=== PATIENT | male | born 1975 | race Caucasian/White ===

== ENCOUNTER 2020-02-07 13:25 | Outpatient (REF) | payer MEDICARE, MEDICAID, SELFPAY ==
--- NOTE | 2020-02-07 | XR_ITS ---
EXAMINATION: XR HAND, LEFT CLINICAL INFORMATION: Left hand pain, tenderness inner thumb area. COMPARISON: Radiographs left wrist 11/06/2009. TECHNIQUE: PA, lateral, and oblique views of the left hand. FINDINGS: There is no acute or healing fracture, dislocation, destructive process. Bony mineralization is normal. The carpus and MCP joints show no narrowing or erosive changes. There is some borderline narrowing fifth finger DIP joint. No visible soft tissue abnormality on plain film. IMPRESSION: Unremarkable left hand.
== END 2020-02-07 13:26 | disposition home or self-care (01) ==
LOC: HO.HMGCX 13:25
PROVIDERS: PCP Internal Medicine; Visit Provider Internal Medicine
DX: M67.442 Ganglion, left hand (principal)
CPT/HCPCS: 73130

== ENCOUNTER → 2020-02-28 10:16 | Outpatient (BNVA) | payer MEDICARE, MEDICAID, SELFPAY | PROVIDERS: PCP Internal Medicine; Visit Provider Physician Assistant | DX: M65.312 Trigger thumb, left thumb (principal); E11.9 Type 2 diabetes mellitus without complications; Z79.4 Long term (current) use of insulin | CPT/HCPCS: 20550; 20600; 99212; J1020 ==

== ENCOUNTER → 2020-04-02 07:45 | Outpatient (BNVA) | payer MEDICARE, MEDICAID, SELFPAY | PROVIDERS: PCP Internal Medicine; Visit Provider Surgery | DX: E66.01 Morbid (severe) obesity due to excess calories (principal) | CPT/HCPCS: Q3014 ==

== ENCOUNTER → 2020-04-08 14:08 | Outpatient (BNVA) | payer MEDICARE, MEDICAID, SELFPAY | PROVIDERS: PCP Internal Medicine; Visit Provider Physician Assistant | DX: Z76.89 Persons encountering health services in other specified circumstances (principal) ==

== ENCOUNTER → 2020-04-30 08:20 | Outpatient (BNVA) | payer MEDICARE, MEDICAID, SELFPAY | PROVIDERS: PCP Internal Medicine; Visit Provider Surgery | DX: E66.01 Morbid (severe) obesity due to excess calories (principal) | CPT/HCPCS: Q3014 ==

== ENCOUNTER → 2020-05-28 08:15 | Outpatient (BNVA) | payer MEDICARE, MEDICAID, SELFPAY | PROVIDERS: PCP Internal Medicine; Visit Provider Surgery ==

== ENCOUNTER → 2020-10-06 09:28 | Outpatient (BNVA) | payer MEDICARE, MEDICAID, SELFPAY | PROVIDERS: PCP Internal Medicine; Referring Provider Internal Medicine; Visit Provider Physician Assistant ==

== ENCOUNTER → 2020-10-13 11:07 | Outpatient (BNVA) | payer MEDICARE, MEDICAID, SELFPAY | PROVIDERS: PCP Internal Medicine; Referring Provider Internal Medicine; Visit Provider Physician Assistant ==

== ENCOUNTER → 2020-10-20 09:24 | Outpatient (BNVA) | payer MEDICARE, MEDICAID, SELFPAY | PROVIDERS: PCP Internal Medicine; Visit Provider Physician Assistant ==

== ENCOUNTER → 2020-10-31 09:00 | Outpatient (BNVA) | payer MEDICARE, MEDICAID, SELFPAY | PROVIDERS: PCP Internal Medicine; Visit Provider Physician Assistant ==

== ENCOUNTER 2021-01-25 01:01 | Emergency (ER) | payer MEDICARE, MEDICAID, SELFPAY ==
--- NOTE | ~2021-01-25 | XR_ITS ---
EXAMINATION: XR HAND, LEFT CLINICAL INFORMATION: Pain. COMPARISON: 02/07/2020 TECHNIQUE: 3 views of the left hand FINDINGS: No fracture or dislocation. Alignment is anatomic. Carpal rows are well aligned. Joint spaces are maintained. Soft tissues are unremarkable. XR/XR hand wrist LT IMPRESSION: Unremarkable appearance of the left hand.
[2021-01-25 01:15] VITALS: BP 130/60; BP 140/90; PULSE 110; PULSE 84; RESP 18; TEMP 37.1; O2SAT 95; O2SAT 96; BMI 71.1
--- NOTE | 2021-01-25 01:24 | ECG_ITS ---
Test Reason : SYNCOPE Blood Pressure : / mmHG Vent. Rate : 089 BPM Atrial Rate : 058 BPM P-R Int : 000 ms QRS Dur : 084 ms QT Int : 380 ms P-R-T Axes : 000 013 041 degrees QTc Int : 462 ms Atrial fibrillation Low voltage QRS Cannot rule out Inferior infarct (cited on or before 18-JUN-2019) Cannot rule out Anterior infarct (cited on or before 18-JUN-2019) Abnormal ECG When compared with ECG of 22-SEP-2019 18:42, Vent. rate has decreased Referred By: Mavis Merrill Electronically Signed By:ANIVAL PEPPER
--- NOTE | 2021-01-25 01:48 | ED_ITS ---
HPI - Syncope General Chief Complaint: Syncope Stated Complaint: syncopal episode Time Seen by Provider: 01/25/21 01:24 Source: patient Mode of arrival: EMS History of Present Illness HPI narrative: 45-year-old male who presents with history of diabetes/morbid obesity/atrial fibrillation who presents via EMS after he states that for the pa st couple of days he has had multiple episodes of diarrhea as well as nausea and some vomiting. He states his last vomiting episode was approximately 11 30 this morning and he was able to tolerate some soup at approximately 4:00 p.m.. He says that he was watching football game with his father and then ?the next thing he knew he was in the kitchen on the floor . He states he had a fever that was measured 102 yesterday but denies any fevers today and denies any sore throat, cough, increase shortness of breath, chest pain/palpitations, urinary pain/burning/frequency. Patient states that he has lost weight and it has decreased from 625 to 550 which has negated typical diabetic medications. Patient is not on anticoagulation secondary to his epilepsy. Patient has received both COVID-19 vaccines. Related Data Home Medications Medication Instructions Recorded Confirmed aspirin 81 mg tablet,delayed 81 mg PO DAILY 02/28/20 release (Adult Low Dose Aspirin) insulin aspart U-100 100 unit/mL 5 unit SUBCUT TID 02/28/20 (3 mL) subcutaneous pen (Novolog Flexpen U-100 Insulin aspart) insulin glargine 100 unit/mL 10 unit SUBCUT QPM 02/28/20 subcutaneous solution (Lantus U-100 Insulin) phenytoin sodium extended 100 mg 100 mg PO BID 02/28/20 capsule Previous Rx's Medication Instructions Recorded arm brace (Wrist Brace) #1 ea 02/28/20 Allergies Allergy/AdvReac Type Severity Reaction Status Date / Time codeine [Codeine] Allergy Unknown RASH, hives Unverified 01/25/21 02:46 ibuprofen [From Motrin] Allergy Unknown HIVES Unverified 04/02/20 08:55 Motrin Allergy Unknown hives Uncoded 01/25/21 02:46 Review of Systems Review of Systems: Pertinent positives and negatives as stated in HPI 10 point review of systems is otherwise negative. [facility] Past Medical History Source: nursing notes reviewed Medical History A-fib Aftercare following bilateral ankle joint replacement surgery Diabetes NORIS (obstructive sleep apnea) Right hand dominant Seizure disorder Family History Family History Paternal Grandmother Myocardial infarction Maternal Grandfather Myocardial infarction Brother No problems noted. Sister No problems noted. Sister No problems noted. Social History Social History Alcohol intake: never Patient Tobacco Use Status: Never used Tobacco Use of substances other than those prescribed or required for medical reasons: No Advance Directives: No Current occupational status: employed and disabled Physical Exam Vital Signs: Vital Signs: Last Vital Signs Temp 98.7 F 01/25/21 01:15 Pulse 84 01/25/21 01:15 Resp 18 01/25/21 01:15 BP 140/90 H 01/25/21 01:15 Pulse Ox 95 01/25/21 01:15 Body Mass Index 71.1 VITAL SIGNS: Reviewed. GENERAL: Well developed, well nourished, in no acute distress. HEAD: Normocephalic/atraumatic EYES: PERRLA, EOMI OROPHARYNX: no oral lesions noted, posterior pharynx clear NECK: Supple, no adenopathy LUNGS: Normal breath sounds. No adventitious sounds or accessory muscle use, no tachypnea SpO2<95> CARDIOVASCULAR: Regular rate and rhythm without noted murmurs, no JVD or lower extremity edema. ABDOMEN: Obese, exam limited by body habitus, Soft, non-tender, non-distended with bowel sounds. MUSCULOSKELETAL: No tenderness, deformities, or effusions noted on gross inspection. EXTREMITIES: No cyanosis, clubbing or edema. SKIN: Inspection of the skin reveals no rashes, ulcerations, jaundice, pallor, or petechiae. NEUROLOGIC: Alert and oriented x 4. Strength and sensation to light touch were grossly intact x 4. Course Course Course Narrative: 45-year-old male with history and clinical presentation most consistent with syncopal episode secondary to dehydration given 2 days of fever, nausea, vomiting, diarrhea. However, will evaluate for anemia, arrhythmia and competing etiologies of infection. Review of all investigations otherwise negative for evidence of infection, anemia, arrhythmia. And on re-evaluation patient reports feeling a lot better after receiving IV fluid resuscitation. At this time it is felt that the syncopal episode was secondary to volume depletion due to suspected viral infection. MDM - Syncope Lab Data Result diagrams: 01/25/21 01:58 01/25/21 01:58 Labs: Lab Results 01/25/21 01/25/21 01/25/21 Range/Units 01:58 01:58 01:58 WBC 8.3 (4.8-10.8) X10*3/uL RBC 5.04 (4.60-5.80) X10*6/uL Hgb 14.6 (14.0-18.0) g/dl Hct 45.4 (42-52) % MCV 90.1 (80-98) fL MCH 29.0 (27.0-33.0) pg MCHC 32.2 (31.0-36.0) g/dl RDW 14.3 (11.0-16.0) % Plt Count 135 L (160-400) X10*3/uL MPV 11.5 (9.4-12.4) fL Immature Gran % (Auto) 1.7 H (0.0-0.4) % Neut % (Auto) 60.0 (45-73) % Lymph % (Auto) 24.7 (20-40) % [place] % (Auto) 10.2 (2-11) % Eos % (Auto) 2.9 (0-4) % Baso % (Auto) 0.5 (0-2) % Lymph # (Auto) 2.0 (1.2-4.9) X10*3/uL [place] # (Auto) 0.8 (0.1-1.2) X10*3/uL Eos # (Auto) 0.2 (0.0-0.4) X10*3/uL Baso # (Auto) 0.0 (0.0-0.2) X10*3/uL Abs Immat Gran (auto) 0.14 H (0.00-0.03) X10*3/uL Absolute Neuts (auto) 5.0 (2.0-8.3) X10*3/uL Absolute Nucleated RBC 0.000 (0.0-0.012) X10*3/uL Nucleated RBC % (auto) 0.0 (0.0-0.2) /100WBC PT 11.1 (9.9-13.0) SEC INR 1.0 (0.9-1.1) Sodium 141 (135-145) mmol/L Potassium 4.6 (3.3-5.1) mmol/L Chloride 102 (96-108) mmol/L Carbon Dioxide 33 H (22-29) mmol/L Anion Gap 11 L (12-20) BUN 17 H (9-16) mg/dL Creatinine 0.89 (0.5-1.4) mg/dL Estim Creat Clear Calc 210.2 Estimated GFR > 60 Random Glucose 197 H (60-115) mg/dL Calcium 9.1 (8.4-10.2) mg/dL Total Bilirubin < 0.2 (0.0-1.0) mg/dL AST 35 (5-37) U/L ALT 33 (0-40) U/L Alkaline Phosphatase 188 H (39-117) U/L Total Protein 7.0 (6.5-8.0) g/dL Albumin 3.9 (3.5-5.0) g/dL ECG Data Attestation: I personally reviewed and interpreted this ECG as follows: Prior ECG tracings: available for review (09/22/2019 no acute changes on co mparison) Interpretation: Atrial fibrillation, HR-89, no STEMI, QRS/QTC are within normal limits. Discharge Plan Discharge Clinical Impression: Syncope, Dehydration, Viral illness Patient Disposition: Home, Self-Care Instructions: Syncope (ED), Dehydration (ED), Viral Syndrome (ED) Additional Instructions: 1. Resume all home medications as prescribed. 2. Continue to increase fluid hydration especially with water. 3. Please follow up with the primary care provider on Tuesday morning for re- evaluation further outpatient management. Return to the ER for acute worsening of symptoms. Prescriptions: No Action aspirin [Adult Low Dose Aspirin] 81 mg tablet,delayed release (DR/EC) 81 mg PO DAILY RF: 0 Lantus U-100 Insulin 100 unit/mL solution 10 unit subcut QPM RF: 0 insulin aspart U-100 [Novolog Flexpen U-100 Insulin] 100 unit/mL (3 mL) insulin pen 5 unit subcut TID RF: 0 phenytoin sodium extended 100 mg capsule 100 mg PO BID RF: 0 (DME) Wrist Brace Misc See Rx Instructions .MEDSUPPLY Qty: 1 RF: 0 Referrals: Gt Menendez MD [Primary Care Provider] - 2 days
[2021-01-25 02:04] LABS: Eosinophils Absolute Auto 0.2 X10*3/uL (0.0-0.4); Imm Gran Abs Auto 0.14 X10*3/uL (0.00-0.03); Imm Gran Pct Auto 1.7 % (0.0-0.4); PLT CLUMP 1; SCAN SMEAR FLAG 1
[2021-01-25 02:06] LABS: Basophils Percent Auto 0.5 % (0-2); Eosinophils Percent Auto 2.9 % (0-4); Hematocrit 45.4 % (42-52); Hemoglobin 14.6 g/dl (14.0-18.0); Lymphocytes Percent Auto 24.7 % (20-40); Mean Corpuscular HGB Conc 32.2 g/dl (31.0-36.0); Mean Corpuscular Volume 90.1 fL (80-98); Mean Platelet Volume 11.5 fL (9.4-12.4); Monocytes Absolute Auto 0.8 X10*3/uL (0.1-1.2); Monocytes Percent Auto 10.2 % (2-11); Platelet Count 135 X10*3/uL (160-400); Red Blood Count 5.04 X10*6/uL (4.60-5.80); Red Cell Distribution Width 14.3 % (11.0-16.0); White Blood Count 8.3 X10*3/uL (4.8-10.8)
[2021-01-25 02:09] LABS: MANUAL DIFF FLAG NO
[2021-01-25 02:12] LABS: Prothrombin Time 11.1 SEC (9.9-13.0)
[2021-01-25 02:26] LABS: Alanine Aminotransferase 33 U/L (0-40); Albumin Level 3.9 g/dL (3.5-5.0); Alkaline Phosphatase 188 U/L (39-117); Anion Gap 11 (12-20); Aspartate Amino Transferase 35 U/L (5-37); Bilirubin Total < 0.2 mg/dL (0.0-1.0); Blood Urea Nitrogen 17 mg/dL (9-16); Calcium 9.1 mg/dL (8.4-10.2); Carbon Dioxide 33 mmol/L (22-29); Chloride 102 mmol/L (96-108); Creatinine Clr Calc Pharmacy 210.2; Estimated Glomerular Filt Rate > 60; Glucose Random 197 mg/dL (60-115); Potassium 4.6 mmol/L (3.3-5.1); Sodium 141 mmol/L (135-145)
[2021-01-25] MEDS: 0.9 % Sodium Chloride 2,000 ML 999 ML IV (02:49)
[2021-01-25 04:27] LABS: Appearance Urine CLEAR; Color Urine YELLOW; Glucose Urine UA NEG (NEG); Leukocyte Esterase Urine NEG (NEG); Nitrite Urine NEG (NEG); Specific Gravity - Urine 1.025 (1.005-1.025); Urine Blood NEG (NEG); Urine Ketones NEG (NEG); Urine Protein NEG (NEG-TRACE)
== END 2021-01-25 05:52 | disposition home or self-care (01) ==
PROVIDERS: Emergency Provider Student in an Organized Health Care Education/Training Program; PCP Internal Medicine
DX: B34.9 Viral infection, unspecified (principal); R55 Syncope and collapse; M25.532 Pain in left wrist; E86.0 Dehydration; Z20.822 Contact with and (suspected) exposure to COVID-19; Z79.899 Other long term (current) drug therapy
CPT/HCPCS: 36415; 73110; 73130; 80053; 81003; 85025; 85610; 93005; 96360; 96361; 99284

== ENCOUNTER → 2021-02-23 11:05 | Outpatient (BNVA) | payer MEDICARE, MEDICAID, SELFPAY | PROVIDERS: PCP Internal Medicine; Referring Provider Internal Medicine; Visit Provider Internal Medicine | DX: I48.19 Other persistent atrial fibrillation (principal); E66.01 Morbid (severe) obesity due to excess calories | CPT/HCPCS: 99202 ==

== ENCOUNTER → 2021-03-05 12:54 | Outpatient (BNVA) | payer MEDICARE, MEDICAID, SELFPAY | PROVIDERS: PCP Internal Medicine; Visit Provider Physician Assistant Surgical | DX: E66.01 Morbid (severe) obesity due to excess calories (principal); Z68.45 Body mass index [BMI] 70 or greater, adult | CPT/HCPCS: 99212 ==

== ENCOUNTER → 2021-03-13 10:46 | Outpatient (BNVA) | payer MEDICARE, MEDICAID, SELFPAY | PROVIDERS: PCP Internal Medicine; Referring Provider Internal Medicine; Visit Provider Physician Assistant Surgical ==

== ENCOUNTER 2021-03-22 16:03 | Inpatient (IN) | payer MEDICARE, MEDICAID, SELFPAY ==
[2021-03-22] VITALS (7 sets, daily range): BP systolic 120–137; BP diastolic 76–97; PULSE 75–110; RESP 16–20; TEMP 36.9–37.1; O2SAT 85–93; BMI 74.3; BMI 78.4
--- NOTE | 2021-03-22 | ECG_ITS ---
Test Reason : CHEST PAIN Blood Pressure : / mmHG Vent. Rate : 102 BPM Atrial Rate : 000 BPM P-R Int : 000 ms QRS Dur : 078 ms QT Int : 354 ms P-R-T Axes : 000 007 035 degrees QTc Int : 461 ms Atrial fibrillation with rapid ventricular response Low voltage QRS Cannot rule out Inferior infarct (cited on or before 18-JUN-2019) Cannot rule out Anterior infarct (cited on or before 18-JUN-2019) Abnormal ECG When compared with ECG of 25-JAN-2021 01:54, T wave inversion now evident in Anterior leads Referred By: Generic ED Physician Electronically Signed By:WILLIAM TAYLOR MD
--- NOTE | ~2021-03-22 | NM_ITS ---
EXAMINATION: NM LUNG IMAGE PERFUSION CLINICAL INFORMATION: Shortness of breath. COMPARISON: XR chest 03/22/2021 TECHNIQUE: Following intravenous administration of 6 mCi of 99m technetium MAA, imaging of both lungs were obtained in multiple projections. Ventilation study was not performed. FINDINGS: There is a small subsegmental focal defect seen in left upper lobe apical posterior segment. There are nonsegmental defects seen at bilateral moody. Otherwise, there is normal perfusion seen to all segments of both lungs. Chest x-ray obtained 03/22/2021 reveals patchy opacity in the left upper lobe suspicious of an infiltrate. There are increased vascular markings throughout both lungs likely mild vascular congestion. No gross bony abnormality is seen. NM/NM pul perfusion IMPRESSION: Single small matched focal subsegmental defect left upper lobe on perfusion and chest x-ray. In addition there are nonsegmental defects in bilateral hilar regions. On chest x-ray, the findings are suggestive of likely patchy infiltrate in the left upper lobe with increased vascular markings. Overall the findings are suggestive of low probability for PE.
--- NOTE | ~2021-03-22 | XR_ITS ---
EXAMINATION: XR CHEST CLINICAL INFORMATION: Shortness of breath. COMPARISON: Chest x-ray 09/22/2019 TECHNIQUE: Frontal portable view of the chest was obtained. 5:10 PM FINDINGS: Lung volume low accentuating bronchovascular markings. No significant pulmonary vascular congestion. No focal consolidation or pleural effusion. No pneumothorax. Cardiac silhouette remains prominent. XR/XR chest 1V IMPRESSION: No acute abnormality of chest.
--- NOTE | ~2021-03-22 | US_ITS ---
EXAMINATION: US VENOUS ULTRASOUND WITH DOPPLER LOWER EXTREMITY, BILATERAL CLINICAL INFORMATION: Concern for pulmonary embolism. COMPARISON: None TECHNIQUE: Ultrasound of the deep veins is performed from the hip to the calf with compression sonography and color and pulse Doppler assessment. Spectral analysis with color-flow imaging is performed. FINDINGS: Exam dated to be technically difficult due to body habitus. Calf veins were not seen in either lower extremity. RIGHT: There is normal venous compression and respiratory variation and augmented flow. The visualized common femoral vein, superficial femoral vein, profunda femoral vein, popliteal vein, and the trifurcation region shows no evidence of deep venous thrombosis. There is no significant popliteal fossa cyst. LEFT: There is normal venous compression and respiratory variation and augmented flow. The visualized common femoral vein, superficial femoral vein, profunda femoral vein, popliteal vein, and the trifurcation region shows no evidence of deep venous thrombosis. There is no significant popliteal fossa cyst. If the patient's symptoms persist, followup ultrasound in 5 days 7 days might be of value to exclude proximal propagation from a non-visualized calf vein. US/US venous duplex LE BI IMPRESSION: No DVT demonstrated in the bilateral lower extremity.
--- NOTE | ~2021-03-22 | XR_ITS ---
EXAMINATION: XR CHEST CLINICAL INFORMATION: Shortness of breath. COMPARISON: Chest 03/22/2021 TECHNIQUE: 2 views of the chest were obtained. FINDINGS: The lungs are well-expanded with patchy opacity seen in left upper lobe suspicious for an infiltrate. Rest of the lungs are clear. Mild increased pulmonary vascularity seen. The heart size is normal. No pleural effusion seen. No gross bony abnormality. XR/XR chest 2V IMPRESSION: Findings strongly suspicious for left upper lobe infiltrate.
[2021-03-22 16:43] LABS: Glucose, Whole Blood 240 mg/dL (60-115)
--- NOTE | 2021-03-22 16:44 | ED_ITS ---
HPI - SOB/Dyspnea General Chief Complaint: Dyspnea Stated Complaint: shortness of breath/chest pain Time Seen by Provider: 03/22/21 16:44 Source: patient Mode of arrival: EMS Limitations: physical limitation (morbid obesity; ) History of Present Illness HPI Narrative: 45-year-old male who is morbidly obese weighing 550 lb, presents for 2 days of constant chest pain, 2 days of shortness of breath, and 3 days of a dry cough. Patient describes his chest pain as pleuritic in nature and radiating across his chest. Patient endorses feeling body aches and chills. Patient states chest pain is like a sharp pain today a 10/02. Past medical history of atrial fibrillation, seizure disorder, insulin-dependent diabetes, brain tumor. Patient states he was never smoker, no history of COPD, no diagnosis of heart failure. Patient recently saw cardiology as part of starting a weight loss management program. Patient is not anticoagulated for his atrial fibrillation due to his epilepsy. Related Data Home Medications Medication Instructions Recorded Confirmed insulin aspart U-100 100 unit/mL 5 unit SUBCUT TID 02/28/20 03/05/21 (3 mL) subcutaneous pen (Novolog Flexpen U-100 Insulin aspart) phenytoin sodium extended 100 mg 700 mg PO BID cap 02/23/21 03/05/21 capsule (Dilantin Extended) aspirin 325 mg tablet 325 mg PO DAILY 03/05/21 03/05/21 atorvastatin 20 mg tablet mg PO 03/05/21 03/05/21 Allergies Allergy/AdvReac Type Severity Reaction Status Date / Time codeine [Codeine] Allergy Unknown RASH, hives Verified 03/05/21 13:05 ibuprofen [From Motrin] Allergy Unknown HIVES Verified 03/05/21 13:05 Motrin Allergy Unknown hives Uncoded 03/05/21 13:05 Review of Systems Constitutional: Constitutional: Reports body ache(s), Reports chills, Reports fatigue, Denies fever(s), Denies headache(s), Reports malaise and Denies weakness Eyes: Eyes: Denies diplopia ENT: Denies vertigo, Denies dizziness, Denies otalgia, Denies headache(s), Denies mouth pain, Denies post nasal drip, Denies sinus pain, Denies sinus pressure, Denies sore throat and Denies throat swelling Cardiovascular: Cardiovascular: Reports chest pain, Denies syncope, Denies leg edema, Denies lightheadedness, Denies Loss of Consciousness, Denies palpitations and Reports dyspnea Respiratory: Respiratory: Reports chest congestion, Reports cough, Reports pain with cough, Reports dyspnea and Reports wheezing Gastrointestinal: Gastrointestinal: Denies abdominal pain, Denies hemato chezia, Denies constipation, Reports diarrhea, Denies nausea and Denies vomiting Musculoskeletal: Musculoskeletal: Reports no additional musculoskeletal complaints Neurologic: Denies confusion, Denies vertigo, Denies dizziness, Denies syncope, Denies headache(s) and Denies weakness Psychiatric: Psychiatric: Denies anxiety, Denies confusion and Denies depression Endocrine: Endocrine: Reports fatigue and Denies palpitations Allergic/Immunologic: Allergic/Immunologic: Denies throat swelling and Reports wheezing PMFSH Past Medical History Medical History A-fib Aftercare following bilateral ankle joint replacement surgery Brain tumor Diabetes NORIS (obstructive sleep apnea) Persistent atrial fibrillation Right hand dominant Seizure disorder Surgical History History of ankle surgery Family History Family History Paternal Grandmother Myocardial infarction Maternal Grandfather Myocardial infarction Brother No problems noted. Sister No problems noted. Sister No problems noted. Social History Social History Alcohol intake: never Patient Tobacco Use Status: Never used Tobacco Use of substances other than those prescribed or required for medical reasons: No Advance Directives: No Advance Directives Information Provided: No Current occupational status: employed and disabled Physical Exam Vital Signs: Vital Signs: Last Vital Signs Temp 98.8 F 03/22/21 16:35 Pulse 110 H 03/22/21 18:23 Resp 20 03/22/21 18:23 BP 135/88 03/22/21 16:34 Pulse Ox 85 L 03/22/21 18:23 Oxygen Flow Rate 2 03/22/21 16:30 Body Mass Index 74.3 Const: General: in distress mild and respiratory; No confusion Nutritional Appearance: obese (550 lb) morbidly obese Orientation/consciousness: patient oriented x3 and No confusion Limitations: physical limitations (d/t obesity) HENMT: Head: Yes normal to inspection, Yes normocephalic and Yes atraumatic Ears: hearing grossly normal bilaterally, external ears normal, TM's normal bilaterally and EAC's normal General nose exam: Normal external nose present Face and sinus: Yes normal facial exam and Yes sinuses nontender Mouth: Normal oral and palatal mucosa present Throat: Yes posterior oropharynx normal Eyes: Conjunctivae: conjunctivae normal Pupils: Equal, round and reactive pupils present EOM: EOMs intact bilaterally Neck: Neck: Yes full ROM, Yes no lymphadenopathy and Yes supple Resp: Effort & Inspection: normal respiratory effort and able to speak in complete sentences Auscultation: no crackles, no rales, no rhonchi and wheezes scattered wheezes and throughout Cardio: Rate: regular rate Rhythm: regular rhythm Heart sounds: S1 normal heart sound present and S2 normal heart sound present GI: Inspection: Yes Abdominal panniculus present, Yes obesity and Yes striae Palpation (GI): Soft to palpation, nontender, no guarding and not rigid Percussion: Yes normal to percussion Auscultation: normal bowel sounds Skin: General skin exam: no rashes or lesions noted Neuro: General: patient oriented x3 and No confusion Cranial nerves: Yes Equal, round and reactive pupils present Extrem: General: Yes normal to inspection and Yes full ROM Psych: Appearance: grossly normal Affect: normal affect Attitude: cooperative Thought process: Normal thought process present Course Course Course Narrative: 45-year-old morbidly obese male who weighs 550 lb presents for 3 days of dry cough, and 2 days of constant chest pressure and shortness of breath. On exam, patient is hypoxic, satting 89% on 2 L of oxygen. Heart rate 103. Normotensive. Patient's lungs are wheezy diffusely. Ordered Solu-Medrol, and nebulizer, chest x-ray, labs, troponin, BNP, D-dimer. Reevaluation(s) Reevaluation #1: Patient feeling better after breathing treatment. However his oxygen requirement is increasing to keep his saturation above 92%. Labs are remarkable for D-dimer of 1929. Chest x-ray shows no pleural effusion or consolidation but does show cardiomegaly. BNP 314. Chemistry is unremarkable except for blood glucose at 240., CBC unremarkable except for platelets at 126. Troponin 10.3. Most likely diagnosis pulmonary emboli. Chest x-ray shows no pneumonia, BNP is not significantly elevated to corroborate a diagnosis of heart failure. Discussed with , the patient is too obese to fit into our scanner. He is 545 lb, our CT scanner will only accommodate for 40 lb. Discussed plan to Lovenox patient, get him admitted, and do V/Q scan tomorrow. Discussed with pharmacist amount of Lovenox to use. She looked it up and got back to me, and says up-to-date has evidence that 0.7 mg per kg is appropriate for morbidly obese patients. This is what she would recommend for this patient. If we used the normal 1 milligram/kilogram, patient would get 248 mg of Lovenox, which is too much. We will use this dosing, the 0.7mg/kg.. Reevaluation #2: Discussed with hospitalist, Dr Santo, who would prefer I transfer pt to a [facility]. Pt signed out to Dr Gutierrez, pending transfer or admission. MDM - SOB/Dyspnea Lab Data Result diagrams: 03/22/21 19:45 03/22/21 17:40 Labs: Lab Results 03/22/21 03/22/21 03/22/21 Range/Units 16:37 17:40 17:40 WBC 8.3 (4.8-10.8) X10*3/uL RBC 5.31 (4.60-5.80) X10*6/uL Hgb 15.5 (14.0-18.0) g/dl Hct 47.4 (42.0-52.0) % MCV 89.3 (80.0-98.0) fL MCH 29.2 (27.0-33.0) pg MCHC 32.7 (31.0-36.0) g/dl RDW 13.6 (11.0-16.0) % Plt Count 126 L (160-400) X10*3/uL MPV 12.3 (9.4-12.4) fL Immature Gran % (Auto) 0.7 H (0.0-0.4) % Neut % (Auto) 66.3 (45-73) % Lymph % (Auto) 21.8 (20-40) % [place] % (Auto) 8.5 (2-11) % Eos % (Auto) 2.3 (0-4) % Baso % (Auto) 0.4 (0-2) % Lymph # (Auto) 1.8 (1.2-4.9) X10*3/uL [place] # (Auto) 0.7 (0.1-1.2) X10*3/uL Eos # (Auto) 0.2 (0.0-0.4) X10*3/uL Baso # (Auto) 0.0 (0.0-0.2) X10*3/uL Abs Immat Gran (auto) 0.06 H (0.00-0.03) X10*3/uL Absolute Neuts (auto) 5.5 (2.0-8.3) x10*3/uL Absolute Nucleated RBC 0.000 (0.0-0.012) X10*3/uL Nucleated RBC % (auto) 0.0 (0.0-0.2) /100WBC PT (9.9-13.0) SEC INR (0.9-1.1) APTT (24.1-38.0) SEC D-Dimer High Sensitivty NG/ML Sodium 140 (135-145) mmol/L Potassium 4.4 (3.3-5.1) mmol/L Chloride 106 (96-108) mmol/L Carbon Dioxide 25 (22-29) mmol/L Anion Gap 13 (12-20) BUN 16 (9-16) mg/dL Creatinine 1.01 (0.5-1.4) mg/dL Estim Creat Clear Calc 190.7 Estimated GFR > 60 POC Glucose 240 H (60-115) mg/dL Random Glucose 231 H (60-115) mg/dL Calcium 9.4 (8.4-10.2) mg/dL Troponin I High Sens (<3.5-35.0) ng/L B-Natriuretic Peptide (<100) pg/mL Urine Color Urine Appearance Urine pH (5.0-8.0) Ur Specific [place] (1.005-1.025) Urine Protein (NEG-TRACE) MG/DL Urine Glucose (UA) (NEG) MG/DL Urine Ketones (NEG) MG/DL Urine Blood (NEG) Urine Nitrite (NEG) Ur Leukocyte Esterase (NEG) Urine RBC (0) /HPF Urine WBC (0-4) /HPF Ur Squamous Epith Cells /LPF Uric Acid Crystals /LPF Urine Bacteria /LPF Hyaline Casts /LPF Urine Mucus /LPF COVID-19 ([facility]) (Negative) COVID-19 Clin Com 03/22/21 03/22/21 03/22/21 Range/Units 17:40 17:40 17:40 WBC (4.8-10.8) X10*3/uL RBC (4.60-5.80) X10*6/uL Hgb (14.0-18.0) g/dl Hct (42.0-52.0) % MCV (80.0-98.0) fL MCH (27.0-33.0) pg MCHC (31.0-36.0) g/dl RDW (11.0-16.0) % Plt Count (160-400) X10*3/uL MPV (9.4-12.4) fL Immature Gran % (Auto) (0.0-0.4) % Neut % (Auto) (45-73) % Lymph % (Auto) (20-40) % [place] % (Auto) (2-11) % Eos % (Auto) (0-4) % Baso % (Auto) (0-2) % Lymph # (Auto) (1.2-4.9) X10*3/uL [place] # (Auto) (0.1-1.2) X10*3/uL Eos # (Auto) (0.0-0.4) X10*3/uL Baso # (Auto) (0.0-0.2) X10*3/uL Abs Immat Gran (auto) (0.00-0.03) X10*3/uL Absolute Neuts (auto) (2.0-8.3) x10*3/uL Absolute Nucleated RBC (0.0-0.012) X10*3/uL Nucleated RBC % (auto) (0.0-0.2) /100WBC PT (9.9-13.0) SEC INR (0.9-1.1) APTT (24.1-38.0) SEC D-Dimer High Sensitivty 1929 NG/ML Sodium (135-145) mmol/L Potassium (3.3-5.1) mmol/L Chloride (96-108) mmol/L Carbon Dioxide (22-29) mmol/L Anion Gap (12-20) BUN (9-16) mg/dL Creatinine (0.5-1.4) mg/dL Estim Creat Clear Calc Estimated GFR POC Glucose (60-115) mg/dL Random Glucose (60-115) mg/dL Calcium (8.4-10.2) mg/dL Troponin I High Sens 10.3 (<3.5-35.0) ng/L B-Natriuretic Peptide 314 H (<100) pg/mL Urine Color Urine Appearance Urine pH (5.0-8.0) Ur Specific [place] (1.005-1.025) Urine Protein (NEG-TRACE) MG/DL Urine Glucose (UA) (NEG) MG/DL Urine Ketones (NEG) MG/DL Urine Blood (NEG) Urine Nitrite (NEG) Ur Leukocyte Esterase (NEG) Urine RBC (0) /HPF Urine WBC (0-4) /HPF Ur Squamous Epith Cells /LPF Uric Acid Crystals /LPF Urine Bacteria /LPF Hyaline Casts /LPF Urine Mucus /LPF COVID-19 (KIKA) Negative (Negative) COVID-19 Clin Com See Note 03/22/21 03/22/21 03/22/21 Range/Units 18:26 19:45 19:45 WBC 7.1 (4.8-10.8) X10*3/uL RBC 5.37 (4.60-5.80) X10*6/uL Hgb 15.7 (14.0-18.0) g/dl Hct 48.6 (42.0-52.0) % MCV 90.5 (80.0-98.0) fL MCH 29.2 (27.0-33.0) pg MCHC 32.3 (31.0-36.0) g/dl RDW 13.5 (11.0-16.0) % Plt Count 115 L (160-400) X10*3/uL MPV 12.5 H (9.4-12.4) fL Immature Gran % (Auto) (0.0-0.4) % Neut % (Auto) (45-73) % Lymph % (Auto) (20-40) % [place] % (Auto) (2-11) % Eos % (Auto) (0-4) % Baso % (Auto) (0-2) % Lymph # (Auto) (1.2-4.9) X10*3/uL [place] # (Auto) (0.1-1.2) X10*3/uL Eos # (Auto) (0.0-0.4) X10*3/uL Baso # (Auto) (0.0-0.2) X10*3/uL Abs Immat Gran (auto) (0.00-0.03) X10*3/uL Absolute Neuts (auto) (2.0-8.3) x10*3/uL Absolute Nucleated RBC 0.000 (0.0-0.012) X10*3/uL Nucleated RBC % (auto) 0.0 (0.0-0.2) /100WBC PT 13.1 H (9.9-13.0) SEC INR 1.2 H (0.9-1.1) APTT 31.3 (24.1-38.0) SEC D-Dimer High Sensitivty NG/ML Sodium (135-145) mmol/L Potassium (3.3-5.1) mmol/L Chloride (96-108) mmol/L Carbon Dioxide (22-29) mmol/L Anion Gap (12-20) BUN (9-16) mg/dL Creatinine (0.5-1.4) mg/dL Estim Creat Clear Calc Estimated GFR POC Glucose (60-115) mg/dL Random Glucose (60-115) mg/dL Calcium (8.4-10.2) mg/dL Troponin I High Sens (<3.5-35.0) ng/L B-Natriuretic Peptide (<100) pg/mL Urine Color YELLOW Urine Appearance CLEAR Urine pH 5.5 (5.0-8.0) Ur Specific [place] >= 1.030 H (1.005-1.025) Urine Protein 2+ H (NEG-TRACE) MG/DL Urine Glucose (UA) NEG (NEG) MG/DL Urine Ketones NEG (NEG) MG/DL Urine Blood NEG (NEG) Urine Nitrite NEG (NEG) Ur Leukocyte Esterase NEG (NEG) Urine RBC 0 (0) /HPF Urine WBC 1-4 (0-4) /HPF Ur Squamous Epith Cells TRACE /LPF Uric Acid Crystals TRACE /LPF Urine Bacteria TRACE /LPF Hyaline Casts 0-2 /LPF Urine Mucus 1+ /LPF COVID-19 ([facility]IKA) (Negative) COVID-19 Clin Com ECG Data Interpretation: Atrial fibrillation with a rate of 102, QRS 78, QTC 461, normal axis. No ST elevations or depressions, Discharge Plan Discharge Clinical Impression: Shortness of breath, Morbid obesity with body mass index (BMI) greater than or equal to 70 in adult Patient Disposition: Admitted As Inpatient
[2021-03-22 17:47] LABS: MANUAL DIFF FLAG NO
[2021-03-22 17:48] LABS: Basophils Percent Auto 0.4 % (0-2); Eosinophils Absolute Auto 0.2 X10*3/uL (0.0-0.4); Eosinophils Percent Auto 2.3 % (0-4); Hematocrit 47.4 % (42.0-52.0); Hemoglobin 15.5 g/dl (14.0-18.0); Imm Gran Abs Auto 0.06 X10*3/uL (0.00-0.03); Imm Gran Pct Auto 0.7 % (0.0-0.4); Lymphocytes Absolute Auto 1.8 X10*3/uL (1.2-4.9); Lymphocytes Percent Auto 21.8 % (20-40); Mean Corpuscular HGB Conc 32.7 g/dl (31.0-36.0); Mean Corpuscular Hemoglobin 29.2 pg (27.0-33.0); Mean Corpuscular Volume 89.3 fL (80.0-98.0); Mean Platelet Volume 12.3 fL (9.4-12.4); Monocytes Absolute Auto 0.7 X10*3/uL (0.1-1.2); Monocytes Percent Auto 8.5 % (2-11); Neutrophils Absolute Auto 5.5 x10*3/uL (2.0-8.3); Neutrophils Percent Auto 66.3 % (45-73); Platelet Count 126 X10*3/uL (160-400); Red Blood Count 5.31 X10*6/uL (4.60-5.80); Red Cell Distribution Width 13.6 % (11.0-16.0); White Blood Count 8.3 X10*3/uL (4.8-10.8)
[2021-03-22] MEDS: methylPREDNISolone Sod Succ 125 MG/2 ML VIAL IVPUSH (17:48)
[2021-03-22] MEDS: ondansetron HCL 4 MG/2 ML VIAL IVPUSH (17:48)
[2021-03-22] MEDS: Aspirin 81 MG TAB.CHEW 162 MG PO (17:48)
[2021-03-22] MEDS: Morphine Sulfate 4 MG/ML CARTRIDGE IVPUSH ×2 (17:48→21:33)
[2021-03-22 17:56] LABS: D Dimer High Sensitivity 1929 NG/ML
[2021-03-22 18:04] LABS: Anion Gap 13 (12-20); Blood Urea Nitrogen 16 mg/dL (9-16); Calcium 9.4 mg/dL (8.4-10.2); Carbon Dioxide 25 mmol/L (22-29); Chloride 106 mmol/L (96-108); Creatinine Clr Calc Pharmacy 190.7; Estimated Glomerular Filt Rate > 60; Glucose Random 231 mg/dL (60-115); Potassium 4.4 mmol/L (3.3-5.1); Sodium 140 mmol/L (135-145)
[2021-03-22 18:07] LABS: B Type Natriuretic Peptide 314 pg/mL (<100); Troponin-I High Sensitivity 10.3 ng/L (<3.5-35.0)
[2021-03-22 18:13] LABS: COVID-19 Test Negative (Negative); IDNOW Serial# 9DD0AD1C
[2021-03-22 18:34] LABS: Appearance Urine CLEAR; Color Urine YELLOW; Glucose Urine UA NEG (NEG); Leukocyte Esterase Urine NEG (NEG); Nitrite Urine NEG (NEG); PH 5.5 (5.0-8.0); Specific Gravity - Urine >= 1.030 (1.005-1.025); UACC Culture Trigger NO; Urine Blood NEG (NEG); Urine Ketones NEG (NEG); Urine Protein 2+ MG/DL (NEG-TRACE)
[2021-03-22] MEDS: Phenytoin Sodium Extended 100 MG CAPSULE 700 MG PO (18:34)
[2021-03-22] MEDS: Albuterol/Iprat 2.5/0.5MG 3 ML AMPUL.NEB INHALE (18:37)
[2021-03-22 19:16] LABS: Bacteria Urine TRACE /LPF; Hyaline Casts Urine 0-2 /LPF; Mucus Urine 1+ /LPF; RBC Urine 0 /HPF (0); Squamous Epithelial Cell Urine TRACE /LPF
[2021-03-22 19:17] LABS: Uric Acid Crystals Urine TRACE /LPF
[2021-03-22 20:04] LABS: INTERNATIONAL NORM RATIO 1.2 (0.9-1.1); Prothrombin Time 13.1 SEC (9.9-13.0)
[2021-03-22 20:06] LABS: Hematocrit 48.6 % (42.0-52.0); Hemoglobin 15.7 g/dl (14.0-18.0); Mean Corpuscular HGB Conc 32.3 g/dl (31.0-36.0); Mean Corpuscular Hemoglobin 29.2 pg (27.0-33.0); Mean Corpuscular Volume 90.5 fL (80.0-98.0); Mean Platelet Volume 12.5 fL (9.4-12.4); Partial Thromboplastin Time 31.3 SEC (24.1-38.0); Platelet Count 115 X10*3/uL (160-400); Red Blood Count 5.37 X10*6/uL (4.60-5.80); Red Cell Distribution Width 13.5 % (11.0-16.0); White Blood Count 7.1 X10*3/uL (4.8-10.8)
[2021-03-22 20:46] LABS: ABG Base Excess -0.8 mmol/L; ABG HCO3 25 mmol/L (22-26); ABG pCO2 45 mmHg (32-45); ABG pCO2 TC 45 mmHg (32-45); ABG pH 7.34 (7.35-7.45); ABG pH TC 7.34 (7.35-7.45); ABG pO2 64 mmHg (83-108); ABG pO2 TC 65 (83-108)
--- NOTE | 2021-03-22 21:15 | PC.NURSE ---
pt reporting lung/chest pain and SOB - SaO2 85% on 6L-35% Venti mask, respiratory called for eval
[2021-03-22 21:24] LABS: ABG Refer to POC result
[2021-03-22] MEDS: Heparin Sodium,Porcine 5,000 UNIT/ML VIAL 10000 UNIT IVPUSH (21:34)
[2021-03-22] MEDS: Heparin Sodium,Porcine/1/2NS 25,000 UNIT/250 ML IV.SOLN 25 UNIT IVCONT (21:36)
--- NOTE | 2021-03-22 21:41 | PC.NURSE ---
Heparin drip started per JUN at 2140. 6 hour PTT HD due at 0340AM on TuesdayMarch 23
--- NOTE | 2021-03-22 21:55 | PC.NURSE ---
plan for pt to be admit to the hospital - he is aware of the plan
--- NOTE | 2021-03-22 22:02 | PC.NURSE ---
med rec complete
--- NOTE | 2021-03-22 22:49 | PC.NURSE ---
[facility] declined, [facility] declined, [facility] declined
[2021-03-23] VITALS (8 sets, daily range): BP systolic 116–128; BP diastolic 63–99; PULSE 85–115; RESP 14–20; TEMP 36.1–36.8; O2SAT 89–95; BMI 78.4
[2021-03-23] MEDS: ondansetron HCL 4 MG/2 ML VIAL IVPUSH (03:11)
[2021-03-23] MEDS: Morphine Sulfate 4 MG/ML CARTRIDGE IVPUSH (03:11)
--- NOTE | 2021-03-23 03:18 | PM.IMHP ---
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 Patient reported that over the past 2 -3days he has been having shortness of breath which has been gradually worsening. mentioned that he also had chest pain which worsens or deep inspiration; denies any recent travel or sick contacts. Denies any recent surgery. Denies any code trauma to the legs or calf pain. Denies any fever chills cough Denies any GI or symptoms. denies any signs of bleeding Patient reported that he was diagnosed with AFib about 5 years ago; not taking anticoagulation -mentions secondary to seizure disorder. Review of all other systems is negative except mentioned above ER course: Per ER team patient's D-dimer was elevated; concern for PE; unable to get CT scan because patient Weight above the limit for the CT scan. ER team mentioned that they tried to transfer the patient to outside hospital but was unable to transfer given busy at the other place patient was started on heparin drip in the ER and admitted to the hospital for further management. off note: I explained the patient about the admission process and concerns for CT scan. I spoke to the radiology team who mentioned that V/Q scan cannot be obtained [facility] as the patient's weight is beyond the capacity from the table. About possible delay in obtaining a CT scan from inpatient to inpatient tranfser as well as inpatient to CT scan transfer; patient mentioned that he understands the possible delay and is agreeable to be admitted. [facility] Medical History A-fib Aftercare following bilateral ankle joint replacement surgery Brain tumor Diabetes NORIS (obstructive sleep apnea) Persistent atrial fibrillation Right hand dominant Seizure disorder Family History Paternal Grandmother Myocardial infarction Maternal Grandfather Myocardial infarction Brother No problems noted. Sister No problems noted. Sister No problems noted. Pertinent family history: as above Surgical History History of ankle surgery Social History Alcohol intake: never Patient Tobacco Use Status: Never used Tobacco Use of substances other than those prescribed or required for medical reasons: No Advance Directives: No Advance Directives Information Provided: No Current occupational status: employed and disabled Meds Allergies Allergy/AdvReac Type Severity Reaction Status Date / Time codeine [Codeine] Allergy Unknown RASH, hives Verified 03/05/21 13:05 ibuprofen [From Motrin] Allergy Unknown HIVES Verified 03/05/21 13:05 Motrin Allergy Unknown hives Uncoded 03/05/21 13:05 Active Medications: Current Medications Aspirin (Aspirin 325 Mg Tablet) 325 mg PO DAILY [facility] Atorvastatin Calcium (Atorvastatin Calcium 20 Mg Tablet) 20 mg PO DAILY [facility] Heparin Sodium/Sodium Chloride () 25,000 unit in 250 mls @ 0 mls/hr IVCONT .Q0M [facility]; Protocol Last Admin: 03/22/21 21:36 Dose: 9.53 units/kg/hr, 25 mls/hr Documented by: Insulin Human Lispro (Insulin Lispro 100 Unit/Ml 3 Ml Vial) 0 unit SUBCUT QIDACHS [facility]; Protocol Stop: 03/23/21 23:22 Pharmacy Consult (Consult Rx Perform Med Rec) 1 each MISCELLANE ONCE PRN PRN Reason: Consult order Pharmacy Consult (Consult Rx Perform Med Rec) 1 each MISCELLANE ONCE PRN PRN Reason: Consult order Phenytoin Sodium (Phenytoin Sodium Extended 100 Mg Capsule) 700 mg PO BID [facility] Home Medications Medication Instructions Recorded Confirmed Last Taken Type insulin aspart U-100 100 unit/mL 5 unit SUBCUT TID 02/28/20 03/22/21 03/22/21 History (3 mL) subcutaneous pen (Novolog Flexpen U-100 Insulin aspart) phenytoin sodium extended 100 mg 700 mg PO BID cap 02/23/21 03/22/21 03/22/21 History capsule (Dilantin Extended) aspirin 325 mg tablet 325 mg PO DAILY 03/05/21 03/22/21 03/22/21 History atorvastatin 20 mg tablet 20 mg PO DAILY 03/05/21 03/22/21 03/22/21 History Physical Exam Vital Signs and Narrative: Vital Signs: Last Vital Signs Temp 98.3 F 03/23/21 00:06 Pulse 115 H 03/23/21 03:14 Resp 18 03/23/21 03:14 BP 125/99 H 03/23/21 03:14 Pulse Ox 92 03/23/21 03:14 Oxygen Flow Rate 2 03/22/21 16:30 Body Mass Index 78.4 Gen: Appears be in no acute distress. Obese. on supplemental oxygen . Speaks in full sentences. Noted to be tachycardic between 100-130 on telemetry HEENT: NCAT, Moist mucosa. Pulmonary: slightly diminished breath sounds secondary to body habitus CVS: Normal S1-S2 Abdomen: BS+, Soft, Nontender Extremities: Warm well perfused; no cough tenderness noted Neuro: Alert and awake. Results Labs CBC and Chem 7: 03/22/21 19:45 03/22/21 17:40 Labs: Laboratory Results - last 24 hr 03/22/21 03/22/21 03/22/21 16:37 17:40 17:40 MCV 89.3 MCH 29.2 MCHC 32.7 RDW 13.6 Plt Count 126 L MPV 12.3 Immature Gran % (Auto) 0.7 H Neut % (Auto) 66.3 Lymph % (Auto) 21.8 Ocean % (Auto) 8.5 Eos % (Auto) 2.3 Baso % (Auto) 0.4 Lymph # (Auto) 1.8 Ocean # (Auto) 0.7 Eos # (Auto) 0.2 Baso # (Auto) 0.0 Abs Immat Gran (auto) 0.06 H Absolute Neuts (auto) 5.5 Absolute Nucleated RBC 0.000 Nucleated RBC % (auto) 0.0 PT INR APTT D-Dimer High Sensitivty O2 Saturation ABG pH at Pt Temp ABG pH (Temp Correct) ABG pCO2 at Pt Temp ABG pCO2 (Temp Corrct ABG pO2 at Pt Temp ABG pO2 (Temp Correct ABG HCO3 ABG Base Excess (Actual) Anion Gap 13 Estim Creat Clear Calc 190.7 Estimated GFR > 60 POC Glucose 240 H Random Glucose 231 H Calcium 9.4 Troponin I High Sens B-Natriuretic Peptide Urine Color Urine Appearance Urine pH Ur Specific [place] Urine Protein Urine Glucose (UA) Urine Ketones Urine Blood Urine Nitrite Ur Leukocyte Esterase Urine RBC Urine WBC Ur Squamous Epith Cells Uric Acid Crystals Urine Bacteria Hyaline Casts Urine Mucus COVID-19 (KIKA) COVID-19 Clin Com 03/22/21 03/22/21 03/22/21 17:40 17:40 17:40 MCV MCH MCHC RDW Plt Count MPV Immature Gran % (Auto) Neut % (Auto) Lymph % (Auto) Ocean % (Auto) Eos % (Auto) Baso % (Auto) Lymph # (Auto) Ocean # (Auto) Eos # (Auto) Baso # (Auto) Abs Immat Gran (auto) Absolute Neuts (auto) Absolute Nucleated RBC Nucleated RBC % (auto) PT INR APTT D-Dimer High Sensitivty 1929 O2 Saturation ABG pH at Pt Temp ABG pH (Temp Correct) ABG pCO2 at Pt Temp ABG pCO2 (Temp Corrct ABG pO2 at Pt Temp ABG pO2 (Temp Correct ABG HCO3 ABG Base Excess (Actual) Anion Gap Estim Creat Clear Calc Estimated GFR POC Glucose Random Glucose Calcium Troponin I High Sens 10.3 B-Natriuretic Peptide 314 H Urine Color Urine Appearance Urine pH Ur Specific [place] Urine Protein Urine Glucose (UA) Urine Ketones Urine Blood Urine Nitrite Ur Leukocyte Esterase Urine RBC Urine WBC Ur Squamous Epith Cells Uric Acid Crystals Urine Bacteria Hyaline Casts Urine Mucus COVID-19 (KIKA) Negative COVID-19 Clin Com See Note 03/22/21 03/22/21 03/22/21 18:26 19:45 19:45 MCV 90.5 MCH 29.2 MCHC 32.3 RDW 13.5 Plt Count 115 L MPV 12.5 H Immature Gran % (Auto) Neut % (Auto) Lymph % (Auto) Ocean % (Auto) Eos % (Auto) Baso % (Auto) Lymph # (Auto) Ocean # (Auto) Eos # (Auto) Baso # (Auto) Abs Immat Gran (auto) Absolute Neuts (auto) Absolute Nucleated RBC 0.000 Nucleated RBC % (auto) 0.0 PT 13.1 H INR 1.2 H APTT 31.3 D-Dimer High Sensitivty O2 Saturation ABG pH at Pt Temp ABG pH (Temp Correct) ABG pCO2 at Pt Temp ABG pCO2 (Temp Corrct ABG pO2 at Pt Temp ABG pO2 (Temp Correct ABG HCO3 ABG Base Excess (Actual) Anion Gap Estim Creat Clear Calc Estimated GFR POC Glucose Random Glucose Calcium Troponin I High Sens B-Natriuretic Peptide Urine Color YELLOW Urine Appearance CLEAR Urine pH 5.5 Ur Specific [place] >= 1.030 H Urine Protein 2+ H Urine Glucose (UA) NEG Urine Ketones NEG Urine Blood NEG Urine Nitrite NEG Ur Leukocyte Esterase NEG Urine RBC 0 Urine WBC 1-4 Ur Squamous Epith Cells TRACE Uric Acid Crystals TRACE Urine Bacteria TRACE Hyaline Casts 0-2 Urine Mucus 1+ COVID-19 (KIKA) COVID-19 Clin Com 03/22/21 20:39 MCV MCH MCHC RDW Plt Count MPV Immature Gran % (Auto) Neut % (Auto) Lymph % (Auto) Ocean % (Auto) Eos % (Auto) Baso % (Auto) Lymph # (Auto) Ocean # (Auto) Eos # (Auto) Baso # (Auto) Abs Immat Gran (auto) Absolute Neuts (auto) Absolute Nucleated RBC Nucleated RBC % (auto) PT INR APTT D-Dimer High Sensitivty O2 Saturation 88.0 ABG pH at Pt Temp 7.34 L ABG pH (Temp Correct) 7.34 L ABG pCO2 at Pt Temp 45 ABG pCO2 (Temp Corrct 45 ABG pO2 at Pt Temp 64 L ABG pO2 (Temp Correct 65 L ABG HCO3 25 ABG Base Excess (Actual) -0.8 Anion Gap Estim Creat Clear Calc Estimated GFR POC Glucose Random Glucose Calcium Troponin I High Sens B-Natriuretic Peptide Urine Color Urine Appearance Urine pH Ur Specific [place] Urine Protein Urine Glucose (UA) Urine Ketones Urine Blood Urine Nitrite Ur Leukocyte Esterase Urine RBC Urine WBC Ur Squamous Epith Cells Uric Acid Crystals Urine Bacteria Hyaline Casts Urine Mucus COVID-19 (KIKA) COVID-19 Clin Com Imaging Radiologist's Impressions: Impressions Chest X-Ray 03/22/21 16:57 IMPRESSION: No acute abnormality of chest. 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 Acute hypoxic respiratory failure: Patient denies having any respiratory symptoms or shortness of breath or hypoxia before 3 days. Mentions that everything started 3 days ago associated with chest pain which worsens with deep inspiration. No evidence of pneumonia. Lung sounds are diminished given to secondary to body habitus. Patient not in respiratory distress / speaks in full sentences. D-dimer elevated -unable to obtain CT are weak in at [facility] given weight limit on the table. Empirically started on heparin drip. Day hospitalist to try to send the patient for CT scan at [facility] to rule out PE. pulmonary consult. Chest pain: Improved back in nature. Telemetry. Echocardiogram. Cycle cardiac enzymes. AFib with RVR: Patient heart rate intermittently drains to 140s. But mostly lies in low 100s. Will continue to monitor. cardiology consult. Diabetes: Insulin sliding scale. Will also add Lantus 10 units. Hyperlipidemia: Continue home statin History of seizures: seizure precautions. Continue Phenytoin DVT prophylaxis: Patient on heparin drip Code status: Full code Offnote: things to follow up by the day hospitalist once care resumed at 7:00 a.m. on : 1. Echocardiogram 2. possible transfer to outside facility for CT scan 3. pulmonary and cardiology inputs Quality Stroke Does the patient have a stroke diagnosis?: No VTE Prior VTE?: No VTE Risk Level:: Medical - moderate - high VTE Device Contraindication: N/A - Device Ordered VTE Drug Contraindication: Treatment Not Indicated
[2021-03-23 03:53] LABS: Basophils Percent Auto 0.1 % (0-2); Eosinophils Percent Auto 0.1 % (0-4); Hematocrit 48.7 % (42.0-52.0); Hemoglobin 15.6 g/dl (14.0-18.0); Imm Gran Abs Auto 0.05 X10*3/uL (0.00-0.03); Imm Gran Pct Auto 0.6 % (0.0-0.4); Lymphocytes Absolute Auto 0.8 X10*3/uL (1.2-4.9); Lymphocytes Percent Auto 9.3 % (20-40); Mean Corpuscular Hemoglobin 29.1 pg (27.0-33.0); Mean Corpuscular Volume 90.9 fL (80.0-98.0); Mean Platelet Volume 12.2 fL (9.4-12.4); Monocytes Absolute Auto 0.3 X10*3/uL (0.1-1.2); Monocytes Percent Auto 3.1 % (2-11); Neutrophils Absolute Auto 7.5 x10*3/uL (2.0-8.3); Neutrophils Percent Auto 86.8 % (45-73); Platelet Count 125 X10*3/uL (160-400); Red Blood Count 5.36 X10*6/uL (4.60-5.80); Red Cell Distribution Width 13.5 % (11.0-16.0); White Blood Count 8.6 X10*3/uL (4.8-10.8)
[2021-03-23 03:55] LABS: MANUAL DIFF FLAG NO
[2021-03-23 04:01] LABS: INTERNATIONAL NORM RATIO 1.2 (0.9-1.1); Prothrombin Time 13.2 SEC (9.9-13.0)
[2021-03-23 04:33] LABS: Anion Gap 20 (12-20); Blood Urea Nitrogen 18 mg/dL (9-16); Calcium 8.9 mg/dL (8.4-10.2); Carbon Dioxide 16 mmol/L (22-29); Chloride 106 mmol/L (96-108); Creatinine Clr Calc Pharmacy 188.5; Estimated Glomerular Filt Rate > 60; Glucose Random 331 mg/dL (60-115); Magnesium 1.9 mg/dL (1.6-2.6); Potassium 5.3 mmol/L (3.3-5.1); Sodium 137 mmol/L (135-145)
--- NOTE | 2021-03-23 06:44 | PHA.MEDREC ---
Pharmacy Consult ? Medication Reconciliation Pharmacy has reviewed the medication reconciliation completed by overnight nurse.
--- NOTE | 2021-03-23 07:30 | PC.NURSE ---
pt refused his insulin this morning because according to the pt he is following a strict diet that the weight management clinic assigned to him, the pt only does protein shakes, [place] yogurts not really eating solid foods at home, pt's poc at home rages in the 120's and according the pt's his family will be bringing in the shakes
[2021-03-23] MEDS: 0.9 % Sodium Chloride Flush 3 ML SYRINGE IVFLUSH ×3 (07:52→19:16)
--- NOTE | 2021-03-23 08:06 | PC.NURSE ---
Patient alert and oriented x 3. on heparin drip at 6.53ml/hr. Patient trialed off of cpap was not able to keep oxygen sats above 89% consistently. Reapplied cpap o2 sat 90%. tele: afib 100-116. Patient c/o pain with inspiration. Will continue to monitor.
[2021-03-23 08:16] LABS: Troponin-I High Sensitivity 6.6 ng/L (<3.5-35.0)
[2021-03-23 08:33] LABS: Glucose, Whole Blood 247 mg/dL (60-115)
[2021-03-23] MEDS: Atorvastatin Calcium 20 MG TABLET PO (09:26)
[2021-03-23] MEDS: Aspirin 325 MG TABLET PO (09:26)
[2021-03-23] MEDS: Phenytoin Sodium Extended 100 MG CAPSULE 700 MG PO ×2 (09:27→19:14)
[2021-03-23] MEDS: Heparin Sodium,Porcine/1/2NS 25,000 UNIT/250 ML IV.SOLN 25 UNIT IVCONT (09:36)
[2021-03-23] MEDS: Morphine Sulfate 4 MG/ML CARTRIDGE 2 MG IVPUSH ×3 (09:40→22:52)
--- NOTE | 2021-03-23 09:41 | PM.EVENT ---
Event Note Date of Service: 03/23/21 Event Note: I saw and examined this [id number] yo with supermorbid obesity yet very functional, h/o NORIS, AFIB not anticoagulated who was admitted earlier this morning for acute hypoxic respiratory failure, elevated DDimer and concern for PE but with difficulty getting CT or VQ scan done due to weight limit and therefore was starting on heparin in anticipation that we may be able to figure out something. He has h/o AFIB but low [id number] score is low and therefore not on anticoagulation. He is presently hemodynamically stable with saturating Ok with O2. Exam: is limitted by weight, but lungs clear, mild tachy, normal lower extremites. Labs reviewed, DDimer around 2K, CXR no acute finding. Plan: Will continue anticoagulation, get lower extremity doppler, will discuss imaging with pulmonology, and will try if we can get him at an outside hospital that have capability to do this.
--- NOTE | 2021-03-23 10:11 | PM.CNCAR ---
History of Present Illness History of Present Illness Date of Service: 03/23/21 Chief complaint: Hypoxia Narrative: This is a cardiology consultation regarding atrial fibrillation/chest pain/shortness of breath. Patient was recently seen in the office. He has had atrial fibrillation for at least 7 years or so. He was not on any rate control drugs or rhythm control or in fact anything for atrial fibrillation. Recent EKG had shown atrial fibrillation at a rate of 89/Min. Even an EKG from 2013 had atrial fibrillation. 2012, it was sinus. Hence most likely this is permanent atrial fibrillation. This current visit to the emergency room is because of shortness of breath that started few days ago. He is also having pleuritic-type chest pain where he states every time he takes a breath is hurting. He is being potential treated for pulmonary embolism with anticoagulation but due to his weight unable to do a CT scan or V/Q scan on in fact any form of testing. Review of Systems Review of Systems: Yes all other systems are reviewed and are negative Cardiovascular: Cardiovascular: Reports as per HPI, Reports no additional cardiovascular complaints, Denies acrocyanosis, Denies cool extremities, Denies painful fingertips, Reports chest pain, Denies chest pain at rest, Denies diaphoresis, Denies syncope, Denies irregular heart rhythm, Denies claudication, Denies leg edema, Denies lightheadedness, Denies palpitations and Reports dyspnea Respiratory: Respiratory: Reports dyspnea Neurologic: Denies syncope Endocrine: Endocrine: Denies palpitations PMFSH Past Medical History Medical History A-fib Aftercare following bilateral ankle joint replacement surgery Brain tumor Diabetes NORIS (obstructive sleep apnea) Persistent atrial fibrillation Right hand dominant Seizure disorder Family History Family History Paternal Grandmother Myocardial infarction Maternal Grandfather Myocardial infarction Brother No problems noted. Sister No problems noted. Sister No problems noted. Surgical History Surgical History History of ankle surgery Social History Social History Alcohol intake: never Patient Tobacco Use Status: Never used Tobacco Use of substances other than those prescribed or required for medical reasons: No Advance Directives: No Advance Directives Information Provided: No Current occupational status: employed and disabled Meds Allergies Allergy/AdvReac Type Severity Reaction Status Date / Time codeine [Codeine] Allergy Unknown RASH, hives Verified 03/05/21 13:05 ibuprofen [From Motrin] Allergy Unknown HIVES Verified 03/05/21 13:05 Motrin Allergy Unknown hives Uncoded 03/05/21 13:05 Active Medications: Current Medications Acetaminophen (Acetaminophen 325 Mg Tablet) 650 mg PO Q6H PRN PRN Reason: Pain, Mild (Pain Scale 1-3) Albuterol/Ipratropium (Albuterol/Iprat 2.5/0.5mg 3 Ml Ampul.Neb) 3 ml INHALE RQ4H PRN PRN Reason: Shortness of Breath/Wheezing Aspirin (Aspirin 325 Mg Tablet) 325 mg PO DAILY [facility] Last Admin: 03/23/21 09:26 Dose: 325 mg Documented by: Atorvastatin Calcium (Atorvastatin Calcium 20 Mg Tablet) 20 mg PO DAILY [facility] Last Admin: 03/23/21 09:26 Dose: 20 mg Documented by: Dextrose (Dextrose 50 % 25 Gm/50 Ml Vial) 25 gm IVPUSH Q15M PRN; Protocol PRN Reason: per Hypoglycemia Standing Ord. Glucose (Glucose Gel 15 Gm Gel..Gram.) 15 gm PO Q15M PRN; Protocol PRN Reason: per Hypoglycemia Standing Ord. Heparin Sodium (Porcine) (Heparin Sodium,Porcine 5,000 Unit/Ml Vial) 10,000 unit IVPUSH PROTOCOL BOLUS PRN PRN Reason: 40 unit/kg - Heparin Protocol Heparin Sodium (Porcine) (Heparin Sodium,Porcine 5,000 Unit/Ml Vial) 10,000 unit IVPUSH PROTOCOL BOLUS PRN PRN Reason: 80 unit/kg - Heparin Protocol Heparin Sodium/Sodium Chloride () 25,000 unit in 250 mls @ 0 mls/hr IVCONT .Q0M DANDY; Protocol Last Admin: 03/23/21 09:36 Dose: 9.53 units/kg/hr, 25 mls/hr Documented by: Insulin Glargine (Insulin Glargine,Hum.Rec.Anlog 100 Unit/Ml 10 Ml Vial) 10 unit SUBCUT BEDTIME DANDY Insulin Human Lispro (Insulin Lispro 100 Unit/Ml 3 Ml Vial) 0 unit SUBCUT QIDACHS [facility]; Protocol Stop: 03/23/21 23:22 Last Admin: 03/23/21 07:34 Dose: Not Given Documented by: Insulin Human Lispro (Insulin Lispro 100 Unit/Ml 3 Ml Vial) 0 unit SUBCUT QIDACHS [facility]; Protocol Last Admin: 03/23/21 07:52 Dose: Not Given Documented by: Melatonin (Melatonin 3 Mg Tablet) 6 mg PO BEDTIME PRN PRN Reason: Insomnia Morphine Sulfate (Morphine Sulfate 4 Mg/Ml Cartridge) 2 mg IVPUSH Q4H PRN; Protocol PRN Reason: Pain, SOB Last Admin: 03/23/21 09:40 Dose: 2 mg Documented by: Pharmacy Consult (Consult Rx Perform Med Rec) 1 each MISCELLANE ONCE PRN PRN Reason: Consult order Pharmacy Consult (Consult Rx Perform Med Rec) 1 each MISCELLANE ONCE PRN PRN Reason: Consult order Phenytoin Sodium (Phenytoin Sodium Extended 100 Mg Capsule) 700 mg PO BID [facility] Last Admin: 03/23/21 09:27 Dose: 700 mg Documented by: Senna (Sennosides 8.6 Mg Tablet) 17.2 mg PO BEDTIME PRN PRN Reason: Constipation Sodium Chloride (0.9 % Sodium Chloride Flush 3 Ml Sy[facility]) [facility] Admin: 03/23/21 07:52 Dose: 3 ml Documented by: Home Medications Medication Instructions Recorded Confirmed Last Taken Type insulin aspart U-100 100 unit/mL 5 unit SUBCUT TID 02/28/20 03/22/21 03/22/21 History (3 mL) subcutaneous pen (Novolog Flexpen U-100 Insulin aspart) phenytoin sodium extended 100 mg 700 mg PO BID cap 02/23/21 03/22/21 03/22/21 History capsule (Dilantin Extended) aspirin 325 mg tablet 325 mg PO DAILY 03/05/21 03/22/21 03/22/21 History atorvastatin 20 mg tablet 20 mg PO DAILY 03/05/21 03/22/21 03/22/21 History Physical Exam Vital Signs: Vital Signs: Last Vital Signs Temp 97.6 F 03/23/21 07:54 Pulse 108 H 03/23/21 07:54 Resp 16 03/23/21 07:54 BP 124/70 03/23/21 07:54 Pulse Ox 89 L 03/23/21 07:54 Oxygen Flow Rate 2 03/22/21 16:30 Body Mass Index 78.4 Const: General: cooperative and no acute distress HENMT: Other: Unremarkable Neck: Neck: Yes normal visual inspection Chest: Chest palpation & inspection: normal inspection of the chest Resp: Auscultation: clear to auscultation bilaterally, no crackles and no wheezes Cardio: Jugular venous distension: no JVD Palpation: normal PMI Heart sounds: S1 normal heart sound present, S2 normal heart sound present, no gallops, no murmurs and no rubs GI: Palpation (GI): Soft to palpation Back/Spine/Pelvis: Other: unremarkable Skin: General skin exam: no rashes or lesions noted Neuro: Cranial nerves: Yes Other cranial nerve findings present Extrem: General: Yes no clubbing, cyanosis or edema Psych: Mental Status: other Objective Labs and Meds Result diagrams: 03/23/21 03:49 03/23/21 03:49 Lab results: Laboratory Results - last 24 hr 03/22/21 03/22/21 03/22/21 16:37 17:40 17:40 WBC 8.3 RBC 5.31 Hgb 15.5 Hct 47.4 MCV 89.3 MCH 29.2 MCHC 32.7 RDW 13.6 Plt Count 126 L MPV 12.3 Immature Gran % (Auto) 0.7 H Neut % (Auto) 66.3 Lymph % (Auto) 21.8 [place] % (Auto) 8.5 Eos % (Auto) 2.3 Baso % (Auto) 0.4 Lymph # (Auto) 1.8 [place] # (Auto) 0.7 Eos # (Auto) 0.2 Baso # (Auto) 0.0 Abs Immat Gran (auto) 0.06 H Absolute Neuts (auto) 5.5 Absolute Nucleated RBC 0.000 Nucleated RBC % (auto) 0.0 PT INR APTT PTT (Heparin Protocol) D-Dimer High Sensitivty O2 Saturation ABG pH at Pt Temp ABG pH (Temp Correct) ABG pCO2 at Pt Temp ABG pCO2 (Temp Corrct ABG pO2 at Pt Temp ABG pO2 (Temp Correct ABG HCO3 ABG Base Excess (Actual) Sodium 140 Potassium 4.4 Chloride 106 Carbon Dioxide 25 Anion Gap 13 BUN 16 Creatinine 1.01 Estim Creat Clear Calc 190.7 Estimated GFR > 60 POC Glucose 240 H Random Glucose 231 H Calcium 9.4 Magnesium Troponin I High Sens B-Natriuretic Peptide Urine Color Urine Appearance Urine pH Ur Specific [place] Urine Protein Urine Glucose (UA) Urine Ketones Urine Blood Urine Nitrite Ur Leukocyte Esterase Urine RBC Urine WBC Ur Squamous Epith Cells Uric Acid Crystals Urine Bacteria Hyaline Casts Urine Mucus COVID-19 (KIKA) COVID-19 Clin Com 03/22/21 03/22/21 03/22/21 17:40 17:40 17:40 WBC RBC Hgb Hct MCV MCH MCHC RDW Plt Count MPV Immature Gran % (Auto) Neut % (Auto) Lymph % (Auto) [place] % (Auto) Eos % (Auto) Baso % (Auto) Lymph # (Auto) [place] # (Auto) Eos # (Auto) Baso # (Auto) Abs Immat Gran (auto) Absolute Neuts (auto) Absolute Nucleated RBC Nucleated RBC % (auto) PT INR APTT PTT (Heparin Protocol) D-Dimer High Sensitivty 1929 O2 Saturation ABG pH at Pt Temp ABG pH (Temp Correct) ABG pCO2 at Pt Temp ABG pCO2 (Temp Corrct ABG pO2 at Pt Temp ABG pO2 (Temp Correct ABG HCO3 ABG Base Excess (Actual) Sodium Potassium Chloride Carbon Dioxide Anion Gap BUN Creatinine Estim Creat Clear Calc Estimated GFR POC Glucose Random Glucose Calcium Magnesium Troponin I High Sens 10.3 B-Natriuretic Peptide 314 H Urine Color Urine Appearance Urine pH Ur Specific [place] Urine Protein Urine Glucose (UA) Urine Ketones Urine Blood Urine Nitrite Ur Leukocyte Esterase Urine RBC Urine WBC Ur Squamous Epith Cells Uric Acid Crystals Urine Bacteria Hyaline Casts Urine Mucus COVID-19 (KIKA) Negative COVID-19 Clin Com See Note 03/22/21 03/22/21 03/22/21 18:26 19:45 19:45 WBC 7.1 RBC 5.37 Hgb 15.7 Hct 48.6 MCV 90.5 MCH 29.2 MCHC 32.3 RDW 13.5 Plt Count 115 L MPV 12.5 H Immature Gran % (Auto) Neut % (Auto) Lymph % (Auto) [place] % (Auto) Eos % (Auto) Baso % (Auto) Lymph # (Auto) [place] # (Auto) Eos # (Auto) Baso # (Auto) Abs Immat Gran (auto) Absolute Neuts (auto) Absolute Nucleated RBC 0.000 Nucleated RBC % (auto) 0.0 PT 13.1 H INR 1.2 H APTT 31.3 PTT (Heparin Protocol) D-Dimer High Sensitivty O2 Saturation ABG pH at Pt Temp ABG pH (Temp Correct) ABG pCO2 at Pt Temp ABG pCO2 (Temp Corrct ABG pO2 at Pt Temp ABG pO2 (Temp Correct ABG HCO3 ABG Base Excess (Actual) Sodium Potassium Chloride Carbon Dioxide Anion Gap BUN Creatinine Estim Creat Clear Calc Estimated GFR POC Glucose Random Glucose Calcium Magnesium Troponin I High Sens B-Natriuretic Peptide Urine Color YELLOW Urine Appearance CLEAR Urine pH 5.5 Ur Specific [place] >= 1.030 H Urine Protein 2+ H Urine Glucose (UA) NEG Urine Ketones NEG Urine Blood NEG Urine Nitrite NEG Ur Leukocyte Esterase NEG Urine RBC 0 Urine WBC 1-4 Ur Squamous Epith Cells TRACE Uric Acid Crystals TRACE Urine Bacteria TRACE Hyaline Casts 0-2 Urine Mucus 1+ COVID-19 (KIKA) COVID-19 Clin Com 03/22/21 03/23/21 03/23/21 20:39 03:49 03:49 WBC 8.6 RBC 5.36 Hgb 15.6 Hct 48.7 MCV 90.9 MCH 29.1 MCHC 32.0 RDW 13.5 Plt Count 125 L MPV 12.2 Immature Gran % (Auto) 0.6 H Neut % (Auto) 86.8 H Lymph % (Auto) 9.3 L [place] % (Auto) 3.1 Eos % (Auto) 0.1 Baso % (Auto) 0.1 Lymph # (Auto) 0.8 L [place] # (Auto) 0.3 Eos # (Auto) 0.0 Baso # (Auto) 0.0 Abs Immat Gran (auto) 0.05 H Absolute Neuts (auto) 7.5 Absolute Nucleated RBC 0.000 Nucleated RBC % (auto) 0.0 PT 13.2 H INR 1.2 H APTT PTT (Heparin Protocol) 98.0 H D-Dimer High Sensitivty O2 Saturation 88.0 ABG pH at Pt Temp 7.34 L ABG pH (Temp Correct) 7.34 L ABG pCO2 at Pt Temp 45 ABG pCO2 (Temp Corrct 45 ABG pO2 at Pt Temp 64 L ABG pO2 (Temp Correct 65 L ABG HCO3 25 ABG Base Excess (Actual) -0.8 Sodium Potassium Chloride Carbon Dioxide Anion Gap BUN Creatinine Estim Creat Clear Calc Estimated GFR POC Glucose Random Glucose Calcium Magnesium Troponin I High Sens B-Natriuretic Peptide Urine Color Urine Appearance Urine pH Ur Specific [place] Urine Protein Urine Glucose (UA) Urine Ketones Urine Blood Urine Nitrite Ur Leukocyte Esterase Urine RBC Urine WBC Ur Squamous Epith Cells Uric Acid Crystals Urine Bacteria Hyaline Casts Urine Mucus COVID-19 (KIKA) COVID-19 Clin Com 03/23/21 03/23/21 03/23/21 03:49 07:25 07:52 WBC RBC Hgb Hct MCV MCH MCHC RDW Plt Count MPV Immature Gran % (Auto) Neut % (Auto) Lymph % (Auto) [place] % (Auto) Eos % (Auto) Baso % (Auto) Lymph # (Auto) [place] # (Auto) Eos # (Auto) Baso # (Auto) Abs Immat Gran (auto) Absolute Neuts (auto) Absolute Nucleated RBC Nucleated RBC % (auto) PT INR APTT PTT (Heparin Protocol) D-Dimer High Sensitivty O2 Saturation ABG pH at Pt Temp ABG pH (Temp Correct) ABG pCO2 at Pt Temp ABG pCO2 (Temp Corrct ABG pO2 at Pt Temp ABG pO2 (Temp Correct ABG HCO3 ABG Base Excess (Actual) Sodium 137 Potassium 5.3 H D Chloride 106 Carbon Dioxide 16 L Anion Gap 20 BUN 18 H Creatinine 1.06 Estim Creat Clear Calc 188.5 Estimated GFR > 60 POC Glucose 247 H Random Glucose 331 H D Calcium 8.9 Magnesium 1.9 Troponin I High Sens 6.6 B-Natriuretic Peptide Urine Color Urine Appearance Urine pH Ur Specific [place] Urine Protein Urine Glucose (UA) Urine Ketones Urine Blood Urine Nitrite Ur Leukocyte Esterase Urine RBC Urine WBC Ur Squamous Epith Cells Uric Acid Crystals Urine Bacteria Hyaline Casts Urine Mucus COVID-19 (KIKA) COVID-19 Clin Com ECG Interpretation: EKG with atrial fibrillation at 102/Min; prior EKG with a rate of 89/Min. Imaging Radiologist's impression: Impressions Chest X-Ray 03/22/21 16:57 IMPRESSION: No acute abnormality of chest. Assessment and Plan (1) Atrial fibrillation with rapid ventricular response: Status: Acute (2) Shortness of breath: Status: Acute (3) Morbid obesity with body mass index (BMI) greater than or equal to 70 in adult: Status: Acute (4) Elevated d-dimer: Status: Acute Pertinent data reviewed. Hemoglobin 15.6. White cells 8.6. Platelets 125. Potassium 5.3. Creatinine is 1.06. Blood sugar 331. BNP 314. High sensitive troponins are 10.3 and 6.6. COVID screen is negative. D-dimers elevated at 1929. Chest x-ray without any acute abnormality. Overall, chest pain is pleuritic and with shortness of breath and elevated D-dimers, concerning for pulmonary embolism. If testing cannot be completed at [place] due to weight limits on CT scanner or nuclear scan here then possibly transfer to outside facility for the same. With regard to atrial fibrillation rapid rate most likely due to the above. Most recent recorded rate is 108/Min. If necessary, may use beta-blockers are diltiazem for rate control. 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 This will need to be taken into consideration before committing him to long-term anticoagulation. From the atrial fibrillation standpoint, he is not documented to be hypertensive or diabetic although has some elevated blood sugars. That will give him CHADS2 Vasc score of 1. Unknown LV function again because of his weight and inability to do echocardiograms. Will dicuss with . Procedures Date of Service Date of Service: 03/23/21
[2021-03-23 10:18] LABS: PTT Heparin Drip 38.3 SEC (53-77.9)
--- NOTE | 2021-03-23 10:30 | CA_ITS ---
Transthoracic Echocardiogram Patient (Last, First, Middle): Zachary Conn J Gender: Male Date of : 1975 Age: 45 Procedure Date: 03/23/2021 Procedure Type: Transthoracic Echocardiogram Location: ER Height: 182.88 cm Weight: 262.18 kg BSA: 3.34 m2 Heart Rate: bpm BP: 125 / 99 mmHg Pediatric Physical Therapy Assistant: Referring MD: Otf Plaza MD Symptoms: SOB/chest pain Study Quality: Technically Difficult due to obesity ECG Rhythm: Atrial Fibrillation Conclusions: - LV function difficult to quantify; suspect LVEF around 50%. - Moderately increased right ventricular cavity size. There is normal right ventricular systolic function. - No obvious valvular pathology seen on this study. Findings Procedure Information Contrast agent, definity, is being given per protocol without apparent complications. Left Ventricle Normal left ventricular cavity size. There is mildly increased left ventricular wall thickness. Regional wall motion abnormalities can not be excluded due to suboptimal endocardial definition. Diastolic function is indeterminate on the basis of available data. LV function difficult to quantify; suspect LVEF around 50%. Right Ventricle Moderately increased right ventricular cavity size. There is normal right ventricular systolic function. TAPSE 2.5cm. Atria Both atria are normal in size. Aortic Valve The aortic valve was not well visualized. There is no aortic valve stenosis. There is no aortic valve regurgitation. Mitral Valve The mitral valve was not well visualized. There is no mitral valve regurgitation. Pulmonic Valve The pulmonic valve was not well visualized. Tricuspid Valve The tricuspid valve was not well visualized. There is no tricuspid valve regurgitation. The right ventricular systolic pressure is 44 mmHg. Great Vessels The asc aorta is normal in size. Venous The inferior vena cava is mildly dilated and collapses greater than 50% with inspiration. Pericardium/Pleural There is no evidence of pericardial effusion. Prior Study Comparison No prior study available for comparison. Recommendations, Care & Conclusions No obvious valvular pathology seen on this study. Measurements 2D Linear Measurements IVSd: 1.33 0.6-0.9/0.6-1.0 cm LVIDd: 4.61 3.9-5.3/4.2-5.9 cm LVIDd Index: 1.38 2.4-3.2/2.2-3.1 cm/m2 LVIDs: 3.17 2.0-3.6 cm LVPWd: 1.37 0.7-1.1 cm Ao Root: 3.50 2.1-3.5 cm LA Diam: 4.60 2.7-3.8/3.0-4.0 cm LAIDs Index: 1.38 1.5-2.3 cm/m2 LV Mass: 304.35 67-162/88-224 g LV Mass Index: 91.12 43-95/49-115 g/m2 LVOT Diam: 2.40 3.0+(-)1.3 cm Mitral Valve MV Pk E: 0.82 MV Decel Time: 183.00 E'Lateral: 14.40 E'Medial: 11.70 E/E' Med: 7.00 E/E' Lat: 5.70 PHT: 54.00 MVA PHT: 4.07 Decel [place]: 4.49 Aortic Valve AoV Pk Edward: 1.21 AoV Mn Edward: 0.87 AoV VTI: 0.23 AoV Pk Grad: 6.00 Aov Mn Grad: 4.00 CARI Cont.VTI: 3.75 LVOT LVOT Pk Edward: 1.07 LVOT Mn Edward: 0.74 LVOT VTI: 0.19 LVOT Pk Grad: 5.00 LVOT Mn Grad: 3.00 LVOT Diam: 2.40 LVOT Area: 4.52 Diastolic Function MV Pk E: 0.82 E'Medial: 11.70 E/E' Med: 7.00 E' Laterial: 14.40 E/E' Lat: 5.70 Right Ventricle TAPSE (mm): 25.00 Tricuspid Valve TR Pk Edward: 3.36 TR Pk Grad: 45.00 RVSP: 44.00 Great Vessels Aorta Ao Root-2D: 3.50 2.0-3.7 cm Ao Asc: 3.60 2.1-3.4 cm Pulmonary Valve PV Pk Edward: 0.77 Peak PV Grad: 2.00 Updated in Other Vendor System with Status of Final Miguel Angel Toledo MD electronically signed on 03/23/2021 1:39:44 PM with status of Final
[2021-03-23] MEDS: Heparin Sodium,Porcine 5,000 UNIT/ML VIAL 10000 UNIT IVPUSH (11:02)
[2021-03-23] MEDS: Heparin Sodium,Porcine/1/2NS 25,000 UNIT/250 ML IV.SOLN 22.37 UNIT IVCONT (11:03)
[2021-03-23 12:31] LABS: Glucose, Whole Blood 255 mg/dL (60-115)
--- NOTE | 2021-03-23 14:06 | MHC.CM.PN ---
CM ATTEMPTED TO MEET WITH PT WHO WAS OUT OF THE ROOM, HOWEVER HIS WAS PRESENT. PER PTS , HE LIVES AT HOME WITH HER AND IS FULLY INDEPENDENT SHE REPORTS HE HAS NO SERVICES AND CURRENTLY NO DME HOWEVER UNTIL 6 YEARS AGO, HE WAS USING A CPAP. HIS REPORTS THE COMPANY THAT PROVIDED HIS CPAP, GOT HIM CONFUSED WITH HIS FATHER AND THEY WERE UNABLE TO STRAIGHTEN THINGS OUT SO THEY GAVE UP. SHE IS UNSURE IF HE HAS EVER COMPLETED A HCP BUT IS AWARE CM COULD ASSIST WITH THIS SHE CONFIRMS PTS PCP IS NOAM MOLINA IMM DELIVERED, COPY SENT TO [facility] CURRENT DC PLAN IS HOME WITH NO SERVICES PT WILL SELF ARRANGE TRANSPORT
--- NOTE | 2021-03-23 14:42 | PC.NURSE ---
pt continuos on being off unite for the vq scan, with rn monitoring
--- NOTE | 2021-03-23 16:05 | PC.NURSE ---
report given to imc rn
[2021-03-23 17:14] LABS: Glucose, Whole Blood 192 mg/dL (60-115)
[2021-03-23 17:59] LABS: PTT Heparin Drip 88.9 SEC (53-77.9)
[2021-03-23 20:18] LABS: Glucose, Whole Blood 177 mg/dL (60-115)
[2021-03-23] MEDS: Heparin Sodium,Porcine/1/2NS 25,000 UNIT/250 ML IV.SOLN 17.13 UNIT IVCONT (22:46)
[2021-03-24] VITALS (7 sets, daily range): BP systolic 111–171; BP diastolic 63–100; PULSE 80–101; RESP 16–20; TEMP 35.9–36.7; O2SAT 88–98
[2021-03-24 00:32] LABS: PTT Heparin Drip 46.2 SEC (53-77.9)
[2021-03-24] MEDS: Heparin Sodium,Porcine 5,000 UNIT/ML VIAL 10000 UNIT IVPUSH (01:03)
--- NOTE | 2021-03-24 01:06 | MHC.PIE ---
p; ptt low 46.2 i; bouls 40u/kg (11191h) given, drip increased by 2u kg/hr per protocol. e; next ptt scheduled for 0700. will cont to monitor
[2021-03-24 07:09] LABS: Glucose, Whole Blood 183 mg/dL (60-115)
[2021-03-24 07:25] LABS: PTT Heparin Drip 94.4 SEC (53-77.9)
[2021-03-24] MEDS: Aspirin 325 MG TABLET PO (08:45)
[2021-03-24] MEDS: Atorvastatin Calcium 20 MG TABLET PO (08:46)
[2021-03-24] MEDS: Phenytoin Sodium Extended 100 MG CAPSULE 700 MG PO ×2 (08:46→21:21)
--- NOTE | 2021-03-24 09:24 | P.CONPL_ITS ---
History of Present Illness History of Present Illness Consult date: 03/24/21 Reason for consult: hypoxemia and obstructive sleep apnea Chief complaint: Hypoxia Narrative: This 45 years old gentleman with super morbid obesity, and diagnosed to have severe obstructive sleep apnea back in 2013, Used CPAP for 2 months and then claims that his machine became dysfunctional, never replaced , so he did not use the CPAP all those years. He still has the old CPAP machine at home but it does not function due to some defect in the filter. He denies history of bronchial asthma , COPD recurrent respiratory infections. He has had atrial fibrillation for some time controlled and did not require anticoagulation. He has a benign tumor behind the left eye, awaiting to have it removed when he loses significant weight. He does have seizure disorder which is relatively controlled with the use of Dilantin. Currently he is participating in weight management program, he is on restricted diet, and is successfully losing weight but slowly. 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 Now he has come to the hospital , because for the last 2 days he was having cough and shortness of breath. He had no fever chills or expectoration. He did have nonspecific tight feeling in the right chest, increased with deep breath. COVID test is negative. In the emergency room he was found to be quite hypoxemic. Workup including CTA and we Q scan could not be completed because of his weight and not fitting on the table. However overnight he has improved significantly, and no longer has any respiratory distress. Also does not require oxygen. For the 1st night in the emergency room he did use CPAP, but not last night. Review of Systems Review of Systems: Yes all other systems are reviewed and are negative Constitutional: Constitutional: Reports lethargy, Reports snoring and Reports stops breathing during sleep Eyes: Eyes: Reports no additional eye complaints ENT: Reports system reviewed and no additional complaints, except as documented Cardiovascular: Cardiovascular: Reports chest pain, Reports irregular heart rhythm and Reports dyspnea on exertion Respiratory: Respiratory: Reports as per HPI, Reports dyspnea on exertion and Reports snoring Gastrointestinal: Gastrointestinal: Reports no additional gastrointestinal complaints Genitourinary: Genitourinary: Reports no additional male genitourinary complaints Musculoskeletal: Musculoskeletal: Reports no additional musculoskeletal complaints Integumentary/Breasts: Skin/Breast: Reports system reviewed and no additional complaints, except as docu Neurologic: Reports seizure-like activity (Controlled) Psychiatric: Psychiatric: Reports no additional psychiatric complaints [facility] Past Medical History Medical History (Updated 03/24/21 @ 09:45 by Alejandro Rodriguez MD) A-fib Aftercare following bilateral ankle joint replacement surgery Brain tumor Diabetes Hypoxemia NORIS (obstructive sleep apnea) Persistent atrial fibrillation Right hand dominant Seizure disorder Family History Family History Paternal Grandmother Myocardial infarction Maternal Grandfather Myocardial infarction Brother No problems noted. Sister No problems noted. Sister No problems noted. Surgical History Surgical History History of ankle surgery Social History Social History Household Members: Spouse Housing: House Do you presently have visiting nurse or other home services: No Alcohol intake: never Patient Tobacco Use Status: Never used Tobacco service: No Current occupational status: disabled Meds Allergies Allergy/AdvReac Type Severity Reaction Status Date / Time codeine [Codeine] Allergy Unknown RASH, hives Verified 03/05/21 13:05 ibuprofen [From Motrin] Allergy Unknown HIVES Verified 03/05/21 13:05 Motrin Allergy Unknown hives Uncoded 03/05/21 13:05 Active Medications: Current Medications Acetaminophen (Acetaminophen 325 Mg Tablet) 650 mg PO Q6H PRN PRN Reason: Pain, Mild (Pain Scale 1-3) Albuterol/Ipratropium (Albuterol/Iprat 2.5/0.5mg 3 Ml Ampul.Neb) 3 ml INHALE RQ4H PRN PRN Reason: Shortness of Breath/Wheezing Aspirin (Aspirin 325 Mg Tablet) 325 mg PO DAILY [facility] Last Admin: 03/24/21 08:45 Dose: 325 mg Documented by: Atorvastatin Calcium (Atorvastatin Calcium 20 Mg Tablet) 20 mg PO DAILY [facility] Last Admin: 03/24/21 08:46 Dose: 20 mg Documented by: Dextrose (Dextrose 50 % 25 Gm/50 Ml Vial) 25 gm IVPUSH Q15M PRN; Protocol PRN Reason: per Hypoglycemia Standing Ord. Glucose (Glucose Gel 15 Gm Gel..Gram.) 15 gm PO Q15M PRN; Protocol PRN Reason: per Hypoglycemia Standing Ord. Heparin Sodium (Porcine) (Heparin Sodium,Porcine 5,000 Unit/Ml Vial) 10,000 unit IVPUSH PROTOCOL BOLUS PRN PRN Reason: 40 unit/kg - Heparin Protocol Last Admin: 03/24/21 01:03 Dose: 10,000 unit Documented by: Heparin Sodium (Porcine) (Heparin Sodium,Porcine 5,000 Unit/Ml Vial) 10,000 unit IVPUSH PROTOCOL BOLUS PRN PRN Reason: 80 unit/kg - Heparin Protocol Heparin Sodium/Sodium Chloride () 25,000 unit in 250 mls @ 0 mls/hr IVCONT .Q0M [facility]; Protocol Last Titration: 03/24/21 08:50 Dose: 5.53 units/kg/hr, 14.51 mls/hr Documented by: Insulin Glargine (Insulin Glargine,Hum.Rec.Anlog 100 Unit/Ml 10 Ml Vial) 10 unit SUBCUT BEDTIME [facility] Last Admin: 03/23/21 19:16 Dose: Not Given Documented by: Insulin Human Lispro (Insulin Lispro 100 Unit/Ml 3 Ml Vial) 0 unit SUBCUT QIDACHS [facility]; Protocol Last Admin: 03/24/21 07:46 Dose: Not Given Documented by: Melatonin (Melatonin 3 Mg Tablet) 6 mg PO BEDTIME PRN PRN Reason: Insomnia Morphine Sulfate (Morphine Sulfate 4 Mg/Ml Cartridge) 2 mg IVPUSH Q4H PRN; Protocol PRN Reason: Pain, SOB Last Admin: 03/23/21 22:52 Dose: 2 mg Documented by: Pharmacy Consult (Consult Rx Perform Med Rec) 1 each MISCELLANE ONCE PRN PRN Reason: Consult order Pharmacy Consult (Consult Rx Perform Med Rec) 1 each MISCELLANE ONCE PRN PRN Reason: Consult order Phenytoin Sodium (Phenytoin Sodium Extended 100 Mg Capsule) 700 mg PO BID [facility] Last Admin: 03/24/21 08:46 Dose: 700 mg Documented by: Senna (Sennosides 8.6 Mg Tablet) 17.2 mg PO BEDTIME PRN PRN Reason: Constipation Sodium Chloride (0.9 % Sodium Chloride Flush 3 Ml Syringe) [address] [facility] Last Admin: 03/24/21 07:47 Dose: Not Given Documented by: Home Medications Medication Instructions Recorded Confirmed Last Taken Type insulin aspart U-100 100 unit/mL 5 unit SUBCUT TID 02/28/20 03/22/21 03/22/21 History (3 mL) subcutaneous pen (Novolog Flexpen U-100 Insulin aspart) phenytoin sodium extended 100 mg 700 mg PO BID cap 02/23/21 03/22/21 03/22/21 History capsule (Dilantin Extended) aspirin 325 mg tablet 325 mg PO DAILY 03/05/21 03/22/21 03/22/21 History atorvastatin 20 mg tablet 20 mg PO DAILY 03/05/21 03/22/21 03/22/21 History Physical Exam Vital Signs: Vital Signs: Last Vital Signs Temp 97.6 F 03/24/21 07:52 Pulse 84 03/24/21 07:52 Resp 18 03/24/21 07:52 BP 171/100 H 03/24/21 07:52 Pulse Ox 96 03/24/21 07:52 Oxygen Flow Rate 2 03/22/21 16:30 Body Mass Index 78.4 Const: Other: Morbidly obese, sitting up by the bedside, appears comfortable General: comfortable, no acute distress, alert and awake Orientation/c onsciousness: patient oriented x3 HENMT: Head: Yes normal to inspection General nose exam: No nasal polyps present and No nasal discharge present Face and sinus: Yes sinuses nontender Mouth: oropharynx abnormals (Oropharynx is very narrow and crowded, Mallampati class 4) Throat: Yes posterior oropharynx normal Eyes: General: appearance normal, both eyes and all related structures Neck: Neck: No normal visual inspection (Very obese neck ), Yes no lymphadenopathy, Yes trachea midline and Yes no JVD Thyroid: Thyroid normal Chest: Chest palpation & inspection: normal inspection of the chest, normal palpation of entire chest wall and no tenderness Resp: Other: He does have good inspiratory effort, breath sounds are diminished over the basilar areas, No wheezes or rhonchi or crepitations are heard. No pleural rub. Cardio: Palpation: PMI not normal (Not palpable) Rhythm: regular rhythm Heart sounds: no gallops and no murmurs GI: Palpation (GI): Soft to palpation, nontender, No hepatosplenomegaly present, no masses and Other GI palpation findings present (Extremely obese and protuberant abdomen) Auscultation: normal bowel sounds Back/Spine/Pelvis: Thoracic/Lumbar Spine: thoracic and lumbar spine normal to inspection Skin: General skin exam: no rashes or lesions noted Neuro: General: patient oriented x3 and no focal motor deficits Cranial nerves: Yes CN's II-XII intact bilaterally Extrem: General: Yes normal to inspection, Yes no clubbing, cyanosis or edema and Yes no calf tenderness Psych: Speech and movement: Normal speech and movement present Results Laboratory Findings CBC and BMP: 03/23/21 03:49 03/23/21 03:49 ABG, PT/INR, D-dimer: PT/INR, D-dimer PT 13.2 SEC (9.9-13.0) H 03/23/21 03:49 INR 1.2 (0.9-1.1) H 03/23/21 03:49 Abnormal lab findings: Abnormal Labs 03/22/21 03/22/21 03/22/21 16:37 17:40 17:40 Plt Count 126 L MPV Immature Gran % (Auto) 0.7 H Neut % (Auto) Lymph % (Auto) Lymph # (Auto) Abs Immat Gran (auto) 0.06 H PT INR PTT (Heparin Protocol) ABG pH at Pt Temp ABG pH (Temp Correct) ABG pO2 at Pt Temp ABG pO2 (Temp Correct Potassium Carbon Dioxide BUN POC Glucose 240 H Random Glucose 231 H B-Natriuretic Peptide Ur Specific [place] Urine Protein 03/22/21 03/22/21 03/22/21 17:40 18:26 19:45 Plt Count 115 L MPV 12.5 H Immature Gran % (Auto) Neut % (Auto) Lymph % (Auto) Lymph # (Auto) Abs Immat Gran (auto) PT INR PTT (Heparin Protocol) ABG pH at Pt Temp ABG pH (Temp Correct) ABG pO2 at Pt Temp ABG pO2 (Temp Correct Potassium Carbon Dioxide BUN POC Glucose Random Glucose B-Natriuretic Peptide 314 H Ur Specific [place] >= 1.030 H Urine Protein 2+ H 03/22/21 03/22/21 03/23/21 19:45 20:39 03:49 Plt Count MPV Immature Gran % (Auto) Neut % (Auto) Lymph % (Auto) Lymph # (Auto) Abs Immat Gran (auto) PT 13.1 H 13.2 H INR 1.2 H 1.2 H PTT (Heparin Protocol) 98.0 H ABG pH at Pt Temp 7.34 L ABG pH (Temp Correct) 7.34 L ABG pO2 at Pt Temp 64 L ABG pO2 (Temp Correct 65 L Potassium Carbon Dioxide BUN POC Glucose Random Glucose B-Natriuretic Peptide Ur Specific [place] Urine Protein 03/23/21 03/23/21 03/23/21 03:49 03:49 07:25 Plt Count 125 L MPV Immature Gran % (Auto) 0.6 H Neut % (Auto) 86.8 H Lymph % (Auto) 9.3 L Lymph # (Auto) 0.8 L Abs Immat Gran (auto) 0.05 H PT INR PTT (Heparin Protocol) ABG pH at Pt Temp ABG pH (Temp Correct) ABG pO2 at Pt Temp ABG pO2 (Temp Correct Potassium 5.3 H D Carbon Dioxide 16 L BUN 18 H POC Glucose 247 H Random Glucose 331 H D B-Natriuretic Peptide Ur Specific [place] Urine Protein 03/23/21 03/23/21 03/23/21 09:59 12:24 17:11 Plt Count MPV Immature Gran % (Auto) Neut % (Auto) Lymph % (Auto) Lymph # (Auto) Abs Immat Gran (auto) PT INR PTT (Heparin Protocol) 38.3 L D ABG pH at Pt Temp ABG pH (Temp Correct) ABG pO2 at Pt Temp ABG pO2 (Temp Correct Potassium Carbon Dioxide BUN POC Glucose 255 H 192 H Random Glucose B-Natriuretic Peptide Ur Specific [place] Urine Protein 03/23/21 03/23/21 03/24/21 17:36 20:15 00:19 Plt Count MPV Immature Gran % (Auto) Neut % (Auto) Lymph % (Auto) Lymph # (Auto) Abs Immat Gran (auto) PT INR PTT (Heparin Protocol) 88.9 H D 46.2 L D ABG pH at Pt Temp ABG pH (Temp Correct) ABG pO2 at Pt Temp ABG pO2 (Temp Correct Potassium Carbon Dioxide BUN POC Glucose 177 H Random Glucose B-Natriuretic Peptide Ur Specific [place] Urine Protein 03/24/21 03/24/21 06:55 07:04 Plt Count MPV Immature Gran % (Auto) Neut % (Auto) Lymph % (Auto) Lymph # (Auto) Abs Immat Gran (auto) PT INR PTT (Heparin Protocol) 94.4 H D ABG pH at Pt Temp ABG pH (Temp Correct) ABG pO2 at Pt Temp ABG pO2 (Temp Correct Potassium Carbon Dioxide BUN POC Glucose 183 H Random Glucose B-Natriuretic Peptide Ur Specific [place] Urine Protein Diagnostic Findings Chest x-ray: report reviewed and image reviewed Sleep Studies: pending Assessment and Plan (1) Morbid obesity with body mass index (BMI) greater than or equal to 70 in adult: Status: Acute This is a chronic problem in his case. He is actively participating in weight management program. I encouraged him to continue in the program, and continue losing weight. (2) Sleep apnea, obstructive: Status: Acute Patient diagnosed to have obstructive sleep apnea, severe, in 2013. Has not been using CPAP except for 2 months in the beginning. He claims that his CPAP machine did not work, I am not sure if that is the reason. However he does show his eagerness to start using the CPAP again. For this he would need a repeat sleep study for documentation. We can do home based sleep study , on a fast-track, and then order the CPAP device. I explained to him the importance of treating his obstructive sleep apnea and risks of not using the CPAP. (3) Hypoxemia: Status: Acute I think, he did have patchy areas of atelectasis in the left upper lobe and basilar areas, which may have resulted in significant hypoxemia. I do not think that was due to an active pulmonary embolism. The hypoxemia has resolved he does not need to have oxygen at home. I advised him to do deep breathing exercises at least 3 times a day. (4) Atrial fibrillation with rapid ventricular response: Status: Acute Patient probably has chronic atrial fibrillation, contributed by on treated obstructive sleep apnea and morbid obesity. I think it will be beneficial to keep him on anticoagulation, until he loses significant weight and, also is restarted on the CPAP. Procedures Date of Service Date of Service: 03/24/21
[2021-03-24 11:29] LABS: Glucose, Whole Blood 162 mg/dL (60-115)
[2021-03-24] MEDS: 0.9 % Sodium Chloride Flush 3 ML SYRINGE IVFLUSH ×2 (15:18→21:22)
[2021-03-24 16:15] LABS: Glucose, Whole Blood 196 mg/dL (60-115)
--- NOTE | 2021-03-24 16:51 | HO.PM.IMPN ---
Subjective Subjective Date of Service: 03/24/21 Interval History: Chest pain,: shortness of breath Review of Systems Seems like symptom medically seems improving now off oxygen denies any chest pain abdominal pain or fever chills or cough or phlegm. Physical Exam Vital Signs: Vital Signs: Last Vital Signs Temp 96.6 F L 03/24/21 14:54 Pulse 93 03/24/21 14:54 Resp 20 03/24/21 14:54 BP 130/88 03/24/21 14:54 Pulse Ox 88 L 03/24/21 14:54 Oxygen Flow Rate 2 03/22/21 16:30 Body Mass Index 78.4 physical exam: Appearance: Alert.? Oriented X3.? not in distress.? Eyes: Pupils equal, round and reactive to light.? Sclera nonicteric.? ENT: Pharynx normal.? Moist mucous membranes. cvs: rrr, [id number] , no murmur res: Fair air entry, diminished at bases. abd: no rebound or guarding ,nt, bs present. ext pulses present , no cyanosis ,Gait well balanced well coordinated. neuro: axo3 , nonfocal. Objective Data Active Medications Acetaminophen (Acetaminophen 325 Mg Tablet) 650 mg PO Q6H PRN PRN Reason: Pain, Mild (Pain Scale 1-3) Albuterol/Ipratropium (Albuterol/Iprat 2.5/0.5mg 3 Ml Ampul.Neb) 3 ml INHALE RQ4H PRN PRN Reason: Shortness of Breath/Wheezing Aspirin (Aspirin 325 Mg Tablet) 325 mg PO DAILY [facility] Last Admin: 03/24/21 08:45 Dose: 325 mg Documented by: BIGG Atorvastatin Calcium (Atorvastatin Calcium 20 Mg Tablet) 20 mg PO DAILY [facility] Last Admin: 03/24/21 08:46 Dose: 20 mg Documented by: BIGG Dextrose (Dextrose 50 % 25 Gm/50 Ml Vial) 25 gm IVPUSH Q15M PRN; Protocol PRN Reason: per Hypoglycemia Standing Ord. Glucose (Glucose Gel 15 Gm Gel..Gram.) 15 gm PO Q15M PRN; Protocol PRN Reason: per Hypoglycemia Standing Ord. Insulin Glargine (Insulin Glargine,Hum.Rec.Anlog 100 Unit/Ml 10 Ml Vial) 10 unit SUBCUT BEDTIME [facility] Last Admin: 03/23/21 19:16 Dose: Not Given Documented by: SUZY Non-Admin Reason: Patient Refused Insulin Human Lispro (Insulin Lispro 100 Unit/Ml 3 Ml Vial) 0 unit SUBCUT QIDACHS [facility]; Protocol Last Admin: 03/24/21 15:18 Dose: Not Given Documented by: CHELSEA Non-Admin Reason: Patient Refused Melatonin (Melatonin 3 Mg Tablet) 6 mg PO BEDTIME PRN PRN Reason: Insomnia Morphine Sulfate (Morphine Sulfate 4 Mg/Ml Cartridge) 2 mg IVPUSH Q4H PRN; Protocol PRN Reason: Pain, SOB Last Admin: 03/23/21 22:52 Dose: 2 mg Documented by: SUZY Pharmacy Consult (Consult Rx Perform Med Rec) 1 each MISCELLANE ONCE PRN PRN Reason: Consult order Pharmacy Consult (Consult Rx Perform Med Rec) 1 each MISCELLANE ONCE PRN PRN Reason: Consult order Phenytoin Sodium (Phenytoin Sodium Extended 100 Mg Capsule) 700 mg PO BID [facility] Last Admin: 03/24/21 08:46 Dose: 700 mg Documented by: S-TURGM Senna (Sennosides 8.6 Mg Tablet) 17.2 mg PO BEDTIME PRN PRN Reason: Constipation Sodium Chloride (0.9 % Sodium Chloride Flush 3 Ml Syringe) 3 ml IVFLUSH QSHIFT [facility] Last Admin: 03/24/21 15:18 Dose: 3 ml Documented by: CHELSEA Sodium Zirconium Cyclosilicate (Sodium Zirconium Cyclosilicate 10 Gm Powd.Pack) 10 gm PO DAILY [facility] Labs CBC & Chem 7: 03/23/21 03:49 03/23/21 03:49 Labs: Laboratory Results - last 24 hr 03/23/21 03/23/21 03/23/21 17:11 17:36 20:15 PTT (Heparin Protocol) 88.9 H D POC Glucose 192 H 177 H 03/24/21 03/24/21 03/24/21 00:19 06:55 07:04 PTT (Heparin Protocol) 46.2 L D 94.4 H D POC Glucose 183 H 03/24/21 03/24/21 11:26 16:11 PTT (Heparin Protocol) POC Glucose 162 H 196 H Assessment and Plan (1) Hypoxemia: Status: Acute (2) Atrial fibrillation with rapid ventricular response: Status: Acute Assessment and Plan: 1. hypoxemia: Workup including v/q and venous duplex seems to be fine. chest imaging shows probable atelectasis- left upper lobe. added incentive spirometry, chest physiotherapy, nebs. monitor, seen by Pulmonary hypoxemia less likely due to active pulmonary embolism- off IV heparin. echo seems fine 2. NORIS:? Patient diagnosed to have obstructive sleep apnea, severe, in 2013. Has not been using CPAP except for 2 months in the beginning. He claims that his CPAP machine did not work, not sure if that is the reason. However he does show his eagerness to start using the CPAP again. For this he would need a repeat sleep study for documentation-home based sleep study. pulm-explained to him the importance of treating his obstructive sleep apnea and risks of not using the CPAP. 3. dm: continue homw insulin regimen 4. afib : low chadvasc :around 1, not on AC. dvt prophylax : s/c heparin Quality Stroke Does the patient have a stroke diagnosis?: No VTE Prior VTE?: No VTE Risk Level:: Medical - moderate - high VTE Device Contraindication: N/A - Device Ordered VTE Drug Contraindication: Treatment Not Indicated
[2021-03-24 19:35] LABS: Glucose, Whole Blood 172 mg/dL (60-115)
[2021-03-24] MEDS: Heparin Sodium,Porcine/1/2NS 25,000 UNIT/250 ML IV.SOLN 25 UNIT IVCONT (21:21)
[2021-03-25] VITALS: BP 175/109; PULSE 92; RESP 18; TEMP 36.5
[2021-03-25 03:08] VITALS: BP 171/104; PULSE 93; RESP 20; TEMP 37; O2SAT 92
[2021-03-25 03:11] LABS: Hematocrit 45.2 % (42.0-52.0); Hemoglobin 14.9 g/dl (14.0-18.0); Mean Corpuscular Hemoglobin 29.9 pg (27.0-33.0); Mean Corpuscular Volume 90.8 fL (80.0-98.0); Mean Platelet Volume 12.2 fL (9.4-12.4); Platelet Count 117 X10*3/uL (160-400); Red Blood Count 4.98 X10*6/uL (4.60-5.80); Red Cell Distribution Width 13.6 % (11.0-16.0); White Blood Count 6.1 X10*3/uL (4.8-10.8)
[2021-03-25 03:28] LABS: PTT Heparin Drip 56.2 SEC (53-77.9)
[2021-03-25 04:13] LABS: Anion Gap 15 (12-20); Blood Urea Nitrogen 17 mg/dL (9-16); Calcium 9.1 mg/dL (8.4-10.2); Carbon Dioxide 27 mmol/L (22-29); Chloride 104 mmol/L (96-108); Creatinine Clr Calc Pharmacy 201.8; Estimated Glomerular Filt Rate > 60; Glucose Random 163 mg/dL (60-115); Potassium 4.2 mmol/L (3.3-5.1); Sodium 142 mmol/L (135-145)
[2021-03-25 06:58] VITALS: BP 140/70; PULSE 79; RESP 20; TEMP 36.6; O2SAT 93
[2021-03-25 07:18] LABS: Glucose, Whole Blood 147 mg/dL (60-115)
[2021-03-25] MEDS: Heparin Sodium,Porcine/1/2NS 25,000 UNIT/250 ML IV.SOLN 25 UNIT IVCONT (07:43)
[2021-03-25 07:44] VITALS: PULSE 85; O2SAT 94
--- NOTE | 2021-03-25 07:47 | HO.PM.IMPN ---
Subjective Subjective Date of Service: 03/25/21 Interval History: hypoxia Review of Systems seems improving denies any chest pain or abdominal pain or nausea or vomiting or fever or chills. Physical Exam Vital Signs: Vital Signs: Last Vital Signs Temp 98 F 03/25/21 06:58 Pulse 85 03/25/21 07:44 Resp 20 03/25/21 06:58 BP 140/70 H 03/25/21 06:58 Pulse Ox 93 03/25/21 06:58 Oxygen Flow Rate 2 03/22/21 16:30 Body Mass Index 78.4 physical exam: Appearance: Alert.? Oriented X3.? not in distress.? Eyes: Pupils equal, round and reactive to light.? Sclera nonicteric.? ENT: Pharynx normal.? Moist mucous membranes. cvs: rrr, [id number] , no murmur res: ? Fair air entry, diminished at bases. abd: no rebound or guarding ,nt, bs present. ext pulses present , no cyanosis ,Gait well balanced well coordinated. neuro: axo3 , nonfocal. ? ? Objective Data Active Medications Acetaminophen (Acetaminophen 325 Mg Tablet) 650 mg PO Q6H PRN PRN Reason: Pain, Mild (Pain Scale 1-3) Albuterol/Ipratropium (Albuterol/Iprat 2.5/0.5mg 3 Ml Ampul.Neb) 3 ml INHALE RQ4H PRN PRN Reason: Shortness of Breath/Wheezing Aspirin (Aspirin 325 Mg Tablet) 325 mg PO DAILY [facility] Last Admin: 03/24/21 08:45 Dose: 325 mg Documented by: BIGG Atorvastatin Calcium (Atorvastatin Calcium 20 Mg Tablet) 20 mg PO DAILY [facility] Last Admin: 03/24/21 08:46 Dose: 20 mg Documented by: BIGG Dextrose (Dextrose 50 % 25 Gm/50 Ml Vial) 25 gm IVPUSH Q15M PRN; Protocol PRN Reason: per Hypoglycemia Standing Ord. Glucose (Glucose Gel 15 Gm Gel..Gram.) 15 gm PO Q15M PRN; Protocol PRN Reason: per Hypoglycemia Standing Ord. Heparin Sodium (Porcine) (Heparin Sodium,Porcine 5,000 Unit/Ml Vial) 10,000 unit IVPUSH PROTOCOL BOLUS PRN; Protocol PRN Reason: 40 unit/kg - Heparin Protocol Heparin Sodium (Porcine) (Heparin Sodium,Porcine 5,000 Unit/Ml Vial) 10,000 unit IVPUSH PROTOCOL BOLUS PRN; Protocol PRN Reason: 80 unit/kg - Heparin Protocol Heparin Sodium/Sodium Chloride () 25,000 unit in 250 mls @ 0 mls/hr IVCONT .Q0M [facility]; Protocol Last Admin: 03/25/21 07:43 Dose: 9.53 units/kg/hr, 25 mls/hr Documented by: SO Cosigned by: ASPEN Insulin Glargine (Insulin Glargine,Hum.Rec.Anlog 100 Unit/Ml 10 Ml Vial) 10 unit SUBCUT BEDTIME [facility] Last Admin: 03/24/21 19:40 Dose: Not Given Documented by: ALFA Non-Admin Reason: Patient Refused Insulin Human Lispro (Insulin Lispro 100 Unit/Ml 3 Ml Vial) 0 unit SUBCUT QIDACHS [facility]; Protocol Last Admin: 03/24/21 19:41 Dose: Not Given Documented by: ALFA Non-Admin Reason: Patient Refused Levalbuterol HCl (Levalbuterol Hcl 1.25 Mg/0.5 Ml Vial.Neb) 1.25 mg INHALE RQ6H WHILE AWAKE [facility] Last Admin: 03/25/21 07:40 Dose: 1.25 mg Documented by: LATA Melatonin (Melatonin 3 Mg Tablet) 6 mg PO BEDTIME PRN PRN Reason: Insomnia Morphine Sulfate (Morphine Sulfate 4 Mg/Ml Cartridge) 2 mg IVPUSH Q4H PRN; Protocol PRN Reason: Pain, SOB Last Admin: 03/23/21 22:52 Dose: 2 mg Documented by: SUZY Pharmacy Consult (Consult Rx Perform Med Rec) 1 each MISCELLANE ONCE PRN PRN Reason: Consult order Pharmacy Consult (Consult Rx Perform Med Rec) 1 each MISCELLANE ONCE PRN PRN Reason: Consult order Phenytoin Sodium (Phenytoin Sodium Extended 100 Mg Capsule) 700 mg PO BID [facility] Last Admin: 03/24/21 21:21 Dose: 700 mg Documented by: ALFA Senna (Sennosides 8.6 Mg Tablet) 17.2 mg PO BEDTIME PRN PRN Reason: Constipation Sodium Chloride (0.9 % Sodium Chloride Flush 3 Ml Syringe) 3 ml IVFLUSH QSHIFT [facility] Last Admin: 03/24/21 21:22 Dose: 3 ml Documented by: JESE.ANTOIC Sodium Zirconium Cyclosilicate (Sodium Zirconium Cyclosilicate 10 Gm Powd.Pack) 10 gm PO DAILY [facility] Labs CBC & Chem 7: 03/25/21 03:05 03/25/21 03:05 Labs: Laboratory Results - last 24 hr 03/24/21 03/24/21 03/24/21 11:26 16:11 19:31 MCV MCH MCHC RDW Plt Count MPV Absolute Nucleated RBC Nucleated RBC % (auto) PTT (Heparin Protocol) Anion Gap Estim Creat Clear Calc Estimated GFR POC Glucose 162 H 196 H 172 H Random Glucose Calcium 03/24/21 03/25/21 03/25/21 20:13 03:05 03:05 MCV 90.8 MCH 29.9 MCHC 33.0 RDW 13.6 Plt Count 117 L MPV 12.2 Absolute Nucleated RBC 0.000 Nucleated RBC % (auto) 0.0 PTT (Heparin Protocol) 29.0 L D 56.2 D Anion Gap Estim Creat Clear Calc Estimated GFR POC Glucose Random Glucose Calcium 03/25/21 03/25/21 03:05 07:00 MCV MCH MCHC RDW Plt Count MPV Absolute Nucleated RBC Nucleated RBC % (auto) PTT (Heparin Protocol) Anion Gap 15 Estim Creat Clear Calc 201.8 Estimated GFR > 60 POC Glucose 147 H Random Glucose 163 H D Calcium 9.1 Assessment and Plan (1) Hypoxemia: Status: Acute (2) Atrial fibrillation with rapid ventricular response: Status: Acute Assessment and Plan: 1. hypoxemia: ? Workup including v/q and? venous duplex seems to be fine. ?chest imaging shows probable atelectasis- left upper lobe. ?added incentive spirometry, chest physiotherapy, nebs. ?monitor,? seen by Pulmonary hypoxemia less likely due to active pulmonary embolism- off IV heparin. echo seems fine 2.? NORIS:? Patient diagnosed to have obstructive sleep apnea, severe, in 2013. Has not been using CPAP except for 2 months in the beginning. He claims that his CPAP machine did not work,? not sure if that is the reason. However he does show his eagerness to start using the CPAP again. For this he would need a repeat sleep study for documentation-home based sleep study. pulm-explained to him the importance of treating his obstructive sleep apnea and risks of not using the CPAP. 3. dm: continue homw insulin regimen will check Hba1c. 4. afib : low chadvasc :around 1 d/w cardio no AC. toprol 25 mg daily dvt prophylax : s/c heparin Quality Stroke Does the patient have a stroke diagnosis?: No VTE Prior VTE?: No VTE Risk Level:: Medical - moderate - high VTE Device Contraindication: N/A - Device Ordered VTE Drug Contraindication: Treatment Not Indicated
[2021-03-25] MEDS: Aspirin 325 MG TABLET PO (08:21)
[2021-03-25] MEDS: Phenytoin Sodium Extended 100 MG CAPSULE 700 MG PO (08:22)
[2021-03-25] MEDS: Atorvastatin Calcium 20 MG TABLET PO (08:22)
[2021-03-25 09:12] LABS: PTT Heparin Drip 48.5 SEC (53-77.9)
--- NOTE | 2021-03-25 10:27 | PM.PNCARD ---
Subjective Subjective Date of Service: 03/25/21 Interval history: States that he feels great. Review of Systems Review of Systems Yes all other systems are reviewed and are negative Cardiovascular: Reports as per HPI, Reports no additional cardiovascular complaints, Denies acrocyanosis, Denies cool extremities, Denies painful fingertips, Denies chest pain, Denies chest pain at rest, Denies diaphoresis, Denies syncope, Denies irregular heart rhythm, Denies claudication, Denies leg edema, Denies lightheadedness, Denies palpitations and Denies dyspnea Respiratory: Denies dyspnea Denies syncope Endocrine: Denies palpitations Physical Exam Vital Signs: Last Vital Signs Temp 98 F 03/25/21 06:58 Pulse 85 03/25/21 07:44 Resp 20 03/25/21 06:58 BP 140/70 H 03/25/21 06:58 Pulse Ox 93 03/25/21 06:58 Oxygen Flow Rate 2 03/22/21 16:30 Body Mass Index 78.4 Const General: cooperative and no acute distress [facility] Other: Unremarkable Neck Neck: Yes normal visual inspection Chest Chest palpation & inspection: normal inspection of the chest Resp Auscultation: clear to auscultation bilaterally, no crackles and no wheezes Cardio Jugular venous distension: no JVD Palpation: normal PMI Heart sounds: S1 normal heart sound present, S2 normal heart sound present, no gallops, no murmurs and no rubs GI Palpation (GI): Soft to palpation Back/Spine/Pelvis Other: unremarkable Skin General skin exam: no rashes or lesions noted Neuro Cranial nerves: Yes Other cranial nerve findings present Extrem General: Yes no clubbing, cyanosis or edema Psych Mental Status: other Objective Labs and Meds Result diagrams: 03/25/21 03:05 03/25/21 03:05 Lab results: Laboratory Results - last 24 hr 03/24/21 03/24/21 03/24/21 11:26 16:11 19:31 WBC RBC Hgb Hct MCV MCH MCHC RDW Plt Count MPV Absolute Nucleated RBC Nucleated RBC % (auto) PTT (Heparin Protocol) Sodium Potassium Chloride Carbon Dioxide Anion Gap BUN Creatinine Estim Creat Clear Calc Estimated GFR POC Glucose 162 H 196 H 172 H Random Glucose Calcium 03/24/21 03/25/21 03/25/21 20:13 03:05 03:05 WBC 6.1 RBC 4.98 Hgb 14.9 Hct 45.2 MCV 90.8 MCH 29.9 MCHC 33.0 RDW 13.6 Plt Count 117 L MPV 12.2 Absolute Nucleated RBC 0.000 Nucleated RBC % (auto) 0.0 PTT (Heparin Protocol) 29.0 L D 56.2 D Sodium Potassium Chloride Carbon Dioxide Anion Gap BUN Creatinine Estim Creat Clear Calc Estimated GFR POC Glucose Random Glucose Calcium 03/25/21 03/25/21 03/25/21 03:05 07:00 08:46 WBC RBC Hgb Hct MCV MCH MCHC RDW Plt Count MPV Absolute Nucleated RBC Nucleated RBC % (auto) PTT (Heparin Protocol) 48.5 L Sodium 142 Potassium 4.2 D Chloride 104 Carbon Dioxide 27 Anion Gap 15 BUN 17 H Creatinine 0.99 Estim Creat Clear Calc 201.8 Estimated GFR > 60 POC Glucose 147 H Random Glucose 163 H D Calcium 9.1 Progress Note: A&P Assessment and plan (1) Atrial fibrillation with rapid ventricular response: Status: Acute (2) Morbid obesity with body mass index (BMI) greater than or equal to 70 in adult: Status: Acute (3) Elevated d-dimer: Status: Acute Assessment and Plan: Echocardiogram of difficult quality but LVEF suspected to be around 50%. RV size is increased most likely related to body habitus. Pulmonary perfusion imaging reported to have low probability for pulmonary embolism. From the atrial fibrillation standpoint, his thromboembolic risk is low as it is positive only for diabetes. 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 Hence after discussion, we are deciding to hold off on anticoagulation at this time. May use beta-blockers for rate control. On telemetry, atrial fibrillation rate is between 90-[address] Jim. Fall Risk Details Current Medications: Current Medications Acetaminophen (Acetaminophen 325 Mg Tablet) 650 mg PO Q6H PRN PRN Reason: Pain, Mild (Pain Scale 1-3) Albuterol/Ipratropium (Albuterol/Iprat 2.5/0.5mg 3 Ml Ampul.Neb) 3 ml INHALE RQ4H PRN PRN Reason: Shortness of Breath/Wheezing Aspirin (Aspirin 325 Mg Tablet) 325 mg PO DAILY [facility] Last Admin: 03/25/21 08:21 Dose: 325 mg Documented by: Atorvastatin Calcium (Atorvastatin Calcium 20 Mg Tablet) 20 mg PO DAILY [facility] Last Admin: 03/25/21 08:22 Dose: 20 mg Documented by: Dextrose (Dextrose 50 % 25 Gm/50 Ml Vial) 25 gm IVPUSH Q15M PRN; Protocol PRN Reason: per Hypoglycemia Standing Ord. Glucose (Glucose Gel 15 Gm Gel..Gram.) 15 gm PO Q15M PRN; Protocol PRN Reason: per Hypoglycemia Standing Ord. Insulin Glargine (Insulin Glargine,Hum.Rec.Anlog 100 Unit/Ml 10 Ml Vial) 10 unit SUBCUT BEDTIME [facility] Last Admin: 03/24/21 19:40 Dose: Not Given Documented by: Insulin Human Lispro (Insulin Lispro 100 Unit/Ml 3 Ml Vial) 0 unit SUBCUT QIDACHS [facility]; Protocol Last Admin: 03/25/21 07:47 Dose: Not Given Documented by: Levalbuterol HCl (Levalbuterol Hcl 1.25 Mg/0.5 Ml Vial.Neb) 1.25 mg INHALE RQ6H WHILE AWAKE [facility] Last Admin: 03/25/21 07:40 Dose: 1.25 mg Documented by: Melatonin (Melatonin 3 Mg Tablet) 6 mg PO BEDTIME PRN PRN Reason: Insomnia Metoprolol Succinate (Metoprolol Succinate Er 25 Mg Tab.Er.24h) 25 mg PO DAILY [facility]; Protocol Morphine Sulfate (Morphine Sulfate 4 Mg/Ml Cartridge) 2 mg IVPUSH Q4H PRN; Protocol PRN Reason: Pain, SOB Last Admin: 03/23/21 22:52 Dose: 2 mg Documented by: Pharmacy Consult (Consult Rx Perform Med Rec) 1 each MISCELLANE ONCE PRN PRN Reason: Consult order Pharmacy Consult (Consult Rx Perform Med Rec) 1 each MISCELLANE ONCE PRN PRN Reason: Consult order Phenytoin Sodium (Phenytoin Sodium Extended 100 Mg Capsule) 700 mg PO BID [facility] Last Admin: 03/25/21 08:22 Dose: 700 mg Documented by: Senna (Sennosides 8.6 Mg Tablet) 17.2 mg PO BEDTIME PRN PRN Reason: Constipation Sodium Chloride (0.9 % Sodium Chloride Flush 3 Ml Syringe) 3 ml IVFLUSH QSHIFT [facility] Last Admin: 03/25/21 07:47 Dose: Not Given Documented by: Sodium Zirconium Cyclosilicate (Sodium Zirconium Cyclosilicate 10 Gm Powd.Pack) 10 gm PO DAILY [facility] Last Admin: 03/25/21 09:32 Dose: Not Given Documented by: Time Spent With Patient Time: Total time spent is greater than 50% in coordination of care (as documented) at patient's floor/unit and/or counseling patient: Time with patient: less than 15 minutes Progress Note: Quality Stroke Does the patient have a stroke diagnosis?: No Procedures Date of Service Date of Service: 03/25/21
[2021-03-25 10:28] LABS: Estimated Average Glucose 206 mg/dL; Hemoglobin A1c % 8.8 %
[2021-03-25] MEDS: Metoprolol Succinate ER 25 MG TAB.ER.24H PO (10:46)
[2021-03-25 11:22] VITALS: BP 118/71; PULSE 86; RESP 19; TEMP 36.1; O2SAT 96
[2021-03-25 11:23] LABS: Glucose, Whole Blood 204 mg/dL (60-115)
--- NOTE | 2021-03-25 11:43 | MHC.CM.PN ---
Per ROUNDS discussion, Patient is not yet medically cleared for dc (ECHO & Cardiology input pending today). Home is the goal for dc and CM will follow for possible need ti adjust the dc plan.
[2021-03-25] MEDS: Insulin Lispro 100 UNIT/ML 3 ML VIAL SUBCUT ×2 (12:39→16:54)
[2021-03-25] MEDS: Heparin Sodium,Porcine 5,000 UNIT/ML VIAL 5000 UNIT SUBCUT (14:25)
[2021-03-25] MEDS: 0.9 % Sodium Chloride Flush 3 ML SYRINGE IVFLUSH (14:26)
[2021-03-25 14:57] VITALS: BP 153/92; PULSE 90; RESP 20; TEMP 36.1; O2SAT 94
--- NOTE | 2021-03-25 15:53 | MHC.CM.PN ---
Per MD, Patient will be medically cleared for dc to home today, no services. Last IMM addressed 03/23/21.
[2021-03-25 16:25] LABS: Glucose, Whole Blood 173 mg/dL (60-115)
--- NOTE | 2021-03-25 17:25 | PM.DS ---
DS: Providers Provider Date of Service: 03/25/21 Date of admission: 03/23/21 03:13 Primary care physician: Gt Menendez MD Admitting clinician: Kendall Jim Consults: 03/23/21 03:13 Consult to Pulmonology Routine Consulting Provider: Alejandro Rodriguez Reason for consultation: HYpoxia 03/23/21 03:49 Consult to Cardiology Routine Consulting Provider: Felix Barney Reason for consultation: chest pain for/SOB/Aib with RVR 03/24/21 13:48 Consult to Cardiology Routine Consulting Provider: Miguel Angel Toledo Reason for consultation: fatimah pain /sob , hx of afib Has provider been notified: No DS: Diagnosis Discharge Diagnosis (1) Hypoxemia: Status: Acute (2) Atrial fibrillation with rapid ventricular response: Status: Acute DS: Summary Hospital Course Hospital Course: 45 yo with supermorbid obesity yet very functional, h/o NORIS, AFIB not anticoagulated who was admitted earlier this morning for acute hypoxic respiratory failure, elevated DDimer. Hospital course: patient came with sob- Found to have elevated D-dimer, had workup with weakness scan as well as duplex of lower extremity which seems to be negative for PE and DVT. In addition patient was seen by Pulmonary- his symptoms more likely because secondary to atelectasis and or noris-patient will in outpatient sleep study. Further management outpatient as per PCP , patient says his PCP will arrange pulmonary evaluation out patiently. Atelectasis llanos patient was started on incentive spirometry and also recommended use p.r.n. albuterol. seems improving. Added fibrillation :seen by Cardiology- recommended to start metoprolol, Maximilian score is low- do not recommend anticoagulation at present. Above management discussed with the patient in detail length she understand and in agreement with the above plan, time spent 50 minutes and 50% time spent on counseling. Significant findings: As above. Procedures performed: None. Treatment and response: As above. Complications: None. Time Spent with Patient Time attestation: Total time spent providing and/or coordinating discharge services: Discharge coordination time: Greater than 30 minutes Quality: Stroke Does the patient have a stroke diagnosis?: No Physical Exam Vital Signs: Vital Signs: Last Vital Signs Temp 96.9 F 03/25/21 14:57 Pulse 90 03/25/21 14:57 Resp 20 03/25/21 14:57 BP 153/92 H 03/25/21 14:57 Pulse Ox 94 03/25/21 14:57 Oxygen Flow Rate 2 03/22/21 16:30 BMI result Body Mass Index 78.4 Physical exam: Appearance: Alert.? Oriented X3.? not in distress.? Morbidly obese. Eyes: Pupils equal, round and reactive to light.? Sclera nonicteric.? ENT: Pharynx normal.? Moist mucous membranes. cvs: rrr, [id number] , no murmur res: clear to auscultation ,no rhonchii or wheezing abd: no rebound or guarding ,nt, bs present. ext pulses present , no cyanosis ,Gait well balanced well coordinated. neuro: axo3 , nonfocal. DS: Data Data Completed and Pending Labs on day of discharge: Laboratory Results - last 24 hr 03/24/21 03/24/21 03/25/21 19:31 20:13 03:05 WBC RBC Hgb Hct MCV MCH MCHC RDW Plt Count MPV Absolute Nucleated RBC Nucleated RBC % (auto) PTT (Heparin Protocol) 29.0 L D 56.2 D Sodium Potassium Chloride Carbon Dioxide Anion Gap BUN Creatinine Estim Creat Clear Calc Estimated GFR POC Glucose 172 H Random Glucose Estimat Average Glucose Hemoglobin A1c % Calcium 03/25/21 03/25/21 03/25/21 03:05 03:05 07:00 WBC 6.1 RBC 4.98 Hgb 14.9 Hct 45.2 MCV 90.8 MCH 29.9 MCHC 33.0 RDW 13.6 Plt Count 117 L MPV 12.2 Absolute Nucleated RBC 0.000 Nucleated RBC % (auto) 0.0 PTT (Heparin Protocol) Sodium 142 Potassium 4.2 D Chloride 104 Carbon Dioxide 27 Anion Gap 15 BUN 17 H Creatinine 0.99 Estim Creat Clear Calc 201.8 Estimated GFR > 60 POC Glucose 147 H Random Glucose 163 H D Estimat Average Glucose Hemoglobin A1c % Calcium 9.1 03/25/21 03/25/21 03/25/21 08:46 10:02 11:03 WBC RBC Hgb Hct MCV MCH MCHC RDW Plt Count MPV Absolute Nucleated RBC Nucleated RBC % (auto) PTT (Heparin Protocol) 48.5 L Sodium Potassium Chloride Carbon Dioxide Anion Gap BUN Creatinine Estim Creat Clear Calc Estimated GFR POC Glucose 204 H Random Glucose Estimat Average Glucose 206 Hemoglobin A1c % 8.8 Calcium 03/25/21 16:22 WBC RBC Hgb Hct MCV MCH MCHC RDW Plt Count MPV Absolute Nucleated RBC Nucleated RBC % (auto) PTT (Heparin Protocol) Sodium Potassium Chloride Carbon Dioxide Anion Gap BUN Creatinine Estim Creat Clear Calc Estimated GFR POC Glucose 173 H Random Glucose Estimat Average Glucose Hemoglobin A1c % Calcium Additional Comments Additional comments: cxr: IMPRESSION: Findings strongly suspicious for left upper lobe infiltrate. v/q scan: IMPRESSION: Single small matched focal subsegmental defect left upper lobe on perfusion and chest x-ray. In addition there are nonsegmental defects in bilateral hilar regions. On chest x-ray, the findings are suggestive of likely patchy infiltrate in the left upper lobe with increased vascular markings. Overall the findings are suggestive of low probability for PE. dvt study: IMPRESSION: No DVT demonstrated in the bilateral lower extremity. Discharge Plan Discharge Patient Disposition: Home, Self-Care Discharge Diagnosis: noris , atelactasis Referrals: Gt Menendez MD [Primary Care Provider] - 1 Week Discharge Medications: New albuterol sulfate 90 mcg/actuation HFA aerosol inhaler 1 inh inhalation QID PRN (Reason: bronchospasm) Qty: 8.5 RF: 0 metoprolol succinate 25 mg Tablet Extended Release 24 Hr 25 mg PO DAILY Qty: 30 RF: 0 Continued insulin aspart U-100 [Novolog Flexpen U-100 Insulin] 100 unit/mL (3 mL) insulin pen 5 unit subcut TID RF: 0 phenytoin sodium extended [Dilantin Extended] 100 mg capsule 700 mg PO BID RF: 0 aspirin 325 mg tablet 325 mg PO DAILY RF: 0 atorvastatin 20 mg tablet 20 mg PO DAILY RF: 0 Discharge Orders: Discharge Order (Routine); Ordered 03/25/21 Ordered By: Kendall Jim Diet: advance to usual diet, diabetic diet, low fat, low cholesterol and low salt diet Activity on Discharge: As tolerated Stand Alone Forms: Patient Portal Discharge page Care Plan Goals: patient came with sob- Found to have elevated D-dimer, had workup with weakness scan as well as duplex of lower extremity which seems to be negative for PE and DVT. In addition patient was seen by Pulmonary- his symptoms more likely because secondary to atelectasis and or noris-patient will in outpatient sleep study. Further management outpatient as per PCP , patient says his PCP will arrange pulmonary evaluation out patiently. Added fibrillation :seen by Cardiology- recommended to start metoprolol, Maximilian score is low- do not recommend anticoagulation at present. Health Concerns: As above. Plan of Treatment: As above. Assessment: As above. Patient Instructions: Metoprolol (By mouth)
== END 2021-03-25 17:50 | disposition home or self-care (01) | DRG 308 ==
LOC: HO.ED 20:06 → HO.EDOVER 03-23 03:24 → HO.IMC 03-23 15:58
PROVIDERS: Internal Medicine; Physician Assistant; Admitting Provider Hospitalist; Emergency Provider Internal Medicine; PCP Internal Medicine; Visit Provider Internal Medicine
DX: I48.19 Other persistent atrial fibrillation (principal); J96.01 Acute respiratory failure with hypoxia; Z68.45 Body mass index [BMI] 70 or greater, adult; E66.01 Morbid (severe) obesity due to excess calories; I10 Essential (primary) hypertension; E78.5 Hyperlipidemia, unspecified; G47.33 Obstructive sleep apnea (adult) (pediatric); Z20.822 Contact with and (suspected) exposure to COVID-19; Z88.5 Allergy status to narcotic agent; Z88.6 Allergy status to analgesic agent; Z79.4 Long term (current) use of insulin; Z79.82 Long term (current) use of aspirin; Z79.899 Other long term (current) drug therapy
CPT/HCPCS: 36415; 71045; 71046; 78580; 80048; 81001; 82803; 82947; 83036; 83735; 83880; 84484; 85025; 85027; 85379; 85610; 85730; 87635; 93005; 93306; 93970; 94640; 94660; 99285; A9540; J2270; J2405; J2930; Q9957

== ENCOUNTER → 2021-03-27 10:55 | Outpatient (BNVA) | payer MEDICARE, MEDICAID, SELFPAY | PROVIDERS: PCP Internal Medicine; Referring Provider Internal Medicine; Visit Provider Dietitian, Registered | DX: E66.01 Morbid (severe) obesity due to excess calories (principal); Z68.45 Body mass index [BMI] 70 or greater, adult | CPT/HCPCS: 97802 ==

== ENCOUNTER → 2021-04-06 10:58 | Outpatient (BNVA) | payer MEDICARE, MEDICAID, SELFPAY | PROVIDERS: PCP Internal Medicine; Visit Provider Internal Medicine ==

== ENCOUNTER → 2021-04-06 11:25 | Outpatient (REF) | payer MEDICARE, MEDICAID, SELFPAY | LOC: HO.SL 11:25 | PROVIDERS: Visit Provider Internal Medicine | DX: G47.33 Obstructive sleep apnea (adult) (pediatric) (principal); E66.01 Morbid (severe) obesity due to excess calories; Z79.899 Other long term (current) drug therapy; Z79.4 Long term (current) use of insulin | CPT/HCPCS: 95806; 95811; 99212 ==

== ENCOUNTER → 2021-04-14 10:37 | Outpatient (BNVA) | payer MEDICARE, MEDICAID, SELFPAY | PROVIDERS: PCP Internal Medicine; Referring Provider Internal Medicine; Visit Provider Physician Assistant Surgical | DX: E66.01 Morbid (severe) obesity due to excess calories (principal); R06.02 Shortness of breath; Z68.45 Body mass index [BMI] 70 or greater, adult | CPT/HCPCS: 99212 ==

== ENCOUNTER 2021-04-17 07:09 | Outpatient (REF) | payer MEDICARE, MEDICAID, SELFPAY ==
[2021-04-17 10:56] LABS: MANUAL DIFF FLAG NO
[2021-04-17 11:04] LABS: Basophils Percent Auto 0.5 % (0-2); Eosinophils Absolute Auto 0.2 X10*3/uL (0.0-0.4); Eosinophils Percent Auto 3.2 % (0-4); Hematocrit 50.1 % (42.0-52.0); Hemoglobin 15.6 g/dl (14.0-18.0); Imm Gran Abs Auto 0.02 X10*3/uL (0.00-0.03); Imm Gran Pct Auto 0.3 % (0.0-0.4); Lymphocytes Absolute Auto 0.9 X10*3/uL (1.2-4.9); Lymphocytes Percent Auto 13.6 % (20-40); Mean Corpuscular HGB Conc 31.1 g/dl (31.0-36.0); Mean Corpuscular Hemoglobin 29.4 pg (27.0-33.0); Mean Corpuscular Volume 94.4 fL (80.0-98.0); Mean Platelet Volume 13.3 fL (9.4-12.4); Monocytes Absolute Auto 0.6 X10*3/uL (0.1-1.2); Monocytes Percent Auto 8.7 % (2-11); Neutrophils Absolute Auto 4.9 x10*3/uL (2.0-8.3); Neutrophils Percent Auto 73.7 % (45-73); Platelet Count 107 X10*3/uL (160-400); Red Blood Count 5.31 X10*6/uL (4.60-5.80); Red Cell Distribution Width 14.4 % (11.0-16.0); White Blood Count 6.6 X10*3/uL (4.8-10.8)
[2021-04-17 11:22] LABS: Anion Gap 12 (12-20); Blood Urea Nitrogen 14 mg/dL (9-16); Calcium 8.9 mg/dL (8.4-10.2); Carbon Dioxide 31 mmol/L (22-29); Chloride 102 mmol/L (96-108); Estimated Glomerular Filt Rate > 60; Glucose Random 208 mg/dL (60-115); Potassium 4.4 mmol/L (3.3-5.1); Sodium 141 mmol/L (135-145)
== END 2021-04-17 07:10 | disposition home or self-care (01) ==
LOC: HO.LHD 07:09
PROVIDERS: Visit Provider Internal Medicine
DX: R53.83 Other fatigue (principal); R60.0 Localized edema; E66.9 Obesity, unspecified
CPT/HCPCS: 36415; 80048; 85025

== ENCOUNTER → 2021-04-22 08:59 | Outpatient (BNVA) | payer MEDICARE, MEDICAID, SELFPAY | PROVIDERS: PCP Internal Medicine; Referring Provider Physician Assistant; Visit Provider Dietitian, Registered ==

== ENCOUNTER 2021-04-23 08:28 | Inpatient (IN) | payer MEDICARE, MEDICAID, SELFPAY ==
--- NOTE | ~2021-04-23 | NM_ITS ---
EXAMINATION: PULMONARY PERFUSION STUDY CLINICAL INFORMATION: Chest pain, hypoxia, elevated d-dimer. COMPARISON: The previous lung scan dated 03/23/2021 is available for comparison. A radiograph the chest dated 04/23/2021 is also available for comparison. TECHNIQUE: Following the intravenous administration of 4.0 mCi Tc-99m MAA an 8-view perfusion study was performed using a dual detector gamma scintillation camera. No ventilation images were obtained. FINDINGS: Perfusion images: There is a segmental perfusion defect laterally in the right lower lung field. This probably involves the lateral basal segment of the right lower lobe, but is difficult to localize and may be in the lateral segment of the right middle lobe. There is an additional small subsegmental perfusion defect in the posterior segment of the right upper lobe. There is some heterogeneity in the left lung but no definite left lung perfusion defects are present. The contemporaneous chest radiograph does not show significant abnormality that corresponds to the perfusion defect described above. Compared to the prior lung scan dated 03/23/2021, the prominent perfusion defect in the right lower lung field is new. The left lung appears unchanged. NM/NM pul perfusion IMPRESSION: Intermediate probability of pulmonary embolism. A solitary new segmental perfusion defect is present in the right lung, as described above.
--- NOTE | ~2021-04-23 | XR_ITS ---
EXAMINATION: XR KNEE, LEFT CLINICAL INFORMATION: Pain. Twisting injury. COMPARISON: None TECHNIQUE: Four views of the left knee. FINDINGS: No fracture or dislocation is seen. Bone alignment is normal. There is mild joint space narrowing at the medial femoral tibial joint. There is joint space narrowing and small osteophytes at the patellofemoral joint. There is a very small joint effusion. XR/XR knee LT 4V IMPRESSION: No fracture or dislocation. Mild degenerative changes and small joint effusion.
--- NOTE | ~2021-04-23 | US_ITS ---
EXAMINATION: US VENOUS ULTRASOUND WITH DOPPLER LOWER EXTREMITY, BILATERAL CLINICAL INFORMATION: Bilateral leg pain, edema and swelling COMPARISON: 03/23/2021 TECHNIQUE: Ultrasound of the deep veins is performed from the hip to the calf with compression sonography and color and pulse Doppler assessment. Spectral analysis with color-flow imaging is performed. Examination is limited as the patient is morbidly obese, weighing 619 pounds FINDINGS: The visualized portions of the right and left superficial femoral vein, and popliteal vein are patent and compressible. The common femoral, greater saphenous and profunda vessels are not well visualized nor the vessels of the calves. US/US venous duplex LE BI IMPRESSION: 1. Very Limited study secondary to habitus. 2. No detected deep vein thrombosis in the visualized superficial femoral and popliteal veins.
--- NOTE | ~2021-04-23 | XR_ITS ---
EXAMINATION: XR CHEST CLINICAL INFORMATION: Dyspnea COMPARISON: 03/23/2021 TECHNIQUE: Frontal view of the chest was obtained. FINDINGS: Study limited due to lordotic positioning. Grossly are clear. This reflects improvement. There is moderate cardiomegaly with slight distention of the pulmonary vessels likely exaggerated due to the patient's lordotic positioning. XR/XR chest 1V IMPRESSION: Within normal limits given lordotic portable AP technique. Recommendation is for an upright PA and lateral when clinically feasible.
[2021-04-23 08:36] VITALS: BP 141/103; PULSE 100; PULSE 103; RESP 20; O2SAT 85; O2SAT 99; BMI 88.9
--- NOTE | 2021-04-23 08:46 | ECG_ITS ---
Test Reason : chest pain, dyspnea Blood Pressure : / mmHG Vent. Rate : 097 BPM Atrial Rate : 000 BPM P-R Int : 000 ms QRS Dur : 076 ms QT Int : 384 ms P-R-T Axes : 000 030 052 degrees QTc Int : 487 ms Atrial fibrillation Low voltage QRS Septal infarct (cited on or before 18-JUN-2019) Abnormal ECG When compared with ECG of 22-MAR-2021 16:33, Minimal criteria for Inferior infarct are no longer Present Referred By: Andree Jung Electronically Signed By:Pako Pleitez
--- NOTE | 2021-04-23 08:50 | ED.CHESTPAIN ---
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 He denies sick contacts at home. MD complaint: chest pain (shortness of breath) Pertinent past history: other (NORIS, obesity, home O2) Onset (ago): day(s) (2) Timing of current episode: constant Prior episodes: Yes Onset: during rest Pain location: substernal, left chest and right chest Pain radiation: none Severity: moderate Quality: tightness Relieving factors: nothing Exacerbating factors: inspiration Context: recent illness Associated symptoms: dyspnea Treatment prior to arrival: aspirin (325mg) and oxygen Related Data Home Medications Medication Instructions Recorded Confirmed insulin aspart U-100 100 unit/mL See Protocol SUBCUT TID 02/28/20 04/23/21 (3 mL) subcutaneous pen (Novolog Flexpen U-100 Insulin aspart) phenytoin sodium extended 100 mg 700 mg PO BID cap 02/23/21 04/23/21 capsule (Dilantin Extended) aspirin 325 mg tablet 325 mg PO DAILY 03/05/21 04/23/21 atorvastatin 20 mg tablet 20 mg PO DAILY 03/05/21 04/23/21 albuterol sulfate 2.5 mg INHALATION Q4-6H PRN 04/06/21 04/23/21 furosemide 40 mg tablet 1 tab PO BID 04/23/21 04/23/21 Previous Rx's Medication Instructions Recorded albuterol sulfate 90 mcg/actuation 1 inh INHALATION QID PRN #8.5 g 03/25/21 aerosol inhaler metoprolol succinate 25 mg 25 mg PO DAILY #30 tab 03/25/21 tablet,extended release 24 hr Allergies Allergy/AdvReac Type Severity Reaction Status Date / Time codeine [Codeine] Allergy Unknown RASH, hives Verified 04/23/21 08:51 ibuprofen [From Motrin] Allergy Unknown HIVES Verified 04/23/21 08:51 Review of Systems Review of Systems: Constitutional : No Weight loss, No Fever, No Chills, pos weight gain ENT/Mouth : No sore throat, No Rhinorrhea Eyes: No Eye Pain, No Swelling Cardiovascular : pos Chest Pain, pos SOB, pos Dyspnea on Exertion, No Orthopnea, pos Edema, No Palpitations Respiratory : No Cough, No Sputum Gastrointestinal : no Nausea, No Vomiting, No Diarrhea, No abdominal Pain, No Hematochezia, No Melena Genitourinary : No Dysuria, No Urinary Frequency Musculoskeletal : No joint pain, No Myalgias, No Joint Swelling Skin : No Skin Lesions, No rash Neuro : No Weakness, No Numbness, No Dizziness, No Headache Psych : No Anxiety/Panic, No Depression Heme/Lymph: No Bruising, No Lymphadenopathy Endocrine : No Polyuria, No Polydipsia All other systems reviewed and are negative [facility] Past Medical History Attestation statement: The following information was validated with the patient. Medical History A-fib Aftercare following bilateral ankle joint replacement surgery Brain tumor Diabetes Hypoxemia Morbid obesity Morbid obesity with body mass index (BMI) greater than or equal to 70 in adult NORIS (obstructive sleep apnea) NORIS (obstructive sleep apnea) Persistent atrial fibrillation Right hand dominant Seizure disorder Shortness of breath Sleep apnea, obstructive Surgical History History of ankle surgery Family History Family History Paternal Grandmother Myocardial infarction Maternal Grandfather Myocardial infarction Brother No problems noted. Sister No problems noted. Sister No problems noted. Social History Social History Household Members: Spouse Housing: House Do you presently have visiting nurse or other home services: No Alcohol intake: never Patient Tobacco Use Status: Never used Tobacco Advance Directives: No Advance Directives Information Provided: No service: No Current occupational status: disabled Physical Exam Vital Signs: Vital Signs: Last Vital Signs Pulse 94 12/30/21 09:07 Resp 16 04/23/21 09:07 BP 141/103 H 04/23/21 08:36 Pulse Ox 99 04/23/21 08:36 BMI result Body Mass Index 88.9 Appearance: Alert. Oriented X3. No acute distress. Eyes: Pupils equal, round and reactive to light. ENT: Pharynx normal. Neck: Normal inspection. Neck supple. CVS:irregular tachycardic heart rate and rhythm. Pulses normal. Respiratory: No respiratory distress. Breath sounds very diminished due to body habitus Abdomen: Soft and nontender. Obese Skin: Skin warm and dry. Normal skin color. Normal skin turgor. Extremities: 1+ pitting lower extremity edema. No calf ttp Neuro: Oriented X 3. No motor deficit. No sensory deficit. Course Course Course Narrative: 94% on 5L NC, feels much better after xopenex ddimer elevated hypoxic, immobilization due to obesity - VQ scan ordered due to morbid obesity feels much better, trop on low end with 2 days of pain good diuresis in the ED states he feels much better, doing well on NC, repeat trop no increase over delta intermediate PE study ? new defect patient with morbid obesity very high risk for VTE and PAF - will discuss with hospitalist regarding DOAC choice but would suspect eliquis at this time after discussion with hospitalist given ddimer less than prior visit hospitalist doubts PE would recommend US of LE for evaluation of DVT US tech tells me due to body habitus that DVT study is non diagnostic at this time - will discuss with cardiology if we should start DOAC discussed with Cardiology Dr. Pleitez given no sig findings on CXR, abnormal VQ scan PAF would start anticoagulation - seizure is not contraindication has not had episode in 1.5 years message sent to Neurology to see if there is a reason we cannot anticoagulate given his L optic nerve tumor - discussed with family this is not melanoma or renal/lung cancer based, no contraindication to AC therapy DVT study technically limited ambulated patient on his home O2 3L NC - desaturated to 80% with visible increased wob, he also notes some pain behind his R knee at this time MDM - Chest Pain MDM Narrative Medical decision making narrative: 46 yo male with NORIS on CPAP, PAF on metoprolol, obesity, vaccinated x 2 no sick contact, seizures here with c/o chest pain and dyspnea along with reported 50lb weight gain in a few weeks has been on lasix 40mg BID for 9 days at this time will need labs, EKG, troponin, CXR, COVID swab. Possible ACS, pneumonia, COVID, PE - dispo per results and findings. Lab Data Result diagrams: 04/23/21 09:08 04/23/21 09:08 Labs: Lab Results 04/23/21 04/23/21 04/23/21 Range/Units 09:08 09:08 09:08 WBC 6.3 (4.8-10.8) X10*3/uL RBC 5.06 (4.60-5.80) X10*6/uL Hgb 15.0 (14.0-18.0) g/dl Hct 47.9 (42.0-52.0) % MCV 94.7 (80.0-98.0) fL MCH 29.6 (27.0-33.0) pg MCHC 31.3 (31.0-36.0) g/dl RDW 14.1 (11.0-16.0) % Plt Count 120 L (160-400) X10*3/uL MPV 11.5 (9.4-12.4) fL Immature Gran % (Auto) 0.8 H (0.0-0.4) % Neut % (Auto) 70.4 (45-73) % Lymph % (Auto) 18.3 L (20-40) % [place] % (Auto) 6.4 (2-11) % Eos % (Auto) 3.8 (0-4) % Baso % (Auto) 0.3 (0-2) % Lymph # (Auto) 1.2 (1.2-4.9) X10*3/uL [place] # (Auto) 0.4 (0.1-1.2) X10*3/uL Eos # (Auto) 0.2 (0.0-0.4) X10*3/uL Baso # (Auto) 0.0 (0.0-0.2) X10*3/uL Abs Immat Gran (auto) 0.05 H (0.00-0.03) X10*3/uL Absolute Neuts (auto) 4.4 (2.0-8.3) x10*3/uL Absolute Nucleated RBC 0.000 (0.0-0.012) X10*3/uL Nucleated RBC % (auto) 0.0 (0.0-0.2) /100WBC PT 12.6 (9.9-13.0) SEC INR 1.1 (0.9-1.1) APTT 31.2 (24.1-38.0) SEC D-Dimer High Sensitivty 839 NG/ML Sodium (135-145) mmol/L Potassium (3.3-5.1) mmol/L Chloride (96-108) mmol/L Carbon Dioxide (22-29) mmol/L Anion Gap (12-20) BUN (9-16) mg/dL Creatinine (0.5-1.4) mg/dL Estim Creat Clear Calc Estimated GFR Random Glucose (60-115) mg/dL Lactic Acid (0.5-2.0) mmol/L Calcium (8.4-10.2) mg/dL Magnesium (1.6-2.6) mg/dL Total Bilirubin (0.0-1.0) mg/dL Direct Bilirubin (0.0-0.5) mg/dL AST (5-37) U/L ALT (0-40) U/L Alkaline Phosphatase (39-117) U/L Troponin I High Sens (<3.5-35.0) ng/L B-Natriuretic Peptide 325 H (<100) pg/mL Total Protein (6.5-8.0) g/dL Albumin (3.5-5.0) g/dL Lipase (8-78) U/L Phenytoin (10.0-20.0) ug/mL COVID-19 (KIKA) (Negative) COVID-19 Clin Com 04/23/21 04/23/21 04/23/21 Range/Units 09:08 09:08 09:08 WBC (4.8-10.8) X10*3/uL RBC (4.60-5.80) X10*6/uL Hgb (14.0-18.0) g/dl Hct (42.0-52.0) % MCV (80.0-98.0) fL MCH (27.0-33.0) pg MCHC (31.0-36.0) g/dl RDW (11.0-16.0) % Plt Count (160-400) X10*3/uL MPV (9.4-12.4) fL Immature Gran % (Auto) (0.0-0.4) % Neut % (Auto) (45-73) % Lymph % (Auto) (20-40) % [place] % (Auto) (2-11) % Eos % (Auto) (0-4) % Baso % (Auto) (0-2) % Lymph # (Auto) (1.2-4.9) X10*3/uL [place] # (Auto) (0.1-1.2) X10*3/uL Eos # (Auto) (0.0-0.4) X10*3/uL Baso # (Auto) (0.0-0.2) X10*3/uL Abs Immat Gran (auto) (0.00-0.03) X10*3/uL Absolute Neuts (auto) (2.0-8.3) x10*3/uL Absolute Nucleated RBC (0.0-0.012) X10*3/uL Nucleated RBC % (auto) (0.0-0.2) /100WBC PT (9.9-13.0) SEC INR (0.9-1.1) APTT (24.1-38.0) SEC D-Dimer High Sensitivty NG/ML Sodium 141 (135-145) mmol/L Potassium 4.3 (3.3-5.1) mmol/L Chloride 99 (96-108) mmol/L Carbon Dioxide 38 H (22-29) mmol/L Anion Gap 8 L (12-20) BUN 12 (9-16) mg/dL Creatinine 0.96 (0.5-1.4) mg/dL Estim Creat Clear Calc 212.5 Estimated GFR > 60 Random Glucose 147 H (60-115) mg/dL Lactic Acid 1.1 (0.5-2.0) mmol/L Calcium 8.7 (8.4-10.2) mg/dL Magnesium 2.0 (1.6-2.6) mg/dL Total Bilirubin 0.7 (0.0-1.0) mg/dL Direct Bilirubin 0.3 (0.0-0.5) mg/dL AST 31 (5-37) U/L ALT 49 H (0-40) U/L Alkaline Phosphatase 557 H D (39-117) U/L Troponin I High Sens 7.5 (<3.5-35.0) ng/L B-Natriuretic Peptide (<100) pg/mL Total Protein 7.0 (6.5-8.0) g/dL Albumin 3.7 (3.5-5.0) g/dL Lipase 28 (8-78) U/L Phenytoin (10.0-20.0) ug/mL COVID-19 (KIKA) (Negative) COVID-19 Clin Com 04/23/21 04/23/21 04/23/21 Range/Units 09:08 09:08 12:59 WBC (4.8-10.8) X10*3/uL RBC (4.60-5.80) X10*6/uL Hgb (14.0-18.0) g/dl Hct (42.0-52.0) % MCV (80.0-98.0) fL MCH (27.0-33.0) pg MCHC (31.0-36.0) g/dl RDW (11.0-16.0) % Plt Count (160-400) X10*3/uL MPV (9.4-12.4) fL Immature Gran % (Auto) (0.0-0.4) % Neut % (Auto) (45-73) % Lymph % (Auto) (20-40) % [place] % (Auto) (2-11) % Eos % (Auto) (0-4) % Baso % (Auto) (0-2) % Lymph # (Auto) (1.2-4.9) X10*3/uL [place] # (Auto) (0.1-1.2) X10*3/uL Eos # (Auto) (0.0-0.4) X10*3/uL Baso # (Auto) (0.0-0.2) X10*3/uL Abs Immat Gran (auto) (0.00-0.03) X10*3/uL Absolute Neuts (auto) (2.0-8.3) x10*3/uL Absolute Nucleated RBC (0.0-0.012) X10*3/uL Nucleated RBC % (auto) (0.0-0.2) /100WBC PT (9.9-13.0) SEC INR (0.9-1.1) APTT (24.1-38.0) SEC D-Dimer High Sensitivty NG/ML Sodium (135-145) mmol/L Potassium (3.3-5.1) mmol/L Chloride (96-108) mmol/L Carbon Dioxide (22-29) mmol/L Anion Gap (12-20) BUN (9-16) mg/dL Creatinine (0.5-1.4) mg/dL Estim Creat Clear Calc Estimated GFR Random Glucose (60-115) mg/dL Lactic Acid (0.5-2.0) mmol/L Calcium (8.4-10.2) mg/dL Magnesium (1.6-2.6) mg/dL Total Bilirubin (0.0-1.0) mg/dL Direct Bilirubin (0.0-0.5) mg/dL AST (5-37) U/L ALT (0-40) U/L Alkaline Phosphatase (39-117) U/L Troponin I High Sens 10.0 (<3.5-35.0) ng/L B-Natriuretic Peptide (<100) pg/mL Total Protein (6.5-8.0) g/dL Albumin (3.5-5.0) g/dL Lipase (8-78) U/L Phenytoin 2.7 L* (10.0-20.0) ug/mL COVID-19 (KIKA) Negative (Negative) COVID-19 Clin Com See Note ECG Data ECG #1: Attestation: I personally reviewed and interpreted this ECG as follows: ECG interpretation date: 04/23/21 ECG interpretation time: 09:10 Interpretation: Rate: 97 Rhythm: afib Loris: normal decreased QRS complex. ST T wave : nonspecific no KARRI artifact noted qTC: normal prior studies: no acute ischemia The study has been interpreted contemporaneously by me. . Discharge Plan Discharge Clinical Impression: Morbid obesity, Congestive heart failure, Chest pain, Hypoxic, Elevated d-dimer Patient Disposition: Admitted As Inpatient
[2021-04-23 09:07] VITALS: PULSE 94; RESP 16; O2SAT 98
[2021-04-23 09:17] LABS: MANUAL DIFF FLAG NO
--- NOTE | 2021-04-23 09:18 | PHA.MEDREC ---
Pharmacy Consult ? Medication Reconciliation Pharmacy has completed the medication reconciliation. There are no remarkable issues for provider's attention. Molly Ochoa, SolD
[2021-04-23 09:19] LABS: Basophils Percent Auto 0.3 % (0-2); Eosinophils Absolute Auto 0.2 X10*3/uL (0.0-0.4); Eosinophils Percent Auto 3.8 % (0-4); Hematocrit 47.9 % (42.0-52.0); Imm Gran Abs Auto 0.05 X10*3/uL (0.00-0.03); Imm Gran Pct Auto 0.8 % (0.0-0.4); Lymphocytes Absolute Auto 1.2 X10*3/uL (1.2-4.9); Lymphocytes Percent Auto 18.3 % (20-40); Mean Corpuscular HGB Conc 31.3 g/dl (31.0-36.0); Mean Corpuscular Hemoglobin 29.6 pg (27.0-33.0); Mean Corpuscular Volume 94.7 fL (80.0-98.0); Mean Platelet Volume 11.5 fL (9.4-12.4); Monocytes Absolute Auto 0.4 X10*3/uL (0.1-1.2); Monocytes Percent Auto 6.4 % (2-11); Neutrophils Absolute Auto 4.4 x10*3/uL (2.0-8.3); Neutrophils Percent Auto 70.4 % (45-73); Platelet Count 120 X10*3/uL (160-400); Red Blood Count 5.06 X10*6/uL (4.60-5.80); Red Cell Distribution Width 14.1 % (11.0-16.0); White Blood Count 6.3 X10*3/uL (4.8-10.8)
[2021-04-23 09:25] LABS: INTERNATIONAL NORM RATIO 1.1 (0.9-1.1); Prothrombin Time 12.6 SEC (9.9-13.0)
[2021-04-23 09:27] LABS: D Dimer High Sensitivity 839 NG/ML
[2021-04-23 09:28] LABS: Lactic Acid 1.1 mmol/L (0.5-2.0); Partial Thromboplastin Time 31.2 SEC (24.1-38.0)
[2021-04-23] MEDS: Bumetanide 1 MG/4 ML VIAL IVPUSH (09:31)
[2021-04-23 09:32] LABS: COVID-19 Test Negative (Negative)
[2021-04-23 09:35] LABS: Alanine Aminotransferase 49 U/L (0-40); Albumin Level 3.7 g/dL (3.5-5.0); Alkaline Phosphatase 557 U/L (39-117); Anion Gap 8 (12-20); Aspartate Amino Transferase 31 U/L (5-37); Bilirubin Direct 0.3 mg/dL (0.0-0.5); Bilirubin Total 0.7 mg/dL (0.0-1.0); Blood Urea Nitrogen 12 mg/dL (9-16); Calcium 8.7 mg/dL (8.4-10.2); Carbon Dioxide 38 mmol/L (22-29); Chloride 99 mmol/L (96-108); Creatinine Clr Calc Pharmacy 212.5; Estimated Glomerular Filt Rate > 60; Glucose Random 147 mg/dL (60-115); Lipase 28 U/L (8-78); Potassium 4.3 mmol/L (3.3-5.1); Sodium 141 mmol/L (135-145)
[2021-04-23 09:37] LABS: B Type Natriuretic Peptide 325 pg/mL (<100); Troponin-I High Sensitivity 7.5 ng/L (<3.5-35.0)
[2021-04-23 10:14] LABS: Phenytoin Dilantin 2.7 ug/mL (10.0-20.0)
--- NOTE | 2021-04-23 11:24 | PC.NURSE ---
remains away from room in Nuclear Medicine. MD fabian.
[2021-04-23 16:06] VITALS: BP 150/90; PULSE 88; RESP 18; O2SAT 94
--- NOTE | 2021-04-23 16:08 | PC.NURSE ---
pt resting comfortably in semifowlers position, pt speaking in full clear sentences bronchial and vesicular ls are clear and diminished all lerner. pt afib in lead 2 pt awaiitng admission, pt is aware and agreeable to plan of care.
[2021-04-23] MEDS: Apixaban 5 MG TABLET 10 MG PO (16:19)
[2021-04-23] MEDS: Phenytoin Sodium Extended 100 MG CAPSULE 700 MG PO ×2 (16:20→21:15)
--- NOTE | 2021-04-23 16:53 | P.HPHOSP_ITS ---
History of Present Illness Date of Service: 04/23/21 Chief Complaint: shortness of breath 45 years old male with PMH of NORIS, morbid obesity, atrial fibrillation among others who presented to the hospital complaining of dyspnea on exertion. The patient was evaluated in the in the hospital 5 aches ago for similar problem and discharged home after controlling AFib with RVR. He remains in AFib but not on anticoagulation. He was suppose to get a CPAP machine but the complain did not deliver rate and he still have to wait for few more months. Since leaving the hospital is reporting his shortness of breath has been the same and did not improve at all with worsening over the last week associated with building up weight. In the emergency he was found to drop his O2 sat to 80s upon ambulating. He reports report dropping his oxygen level to 70s at home without the oxygen. A V/Q scan was done showing concern intermediate risk for PE with associated elevated D-dimer. He was started on Eliquis. Admitted for further evaluation and treatment. Review of Systems Review of Systems: No fever, chills But reported increase weakness No chest pain, palpitation , increased edema dyspnea on exertion, shortness of breath No abdominal pain, nausea or vomiting No urinary symptoms No any rash or wounds PMFSH Medical History A-fib Aftercare following bilateral ankle joint replacement surgery Brain tumor Diabetes Hypoxemia Morbid obesity Morbid obesity with body mass index (BMI) greater than or equal to 70 in adult NORIS (obstructive sleep apnea) NORIS (obstructive sleep apnea) Persistent atrial fibrillation Right hand dominant Seizure disorder Shortness of breath Sleep apnea, obstructive Family History Paternal Grandmother Myocardial infarction Maternal Grandfather Myocardial infarction Brother No problems noted. Sister No problems noted. Sister No problems noted. Surgical History History of ankle surgery Social History Household Members: Spouse Housing: House Do you presently have visiting nurse or other home services: No Alcohol intake: never Patient Tobacco Use Status: Never used Tobacco Advance Directives: No Advance Directives Information Provided: No service: No Current occupational status: disabled Meds Allergies Allergy/AdvReac Type Severity Reaction Status Date / Time codeine [Codeine] Allergy Unknown RASH, hives Verified 04/23/21 08:51 ibuprofen [From Motrin] Allergy Unknown HIVES Verified 04/23/21 08:51 Active Medications: Current Medications Acetaminophen (Acetaminophen 325 Mg Tablet) 650 mg PO Q6H PRN PRN Reason: Pain, Mild (Pain Scale 1-3) Albuterol Sulfate (Albuterol Sulfate (0.083%) 2.5 Mg/3 Ml Vial.Neb) 2.5 mg INHALE Q4-6H PRN; Protocol PRN Reason: Wheezing Albuterol Sulfate (Albuterol Sulfate 90 Mcg 8 Gm Inhaler) 1 puff INHALE QID PRN PRN Reason: bronchospasm Apixaban (Apixaban 5 Mg Tablet) 10 mg PO BID [facility] Stop: 04/30/21 09:01 Aspirin (Aspirin 325 Mg Tablet) 325 mg PO DAILY [facility] Atorvastatin Calcium (Atorvastatin Calcium 20 Mg Tablet) 20 mg PO DAILY [facility] Furosemide (Furosemide 40 Mg/4 Ml Vial) 40 mg IVPUSH BID@0900,1800 [facility]; Protocol Insulin Human Lispro (Insulin Lispro 100 Unit/Ml 3 Ml Vial) 0 unit SUBCUT QIDACHS [facility]; Protocol Metoprolol Succinate (Metoprolol Succinate Er 25 Mg Tab.Er.24h) 25 mg PO DAILY [facility]; Protocol Ondansetron HCl (Ondansetron Hcl 4 Mg/2 Ml Vial) 4 mg IVPUSH Q8H PRN PRN Reason: Nausea and Vomiting Pharmacy Consult (Consult Rx Perform Med Rec) 1 each MISCELLANE ONCE PRN PRN Reason: Consult order Phenytoin Sodium (Phenytoin Sodium Extended 100 Mg Capsule) 700 mg PO BID [facility] Sodium Chloride (0.9 % Sodium Chloride Flush 3 Ml Syringe) 3 ml IVFLUSH QSHIFT [facility] Home Medications Medication Instructions Recorded Confirmed Last Taken Type insulin aspart U-100 100 unit/mL See Protocol SUBCUT TID 02/28/20 04/23/21 04/22/21 History (3 mL) subcutaneous pen (Novolog Flexpen U-100 Insulin aspart) phenytoin sodium extended 100 mg 700 mg PO BID cap 02/23/21 04/23/21 04/22/21 History capsule (Dilantin Extended) aspirin 325 mg tablet 325 mg PO DAILY 03/05/21 04/23/21 04/22/21 History atorvastatin 20 mg tablet 20 mg PO DAILY 03/05/21 04/23/21 04/22/21 History albuterol sulfate 2.5 mg INHALATION Q4-6H PRN 04/06/21 04/23/21 Unknown History furosemide 40 mg tablet 1 tab PO BID 04/23/21 04/23/21 04/22/21 History Physical Exam Vital Signs and Narrative: Vital Signs: Last Vital Signs Pulse 88 04/23/21 16:06 Resp 18 04/23/21 16:06 BP 150/90 H 04/23/21 16:06 Pulse Ox 94 04/23/21 16:06 BMI result Body Mass Index 88.9 Const: Other: Constitutional : Alert, interactive, morbidly obese, not in distress Neck : Normal inspection, Supple Cardiovascular : RRR, S1 S2, trace bilateral lower extremity edema Respiratory : fair bilateral air entry, reason fine crackles, no wheezes or rhonchi Gastrointestinal: soft, lax, Normal bowel sounds, Non tender Skin : Warm, Dry, no lower extremity swelling erythema or tenderness. Neurological : Alert & oriented x3, No focal deficit Results Labs CBC and Chem 7: 04/23/21 09:08 04/23/21 09:08 Labs: Laboratory Results - last 24 hr 04/23/21 04/23/21 04/23/21 09:08 09:08 09:08 MCV 94.7 MCH 29.6 MCHC 31.3 RDW 14.1 Plt Count 120 L MPV 11.5 Immature Gran % (Auto) 0.8 H Neut % (Auto) 70.4 Lymph % (Auto) 18.3 L Luce % (Auto) 6.4 Eos % (Auto) 3.8 Baso % (Auto) 0.3 Lymph # (Auto) 1.2 Luce # (Auto) 0.4 Eos # (Auto) 0.2 Baso # (Auto) 0.0 Abs Immat Gran (auto) 0.05 H Absolute Neuts (auto) 4.4 Absolute Nucleated RBC 0.000 Nucleated RBC % (auto) 0.0 PT 12.6 INR 1.1 APTT 31.2 D-Dimer High Sensitivty 839 Anion Gap Estim Creat Clear Calc Estimated GFR Random Glucose Lactic Acid Calcium Magnesium Total Bilirubin Direct Bilirubin AST ALT Alkaline Phosphatase Troponin I High Sens B-Natriuretic Peptide 325 H Total Protein Albumin Lipase Phenytoin COVID-19 ([facility]) [facility] 04/23/21 04/23/21 04/23/21 09:08 09:08 09:08 MCV MCH MCHC RDW Plt Count MPV Immature Gran % (Auto) Neut % (Auto) Lymph % (Auto) Luce % (Auto) Eos % (Auto) Baso % (Auto) Lymph # (Auto) Luce # (Auto) Eos # (Auto) Baso # (Auto) Abs Immat Gran (auto) Absolute Neuts (auto) Absolute Nucleated RBC Nucleated RBC % (auto) PT INR APTT D-Dimer High Sensitivty Anion Gap 8 L Estim Creat Clear Calc 212.5 Estimated GFR > 60 Random Glucose 147 H Lactic Acid 1.1 Calcium 8.7 Magnesium 2.0 Total Bilirubin 0.7 Direct Bilirubin 0.3 AST 31 ALT 49 H Alkaline Phosphatase 557 H D Troponin I High Sens 7.5 B-Natriuretic Peptide Total Protein 7.0 Albumin 3.7 Lipase 28 Phenytoin COVID-19 ([facility]A) COVID-[place] 04/23/21 04/23/21 04/23/21 09:08 09:08 12:59 MCV MCH MCHC RDW Plt Count MPV Immature Gran % (Auto) Neut % (Auto) Lymph % (Auto) Luce % (Auto) Eos % (Auto) Baso % (Auto) Lymph # (Auto) Luce # (Auto) Eos # (Auto) Baso # (Auto) Abs Immat Gran (auto) Absolute Neuts (auto) Absolute Nucleated RBC Nucleated RBC % (auto) PT INR APTT D-Dimer High Sensitivty Anion Gap Estim Creat Clear Calc Estimated GFR Random Glucose Lactic Acid Calcium Magnesium Total Bilirubin Direct Bilirubin AST ALT Alkaline Phosphatase Troponin I High Sens 10.0 B-Natriuretic Peptide Total Protein Albumin Lipase Phenytoin 2.7 L* COVID-19 (KIKA) Negative [email or web address] See Note Imaging Radiologist's Impressions: Impressions Chest X-Ray 04/23/21 09:48 IMPRESSION: Within normal limits given lordotic portable AP technique. Recommendation is for an upright PA and lateral when clinically feasible. Pulmonary Perfusion Imaging 04/23/21 12:00 IMPRESSION: Intermediate probability of pulmonary embolism. A solitary new segmental perfusion defect is present in the right lung, as described above. Venous Duplex 04/23/21 14:53 IMPRESSION: 1. Very Limited study secondary to habitus. 2. No detected deep vein thrombosis in the visualized superficial femoral and popliteal veins. Assessment and Plan (1) Congestive heart failure: Qualifiers: Heart failure chronicity: unspecified Heart failure type: unspecified Qualified Code(s): I50.9 - Heart failure, unspecified Status: Acute (2) Shortness of breath: Status: Acute (3) NORIS (obstructive sleep apnea): Status: Acute (4) Elevated d-dimer: Status: Acute (5) Pulmonary embolism: Status: Acute 45 years old male with PMH of NORIS, morbid obesity, atrial fibrillation among others who presented to the hospital complaining of dyspnea on exertion. Acute on chronic hypoxic respiratory failure Secondary to uncontrolled NORIS and new PE V/Q scan as reported, intermediate risk Elevated D-dimer Start full-dose Eliquis 10 mg b.i.d. for 7 days Wean oxygen down as tolerated to get pulmonology evaluation to use CPAP at night Acute on chronic diastolic CHF exacerbation Elevated BNP at 325 CXR Start IV Lasix b.i.d Type 2 diabetes POC, diabetic diet Sliding scale insulin Morbid obesity Following with bariatric surgery, advised to lose weight DVT PPX Eliquis Quality Stroke Does the patient have a stroke diagnosis?: No VTE Prior VTE?: No VTE Risk Level:: Medical - moderate - high VTE Device Contraindication: Treatment Not Indicated VTE Drug Contraindication: Treatment Not Indicated
[2021-04-23] MEDS: Furosemide 40 MG/4 ML VIAL IVPUSH (18:35)
[2021-04-23 18:37] VITALS: BP 164/94; RESP 18; O2SAT 94
--- NOTE | 2021-04-23 18:38 | PC.NURSE ---
pt ambulates to restroom with out difficulty. pt has bed assignemnt, will call report. pt denies discomfort.
[2021-04-23 20:00] VITALS: BP 156/112; PULSE 93; RESP 20; TEMP 36.7; O2SAT 93
[2021-04-23 21:12] LABS: Glucose, Whole Blood 182 mg/dL (60-115)
[2021-04-23] MEDS: Insulin Lispro 100 UNIT/ML 3 ML VIAL SUBCUT (21:15)
[2021-04-23] MEDS: Atorvastatin Calcium 20 MG TABLET PO (21:15)
[2021-04-23] MEDS: 0.9 % Sodium Chloride Flush 3 ML SYRINGE IVFLUSH (21:16)
[2021-04-24] VITALS: BP 125/71; PULSE 90; RESP 20; TEMP 36.1; O2SAT 92
[2021-04-24 04:00] VITALS: BP 158/88; PULSE 88; RESP 16; TEMP 36.8; O2SAT 94
[2021-04-24 06:49] LABS: Anion Gap 11 (12-20); Blood Urea Nitrogen 12 mg/dL (9-16); Calcium 8.5 mg/dL (8.4-10.2); Carbon Dioxide 37 mmol/L (22-29); Chloride 98 mmol/L (96-108); Creatinine Clr Calc Pharmacy 255.1; Estimated Glomerular Filt Rate > 60; Glucose Random 165 mg/dL (60-115); Potassium 3.8 mmol/L (3.3-5.1); Sodium 142 mmol/L (135-145)
[2021-04-24 06:58] LABS: B Type Natriuretic Peptide 342 pg/mL (<100)
[2021-04-24 07:25] VITALS: BP 137/91; PULSE 92; RESP 22; TEMP 36.3; O2SAT 92
[2021-04-24 07:35] LABS: Glucose, Whole Blood 162 mg/dL (60-115)
[2021-04-24] MEDS: Insulin Lispro 100 UNIT/ML 3 ML VIAL SUBCUT ×3 (07:55→20:17)
[2021-04-24] MEDS: 0.9 % Sodium Chloride Flush 3 ML SYRINGE IVFLUSH ×3 (07:56→20:17)
[2021-04-24] MEDS: Furosemide 40 MG/4 ML VIAL IVPUSH ×2 (07:56→18:25)
[2021-04-24] MEDS: Metoprolol Succinate ER 25 MG TAB.ER.24H PO (07:57)
[2021-04-24] MEDS: Apixaban 5 MG TABLET 10 MG PO ×2 (07:57→20:18)
[2021-04-24] MEDS: Aspirin 325 MG TABLET PO (07:57)
[2021-04-24] MEDS: Phenytoin Sodium Extended 100 MG CAPSULE 700 MG PO ×2 (08:19→20:18)
--- NOTE | 2021-04-24 10:31 | P.PNIM_ITS ---
Subjective Subjective Date of Service: 04/24/21 Interval History: the patient was seen and evaluated this morning Laying in bed, feels comfortable Denies any fever, chills or shortness of breath No reported other overnight events. Review of Systems No fever, chills in feels little better today No chest pain, palpitation , decreased lower extremity edema improved but still having dyspnea on exertion, shortness of breath No abdominal pain, nausea or vomiting No urinary symptoms No any rash or wounds Physical Exam Vital Signs: Vital Signs: Last Vital Signs Temp 97.4 F 04/24/21 07:25 Pulse 92 04/24/21 07:25 Resp 22 H 04/24/21 07:25 BP 137/91 H 04/24/21 07:25 Pulse Ox 92 04/24/21 07:25 BMI result Body Mass Index 88.9 Const: Other: Constitutional : Alert, interactive, morbidly obese, not in distress Neck : Normal inspection, Supple Cardiovascular : RRR, S1 S2, trace bilateral lower extremity edema Respiratory : fair bilateral air entry, reason fine crackles, no wheezes or rhonchi Gastrointestinal: soft, lax, Normal bowel sounds, Non tender Skin : Warm, Dry, no lower extremity swelling erythema or tenderness. Neurological : Alert & oriented x3, No focal deficit Objective Data Active Medications Acetaminophen (Acetaminophen 325 Mg Tablet) 650 mg PO Q6H PRN PRN Reason: Pain, Mild (Pain Scale 1-3) Albuterol Sulfate (Albuterol Sulfate (0.083%) 2.5 Mg/3 Ml Vial.Neb) 2.5 mg INHALE Q4H PRN; Protocol PRN Reason: Wheezing Albuterol Sulfate (Albuterol Sulfate 90 Mcg 8 Gm Inhaler) 1 puff INHALE QID PRN PRN Reason: bronchospasm Apixaban (Apixaban 5 Mg Tablet) 10 mg PO BID [facility] Stop: 04/30/21 09:01 Last Admin: 04/24/21 07:57 Dose: 10 mg Documented by: NICHELLE Aspirin (Aspirin 325 Mg Tablet) 325 mg PO DAILY [facility] Last Admin: 04/24/21 07:57 Dose: 325 mg Documented by: NICHELLE Atorvastatin Calcium (Atorvastatin Calcium 20 Mg Tablet) 20 mg PO BEDTIME [facility] Last Admin: 04/23/21 21:15 Dose: 20 mg Documented by: YOUSUF Furosemide (Furosemide 40 Mg/4 Ml Vial) 40 mg IVPUSH BID@0900,1800 [facility]; Protocol Last Admin: 04/24/21 07:56 Dose: 40 mg Documented by: NICHELLE Insulin Human Lispro (Insulin Lispro 100 Unit/Ml 3 Ml Vial) 0 unit SUBCUT QIDACHS [facility]; Protocol Last Admin: 04/24/21 07:55 Dose: 2 unit Documented by: NICHELLE Metoprolol Succinate (Metoprolol Succinate Er 25 Mg Tab.Er.24h) 25 mg PO DAILY [facility]; Protocol Last Admin: 04/24/21 07:57 Dose: 25 mg Documented by: NICHELLE Ondansetron HCl (Ondansetron Hcl 4 Mg/2 Ml Vial) 4 mg IVPUSH Q8H PRN PRN Reason: Nausea and Vomiting Pharmacy Consult (Consult Rx Perform Med Rec) 1 each MISCELLANE ONCE PRN PRN Reason: Consult order Phenytoin Sodium (Phenytoin Sodium Extended 100 Mg Capsule) 700 mg PO BID [facility] Last Admin: 04/24/21 08:19 Dose: 700 mg Documented by: NICHELLE Sodium Chloride (0.9 % Sodium Chloride Flush 3 Ml Syringe) 3 ml IVFLUSH QSHIFT [facility] Last Admin: 04/24/21 07:56 Dose: 3 ml Documented by: NICHELLE Labs CBC & Chem 7: 04/23/21 09:08 04/24/21 05:44 Labs: Laboratory Results - last 24 hr 04/23/21 04/23/21 04/24/21 12:59 21:07 05:44 Anion Gap Estim Creat Clear Calc Estimated GFR POC Glucose 182 H Random Glucose Calcium Troponin I High Sens 10.0 B-Natriuretic Peptide 342 H 04/24/21 04/24/21 05:44 07:28 Anion Gap 11 L Estim Creat Clear Calc 255.1 Estimated GFR > 60 POC Glucose 162 H Random Glucose 165 H Calcium 8.5 Troponin I High Sens B-Natriuretic Peptide Assessment and Plan (1) Pulmonary embolism: Status: Acute (2) Acute on chronic respiratory failure with hypoxia: Status: Acute (3) Diastolic CHF, acute on chronic: Status: Acute Assessment and Plan: 45 years old male with PMH of NORIS, morbid obesity, atrial fibrillation among others who presented to the hospital complaining of dyspnea on exertion. Acute on chronic hypoxic respiratory failure Secondary to uncontrolled NORIS and new PE V/Q scan as reported, intermediate risk with one-vessel disease Elevated D-dimer continue full-dose Eliquis 10 mg b.i.d. for 2/7 days Wean oxygen down as tolerated to get pulmonology evaluation to use CPAP at night Acute on chronic diastolic CHF exacerbation Elevated BNP at 325 CXR continue IV Lasix b.i.d monitor intake and output Type 2 diabetes POC, diabetic diet Sliding scale insulin Morbid obesity Following with bariatric surgery, advised to lose weight DVT PPX Eliquis Quality Stroke Does the patient have a stroke diagnosis?: No VTE Prior VTE?: No VTE Risk Level:: Medical - moderate - high VTE Device Contraindication: Treatment Not Indicated VTE Drug Contraindication: Treatment Not Indicated
[2021-04-24 11:18] VITALS: BP 167/87; PULSE 92; RESP 22; TEMP 36.2; O2SAT 94
[2021-04-24 11:44] LABS: Glucose, Whole Blood 164 mg/dL (60-115)
--- NOTE | 2021-04-24 12:54 | P.CONPL_ITS ---
History of Present Illness History of Present Illness Consult date: 04/24/21 Requesting physician: Francisco Malloy Chief complaint: shortness of breath Narrative: 46-year-old gentleman with underlying morbid obesity with BMI of 89, NORIS on CPAP, AFib admitted on 04/23/2021 with progressive dyspnea. Patient was noted to be in exacerbation underlying congestive heart failure and started on diuresis with significant improvement his dyspnea. He was not able to be fitted into CT scan a and V/Q scan was obtained which showed intermediate probability for segmental perfusion defect. Patient was started on empiric anticoagulation. His lower extremity Doppler was a suboptimal study but overall negative for clots. Review of Systems Constitutional: Constitutional: Denies daytime sleepiness, Denies excessive sweating, Denies fatigue, Denies fever(s), Denies lethargy, Denies malaise, Denies night sweats, Denies snoring and Denies weight loss Eyes: Eyes: Denies blurry vision and Denies itchy eyes ENT: Denies nasal congestion, Denies post nasal drip, Denies sinus pain, De nies sinus pressure and Denies other ( Thrush) Cardiovascular: Cardiovascular: Denies chest pain, Reports pedal edema, Reports dyspnea, Reports orthopnea and Denies paroxysmal nocturnal dyspnea Respiratory: Respiratory: Denies cough, Denies hemoptysis, Denies excessive phlegm production, Reports dyspnea, Denies snoring and Denies wheezing Gastrointestinal: Gastrointestinal: Denies abdominal pain and Denies heartburn Musculoskeletal: Musculoskeletal: Denies myalgias, Denies arthralgias and Denies joint swelling Integumentary/Breasts: Skin/Breast: Denies rash Neurologic: Denies memory loss and Denies seizure-like activity Psychiatric: Psychiatric: Denies abnormal sleep pattern, Denies anxiety and Denies memory loss Endocrine: Endocrine: Denies excessive sweating, Denies fatigue and Denies heat intolerance Hematologic/Lymphatic: Hematologic/Lymphatic: Denies easy bruising Allergic/Immunologic: Allergic/Immunologic: Denies itchy eyes, Denies seasonal rhinorrhea and Denies wheezing PMFSH Past Medical History Medical History (Updated 04/24/21 @ 12:59 by Fritz Day MD) A-fib Aftercare following bilateral ankle joint replacement surgery Brain tumor Diabetes Hypoxemia Morbid obesity Morbid obesity with body mass index (BMI) greater than or equal to 70 in adult NORIS (obstructive sleep apnea) NORIS (obstructive sleep apnea) Persistent atrial fibrillation Right hand dominant Seizure disorder Shortness of breath Sleep apnea, obstructive Family History Family History Paternal Grandmother Myocardial infarction Maternal Grandfather Myocardial infarction Brother No problems noted. Sister No problems noted. Sister No problems noted. Surgical History Surgical History History of ankle surgery Social History Social History Household Members: Family Housing: House Do you presently have visiting nurse or other home services: No Alcohol intake: never Patient Tobacco Use Status: Never used Tobacco service: No Current occupational status: disabled Meds Allergies Allergy/AdvReac Type Severity Reaction Status Date / Time codeine [Codeine] Allergy Unknown RASH, hives Verified 04/23/21 08:51 ibuprofen [From Motrin] Allergy Unknown HIVES Verified 04/23/21 08:51 Active Medications: Current Medications Acetaminophen (Acetaminophen 325 Mg Tablet) 650 mg PO Q6H PRN PRN Reason: Pain, Mild (Pain Scale 1-3) Albuterol Sulfate (Albuterol Sulfate (0.083%) 2.5 Mg/3 Ml Vial.Neb) 2.5 mg I NHALE Q4H PRN; Protocol PRN Reason: Wheezing Albuterol Sulfate (Albuterol Sulfate 90 Mcg 8 Gm Inhaler) 1 puff INHALE QID PRN PRN Reason: bronchospasm Apixaban (Apixaban 5 Mg Tablet) 10 mg PO BID [facility] Stop: 04/30/21 09:01 Last Admin: 04/24/21 07:57 Dose: 10 mg Documented by: Aspirin (Aspirin 325 Mg Tablet) 325 mg PO DAILY [facility] Last Admin: 04/24/21 07:57 Dose: 325 mg Documented by: Atorvastatin Calcium (Atorvastatin Calcium 20 Mg Tablet) 20 mg PO BEDTIME [facility] Last Admin: 04/23/21 21:15 Dose: 20 mg Documented by: Furosemide (Furosemide 40 Mg/4 Ml Vial) 40 mg IVPUSH BID@0900,1800 [facility]; Protocol Last Admin: 04/24/21 07:56 Dose: 40 mg Documented by: Insulin Human Lispro (Insulin Lispro 100 Unit/Ml 3 Ml Vial) 0 unit SUBCUT QIDACHS [facility]; Protocol Last Admin: 04/24/21 12:10 Dose: 2 unit Documented by: Metoprolol Succinate (Metoprolol Succinate Er 25 Mg Tab.Er.24h) 25 mg PO DAILY [facility]; Protocol Last Admin: 04/24/21 07:57 Dose: 25 mg Documented by: Ondansetron HCl (Ondansetron Hcl 4 Mg/2 Ml Vial) 4 mg IVPUSH Q8H PRN PRN Reason: Nausea and Vomiting Pharmacy Consult (Consult Rx Perform Med Rec) 1 each MISCELLANE ONCE PRN PRN Reason: Consult order Phenytoin Sodium (Phenytoin Sodium Extended 100 Mg Capsule) 700 mg PO BID [facility] Last Admin: 04/24/21 08:19 Dose: 700 mg Documented by: Sodium Chloride (0.9 % Sodium Chloride Flush 3 Ml Syringe) 3 ml IVFLUSH QSHIFT [facility] Last Admin: 04/24/21 12:10 Dose: 3 ml Documented by: Home Medications Medication Instructions Recorded Confirmed Last Taken Type insulin aspart U-100 100 unit/mL See Protocol SUBCUT TID 02/28/20 04/23/21 04/22/21 History (3 mL) subcutaneous pen (Novolog Flexpen U-100 Insulin aspart) phenytoin sodium extended 100 mg 700 mg PO BID cap 02/23/21 04/23/21 04/22/21 History capsule (Dilantin Extended) aspirin 325 mg tablet 325 mg PO DAILY 03/05/21 04/23/21 04/22/21 History atorvastatin 20 mg tablet 20 mg PO DAILY 03/05/21 04/23/21 04/22/21 History albuterol sulfate 2.5 mg INHALATION Q4-6H PRN 04/06/21 04/23/21 Unknown History furosemide 40 mg tablet 1 tab PO BID 04/23/21 04/23/21 04/22/21 History Physical Exam Vital Signs: Vital Signs: Last Vital Signs Temp 97.2 F 04/24/21 11:18 Pulse 92 04/24/21 11:18 Resp 22 H 04/24/21 11:18 BP 167/87 H 04/24/21 11:18 Pulse Ox 94 04/24/21 11:18 BMI result Body Mass Index 88.9 Const: General: no acute distress, alert and awake Nutritional Appearance: obese Eyes: Sclerae: sclerae normal EOM: EOMs intact bilaterally Neck: Neck: Yes no lymphadenopathy, Yes trachea midline and Yes supple Resp: Effort & Inspection: normal respiratory effort and no respiratory distress Auscultation: clear to auscultation bilaterally Cardio: Rate: regular rate Rhythm: regular rhythm Heart sounds: no gallops, no murmurs and no rubs GI: Palpation (GI): Soft to palpation and Other GI palpation findings present ( Nontender) Auscultation: normal bowel sounds Extrem: General: No clubbing, No cyanosis and Yes pedal edema (1+ bilateral) Results Laboratory Findings CBC and BMP: 04/23/21 09:08 04/24/21 05:44 ABG, PT/INR, D-dimer: PT/INR, D-dimer PT 12.6 SEC (9.9-13.0) 04/23/21 09:08 INR 1.1 (0.9-1.1) 04/23/21 09:08 Abnormal lab findings: Abnormal Labs 04/23/21 04/23/21 04/23/21 09:08 09:08 09:08 Plt Count 120 L Immature Gran % (Auto) 0.8 H Lymph % (Auto) 18.3 L Abs Immat Gran (auto) 0.05 H Carbon Dioxide 38 H Anion Gap 8 L POC Glucose Random Glucose 147 H ALT 49 H Alkaline Phosphatase 557 H D B-Natriuretic Peptide 325 H Phenytoin 04/23/21 04/23/21 04/24/21 09:08 21:07 05:44 Plt Count Immature Gran % (Auto) Lymph % (Auto) Abs Immat Gran (auto) Carbon Dioxide Anion Gap POC Glucose 182 H Random Glucose ALT Alkaline Phosphatase B-Natriuretic Peptide 342 H Phenytoin 2.7 L* 04/24/21 04/24/21 04/24/21 05:44 07:28 11:12 Plt Count Immature Gran % (Auto) Lymph % (Auto) Abs Immat Gran (auto) Carbon Dioxide 37 H Anion Gap 11 L POC Glucose 162 H 164 H Random Glucose 165 H ALT Alkaline Phosphatase B-Natriuretic Peptide Phenytoin Microbiology: Microbiology 04/23/21 09:33 Blood - Venous Blood Culture - Preliminary No growth after 24 hours. 04/23/21 09:08 Blood - Venous Blood Culture - Preliminary No growth after 24 hours. Assessment and Plan (1) Acute on chronic respiratory failure with hypoxia: Status: Acute (2) Pulmonary embolism: Status: Acute (3) Sleep apnea, obstructive: Status: Acute (4) Morbid obesity: Status: Acute Impression: 46-year-old gentleman with BMI of 89, AFib, NORIS on CPAP admitted with progressive dyspnea secondary to exacerbation of underlying congestive heart failure also noted to have intermediate probability perfusion segmental defect on V/Q scan. Recommendation: Agree with aggressive diuresis. At this time it is difficult to ascertain whether the patient O2 has a pulmonary emboli, though at this time would agree with empiric full dose anticoagulation. Procedures Date of Service Date of Service: 04/24/21
[2021-04-24 16:51] LABS: Glucose, Whole Blood 128 mg/dL (60-115)
[2021-04-24 20:00] VITALS: BP 164/96; PULSE 100; RESP 22; TEMP 36.6; O2SAT 93
[2021-04-24] MEDS: Atorvastatin Calcium 20 MG TABLET PO (20:18)
[2021-04-24 20:41] LABS: Glucose, Whole Blood 180 mg/dL (60-115)
[2021-04-25] VITALS: BP 120/70; PULSE 98; RESP 22; TEMP 37.1; O2SAT 90
[2021-04-25 03:14] VITALS: BP 132/87; PULSE 89; RESP 20; O2SAT 92
[2021-04-25 07:47] LABS: Anion Gap 11 (12-20); Blood Urea Nitrogen 12 mg/dL (9-16); Calcium 8.6 mg/dL (8.4-10.2); Carbon Dioxide 38 mmol/L (22-29); Chloride 96 mmol/L (96-108); Creatinine Clr Calc Pharmacy 242.9; Estimated Glomerular Filt Rate > 60; Glucose Random 168 mg/dL (60-115); Potassium 4.4 mmol/L (3.3-5.1); Sodium 141 mmol/L (135-145)
[2021-04-25 07:56] LABS: Glucose, Whole Blood 170 mg/dL (60-115)
[2021-04-25] MEDS: Insulin Lispro 100 UNIT/ML 3 ML VIAL SUBCUT ×3 (07:58→17:00)
[2021-04-25] MEDS: Aspirin 325 MG TABLET PO (07:59)
[2021-04-25] MEDS: 0.9 % Sodium Chloride Flush 3 ML SYRINGE IVFLUSH ×3 (07:59→20:26)
[2021-04-25] MEDS: Furosemide 40 MG/4 ML VIAL IVPUSH ×2 (07:59→17:00)
[2021-04-25] MEDS: Apixaban 5 MG TABLET 10 MG PO ×2 (07:59→20:25)
[2021-04-25] MEDS: Phenytoin Sodium Extended 100 MG CAPSULE 700 MG PO ×2 (07:59→20:26)
[2021-04-25 08:00] VITALS: BP 137/97; PULSE 86; RESP 92; TEMP 36.2; O2SAT 92
[2021-04-25] MEDS: Metoprolol Succinate ER 25 MG TAB.ER.24H PO (08:00)
--- NOTE | 2021-04-25 09:47 | P.PNIM_ITS ---
Subjective Subjective Date of Service: 04/25/21 Interval History: the patient was seen and evaluated this morning Laying in bed, feels improvement but still requiring oxygen supplement Reporting dyspnea with exertion Twisted his knee yesterday and it is painful Denies any fever, chills or shortness of breath No reported other overnight events. Review of Systems No fever, chills in feels little better today No chest pain, palpitation , decreased lower extremity edema improved but still having dyspnea on exertion, shortness of breath No abdominal pain, nausea or vomiting No urinary symptoms No any rash or wounds Physical Exam Vital Signs: Vital Signs: Last Vital Signs Temp 97.1 F 04/25/21 08:00 Pulse 86 04/25/21 08:00 Resp 92 H 04/25/21 08:00 BP 137/97 H 04/25/21 08:00 Pulse Ox 92 04/25/21 08:00 BMI result Body Mass Index 88.9 Const: Other: Constitutional : Alert, interactive, morbidly obese, not in distress Neck : Normal inspection, Supple Cardiovascular : RRR, S1 S2, trace bilateral lower extremity edema Respiratory : fair bilateral air entry, basal fine crackles, no wheezes or rhonchi Gastrointestinal: soft, lax, Normal bowel sounds, Non tender Skin : Warm, Dry, no lower extremity swelling erythema or tenderness, left knee with no effusion Neurological : Alert & oriented x3, No focal deficit Objective Data Active Medications Acetaminophen (Acetaminophen 325 Mg Tablet) 650 mg PO Q6H PRN PRN Reason: Pain, Mild (Pain Scale 1-3) Albuterol Sulfate (Albuterol Sulfate (0.083%) 2.5 Mg/3 Ml Vial.Neb) 2.5 mg INHALE Q4H PRN; Protocol PRN Reason: Wheezing Albuterol Sulfate (Albuterol Sulfate 90 Mcg 8 Gm Inhaler) 1 puff INHALE QID PRN PRN Reason: bronchospasm Apixaban (Apixaban 5 Mg Tablet) 10 mg PO BID [facility] Stop: 04/30/21 09:01 Last Admin: 04/25/21 07:59 Dose: 10 mg Documented by: SO Aspirin (Aspirin 325 Mg Tablet) 325 mg PO DAILY [facility] Last Admin: 04/25/21 07:59 Dose: 325 mg Documented by: SO Atorvastatin Calcium (Atorvastatin Calcium 20 Mg Tablet) 20 mg PO BEDTIME [facility] Last Admin: 04/24/21 20:18 Dose: 20 mg Documented by: YOUSUF Furosemide (Furosemide 40 Mg/4 Ml Vial) 40 mg IVPUSH BID@0900,1800 [facility]; Protocol Last Admin: 04/25/21 07:59 Dose: 40 mg Documented by: SO Insulin Human Lispro (Insulin Lispro 100 Unit/Ml 3 Ml Vial) 0 unit SUBCUT QIDACHS [facility]; Protocol Last Admin: 04/25/21 07:58 Dose: 2 unit Documented by: SO Metoprolol Succinate (Metoprolol Succinate Er 25 Mg Tab.Er.24h) 25 mg PO DAILY [facility]; Protocol Last Admin: 04/25/21 08:00 Dose: 25 mg Documented by: SO Ondansetron HCl (Ondansetron Hcl 4 Mg/2 Ml Vial) 4 mg IVPUSH Q8H PRN PRN Reason: Nausea and Vomiting Pharmacy Consult (Consult Rx Perform Med Rec) 1 each MISCELLANE ONCE PRN PRN Reason: Consult order Phenytoin Sodium (Phenytoin Sodium Extended 100 Mg Capsule) 700 mg PO BID [facility] Last Admin: 04/25/21 07:59 Dose: 700 mg Documented by: SO Sodium Chloride (0.9 % Sodium Chloride Flush 3 Ml Syringe) 3 ml IVFLUSH QSHIFT [facility] Last Admin: 04/25/21 07:59 Dose: 3 ml Documented by: SO Labs CBC & Chem 7: 04/23/21 09:08 04/25/21 06:17 Labs: Laboratory Results - last 24 hr 04/24/21 04/24/21 04/24/21 11:12 16:02 20:04 Anion Gap Estim Creat Clear Calc Estimated GFR POC Glucose 164 H 128 H 180 H Random Glucose Calcium 04/25/21 04/25/21 06:17 07:52 Anion Gap 11 L Estim Creat Clear Calc 242.9 Estimated GFR > 60 POC Glucose 170 H Random Glucose 168 H Calcium 8.6 Microbiology Microbiology Results: Microbiology 04/23/21 09:33 Blood Culture - Preliminary Blood - Venous No growth after 24 hours. 04/23/21 09:08 Blood Culture - Preliminary Blood - Venous No growth after 24 hours. Assessment and Plan (1) Sleep apnea, obstructive: Status: Acute (2) Diastolic CHF, acute on chronic: Status: Acute (3) Pulmonary embolism: Status: Acute (4) Acute on chronic respiratory failure with hypoxia: Status: Acute Assessment and Plan: 45 years old male with PMH of NORIS, morbid obesity, atrial fibrillation among others who presented to the hospital complaining of dyspnea on exertion. Acute on chronic hypoxic respiratory failure Secondary to uncontrolled NORIS and new PE V/Q scan as reported, intermediate risk with one-vessel disease Elevated D-dimer continue full-dose Eliquis 10 mg b.i.d. for 2/7 days Wean oxygen down as tolerated to get pulmonology evaluation to use CPAP at night Acute on chronic diastolic CHF exacerbation Still dyspneic, Levsin fluid overload, Elevated BNP at 325 CXR negative balance of 4 L yesterday continue IV Lasix b.i.d monitor intake and output Type 2 diabetes POC, diabetic diet Sliding scale insulin Morbid obesity Following with bariatric surgery, advised to lose weight DVT PPX Eliquis Quality Stroke Does the patient have a stroke diagnosis?: No VTE Prior VTE?: No VTE Risk Level:: Medical - moderate - high VTE Device Contraindication: Treatment Not Indicated VTE Drug Contraindication: Treatment Not Indicated
[2021-04-25 11:50] LABS: Glucose, Whole Blood 156 mg/dL (60-115)
[2021-04-25 12:00] VITALS: BP 136/96; PULSE 88; RESP 18; TEMP 36.1
[2021-04-25] MEDS: acetaZOLAMIDE 250 MG TABLET PO ×2 (12:08→20:25)
--- NOTE | 2021-04-25 13:56 | PC.NURSE ---
1300 OOB to BR, getting washed up at sink. HR elevated to 160. Resolved when at rest. States he feels fine. Reported to Dr Malloy.
--- NOTE | 2021-04-25 14:20 | MHC.CM.PN ---
met with pt who is independent pt lives with they had no services prior to admission and do not anticipate needing services when dcd pt has transportaion home
[2021-04-25 16:00] VITALS: PULSE 92; RESP 18; TEMP 35.7
[2021-04-25 16:57] LABS: Glucose, Whole Blood 173 mg/dL (60-115)
[2021-04-25 19:26] VITALS: BP 145/106; PULSE 90; RESP 20; TEMP 36.3; O2SAT 93
[2021-04-25 20:13] LABS: Glucose, Whole Blood 129 mg/dL (60-115)
[2021-04-25] MEDS: Atorvastatin Calcium 20 MG TABLET PO (20:25)
[2021-04-26] VITALS (7 sets, daily range): BP systolic 110–144; BP diastolic 63–94; PULSE 76–100; RESP 18–90; TEMP 36.1–36.8; O2SAT 92–98; BMI 83.1
[2021-04-26 07:07] LABS: Anion Gap 10 (12-20); Blood Urea Nitrogen 12 mg/dL (9-16); Calcium 8.9 mg/dL (8.4-10.2); Carbon Dioxide 34 mmol/L (22-29); Chloride 99 mmol/L (96-108); Creatinine Clr Calc Pharmacy 242.9; Estimated Glomerular Filt Rate > 60; Glucose Random 161 mg/dL (60-115); Sodium 139 mmol/L (135-145)
[2021-04-26] MEDS: Phenytoin Sodium Extended 100 MG CAPSULE 700 MG PO ×2 (07:58→20:57)
[2021-04-26] MEDS: Furosemide 40 MG/4 ML VIAL IVPUSH ×2 (07:58→16:55)
[2021-04-26 08:00] LABS: Glucose, Whole Blood 138 mg/dL (60-115)
[2021-04-26] MEDS: acetaZOLAMIDE 250 MG TABLET PO ×2 (08:00→20:57)
[2021-04-26] MEDS: Aspirin 325 MG TABLET PO (08:00)
[2021-04-26] MEDS: Apixaban 5 MG TABLET 10 MG PO (08:00)
[2021-04-26] MEDS: Metoprolol Succinate ER 25 MG TAB.ER.24H PO (08:00)
[2021-04-26] MEDS: 0.9 % Sodium Chloride Flush 3 ML SYRINGE IVFLUSH ×3 (08:01→20:57)
[2021-04-26] MEDS: metOLazone 5 MG TABLET PO (11:04)
[2021-04-26 11:30] LABS: Glucose, Whole Blood 143 mg/dL (60-115)
--- NOTE | 2021-04-26 12:54 | HO.PM.IMPN ---
Subjective Subjective Date of Service: 04/26/21 Interval History: the patient was seen and evaluated this morning sitting in bed, feels significant improvement but still requiring oxygen supplement and Reporting dyspnea with exertion weight decreased from 280-260 kilos Denies any fever, chills or shortness of breath No reported other overnight events. Review of Systems No fever, chills in feels little better today No chest pain, palpitation , decreased lower extremity edema improved but still having dyspnea on exertion, shortness of breath No abdominal pain, nausea or vomiting No urinary symptoms No any rash or wounds Physical Exam Vital Signs: Vital Signs: Last Vital Signs Temp 98.3 F 04/26/21 12:00 Pulse 89 04/26/21 12:00 Resp 19 04/26/21 12:00 BP 110/76 04/26/21 12:00 Pulse Ox 94 04/26/21 07:36 BMI result Body Mass Index 83.1 Const: Other: Constitutional : Alert, interactive, morbidly obese, not in distress Neck : Normal inspection, Supple Cardiovascular : RRR, S1 S2, trace bilateral lower extremity edema Respiratory : fair bilateral air entry, bilateral basal fine crackles, no wheezes or rhonchi Gastrointestinal: soft, lax, Normal bowel sounds, Non tender Skin : Warm, Dry, no lower extremity swelling erythema or tenderness, left knee with no effusion Neurological : Alert & oriented x3, No focal deficit Objective Data Active Medications Acetaminophen (Acetaminophen 325 Mg Tablet) 650 mg PO Q6H PRN PRN Reason: Pain, Mild (Pain Scale 1-3) Acetazolamide (Acetazolamide 250 Mg Tablet) 250 mg PO BID [facility] Last Admin: 04/26/21 08:00 Dose: 250 mg Documented by: MAYRA Albuterol Sulfate (Albuterol Sulfate (0.083%) 2.5 Mg/3 Ml Vial.Neb) 2.5 mg INHALE Q4H PRN; Protocol PRN Reason: Wheezing Albuterol Sulfate (Albuterol Sulfate 90 Mcg 8 Gm Inhaler) 1 puff INHALE QID PRN PRN Reason: bronchospasm Apixaban (Apixaban 5 Mg Tablet) 10 mg PO BID [facility] Stop: 04/30/21 09:01 Last Admin: 04/26/21 08:00 Dose: 10 mg Documented by: MAYRA Aspirin (Aspirin 325 Mg Tablet) 325 mg PO DAILY [facility] Last Admin: 04/26/21 08:00 Dose: 325 mg Documented by: MAYRA Atorvastatin Calcium (Atorvastatin Calcium 20 Mg Tablet) 20 mg PO BEDTIME [facility] Last Admin: 04/25/21 20:25 Dose: 20 mg Documented by: SHANKAR Furosemide (Furosemide 40 Mg/4 Ml Vial) 40 mg IVPUSH BID@0900,1800 [facility]; Protocol Last Admin: 04/26/21 07:58 Dose: 40 mg Documented by: MAYRA Insulin Human Lispro (Insulin Lispro 100 Unit/Ml 3 Ml Vial) 0 unit SUBCUT QIDACHS [facility]; Protocol Last Admin: 04/26/21 11:50 Dose: Not Given Documented by: MAYRA Non-Admin Reason: No Insulin Coverage Metoprolol Succinate (Metoprolol Succinate Er 25 Mg Tab.Er.24h) 25 mg PO DAILY [facility]; Protocol Last Admin: 04/26/21 08:00 Dose: 25 mg Documented by: MAYRA Ondansetron HCl (Ondansetron Hcl 4 Mg/2 Ml Vial) 4 mg IVPUSH Q8H PRN PRN Reason: Nausea and Vomiting Pharmacy Consult (Consult Rx Perform Med Rec) 1 each MISCELLANE ONCE PRN PRN Reason: Consult order Phenytoin Sodium (Phenytoin Sodium Extended 100 Mg Capsule) 700 mg PO BID [facility] Last Admin: 04/26/21 07:58 Dose: 700 mg Documented by: MAYRA Sodium Chloride (0.9 % Sodium Chloride Flush 3 Ml Syringe) 3 ml IVFLUSH QSHIFT [facility] Last Admin: 04/26/21 08:01 Dose: 3 ml Documented by: MAYRA Labs CBC & Chem 7: 04/23/21 09:08 04/26/21 06:01 Labs: Laboratory Results - last 24 hr 04/25/21 04/25/21 04/26/21 16:46 20:01 06:01 Anion Gap 10 L Estim Creat Clear Calc 242.9 Estimated GFR > 60 POC Glucose 173 H 129 H Random Glucose 161 H Calcium 8.9 04/26/21 04/26/21 07:37 11:11 Anion Gap Estim Creat Clear Calc Estimated GFR POC Glucose 138 H 143 H Random Glucose Calcium Microbiology Microbiology Results: Microbiology 04/23/21 09:33 Blood Culture - Preliminary Blood - Venous No growth after 48 hours. 04/23/21 09:08 Blood Culture - Preliminary Blood - Venous No growth after 48 hours. Assessment and Plan (1) Sleep apnea, obstructive: Status: Acute (2) Diastolic CHF, acute on chronic: Status: Acute (3) Acute on chronic respiratory failure with hypoxia: Status: Acute (4) Pulmonary embolism: Status: Acute Assessment and Plan: 45 years old male with PMH of NORIS, morbid obesity, atrial fibrillation among others who presented to the hospital complaining of dyspnea on exertion. Acute on chronic hypoxic respiratory failure Secondary to uncontrolled NORIS and new PE V/Q scan as reported, intermediate risk with one-vessel disease Elevated D-dimer continue full-dose Eliquis 10 mg b.i.d. for 3/7 days Wean oxygen down as tolerated pulmonology input appreciated, treat for PE for 6 months to use CPAP at night Acute on chronic diastolic CHF exacerbation improving, still dyspneic and very fluid overload lost almost 15 kilos mainly fluids Elevated BNP at 325 negative balance of 4 L yesterday continue IV Lasix b.i.d, added dose of metolazone today monitor intake and output Type 2 diabetes POC, diabetic diet Sliding scale insulin Morbid obesity Following with bariatric surgery, advised to lose weight DVT PPX Eliquis Quality Stroke Does the patient have a stroke diagnosis?: No VTE Prior VTE?: No VTE Risk Level:: Medical - moderate - high VTE Device Contraindication: Treatment Not Indicated VTE Drug Contraindication: Treatment Not Indicated
[2021-04-26 16:37] LABS: Glucose, Whole Blood 164 mg/dL (60-115)
[2021-04-26] MEDS: Insulin Lispro 100 UNIT/ML 3 ML VIAL SUBCUT ×2 (16:54→20:57)
[2021-04-26 20:47] LABS: Glucose, Whole Blood 184 mg/dL (60-115)
[2021-04-26] MEDS: Atorvastatin Calcium 20 MG TABLET PO (20:57)
[2021-04-27] VITALS (7 sets, daily range): BP systolic 117–141; BP diastolic 56–91; PULSE 74–101; RESP 16–20; TEMP 36.1–37.1; O2SAT 92–99; BMI 81.1
[2021-04-27 05:54] LABS: Hematocrit 46.9 % (42.0-52.0); Hemoglobin 14.7 g/dl (14.0-18.0); Mean Corpuscular HGB Conc 31.3 g/dl (31.0-36.0); Mean Corpuscular Hemoglobin 28.6 pg (27.0-33.0); Mean Corpuscular Volume 91.2 fL (80.0-98.0); Mean Platelet Volume 11.5 fL (9.4-12.4); Platelet Count 147 X10*3/uL (160-400); Red Blood Count 5.14 X10*6/uL (4.60-5.80); Red Cell Distribution Width 13.6 % (11.0-16.0); White Blood Count 6.3 X10*3/uL (4.8-10.8)
[2021-04-27 06:08] LABS: Anion Gap 12 (12-20); Blood Urea Nitrogen 12 mg/dL (9-16); Carbon Dioxide 31 mmol/L (22-29); Chloride 97 mmol/L (96-108); Creatinine Clr Calc Pharmacy 213.6; Estimated Glomerular Filt Rate > 60; Glucose Random 142 mg/dL (60-115); Potassium 3.6 mmol/L (3.3-5.1); Sodium 136 mmol/L (135-145)
[2021-04-27 06:12] LABS: B Type Natriuretic Peptide 185 pg/mL (<100)
[2021-04-27 07:55] LABS: Glucose, Whole Blood 154 mg/dL (60-115)
[2021-04-27] MEDS: Phenytoin Sodium Extended 100 MG CAPSULE 700 MG PO ×2 (08:36→20:21)
[2021-04-27] MEDS: Furosemide 40 MG/4 ML VIAL IVPUSH ×2 (08:36→18:16)
[2021-04-27] MEDS: 0.9 % Sodium Chloride Flush 3 ML SYRINGE IVFLUSH ×2 (08:37→15:09)
[2021-04-27] MEDS: Insulin Lispro 100 UNIT/ML 3 ML VIAL SUBCUT (08:37)
[2021-04-27] MEDS: Metoprolol Succinate ER 25 MG TAB.ER.24H PO (08:38)
[2021-04-27] MEDS: acetaZOLAMIDE 250 MG TABLET PO ×2 (08:38→20:21)
--- NOTE | 2021-04-27 10:17 | HO.PM.IMPN ---
Subjective Subjective Date of Service: 04/27/21 Interval History: the patient was seen and evaluated this morning sitting in bed, feels significant improvement but still requiring oxygen supplement No more bleeding overnight after holding Eliquis weight decreased from 280-256 kilos Denies any fever, chills or shortness of breath No reported other overnight events. Review of Systems No fever, chills in feels little better today No chest pain, palpitation , decreased lower extremity edema improved but still having dyspnea on exertion, shortness of breath No abdominal pain, nausea or vomiting No urinary symptoms No any rash or wounds Physical Exam Vital Signs: Vital Signs: Last Vital Signs Temp 97 F 04/27/21 07:44 Pulse 90 04/27/21 07:44 Resp 18 04/27/21 07:44 BP 118/65 04/27/21 07:44 Pulse Ox 93 04/27/21 07:44 BMI result Body Mass Index 81.1 Const: Other: Constitutional : Alert, interactive, morbidly obese, not in distress Neck : Normal inspection, Supple Cardiovascular : RRR, S1 S2, trace bilateral lower extremity edema Respiratory : fair bilateral air entry, bilateral basal fine crackles, no wheezes or rhonchi Gastrointestinal: soft, lax, Normal bowel sounds, Non tender, rectal examination done small amount of blood noticed Skin : Warm, Dry, no lower extremity swelling erythema or tenderness, left knee with no effusion Neurological : Alert & oriented x3, No focal deficit Objective Data Active Medications Acetaminophen (Acetaminophen 325 Mg Tablet) 650 mg PO Q6H PRN PRN Reason: Pain, Mild (Pain Scale 1-3) Acetazolamide (Acetazolamide 250 Mg Tablet) 250 mg PO BID [facility] Last Admin: 04/27/21 08:38 Dose: 250 mg Documented by: NICHELLE Albuterol Sulfate (Albuterol Sulfate (0.083%) 2.5 Mg/3 Ml Vial.Neb) 2.5 mg INHALE Q4H PRN; Protocol PRN Reason: Wheezing Albuterol Sulfate (Albuterol Sulfate 90 Mcg 8 Gm Inhaler) 1 puff INHALE QID PRN PRN Reason: bronchospasm Apixaban (Apixaban 5 Mg Tablet) 10 mg PO BID [facility] Last Admin: 04/26/21 08:00 Dose: 10 mg Documented by: MAYRA Atorvastatin Calcium (Atorvastatin Calcium 20 Mg Tablet) 20 mg PO BEDTIME [facility] Last Admin: 04/26/21 20:57 Dose: 20 mg Documented by: ODRISGiovanna Furosemide (Furosemide 40 Mg/4 Ml Vial) 40 mg IVPUSH BID@0900,1800 [facility]; Protocol Last Admin: 04/27/21 08:36 Dose: 40 mg Documented by: NICHELLE Insulin Human Lispro (Insulin Lispro 100 Unit/Ml 3 Ml Vial) 0 unit SUBCUT QIDACHS [facility]; Protocol Last Admin: 04/27/21 08:37 Dose: 2 unit Documented by: NICHELLE Metoprolol Succinate (Metoprolol Succinate Er 25 Mg Tab.Er.24h) 25 mg PO DAILY [facility]; Protocol Last Admin: 04/27/21 08:38 Dose: 25 mg Documented by: NICHELLE Ondansetron HCl (Ondansetron Hcl 4 Mg/2 Ml Vial) 4 mg IVPUSH Q8H PRN PRN Reason: Nausea and Vomiting Pharmacy Consult (Consult Rx Perform Med Rec) 1 each MISCELLANE ONCE PRN PRN Reason: Consult order Phenytoin Sodium (Phenytoin Sodium Extended 100 Mg Capsule) 700 mg PO BID [facility] Last Admin: 04/27/21 08:36 Dose: 700 mg Documented by: NICHELLE Sodium Chloride (0.9 % Sodium Chloride Flush 3 Ml Syringe) 3 ml IVFLUSH QSHIFT [facility] Last Admin: 04/27/21 08:37 Dose: 3 ml Documented by: NICHELLE Labs CBC & Chem 7: 04/27/21 05:33 04/27/21 05:33 Labs: Laboratory Results - last 24 hr 04/26/21 04/26/21 04/26/21 11:11 16:32 20:38 MCV MCH MCHC RDW Plt Count MPV Absolute Nucleated RBC Nucleated RBC % (auto) Anion Gap Estim Creat Clear Calc Estimated GFR POC Glucose 143 H 164 H 184 H Random Glucose Calcium B-Natriuretic Peptide 04/27/21 04/27/21 04/27/21 05:33 05:33 05:33 MCV 91.2 MCH 28.6 MCHC 31.3 RDW 13.6 Plt Count 147 L MPV 11.5 Absolute Nucleated RBC 0.000 Nucleated RBC % (auto) 0.0 Anion Gap 12 Estim Creat Clear Calc 213.6 Estimated GFR > 60 POC Glucose Random Glucose 142 H Calcium 9.0 B-Natriuretic Peptide 185 H 01/03/22 07:42 MCV MCH MCHC RDW Plt Count MPV Absolute Nucleated RBC Nucleated RBC % (auto) Anion Gap Estim Creat Clear Calc Estimated GFR POC Glucose 154 H Random Glucose Calcium B-Natriuretic Peptide Assessment and Plan (1) Diastolic CHF, acute on chronic: Status: Acute (2) Acute on chronic respiratory failure with hypoxia: Status: Acute (3) Pulmonary embolism: Status: Acute (4) BRBPR (bright red blood per rectum): Status: Acute Assessment and Plan: 45 years old male with PMH of NORIS, morbid obesity, atrial fibrillation among others who presented to the hospital complaining of dyspnea on exertion. Acute on chronic hypoxic respiratory failure Secondary to uncontrolled NORIS and new PE V/Q scan as reported, intermediate risk with one-vessel disease Elevated D-dimer hold Eliquis for today, consider starting heparin after discussing with pulmonology Wean oxygen down as tolerated pulmonology input appreciated, treat for PE for 6 months, to re-evaluate the images to use CPAP at night Acute on chronic diastolic CHF exacerbation improving, still dyspneic and very fluid overload lost almost 25 kilos mainly fluids BNP dropped to 180 negative balance of 4 L yesterday continue IV Lasix b.i.d monitor intake and output BRBPR Noticed by the patient, no drop in hemoglobin anticoagulation held overnight pulmonary to review V/Q images to confirm the existence of PE GI to evaluate the patient for colonoscopy tomorrow Clear liquid diet for today To do prep for overnight Type 2 diabetes POC, diabetic diet Sliding scale insulin Morbid obesity Following with bariatric surgery, advised to lose weight DVT PPX Eliquis Quality Stroke Does the patient have a stroke diagnosis?: No VTE Prior VTE?: No VTE Risk Level:: Medical - moderate - high VTE Device Contraindication: Treatment Not Indicated VTE Drug Contraindication: Treatment Not Indicated
[2021-04-27 11:31] LABS: Glucose, Whole Blood 124 mg/dL (60-115)
--- NOTE | 2021-04-27 12:39 | PM.PNPUL ---
Subjective Subjective Date of Service: 04/27/21 Interval history: The patient was seen on exam. Still using the oxygen supplementation. Has not been able to use the PAP therapy at nighttime because he is getting up a lot to void. I did review view his imaging studies including the V/Q scan more recently demonstrating a couple defects in the perfusion ventilation study suggestive of thromboembolic disease. The patient also had a significantly elevated D-dimer. EKG also demonstrating atrial fibrillation. The patient was started on anticoagulation but then developed some blood in the stool. His echocardiogram does demonstrate evidence of pulmonary hypertension. Objective Data Labs CBC & Chem 7: 04/27/21 05:33 04/27/21 05:33 Labs: Laboratory Results - last 24 hr 04/26/21 04/26/21 04/27/21 16:32 20:38 05:33 WBC RBC Hgb Hct MCV MCH MCHC RDW Plt Count MPV Absolute Nucleated RBC Nucleated RBC % (auto) Sodium 136 Potassium 3.6 Chloride 97 Carbon Dioxide 31 H Anion Gap 12 BUN 12 Creatinine 0.91 Estim Creat Clear Calc 213.6 Estimated GFR > 60 POC Glucose 164 H 184 H Random Glucose 142 H Calcium 9.0 B-Natriuretic Peptide 04/27/21 04/27/21 04/27/21 05:33 05:33 07:42 WBC 6.3 RBC 5.14 Hgb 14.7 Hct 46.9 MCV 91.2 MCH 28.6 MCHC 31.3 RDW 13.6 Plt Count 147 L MPV 11.5 Absolute Nucleated RBC 0.000 Nucleated RBC % (auto) 0.0 Sodium Potassium Chloride Carbon Dioxide Anion Gap BUN Creatinine Estim Creat Clear Calc Estimated GFR POC Glucose 154 H Random Glucose Calcium B-Natriuretic Peptide 185 H 04/27/21 11:12 WBC RBC Hgb Hct MCV MCH MCHC RDW Plt Count MPV Absolute Nucleated RBC Nucleated RBC % (auto) Sodium Potassium Chloride Carbon Dioxide Anion Gap BUN Creatinine Estim Creat Clear Calc Estimated GFR POC Glucose 124 H Random Glucose Calcium B-Natriuretic Peptide Microbiology Microbiology Results: Microbiology 04/23/21 09:33 Blood - Venous Blood Culture - Preliminary No growth after 48 hours. 04/23/21 09:08 Blood - Venous Blood Culture - Preliminary No growth after 48 hours. Review of Systems Constitutional: Denies night sweats Denies change in voice, Denies lip swelling, Denies mouth pain, Reports nasal congestion, Reports nasal discharge and Denies tongue swelling Cardiovascular: Denies chest pain and Reports dyspnea Respiratory: Reports cough, Reports dyspnea and Denies wheezing Gastrointestinal: Denies abdominal pain Genitourinary: Reports nocturia Musculoskeletal: Denies no additional musculoskeletal complaints Denies Neuro-related abnormal movements Psychiatric: Denies no additional psychiatric complaints Hematologic/Lymphatic: Denies easy bleeding and Denies lymphadenopathy Allergic/Immunologic: Denies lip swelling, Denies tongue swelling and Denies wheezing Physical Exam Vital Signs: Vital Signs: Last Vital Signs Temp 97.7 F 04/27/21 11:35 Pulse 85 04/27/21 11:35 Resp 18 04/27/21 11:35 BP 136/86 04/27/21 11:35 Pulse Ox 95 04/27/21 11:35 BMI result Body Mass Index 81.1 Const: General: alert Neck: Neck: Yes normal visual inspection, Yes full ROM and Yes no lymphadenopathy Chest: Chest palpation & inspection: normal inspection of the chest Resp: Auscultation: diminished lung sounds Cardio: Rate: regular rate Rhythm: abnormal rhythm Heart sounds: S1 normal heart sound present and S2 normal heart sound present GI: Palpation (GI): Soft to palpation and nontender Auscultation: normal bowel sounds Skin: General skin exam: rashes and/or lesions noted Procedures Date of Service Date of Service: 04/27/21 Assessment and Plan Assessment and plan (1) Acute on chronic respiratory failure with hypoxia: Status: Acute (2) Pulmonary embolism: Status: Acute (3) NORIS (obstructive sleep apnea): Status: Acute (4) Pulmonary arterial hypertension: Status: Acute (5) A-fib: Status: Acute Assessment and Plan: would recommend anticoagulation. Based on his pulmonary HTN and afib should be on life long anticoagulation. He is at high risk for CTED. Currently antigoagulation is on hold due to his lower GI bleeding. GI eveluation and once stable should restart anticoagulation if no obsolute contraindications. Continue oxygen therapy to keep pox >90% PAP therapy at night Time Spent With Patient Time: Total time spent is greater than 50% in coordination of care (as documented) at patient's floor/unit and/or counseling patient: Time with patient: 15 - 24 minutes Progress Note: Quality Stroke Does the patient have a stroke diagnosis?: No
[2021-04-27 13:52] LABS: INTERNATIONAL NORM RATIO 1.2 (0.9-1.1); Prothrombin Time 13.2 SEC (9.9-13.0)
[2021-04-27 13:55] LABS: PTT Heparin Drip 32.8 SEC (53-77.9)
--- NOTE | 2021-04-27 14:36 | MHC.CM.PN ---
PLAN IS FOR PATIENT TO HAVE COLONOSCOPY TOMORROW 04/28/21. HE WANTS TO BE ABLE TO RETURN HOME WITH NO NEED FOR SERVICES.
[2021-04-27] MEDS: Heparin Sodium,Porcine/1/2NS 25,000 UNIT/250 ML IV.SOLN 25 UNIT IVCONT (14:58)
--- NOTE | 2021-04-27 16:04 | PM.EVENT ---
Event Note Date of Service: 04/27/21 Event Note: GI Consult-Full note dictated Imp/Recs: Small amount of hematochezia with BRB on the toilet paper after starting Eliquis for a PE. He has had no drop in Hgb, no GI sx otherwise, no melena, and he has never had a colonoscopy. 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 Full consent obtained for the colonoscopy, including risks of bleeding, perforation, and adverse reaction to anesthesia or other medical complication given his underlying medical issues with associated obesity. He understands completely and is comfortable with this plan. He has already been seen by Pulmonary, Dr. Mayberry, and I reviewed the case with Dr. Dumont from Anesthesia Dept. The plan is for the colonoscopy to be done by approx. noon on 04/28. Heparin will need to be off for 6 hours before the procedure. Thanks
--- NOTE | 2021-04-27 16:34 | MHC.SHP ---
Pre-Procedural Eval Section A Date of Service: 04/28/21 The patient is an INPATIENT: Yes The History & Physical has been completed within 30 days and I have reviewed it.: Yes Section B Chief Complaint: shortness of breath Allergies: Allergies Allergy/AdvReac Type Severity Reaction Status Date / Time codeine [Codeine] Allergy Unknown RASH, hives Verified 04/23/21 08:51 ibuprofen [From Motrin] Allergy Unknown HIVES Verified 04/23/21 08:51 Plan I have reviewed the history and physical and performed a pertinent physical examination on my patient. No changes have occurred unless specified.
[2021-04-27 16:43] LABS: Glucose, Whole Blood 136 mg/dL (60-115)
[2021-04-27] MEDS: PEG 3350/Na Sulf,Bicarb,Cl/KCL 4,000 ML SOLN.RECON 4000 ML PO (18:16)
[2021-04-27 20:07] LABS: Glucose, Whole Blood 157 mg/dL (60-115)
[2021-04-27] MEDS: bisacodyL 5 MG TABLET.DR 10 MG PO (20:21)
[2021-04-27] MEDS: Atorvastatin Calcium 20 MG TABLET PO (20:21)
[2021-04-27] MEDS: ondansetron HCL 4 MG/2 ML VIAL IVPUSH (20:26)
[2021-04-27 21:56] LABS: PTT Heparin Drip 96.8 SEC (53-77.9)
[2021-04-27] MEDS: Pantoprazole Sodium 40 MG/10 ML VIAL IVPUSH (22:38)
[2021-04-27] MEDS: Metoclopramide HCl 10 MG/2 ML VIAL IVPUSH (22:38)
[2021-04-27] MEDS: polyethylene glycoL 3350 17 GM POWD.PACK PO (23:09)
[2021-04-28] VITALS (9 sets, daily range): BP systolic 104–137; BP diastolic 56–79; PULSE 72–105; RESP 16–22; TEMP 36.3–37.3; O2SAT 90–97; BMI 79.0
[2021-04-28] MEDS: Heparin Sodium,Porcine/1/2NS 25,000 UNIT/250 ML IV.SOLN 17.3 UNIT IVCONT (01:52)
[2021-04-28 06:43] LABS: Hematocrit 50.6 % (42.0-52.0); Hemoglobin 15.8 g/dl (14.0-18.0); Mean Corpuscular HGB Conc 31.2 g/dl (31.0-36.0); Mean Corpuscular Hemoglobin 28.7 pg (27.0-33.0); Mean Corpuscular Volume 91.8 fL (80.0-98.0); Mean Platelet Volume 11.9 fL (9.4-12.4); Platelet Count 154 X10*3/uL (160-400); Red Blood Count 5.51 X10*6/uL (4.60-5.80); Red Cell Distribution Width 13.8 % (11.0-16.0); White Blood Count 6.4 X10*3/uL (4.8-10.8)
[2021-04-28 06:50] LABS: Anion Gap 12 (12-20); Blood Urea Nitrogen 12 mg/dL (9-16); Carbon Dioxide 35 mmol/L (22-29); Chloride 93 mmol/L (96-108); Creatinine Clr Calc Pharmacy 169.1; Estimated Glomerular Filt Rate > 60; Glucose Random 138 mg/dL (60-115); Potassium 3.8 mmol/L (3.3-5.1); Sodium 136 mmol/L (135-145)
[2021-04-28 06:56] LABS: PTT Heparin Drip 60.5 SEC (53-77.9)
[2021-04-28 07:40] LABS: Glucose, Whole Blood 134 mg/dL (60-115)
[2021-04-28] MEDS: Phenytoin Sodium Extended 100 MG CAPSULE 700 MG PO ×2 (10:04→20:29)
[2021-04-28] MEDS: 0.9 % Sodium Chloride Flush 3 ML SYRINGE IVFLUSH ×3 (10:05→20:29)
[2021-04-28] MEDS: Furosemide 40 MG/4 ML VIAL IVPUSH (10:05)
[2021-04-28] MEDS: Metoprolol Succinate ER 25 MG TAB.ER.24H PO (10:05)
--- NOTE | 2021-04-28 10:40 | HO.PM.IMPN ---
Subjective Subjective Date of Service: 04/28/21 Interval History: the patient was seen and evaluated this morning sitting in bed, breathing is improved but still requiring oxygen supplement No more bleeding overnight while on heparin weight decreased from 280-250 kilos Denies any fever, chills or shortness of breath No reported other overnight events. Review of Systems No fever, chills in feels little better today No chest pain, palpitation , decreased lower extremity edema improved but still having dyspnea on exertion, shortness of breath No abdominal pain, nausea or vomiting No urinary symptoms No any rash or wounds Physical Exam Vital Signs: Vital Signs: Last Vital Signs Temp 98.2 F 04/28/21 08:00 Pulse 89 04/28/21 08:00 Resp 19 04/28/21 08:00 BP 115/72 04/28/21 08:00 Pulse Ox 94 04/28/21 08:00 BMI result Body Mass Index 79.0 Const: Other: Constitutional : Alert, interactive, morbidly obese, not in distress Neck : Normal inspection, Supple Cardiovascular : RRR, S1 S2, trace bilateral lower extremity edema Respiratory : fair bilateral air entry, bilateral basal fine crackles, no wheezes or rhonchi Gastrointestinal: soft, lax, Normal bowel sounds, Non tender, rectal examination done small amount of blood noticed Skin : Warm, Dry, no lower extremity swelling erythema or tenderness, left knee with no effusion Neurological : Alert & oriented x3, No focal deficit Objective Data Active Medications Acetaminophen (Acetaminophen 325 Mg Tablet) 650 mg PO Q6H PRN PRN Reason: Pain, Mild (Pain Scale 1-3) Albuterol Sulfate (Albuterol Sulfate (0.083%) 2.5 Mg/3 Ml Vial.Neb) 2.5 mg INHALE Q4H PRN; Protocol PRN Reason: Wheezing Albuterol Sulfate (Albuterol Sulfate 90 Mcg 8 Gm Inhaler) 1 puff INHALE QID PRN PRN Reason: bronchospasm Atorvastatin Calcium (Atorvastatin Calcium 20 Mg Tablet) 20 mg PO BEDTIME [facility] Last Admin: 04/27/21 20:21 Dose: 20 mg Documented by: LISANDRA Furosemide (Furosemide 40 Mg/4 Ml Vial) 40 mg IVPUSH DAILY [facility]; Protocol Last Admin: 04/28/21 10:05 Dose: 40 mg Documented by: SALLY Insulin Human Lispro (Insulin Lispro 100 Unit/Ml 3 Ml Vial) 0 unit SUBCUT QIDACHS [facility]; Protocol Last Admin: 04/28/21 07:50 Dose: Not Given Documented by: SALLY Non-Admin Reason: No Insulin Coverage Metoprolol Succinate (Metoprolol Succinate Er 25 Mg Tab.Er.24h) 25 mg PO DAILY [facility]; Protocol Last Admin: 04/28/21 10:05 Dose: 25 mg Documented by: SALLY Ondansetron HCl (Ondansetron Hcl 4 Mg/2 Ml Vial) 4 mg IVPUSH Q8H PRN PRN Reason: Nausea and Vomiting Last Admin: 04/27/21 20:26 Dose: 4 mg Documented by: LISANDRA Pharmacy Consult (Consult Rx Perform Med Rec) 1 each MISCELLANE ONCE PRN PRN Reason: Consult order Phenytoin Sodium (Phenytoin Sodium Extended 100 Mg Capsule) 700 mg PO BID [facility] Last Admin: 04/28/21 10:04 Dose: 700 mg Documented by: SALLY Polyethylene Glycol (Polyethylene Glycol 3350 17 Gm Powd.Pack) 17 gm PO DAILY [facility] Last Admin: 04/27/21 23:09 Dose: 17 gm Documented by: LISANDRA Sodium Chloride (0.9 % Sodium Chloride Flush 3 Ml Syringe) 3 ml IVFLUSH QSHIFT [facility] Last Admin: 04/28/21 10:05 Dose: 3 ml Documented by: SALLY Labs CBC & Chem 7: 04/28/21 06:06 04/28/21 06:06 Labs: Laboratory Results - last 24 hr 04/27/21 04/27/21 04/27/21 11:12 13:40 16:19 MCV MCH MCHC RDW Plt Count MPV Absolute Nucleated RBC Nucleated RBC % (auto) PT 13.2 H INR 1.2 H PTT (Heparin Protocol) 32.8 L D Anion Gap Estim Creat Clear Calc Estimated GFR POC Glucose 124 H 136 H Random Glucose Calcium 04/27/21 04/27/21 04/28/21 19:45 21:04 06:06 MCV 91.8 MCH 28.7 MCHC 31.2 RDW 13.8 Plt Count 154 L MPV 11.9 Absolute Nucleated RBC 0.000 Nucleated RBC % (auto) 0.0 PT INR PTT (Heparin Protocol) 96.8 H D Anion Gap Estim Creat Clear Calc Estimated GFR POC Glucose 157 H Random Glucose Calcium 04/28/21 04/28/21 04/28/21 06:06 06:06 07:11 MCV MCH MCHC RDW Plt Count MPV Absolute Nucleated RBC Nucleated RBC % (auto) PT INR PTT (Heparin Protocol) 60.5 D Anion Gap 12 Estim Creat Clear Calc 169.1 Estimated GFR > 60 POC Glucose 134 H Random Glucose 138 H Calcium 9.0 Assessment and Plan (1) Pulmonary arterial hypertension: Status: Acute (2) Sleep apnea, obstructive: Status: Acute (3) Diastolic CHF, acute on chronic: Status: Acute (4) Acute on chronic respiratory failure with hypoxia: Status: Acute (5) A-fib: Status: Acute (6) Pulmonary embolism: Status: Acute Assessment and Plan: 45 years old male with PMH of NORIS, morbid obesity, atrial fibrillation among others who presented to the hospital complaining of dyspnea on exertion. Acute on chronic hypoxic respiratory failure Secondary to uncontrolled NORIS and new PE V/Q scan as reported, intermediate risk with one-vessel disease Elevated D-dimer Eliquis held, to restart with a dose of 5 mg b.i.d. On heparin, held this morning for procedures Wean oxygen down as tolerated pulmonology input appreciated, treat for PE for at least 6 months, he might need to be on blood thinners for the rest of his life for pulmonary HTN and AFib to use CPAP at night Acute on chronic diastolic CHF exacerbation improving, still dyspneic and very fluid overload lost almost 28 kilos mainly fluids BNP dropped to 180 negative balance of 4 L yesterday decrease Lasix to 40 IV daily as kidney function started to climb up monitor intake and output BRBPR Noticed by the patient, no drop in hemoglobin anticoagulation held this morning GI to evaluate the patient for colonoscopy today follow-up colonoscopy results Type 2 diabetes POC, diabetic diet Sliding scale insulin Morbid obesity Following with bariatric surgery, advised to lose weight DVT PPX Eliquis Quality Stroke Does the patient have a stroke diagnosis?: No VTE Prior VTE?: No VTE Risk Level:: Medical - moderate - high VTE Device Contraindication: Treatment Not Indicated VTE Drug Contraindication: Treatment Not Indicated
--- NOTE | 2021-04-28 11:01 | HO.ANESPROP2 ---
[facility] Active Problems Active Problems: All Active Problems (Updated 04/27/21 @ 12:45 by Joel Mayberry MD) A-fib (Acute) Pulmonary arterial hypertension (Acute) BRBPR (bright red blood per rectum) (Acute) Sleep apnea, obstructive (Acute) Diastolic CHF, acute on chronic (Acute) Acute on chronic respiratory failure with hypoxia (Acute) Pulmonary embolism (Acute) Congestive heart failure (Acute) Chest pain (Acute) Hypoxic (Acute) Shortness of breath (Acute) NORIS (obstructive sleep apnea) (Acute) Morbid obesity (Acute) Elevated d-dimer (Acute) Atrial fibrillation with rapid ventricular response (Acute) Morbid obesity (Acute) Trigger thumb, left thumb (Acute) Past Medical History Medical History (Updated 04/27/21 @ 12:45 by Joel Mayberry MD) A-fib Aftercare following bilateral ankle joint replacement surgery Brain tumor Diabetes Hypoxemia Morbid obesity Morbid obesity with body mass index (BMI) greater than or equal to 70 in adult NORIS (obstructive sleep apnea) NORIS (obstructive sleep apnea) Persistent atrial fibrillation Pulmonary arterial hypertension Right hand dominant Seizure disorder Shortness of breath Sleep apnea, obstructive Family History Family History Paternal Grandmother Myocardial infarction Maternal Grandfather Myocardial infarction Brother No problems noted. Sister No problems noted. Sister No problems noted. Family history of problems with anesthesia: No Surgical History Surgical History History of ankle surgery Social History Social History Household Members: Family Housing: House Do you presently have visiting nurse or other home services: No Alcohol intake: never Patient Tobacco Use Status: Never used Tobacco service: No Current occupational status: disabled Meds Allergies Allergy/AdvReac Type Severity Reaction Status Date / Time codeine [Codeine] Allergy Unknown RASH, hives Verified 04/23/21 08:51 ibuprofen [From Motrin] Allergy Unknown HIVES Verified 04/23/21 08:51 Active Medications: Current Medications Acetaminophen (Acetaminophen 325 Mg Tablet) 650 mg PO Q6H PRN PRN Reason: Pain, Mild (Pain Scale 1-3) Albuterol Sulfate (Albuterol Sulfate (0.083%) 2.5 Mg/3 Ml Vial.Neb) 2.5 mg INHALE Q4H PRN; Protocol PRN Reason: Wheezing Albuterol Sulfate (Albuterol Sulfate 90 Mcg 8 Gm Inhaler) 1 puff INHALE QID PRN PRN Reason: bronchospasm Atorvastatin Calcium (Atorvastatin Calcium 20 Mg Tablet) 20 mg PO BEDTIME [facility] Last Admin: 04/27/21 20:21 Dose: 20 mg Documented by: Furosemide (Furosemide 40 Mg/4 Ml Vial) 40 mg IVPUSH DAILY [facility]; Protocol Last Admin: 04/28/21 10:05 Dose: 40 mg Documented by: Insulin Human Lispro (Insulin Lispro 100 Unit/Ml 3 Ml Vial) 0 unit SUBCUT QIDACHS [facility]; Protocol Last Admin: 04/28/21 07:50 Dose: Not Given Documented by: Metoprolol Succinate (Metoprolol Succinate Er 25 Mg Tab.Er.24h) 25 mg PO DAILY [facility]; Protocol Last Admin: 04/28/21 10:05 Dose: 25 mg Documented by: Ondansetron HCl (Ondansetron Hcl 4 Mg/2 Ml Vial) 4 mg IVPUSH Q8H PRN PRN Reason: Nausea and Vomiting Last Admin: 04/27/21 20:26 Dose: 4 mg Documented by: Pharmacy Consult (Consult Rx Perform Med Rec) 1 each MISCELLANE ONCE PRN PRN Reason: Consult order Phenytoin Sodium (Phenytoin Sodium Extended 100 Mg Capsule) 700 mg PO BID [facility] Last Admin: 04/28/21 10:04 Dose: 700 mg Documented by: Polyethylene Glycol (Polyethylene Glycol 3350 17 Gm Powd.Pack) 17 gm PO DAILY [facility] Last Admin: 04/27/21 23:09 Dose: 17 gm Documented by: Sodium Chloride (0.9 % Sodium Chloride Flush 3 Ml Syringe) 3 ml IVFLUSH QSHIFT [facility] Last Admin: 04/28/21 10:05 Dose: 3 ml Documented by: Home Medications Medication Instructions Recorded Confirmed Last Taken Type insulin aspart U-100 100 unit/mL See Protocol SUBCUT TID 02/28/20 04/23/21 04/22/21 History (3 mL) subcutaneous pen (Novolog Flexpen U-100 Insulin aspart) phenytoin sodium extended 100 mg 700 mg PO BID cap 02/23/21 04/23/21 04/22/21 History capsule (Dilantin Extended) aspirin 325 mg tablet 325 mg PO DAILY 03/05/21 04/23/21 04/22/21 History atorvastatin 20 mg tablet 20 mg PO DAILY 03/05/21 04/23/21 04/22/21 History albuterol sulfate 2.5 mg INHALATION Q4-6H PRN 04/06/21 04/23/21 Unknown History furosemide 40 mg tablet 1 tab PO BID 04/23/21 04/23/21 04/22/21 History Exam Exam Date and Time: April 28, 2021 1101 Height,Weight and Vital Signs: Height 5 ft 10 in Weight 250 kg Last Vital Signs Temp 98.2 F 04/28/21 08:00 Pulse 89 04/28/21 08:00 Resp 19 04/28/21 08:00 BP 115/72 04/28/21 08:00 Pulse Ox 94 04/28/21 08:00 Pertinent Lab Results Pertinent Lab Results: Laboratory Tests 04/23/21 04/23/21 04/23/21 09:08 09:08 09:08 WBC 6.3 RBC 5.06 Hgb 15.0 Hct 47.9 MCV 94.7 MCH 29.6 MCHC 31.3 RDW 14.1 Plt Count 120 L MPV 11.5 Immature Gran % (Auto) 0.8 H Neut % (Auto) 70.4 Lymph % (Auto) 18.3 L [place] % (Auto) 6.4 Eos % (Auto) 3.8 Baso % (Auto) 0.3 Lymph # (Auto) 1.2 [place] # (Auto) 0.4 Eos # (Auto) 0.2 Baso # (Auto) 0.0 Abs Immat Gran (auto) 0.05 H Absolute Neuts (auto) 4.4 Absolute Nucleated RBC 0.000 Nucleated RBC % (auto) 0.0 PT 12.6 INR 1.1 APTT 31.2 PTT (Heparin Protocol) D-Dimer High Sensitivty 839 Sodium Potassium Chloride Carbon Dioxide Anion Gap BUN Creatinine Estim Creat Clear Calc Estimated GFR POC Glucose Random Glucose Lactic Acid Calcium Magnesium Total Bilirubin Direct Bilirubin AST ALT Alkaline Phosphatase Troponin I High Sens B-Natriuretic Peptide 325 H Total Protein Albumin Lipase Phenytoin COVID-19 ([facility]) COVID-19 Clin Com 04/23/21 04/23/21 04/23/21 09:08 09:08 09:08 WBC RBC Hgb Hct MCV MCH MCHC RDW Plt Count MPV Immature Gran % (Auto) Neut % (Auto) Lymph % (Auto) [place] % (Auto) Eos % (Auto) Baso % (Auto) Lymph # (Auto) [place] # (Auto) Eos # (Auto) Baso # (Auto) Abs Immat Gran (auto) Absolute Neuts (auto) Absolute Nucleated RBC Nucleated RBC % (auto) PT INR APTT PTT (Heparin Protocol) D-Dimer High Sensitivty Sodium 141 Potassium 4.3 Chloride 99 Carbon Dioxide 38 H Anion Gap 8 L BUN 12 Creatinine 0.96 Estim Creat Clear Calc 212.5 Estimated GFR > 60 POC Glucose Random Glucose 147 H Lactic Acid 1.1 Calcium 8.7 Magnesium 2.0 Total Bilirubin 0.7 Direct Bilirubin 0.3 AST 31 ALT 49 H Alkaline Phosphatase 557 H D Troponin I High Sens 7.5 B-Natriuretic Peptide Total Protein 7.0 Albumin 3.7 Lipase 28 Phenytoin COVID-19 (KIKA) [employer] 04/23/21 04/23/21 04/23/21 09:08 09:08 12:59 WBC RBC Hgb Hct MCV MCH MCHC RDW Plt Count MPV Immature Gran % (Auto) Neut % (Auto) Lymph % (Auto) [place] % (Auto) Eos % (Auto) Baso % (Auto) Lymph # (Auto) [place] # (Auto) Eos # (Auto) Baso # (Auto) Abs Immat Gran (auto) Absolute Neuts (auto) Absolute Nucleated RBC Nucleated RBC % (auto) PT INR APTT PTT (Heparin Protocol) D-Dimer High Sensitivty Sodium Potassium Chloride Carbon Dioxide Anion Gap BUN Creatinine Estim Creat Clear Calc Estimated GFR POC Glucose Random Glucose Lactic Acid Calcium Magnesium Total Bilirubin Direct Bilirubin AST ALT Alkaline Phosphatase Troponin I High Sens 10.0 B-Natriuretic Peptide Total Protein Albumin Lipase Phenytoin 2.7 L* COVID-19 (KIKA) Negative [employer] See Note 04/23/21 04/24/21 04/24/21 21:07 05:44 05:44 WBC RBC Hgb Hct MCV MCH MCHC RDW Plt Count MPV Immature Gran % (Auto) Neut % (Auto) Lymph % (Auto) [place] % (Auto) Eos % (Auto) Baso % (Auto) Lymph # (Auto) [place] # (Auto) Eos # (Auto) Baso # (Auto) Abs Immat Gran (auto) Absolute Neuts (auto) Absolute Nucleated RBC Nucleated RBC % (auto) PT INR APTT PTT (Heparin Protocol) D-Dimer High Sensitivty Sodium 142 Potassium 3.8 Chloride 98 Carbon Dioxide 37 H Anion Gap 11 L BUN 12 Creatinine 0.80 Estim Creat Clear Calc 255.1 Estimated GFR > 60 POC Glucose 182 H Random Glucose 165 H Lactic Acid Calcium 8.5 Magnesium Total Bilirubin Direct Bilirubin AST ALT Alkaline Phosphatase Troponin I High Sens B-Natriuretic Peptide 342 H Total Protein Albumin Lipase Phenytoin COVID-19 ([facility]A) COVID-19 Clin Com 04/24/21 04/24/21 04/24/21 07:28 11:12 16:02 WBC RBC Hgb Hct MCV MCH MCHC RDW Plt Count MPV Immature Gran % (Auto) Neut % (Auto) Lymph % (Auto) [place] % (Auto) Eos % (Auto) Baso % (Auto) Lymph # (Auto) [place] # (Auto) Eos # (Auto) Baso # (Auto) Abs Immat Gran (auto) Absolute Neuts (auto) Absolute Nucleated RBC Nucleated RBC % (auto) PT INR APTT PTT (Heparin Protocol) D-Dimer High Sensitivty Sodium Potassium Chloride Carbon Dioxide Anion Gap BUN Creatinine Estim Creat Clear Calc Estimated GFR POC Glucose 162 H 164 H 128 H Random Glucose Lactic Acid Calcium Magnesium Total Bilirubin Direct Bilirubin AST ALT Alkaline Phosphatase Troponin I High Sens B-Natriuretic Peptide Total Protein Albumin Lipase Phenytoin COVID-19 ([facility]IK[facility]) COVID-19 Clin Com 04/24/21 04/25/21 04/25/21 20:04 06:17 07:52 WBC RBC Hgb Hct MCV MCH MCHC RDW Plt Count MPV Immature Gran % (Auto) Neut % (Auto) Lymph % (Auto) [place] % (Auto) Eos % (Auto) Baso % (Auto) Lymph # (Auto) [place] # (Auto) Eos # (Auto) Baso # (Auto) Abs Immat Gran (auto) Absolute Neuts (auto) Absolute Nucleated RBC Nucleated RBC % (auto) PT INR APTT PTT (Heparin Protocol) D-Dimer High Sensitivty Sodium 141 Potassium 4.4 Chloride 96 Carbon Dioxide 38 H Anion Gap 11 L BUN 12 Creatinine 0.84 Estim Creat Clear Calc 242.9 Estimated GFR > 60 POC Glucose 180 H 170 H Random Glucose 168 H Lactic Acid Calcium 8.6 Magnesium Total Bilirubin Direct Bilirubin AST ALT Alkaline Phosphatase Troponin I High Sens B-Natriuretic Peptide Total Protein Albumin Lipase Phenytoin COVID-19 ([facility]IKA) COVID-19 [employer] 04/25/21 04/25/21 04/25/21 11:45 16:46 20:01 WBC RBC Hgb Hct MCV MCH MCHC RDW Plt Count MPV Immature Gran % (Auto) Neut % (Auto) Lymph % (Auto) [place] % (Auto) Eos % (Auto) Baso % (Auto) Lymph # (Auto) [place] # (Auto) Eos # (Auto) Baso # (Auto) Abs Immat Gran (auto) Absolute Neuts (auto) Absolute Nucleated RBC Nucleated RBC % (auto) PT INR APTT PTT (Heparin Protocol) D-Dimer High Sensitivty Sodium Potassium Chloride Carbon Dioxide Anion Gap BUN Creatinine Estim Creat Clear Calc Estimated GFR POC Glucose 156 H 173 H 129 H Random Glucose Lactic Acid Calcium Magnesium Total Bilirubin Direct Bilirubin AST ALT Alkaline Phosphatase Troponin I High Sens B-Natriuretic Peptide Total Protein Albumin Lipase Phenytoin COVID-19 ([facility]IKA) COVID-19 [employer] 04/26/21 04/26/21 04/26/21 06:01 07:37 11:11 WBC RBC Hgb Hct MCV MCH MCHC RDW Plt Count MPV Immature Gran % (Auto) Neut % (Auto) Lymph % (Auto) [place] % (Auto) Eos % (Auto) Baso % (Auto) Lymph # (Auto) [place] # (Auto) Eos # (Auto) Baso # (Auto) Abs Immat Gran (auto) Absolute Neuts (auto) Absolute Nucleated RBC Nucleated RBC % (auto) PT INR APTT PTT (Heparin Protocol) D-Dimer High Sensitivty Sodium 139 Potassium 4.0 Chloride 99 Carbon Dioxide 34 H Anion Gap 10 L BUN 12 Creatinine 0.84 Estim Creat Clear Calc 242.9 Estimated GFR > 60 POC Glucose 138 H 143 H Random Glucose 161 H Lactic Acid Calcium 8.9 Magnesium Total Bilirubin Direct Bilirubin AST ALT Alkaline Phosphatase Troponin I High Sens B-Natriuretic Peptide Total Protein Albumin Lipase Phenytoin COVID-19 (KIKA) COVID-19 [employer] 04/26/21 04/26/21 04/27/21 16:32 20:38 05:33 WBC RBC Hgb Hct MCV MCH MCHC RDW Plt Count MPV Immature Gran % (Auto) Neut % (Auto) Lymph % (Auto) [place] % (Auto) Eos % (Auto) Baso % (Auto) Lymph # (Auto) [place] # (Auto) Eos # (Auto) Baso # (Auto) Abs Immat Gran (auto) Absolute Neuts (auto) Absolute Nucleated RBC Nucleated RBC % (auto) PT INR APTT PTT (Heparin Protocol) D-Dimer High Sensitivty Sodium 136 Potassium 3.6 Chloride 97 Carbon Dioxide 31 H Anion Gap 12 BUN 12 Creatinine 0.91 Estim Creat Clear Calc 213.6 Estimated GFR > 60 POC Glucose 164 H 184 H Random Glucose 142 H Lactic Acid Calcium 9.0 Magnesium Total Bilirubin Direct Bilirubin AST ALT Alkaline Phosphatase Troponin I High Sens B-Natriuretic Peptide Total Protein Albumin Lipase Phenytoin COVID-19 (KIKA) COVID-19 [employer] Com 04/27/21 04/27/21 04/27/21 05:33 05:33 07:42 WBC 6.3 RBC 5.14 Hgb 14.7 Hct 46.9 MCV 91.2 MCH 28.6 MCHC 31.3 RDW 13.6 Plt Count 147 L MPV 11.5 Immature Gran % (Auto) Neut % (Auto) Lymph % (Auto) [place] % (Auto) Eos % (Auto) Baso % (Auto) Lymph # (Auto) [place] # (Auto) Eos # (Auto) Baso # (Auto) Abs Immat Gran (auto) Absolute Neuts (auto) Absolute Nucleated RBC 0.000 Nucleated RBC % (auto) 0.0 PT INR APTT PTT (Heparin Protocol) D-Dimer High Sensitivty Sodium Potassium Chloride Carbon Dioxide Anion Gap BUN Creatinine Estim Creat Clear Calc Estimated GFR POC Glucose 154 H Random Glucose Lactic Acid Calcium Magnesium Total Bilirubin Direct Bilirubin AST ALT Alkaline Phosphatase Troponin I High Sens B-Natriuretic Peptide 185 H Total Protein Albumin Lipase Phenytoin COVID-19 ([facility]IKA) COVID-19 Clin Com 04/27/21 04/27/21 04/27/21 11:12 13:40 16:19 WBC RBC Hgb Hct MCV MCH MCHC RDW Plt Count MPV Immature Gran % (Auto) Neut % (Auto) Lymph % (Auto) [place] % (Auto) Eos % (Auto) Baso % (Auto) Lymph # (Auto) [place] # (Auto) Eos # (Auto) Baso # (Auto) Abs Immat Gran (auto) Absolute Neuts (auto) Absolute Nucleated RBC Nucleated RBC % (auto) PT 13.2 H INR 1.2 H APTT PTT (Heparin Protocol) 32.8 L D D-Dimer High Sensitivty Sodium Potassium Chloride Carbon Dioxide Anion Gap BUN Creatinine Estim Creat Clear Calc Estimated GFR POC Glucose 124 H 136 H Random Glucose Lactic Acid Calcium Magnesium Total Bilirubin Direct Bilirubin AST ALT Alkaline Phosphatase Troponin I High Sens B-Natriuretic Peptide Total Protein Albumin Lipase Phenytoin COVID-19 ([facility]A) COVID-19 Clin Com 04/27/21 04/27/21 04/28/21 19:45 21:04 06:06 WBC 6.4 RBC 5.51 Hgb 15.8 Hct 50.6 MCV 91.8 MCH 28.7 MCHC 31.2 RDW 13.8 Plt Count 154 L MPV 11.9 Immature Gran % (Auto) Neut % (Auto) Lymph % (Auto) [place] % (Auto) Eos % (Auto) Baso % (Auto) Lymph # (Auto) [place] # (Auto) Eos # (Auto) Baso # (Auto) Abs Immat Gran (auto) Absolute Neuts (auto) Absolute Nucleated RBC 0.000 Nucleated RBC % (auto) 0.0 PT INR APTT PTT (Heparin Protocol) 96.8 H D D-Dimer High Sensitivty Sodium Potassium Chloride Carbon Dioxide Anion Gap BUN Creatinine Estim Creat Clear Calc Estimated GFR POC Glucose 157 H Random Glucose Lactic Acid Calcium Magnesium Total Bilirubin Direct Bilirubin AST ALT Alkaline Phosphatase Troponin I High Sens B-Natriuretic Peptide Total Protein Albumin Lipase Phenytoin COVID-19 ([facility]) COVID-19 Clin Com 04/28/21 04/28/21 04/28/21 06:06 06:06 07:11 WBC RBC Hgb Hct MCV MCH MCHC RDW Plt Count MPV Immature Gran % (Auto) Neut % (Auto) Lymph % (Auto) [place] % (Auto) Eos % (Auto) Baso % (Auto) Lymph # (Auto) [place] # (Auto) Eos # (Auto) Baso # (Auto) Abs Immat Gran (auto) Absolute Neuts (auto) Absolute Nucleated RBC Nucleated RBC % (auto) PT INR APTT PTT (Heparin Protocol) 60.5 D D-Dimer High Sensitivty Sodium 136 Potassium 3.8 Chloride 93 L Carbon Dioxide 35 H Anion Gap 12 BUN 12 Creatinine 1.11 Estim Creat Clear Calc 169.1 Estimated GFR > 60 POC Glucose 134 H Random Glucose 138 H Lactic Acid Calcium 9.0 Magnesium Total Bilirubin Direct Bilirubin AST ALT Alkaline Phosphatase Troponin I High Sens B-Natriuretic Peptide Total Protein Albumin Lipase Phenytoin COVID-19 ([facility]) COVID-19 Clin Com Assessment and Plan Final Anesthetic Review Family History of Problems with Anesthesia: No
[2021-04-28 11:17] LABS: Glucose, Whole Blood 132 mg/dL (60-115)
--- NOTE | 2021-04-28 12:23 | CONS_ITS ---
DATE OF SERVICE: 04/27/2021 REASON FOR CONSULTATION: Hematochezia. HISTORY OF PRESENT ILLNESS: This has been obtained from the patient and the medical record. The patient is a 46-year-old male admitted here on April 23 with problems including some edema and shortness of breath, with subsequent diagnosis of a pulmonary embolus. He was started on Eliquis, but then had at least 2 episodes of some hematochezia that he describes as bright red blood on the toilet paper while cleaning himself after a bowel movement. He denies ever having had bleeding before. He describes the bowel movements were normal without particular constipation, straining, burning, pain, nor any sign of melena. There was no blood in the toilet bowl. He denies any other chronic GI complaints such as chronic heartburn, dysphagia, nor abdominal pain. He has never had a colonoscopy. He denies any known family history of colorectal cancer. At home, he was on a full-strength aspirin everyday. He does not use any other blood thinners at home. After the episodes of hematochezia, he was switched to IV heparin. We have been asked to see him regarding performing a colonoscopy on him prior to restarting his oral anticoagulation, which he may very well need [place] [facility], given his underlying medical issues. He has had no drop in his hemoglobin. CURRENT MEDICATIONS: Acetaminophen, Diamox, albuterol inhaler p.r.n., IV Lasix b.i.d., IV heparin, sliding scale insulin, metoprolol, Dilantin, and p.r.n. Zofran. PAST MEDICAL HISTORY: Morbid obesity. He is enrolled in the bariatric program with Dr. Martino and describes having lost about 40 pounds and currently weighs about 500 pounds. He has had problems with edema, but has been responding well to diuretics here in the hospital. Sleep apnea. Diabetes mellitus. He denies any history of [place] nor stroke. He has only had surgery on his ankles and for his tonsils and adenoids. He has never had a colonoscopy. SOCIAL HISTORY: He is with 2 children. He does not smoke or use any significant alcohol. 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 REVIEW OF SYSTEMS: CONSTITUTIONAL: He has been short of breath at home and has been having edema. However, he denies any other issues and describes that despite his weight he is able to do all of his functional activities on his own. CARDIAC: No chest pain. PULMONARY: No coughing or hemoptysis. GI: As above. PHYSICAL EXAMINATION: GENERAL: The patient is a pleasant, alert, comfortable-appearing male. He is obese. SKIN: Warm and dry. Anicteric sclerae. NECK: Supple. CARDIAC: Normal S1, S2. ABDOMEN: Soft, nondistended, and nontender. There is no palpable mass. LABORATORY DATA: White blood cell count 6.3, hemoglobin 14.7, MCV 91, platelets 147,000. PT 13.2 with INR of 1.2. Normal electrolytes. BUN 12, creatinine 0.9. His pulmonary perfusion scan revealed intermediate probability of a pulmonary embolus in the right lung. Doppler studies of the lower extremities were negative for any definitive DVT. A CT of the chest with angiography could not be performed due to his size. IMPRESSION: Given the patient's clinical history, I suspect this probably represents a perianal source of bleeding such as a hemorrhoid or just some localized skin irritation. However, given his age approaching 50 and the need for long-term anticoagulation, I would agree with the need for a colonoscopy to rule out any other significant lesions. Therefore, I would agree with the need for colonoscopy while he is here in the hospital and before he switches back to oral anticoagulation. I did review the rationale for this with him in detail in regard to colorectal cancer prevention and/or early detection. Full consent is obtained for the colonoscopy, including risks of bleeding, perforation, potential adverse reaction to anesthesia, and other medical complications, given his obesity and other medical issues. He has already been seen by the pulmonary service with Dr. Mayberry and I did review the case with Dr. Dumont from Anesthesia, and it does appear that he will have clearance for the procedure. Therefore, he will have the preparation for the procedure tonight and the procedure will be done tomorrow with Dr. Hickman. The heparin will need to be turned off 6 hours before the procedure. This has all been discussed in detail with the patient, who seems to have a very good understanding of the procedure and potential risks. He is comfortable with proceeding. Thank you for the consultation. . MD ANIBAL Osborn/DULCE MARIA / [id number]
[2021-04-28] MEDS: Lactated Ringers 500 ML 20 ML IVCONT (12:31)
--- NOTE | 2021-04-28 12:38 | HO.ANESPROP2 ---
[facility] Active Problems Active Problems: All Active Problems (Updated 04/27/21 @ 12:45 by Joel Mayberry MD) A-fib (Acute) Pulmonary arterial hypertension (Acute) BRBPR (bright red blood per rectum) (Acute) Sleep apnea, obstructive (Acute) Diastolic CHF, acute on chronic (Acute) Acute on chronic respiratory failure with hypoxia (Acute) Pulmonary embolism (Acute) Congestive heart failure (Acute) Chest pain (Acute) Hypoxic (Acute) Shortness of breath (Acute) NORIS (obstructive sleep apnea) (Acute) Morbid obesity (Acute) Elevated d-dimer (Acute) Atrial fibrillation with rapid ventricular response (Acute) Morbid obesity (Acute) Trigger thumb, left thumb (Acute) Past Medical History Medical History A-fib Aftercare following bilateral ankle joint replacement surgery Brain tumor Diabetes Hypoxemia Morbid obesity Morbid obesity with body mass index (BMI) greater than or equal to 70 in adult NORIS (obstructive sleep apnea) NORIS (obstructive sleep apnea) Persistent atrial fibrillation Pulmonary arterial hypertension Right hand dominant Seizure disorder Shortness of breath Sleep apnea, obstructive Family History Family History Paternal Grandmother Myocardial infarction Maternal Grandfather Myocardial infarction Brother No problems noted. Sister No problems noted. Sister No problems noted. Family history of problems with anesthesia: No Surgical History Surgical History History of ankle surgery History of Problems with Anesthesia: No Social History Social History Household Members: Family Housing: House Do you presently have visiting nurse or other home services: No Alcohol intake: never Patient Tobacco Use Status: Never used Tobacco service: No Current occupational status: disabled Meds Allergies Allergy/AdvReac Type Severity Reaction Status Date / Time codeine [Codeine] Allergy Unknown RASH, hives Verified 04/23/21 08:51 ibuprofen [From Motrin] Allergy Unknown HIVES Verified 04/23/21 08:51 Active Medications: Current Medications Acetaminophen (Acetaminophen 325 Mg Tablet) 650 mg PO Q6H PRN PRN Reason: Pain, Mild (Pain Scale 1-3) Albuterol Sulfate (Albuterol Sulfate (0.083%) 2.5 Mg/3 Ml Vial.Neb) 2.5 mg INHALE Q4H PRN; Protocol PRN Reason: Wheezing Albuterol Sulfate (Albuterol Sulfate 90 Mcg 8 Gm Inhaler) 1 puff INHALE QID PRN PRN Reason: bronchospasm Atorvastatin Calcium (Atorvastatin Calcium 20 Mg Tablet) 20 mg PO BEDTIME [facility] Last Admin: 04/27/21 20:21 Dose: 20 mg Documented by: Furosemide (Furosemide 40 Mg/4 Ml Vial) 40 mg IVPUSH DAILY [facility]; Protocol Last Admin: 04/28/21 10:05 Dose: 40 mg Documented by: Lactated Ringer's (Lr) 500 mls @ 20 mls/hr IVCONT .Q24H [facility] Last Admin: 04/28/21 12:31 Dose: 20 mls/hr Documented by: Insulin Human Lispro (Insulin Lispro 100 Unit/Ml 3 Ml Vial) 0 unit SUBCUT QIDACHS [facility]; Protocol Last Admin: 04/28/21 11:39 Dose: Not Given Documented by: Metoprolol Succinate (Metoprolol Succinate Er 25 Mg Tab.Er.24h) 25 mg PO DAILY [facility]; Protocol Last Admin: 04/28/21 10:05 Dose: 25 mg Documented by: Ondansetron HCl (Ondansetron Hcl 4 Mg/2 Ml Vial) 4 mg IVPUSH Q8H PRN PRN Reason: Nausea and Vomiting Last Admin: 04/27/21 20:26 Dose: 4 mg Documented by: Pharmacy Consult (Consult Rx Perform Med Rec) 1 each MISCELLANE ONCE PRN PRN Reason: Consult order Phenytoin Sodium (Phenytoin Sodium Extended 100 Mg Capsule) 700 mg PO BID [facility] Last Admin: 04/28/21 10:04 Dose: 700 mg Documented by: Polyethylene Glycol (Polyethylene Glycol 3350 17 Gm Powd.Pack) 17 gm PO DAILY [facility] Last Admin: 04/27/21 23:09 Dose: 17 gm Documented by: Sodium Chloride (0.9 % Sodium Chloride Flush 3 Ml Syringe) 3 ml IVFLUSH QSHIFT [facility] Last Admin: 04/28/21 10:05 Dose: 3 ml Documented by: Home Medications Medication Instructions Recorded Confirmed Last Taken Type insulin aspart U-100 100 unit/mL See Protocol SUBCUT TID 02/28/20 04/23/21 04/22/21 History (3 mL) subcutaneous pen (Novolog Flexpen U-100 Insulin aspart) phenytoin sodium extended 100 mg 700 mg PO BID cap 02/23/21 04/23/21 04/22/21 History capsule (Dilantin Extended) aspirin 325 mg tablet 325 mg PO DAILY 03/05/21 04/23/21 04/22/21 History atorvastatin 20 mg tablet 20 mg PO DAILY 03/05/21 04/23/21 04/22/21 History albuterol sulfate 2.5 mg INHALATION Q4-6H PRN 04/06/21 04/23/21 Unknown History furosemide 40 mg tablet 1 tab PO BID 04/23/21 04/23/21 04/22/21 History Exam Exam Date and Time: April 28, 2021 123 Height,Weight and Vital Signs: Height 5 ft 10 in Weight 250 kg Last Vital Signs Temp 97.3 F 04/28/21 12:00 Pulse 102 H 04/28/21 12:00 Resp 22 H 04/28/21 12:00 BP 130/79 04/28/21 12:00 Pulse Ox 94 04/28/21 12:00 Pertinent Lab Results Pertinent Lab Results: Laboratory Tests 04/23/21 04/23/21 04/23/21 09:08 09:08 09:08 WBC 6.3 RBC 5.06 Hgb 15.0 Hct 47.9 MCV 94.7 MCH 29.6 MCHC 31.3 RDW 14.1 Plt Count 120 L MPV 11.5 Immature Gran % (Auto) 0.8 H Neut % (Auto) 70.4 Lymph % (Auto) 18.3 L Dyer % (Auto) 6.4 Eos % (Auto) 3.8 Baso % (Auto) 0.3 Lymph # (Auto) 1.2 Dyer # (Auto) 0.4 Eos # (Auto) 0.2 Baso # (Auto) 0.0 Abs Immat Gran (auto) 0.05 H Absolute Neuts (auto) 4.4 Absolute Nucleated RBC 0.000 Nucleated RBC % (auto) 0.0 PT 12.6 INR 1.1 APTT 31.2 PTT (Heparin Protocol) D-Dimer High Sensitivty 839 Sodium Potassium Chloride Carbon Dioxide Anion Gap BUN Creatinine Estim Creat Clear Calc Estimated GFR POC Glucose Random Glucose Lactic Acid Calcium Magnesium Total Bilirubin Direct Bilirubin AST ALT Alkaline Phosphatase Troponin I High Sens B-Natriuretic Peptide 325 H Total Protein Albumin Lipase Phenytoin COVID-19 (KIKA) COVID-19 [employer] Com 04/23/21 04/23/21 04/23/21 09:08 09:08 09:08 WBC RBC Hgb Hct MCV MCH MCHC RDW Plt Count MPV Immature Gran % (Auto) Neut % (Auto) Lymph % (Auto) Dyer % (Auto) Eos % (Auto) Baso % (Auto) Lymph # (Auto) Dyer # (Auto) Eos # (Auto) Baso # (Auto) Abs Immat Gran (auto) Absolute Neuts (auto) Absolute Nucleated RBC Nucleated RBC % (auto) PT INR APTT PTT (Heparin Protocol) D-Dimer High Sensitivty Sodium 141 Potassium 4.3 Chloride 99 Carbon Dioxide 38 H Anion Gap 8 L BUN 12 Creatinine 0.96 Estim Creat Clear Calc 212.5 Estimated GFR > 60 POC Glucose Random Glucose 147 H Lactic Acid 1.1 Calcium 8.7 Magnesium 2.0 Total Bilirubin 0.7 Direct Bilirubin 0.3 AST 31 ALT 49 H Alkaline Phosphatase 557 H D Troponin I High Sens 7.5 B-Natriuretic Peptide Total Protein 7.0 Albumin 3.7 Lipase 28 Phenytoin COVID-19 (KIKA) COVID-19 [employer] 04/23/21 04/23/21 04/23/21 09:08 09:08 12:59 WBC RBC Hgb Hct MCV MCH MCHC RDW Plt Count MPV Immature Gran % (Auto) Neut % (Auto) Lymph % (Auto) Dyer % (Auto) Eos % (Auto) Baso % (Auto) Lymph # (Auto) Dyer # (Auto) Eos # (Auto) Baso # (Auto) Abs Immat Gran (auto) Absolute Neuts (auto) Absolute Nucleated RBC Nucleated RBC % (auto) PT INR APTT PTT (Heparin Protocol) D-Dimer High Sensitivty Sodium Potassium Chloride Carbon Dioxide Anion Gap BUN Creatinine Estim Creat Clear Calc Estimated GFR POC Glucose Random Glucose Lactic Acid Calcium Magnesium Total Bilirubin Direct Bilirubin AST ALT Alkaline Phosphatase Troponin I High Sens 10.0 B-Natriuretic Peptide Total Protein Albumin Lipase Phenytoin 2.7 L* COVID-19 (KIKA) Negative COVID-19 [employer] See Note 04/23/21 04/24/21 04/24/21 21:07 05:44 05:44 WBC RBC Hgb Hct MCV MCH MCHC RDW Plt Count MPV Immature Gran % (Auto) Neut % (Auto) Lymph % (Auto) Dyer % (Auto) Eos % (Auto) Baso % (Auto) Lymph # (Auto) Dyer # (Auto) Eos # (Auto) Baso # (Auto) Abs Immat Gran (auto) Absolute Neuts (auto) Absolute Nucleated RBC Nucleated RBC % (auto) PT INR APTT PTT (Heparin Protocol) D-Dimer High Sensitivty Sodium 142 Potassium 3.8 Chloride 98 Carbon Dioxide 37 H Anion Gap 11 L BUN 12 Creatinine 0.80 Estim Creat Clear Calc 255.1 Estimated GFR > 60 POC Glucose 182 H Random Glucose 165 H Lactic Acid Calcium 8.5 Magnesium Total Bilirubin Direct Bilirubin AST ALT Alkaline Phosphatase Troponin I High Sens B-Natriuretic Peptide 342 H Total Protein Albumin Lipase Phenytoin COVID-19 (KIKA) COVID-19 Clin Com 04/24/21 04/24/21 04/24/21 07:28 11:12 16:02 WBC RBC Hgb Hct MCV MCH MCHC RDW Plt Count MPV Immature Gran % (Auto) Neut % (Auto) Lymph % (Auto) Dyer % (Auto) Eos % (Auto) Baso % (Auto) Lymph # (Auto) Dyer # (Auto) Eos # (Auto) Baso # (Auto) Abs Immat Gran (auto) Absolute Neuts (auto) Absolute Nucleated RBC Nucleated RBC % (auto) PT INR APTT PTT (Heparin Protocol) D-Dimer High Sensitivty Sodium Potassium Chloride Carbon Dioxide Anion Gap BUN Creatinine Estim Creat Clear Calc Estimated GFR POC Glucose 162 H 164 H 128 H Random Glucose Lactic Acid Calcium Magnesium Total Bilirubin Direct Bilirubin AST ALT Alkaline Phosphatase Troponin I High Sens B-Natriuretic Peptide Total Protein Albumin Lipase Phenytoin COVID-19 (KIKA) COVID-19 Clin Com 04/24/21 04/25/21 04/25/21 20:04 06:17 07:52 WBC RBC Hgb Hct MCV MCH MCHC RDW Plt Count MPV Immature Gran % (Auto) Neut % (Auto) Lymph % (Auto) Dyer % (Auto) Eos % (Auto) Baso % (Auto) Lymph # (Auto) Dyer # (Auto) Eos # (Auto) Baso # (Auto) Abs Immat Gran (auto) Absolute Neuts (auto) Absolute Nucleated RBC Nucleated RBC % (auto) PT INR APTT PTT (Heparin Protocol) D-Dimer High Sensitivty Sodium 141 Potassium 4.4 Chloride 96 Carbon Dioxide 38 H Anion Gap 11 L BUN 12 Creatinine 0.84 Estim Creat Clear Calc 242.9 Estimated GFR > 60 POC Glucose 180 H 170 H Random Glucose 168 H Lactic Acid Calcium 8.6 Magnesium Total Bilirubin Direct Bilirubin AST ALT Alkaline Phosphatase Troponin I High Sens B-Natriuretic Peptide Total Protein Albumin Lipase Phenytoin COVID-19 (KIKA) COVID-19 [employer] 04/25/21 04/25/21 04/25/21 11:45 16:46 20:01 WBC RBC Hgb Hct MCV MCH MCHC RDW Plt Count MPV Immature Gran % (Auto) Neut % (Auto) Lymph % (Auto) Dyer % (Auto) Eos % (Auto) Baso % (Auto) Lymph # (Auto) Dyer # (Auto) Eos # (Auto) Baso # (Auto) Abs Immat Gran (auto) Absolute Neuts (auto) Absolute Nucleated RBC Nucleated RBC % (auto) PT INR APTT PTT (Heparin Protocol) D-Dimer High Sensitivty Sodium Potassium Chloride Carbon Dioxide Anion Gap BUN Creatinine Estim Creat Clear Calc Estimated GFR POC Glucose 156 H 173 H 129 H Random Glucose Lactic Acid Calcium Magnesium Total Bilirubin Direct Bilirubin AST ALT Alkaline Phosphatase Troponin I High Sens B-Natriuretic Peptide Total Protein Albumin Lipase Phenytoin COVID-19 (KIKA) COVID-19 [employer] 04/26/21 04/26/21 04/26/21 06:01 07:37 11:11 WBC RBC Hgb Hct MCV MCH MCHC RDW Plt Count MPV Immature Gran % (Auto) Neut % (Auto) Lymph % (Auto) Dyer % (Auto) Eos % (Auto) Baso % (Auto) Lymph # (Auto) Dyer # (Auto) Eos # (Auto) Baso # (Auto) Abs Immat Gran (auto) Absolute Neuts (auto) Absolute Nucleated RBC Nucleated RBC % (auto) PT INR APTT PTT (Heparin Protocol) D-Dimer High Sensitivty Sodium 139 Potassium 4.0 Chloride 99 Carbon Dioxide 34 H Anion Gap 10 L BUN 12 Creatinine 0.84 Estim Creat Clear Calc 242.9 Estimated GFR > 60 POC Glucose 138 H 143 H Random Glucose 161 H Lactic Acid Calcium 8.9 Magnesium Total Bilirubin Direct Bilirubin AST ALT Alkaline Phosphatase Troponin I High Sens B-Natriuretic Peptide Total Protein Albumin Lipase Phenytoin COVID-19 (KIKA) COVID-19 [employer] 04/26/21 04/26/21 04/27/21 16:32 20:38 05:33 WBC RBC Hgb Hct MCV MCH MCHC RDW Plt Count MPV Immature Gran % (Auto) Neut % (Auto) Lymph % (Auto) Dyer % (Auto) Eos % (Auto) Baso % (Auto) Lymph # (Auto) Dyer # (Auto) Eos # (Auto) Baso # (Auto) Abs Immat Gran (auto) Absolute Neuts (auto) Absolute Nucleated RBC Nucleated RBC % (auto) PT INR APTT PTT (Heparin Protocol) D-Dimer High Sensitivty Sodium 136 Potassium 3.6 Chloride 97 Carbon Dioxide 31 H Anion Gap 12 BUN 12 Creatinine 0.91 Estim Creat Clear Calc 213.6 Estimated GFR > 60 POC Glucose 164 H 184 H Random Glucose 142 H Lactic Acid Calcium 9.0 Magnesium Total Bilirubin Direct Bilirubin AST ALT Alkaline Phosphatase Troponin I High Sens B-Natriuretic Peptide Total Protein Albumin Lipase Phenytoin COVID-19 (KIKA) COVID-19 Clin [employer] 04/27/21 04/27/21 04/27/21 05:33 05:33 07:42 WBC 6.3 RBC 5.14 Hgb 14.7 Hct 46.9 MCV 91.2 MCH 28.6 MCHC 31.3 RDW 13.6 Plt Count 147 L MPV 11.5 Immature Gran % (Auto) Neut % (Auto) Lymph % (Auto) Dyer % (Auto) Eos % (Auto) Baso % (Auto) Lymph # (Auto) Dyer # (Auto) Eos # (Auto) Baso # (Auto) Abs Immat Gran (auto) Absolute Neuts (auto) Absolute Nucleated RBC 0.000 Nucleated RBC % (auto) 0.0 PT INR APTT PTT (Heparin Protocol) D-Dimer High Sensitivty Sodium Potassium Chloride Carbon Dioxide Anion Gap BUN Creatinine Estim Creat Clear Calc Estimated GFR POC Glucose 154 H Random Glucose Lactic Acid Calcium Magnesium Total Bilirubin Direct Bilirubin AST ALT Alkaline Phosphatase Troponin I High Sens B-Natriuretic Peptide 185 H Total Protein Albumin Lipase Phenytoin COVID-19 (KIKA) COVID-19 [employer] 04/27/21 04/27/21 04/27/21 11:12 13:40 16:19 WBC RBC Hgb Hct MCV MCH MCHC RDW Plt Count MPV Immature Gran % (Auto) Neut % (Auto) Lymph % (Auto) Dyer % (Auto) Eos % (Auto) Baso % (Auto) Lymph # (Auto) Dyer # (Auto) Eos # (Auto) Baso # (Auto) Abs Immat Gran (auto) Absolute Neuts (auto) Absolute Nucleated RBC Nucleated RBC % (auto) PT 13.2 H INR 1.2 H APTT PTT (Heparin Protocol) 32.8 L D D-Dimer High Sensitivty Sodium Potassium Chloride Carbon Dioxide Anion Gap BUN Creatinine Estim Creat Clear Calc Estimated GFR POC Glucose 124 H 136 H Random Glucose Lactic Acid Calcium Magnesium Total Bilirubin Direct Bilirubin AST ALT Alkaline Phosphatase Troponin I High Sens B-Natriuretic Peptide Total Protein Albumin Lipase Phenytoin COVID-19 (KIKA) COVID-19 [employer] 04/27/21 04/27/21 04/28/21 19:45 21:04 06:06 WBC 6.4 RBC 5.51 Hgb 15.8 Hct 50.6 MCV 91.8 MCH 28.7 MCHC 31.2 RDW 13.8 Plt Count 154 L MPV 11.9 Immature Gran % (Auto) Neut % (Auto) Lymph % (Auto) Dyer % (Auto) Eos % (Auto) Baso % (Auto) Lymph # (Auto) Dyer # (Auto) Eos # (Auto) Baso # (Auto) Abs Immat Gran (auto) Absolute Neuts (auto) Absolute Nucleated RBC 0.000 Nucleated RBC % (auto) 0.0 PT INR APTT PTT (Heparin Protocol) 96.8 H D D-Dimer High Sensitivty Sodium Potassium Chloride Carbon Dioxide Anion Gap BUN Creatinine Estim Creat Clear Calc Estimated GFR POC Glucose 157 H Random Glucose Lactic Acid Calcium Magnesium Total Bilirubin Direct Bilirubin AST ALT Alkaline Phosphatase Troponin I High Sens B-Natriuretic Peptide Total Protein Albumin Lipase Phenytoin COVID-19 (KIKA) COVID-19 [employer] 04/28/21 04/28/21 04/28/21 06:06 06:06 07:11 WBC RBC Hgb Hct MCV MCH MCHC RDW Plt Count MPV Immature Gran % (Auto) Neut % (Auto) Lymph % (Auto) Dyer % (Auto) Eos % (Auto) Baso % (Auto) Lymph # (Auto) Dyer # (Auto) Eos # (Auto) Baso # (Auto) Abs Immat Gran (auto) Absolute Neuts (auto) Absolute Nucleated RBC Nucleated RBC % (auto) PT INR APTT PTT (Heparin Protocol) 60.5 D D-Dimer High Sensitivty Sodium 136 Potassium 3.8 Chloride 93 L Carbon Dioxide 35 H Anion Gap 12 BUN 12 Creatinine 1.11 Estim Creat Clear Calc 169.1 Estimated GFR > 60 POC Glucose 134 H Random Glucose 138 H Lactic Acid Calcium 9.0 Magnesium Total Bilirubin Direct Bilirubin AST ALT Alkaline Phosphatase Troponin I High Sens B-Natriuretic Peptide Total Protein Albumin Lipase Phenytoin COVID-19 (KIKA) COVID-19 Clin Com 04/28/21 11:10 WBC RBC Hgb Hct MCV MCH MCHC RDW Plt Count MPV Immature Gran % (Auto) Neut % (Auto) Lymph % (Auto) Dyer % (Auto) Eos % (Auto) Baso % (Auto) Lymph # (Auto) Dyer # (Auto) Eos # (Auto) Baso # (Auto) Abs Immat Gran (auto) Absolute Neuts (auto) Absolute Nucleated RBC Nucleated RBC % (auto) PT INR APTT PTT (Heparin Protocol) D-Dimer High Sensitivty Sodium Potassium Chloride Carbon Dioxide Anion Gap BUN Creatinine Estim Creat Clear Calc Estimated GFR POC Glucose 132 H Random Glucose Lactic Acid Calcium Magnesium Total Bilirubin Direct Bilirubin AST ALT Alkaline Phosphatase Troponin I High Sens B-Natriuretic Peptide Total Protein Albumin Lipase Phenytoin COVID-19 (KIKA) COVID-19 Clin Com Assessment and Plan Final Anesthetic Review Family History of Problems with Anesthesia: No History of Problems with Anesthesia: No
--- NOTE | 2021-04-28 13:15 | P.BOP_ITS ---
Brief Operative Note Date of Service: 04/28/21 Pre-op diagnosis: Rectal bleeding Post-op diagnosis: same (colon polyps) Procedure: colonoscopy Surgeon: Obed Hickman Anesthesia: MAC Was an Power Wood Sawyer used for this Procedure?: No Estimated blood loss (mL): 5 Pathology: other (polyps x2 80 cm, x1 30 cm) Condition: stable Disposition: PACU
--- NOTE | 2021-04-28 13:22 | PM.EVENT ---
Event Note Date of Service: 04/28/21 Event Note: Colonoscopy no bleeding internal hemorrhoids 3 polyps, all less than 10 mm removed with a cold snare rec: restart heparin in 4 hours, no bolus ok to start OAC when desired f/u up bx results
--- NOTE | 2021-04-28 13:47 | HO.POSTANES ---
Post Anesthesia Evaluation Post Anesthesia Evaluation Vital Signs: Vital Signs Temp Pulse Resp BP Pulse Ox 04/28/21 13:33 97.3 F 100 18 116/74 94 04/28/21 13:18 99.2 F 92 22 H 116/79 95 04/28/21 12:00 97.3 F 102 H 22 H 130/79 94 04/28/21 11:47 98.7 F 91 18 137/76 93 04/28/21 08:00 98.2 F 89 19 115/72 94 04/28/21 04:00 97.4 F 72 16 104/61 97 Anesthesia: Monitored Mental Status: Awake Pain Control: Satisfactory Nausea/Vomiting: None Hydration: Adequate Anesthesia-Related Issues: No Anes. Related Issues
--- NOTE | 2021-04-28 14:44 | OP_ITS ---
SURGEON: Obed Hickman MD INDICATIONS: Rectal bleeding and need for anticoagulation. PREOPERATIVE DIAGNOSIS: POSTOPERATIVE DIAGNOSIS: PROCEDURE PERFORMED: Colonoscopy to the terminal ileum with snare polypectomy. ESTIMATED BLOOD LOSS: COMPLICATIONS: ANESTHESIA: ASSISTANTS: SPECIMENS: MEDICATIONS: Monitored anesthesia care. DESCRIPTION OF PROCEDURE: The history and physical performed. The risks and benefits of the procedure were explained to the patient. Informed consent was obtained. The patient was placed in a left lateral decubitus position. A digital rectal exam was performed and was found to be normal. The Olympus video colonoscope was introduced into the rectum and advanced to the cecum without difficulty. The cecum was identified by transillumination, palpation, and identification of ileocecal valve. Examination was performed. The scope was removed. He tolerated the procedure well and was returned to Recovery in stable condition. FINDINGS: The terminal ileum was examined and appeared normal. The visualized colonic mucosa was normal. The quality of the prep was good. Three polyps were identified. All measured less than 10 mm. These were removed with a cold polypectomy, snare and recovered via suction. Two were located at 80 cm, 1 was located at 30 cm. Retroflexed examination did show small internal hemorrhoids. IMPRESSION: Colon polyps. RECOMMENDATION: 1. Follow up the biopsy results. 2. Restart heparin in 4 hours without bolus. 3. Oral anticoagulation may be started when desired. MD EMILY Jacobo/DULCE MARIA / [phone]
--- NOTE | 2021-04-28 16:08 | MHC.CM.PN ---
PT HAS RETURNED TO UNIT FROM COLONOSCOPY, ANTIC PT WILL D/C HOME TOMORROW W/NO SERVICES.
[2021-04-28 16:29] LABS: Glucose, Whole Blood 152 mg/dL (60-115)
[2021-04-28] MEDS: Insulin Lispro 100 UNIT/ML 3 ML VIAL SUBCUT ×2 (17:09→20:29)
[2021-04-28 20:13] LABS: Glucose, Whole Blood 179 mg/dL (60-115)
[2021-04-28] MEDS: Apixaban 5 MG TABLET PO (20:29)
[2021-04-28] MEDS: Atorvastatin Calcium 20 MG TABLET PO (20:29)
[2021-04-29 00:35] VITALS: BP 109/65; PULSE 85; RESP 18; TEMP 36.8; O2SAT 91
[2021-04-29 05:58] LABS: Hematocrit 46.3 % (42.0-52.0); Hemoglobin 14.9 g/dl (14.0-18.0); Mean Corpuscular HGB Conc 32.2 g/dl (31.0-36.0); Mean Corpuscular Hemoglobin 29.2 pg (27.0-33.0); Mean Corpuscular Volume 90.6 fL (80.0-98.0); Mean Platelet Volume 11.8 fL (9.4-12.4); Platelet Count 158 X10*3/uL (160-400); Red Blood Count 5.11 X10*6/uL (4.60-5.80); Red Cell Distribution Width 13.5 % (11.0-16.0); White Blood Count 5.9 X10*3/uL (4.8-10.8)
[2021-04-29 06:06] LABS: Anion Gap 14 (12-20); Blood Urea Nitrogen 14 mg/dL (9-16); Calcium 8.8 mg/dL (8.4-10.2); Carbon Dioxide 32 mmol/L (22-29); Chloride 95 mmol/L (96-108); Creatinine Clr Calc Pharmacy 187.7; Estimated Glomerular Filt Rate > 60; Glucose Random 158 mg/dL (60-115); Potassium 3.5 mmol/L (3.3-5.1); Sodium 137 mmol/L (135-145)
[2021-04-29 06:20] LABS: B Type Natriuretic Peptide 91 pg/mL (<100)
[2021-04-29 07:15] VITALS: BP 130/93; PULSE 96; RESP 17; TEMP 36.5; O2SAT 93
[2021-04-29 07:43] LABS: Glucose, Whole Blood 144 mg/dL (60-115)
[2021-04-29] MEDS: 0.9 % Sodium Chloride Flush 3 ML SYRINGE IVFLUSH (09:40)
[2021-04-29] MEDS: Furosemide 40 MG/4 ML VIAL IVPUSH (09:40)
[2021-04-29] MEDS: Phenytoin Sodium Extended 100 MG CAPSULE 700 MG PO (09:42)
[2021-04-29] MEDS: Metoprolol Succinate ER 25 MG TAB.ER.24H PO (09:42)
[2021-04-29] MEDS: Apixaban 5 MG TABLET PO (09:42)
--- NOTE | 2021-04-29 11:36 | PM.DS ---
DS: Providers Provider Date of Service: 04/29/21 Date of admission: 04/23/21 16:43 Primary care physician: Gt Menendez MD Consults: 04/23/21 17:11 Consult to Pulmonology Routine Consulting Provider: Fritz Day Reason for consultation: acute on chronic respiratory failure, intermediate concern for PE 04/26/21 14:47 Consult to Gastroenterology Routine Consulting Provider: Theodore Chowdhury Reason for consultation: rectal bleeding after starting Eliquis for suspected PE. DS: Diagnosis Discharge Diagnosis (1) Pulmonary arterial hypertension: Status: Acute (2) Sleep apnea, obstructive: Status: Acute (3) Diastolic CHF, acute on chronic: Status: Acute (4) Acute on chronic respiratory failure with hypoxia: Status: Acute (5) A-fib: Status: Acute (6) Pulmonary embolism: Status: Acute DS: Summary Hospital Course Hospital Course: Patient was admitted for acute on chronic respiratory failure secondary to acute pulmonary embolism and acute on chronic diastolic CHF. He was started on anticoagulation with loading dose Eliquis, is now down to 5 mg b.i.d. for at least 6 months, he will follow up with Pulmonary as outpatient. For his CHF he was treated with IV Lasix and had significant improvement in edema. He is now back to baseline 2 L oxygen. Course was complicated by bright red blood per rectum, no drop in hemoglobin, was seen by GI who performed colonoscopy which showed internal hemorrhoids and 3 polyps all less than 10 mm removed with cold snare. Biopsy should be followed up as outpatient. He has been restarted on Eliquis and has had no further bleeding. Patient is feeling better and ambulating well will be discharged home. Time Spent with Patient Time attestation: Total time spent providing and/or coordinating discharge services: Discharge coordination time: Greater than 30 minutes Quality: Stroke Does the patient have a stroke diagnosis?: No Physical Exam Vital Signs: Vital Signs: Last Vital Signs Temp 97.7 F 04/29/21 07:15 Pulse 96 04/29/21 07:15 Resp 17 04/29/21 07:15 BP 130/93 H 04/29/21 07:15 Pulse Ox 93 04/29/21 07:15 BMI result Body Mass Index 79.0 General: AO X 3, no acute distress Resp: CTA bilateral, no accessory muscles used CVS: S1,S2,RRR GI: soft, non tender, non distended Neuro: motor grossly intact, alert Psych: appropriate affect, appropriate insight DS: Data Data Completed and Pending Completed studies during hospitalization [Text1]: Procedures Assistance with Respiratory Ventilation, Less than 24 Consecutive Hours, Continuous Positive Airway Pressure (03/23/21) Pending studies at discharge: Pending at discharge 04/28/21 13:05 Surgical [PTH] Routine Labs on day of discharge: Laboratory Results - last 24 hr 04/28/21 04/28/21 04/29/21 16:07 19:30 05:12 WBC 5.9 RBC 5.11 Hgb 14.9 Hct 46.3 MCV 90.6 MCH 29.2 MCHC 32.2 RDW 13.5 Plt Count 158 L MPV 11.8 Absolute Nucleated RBC 0.000 Nucleated RBC % (auto) 0.0 Sodium Potassium Chloride Carbon Dioxide Anion Gap BUN Creatinine Estim Creat Clear Calc Estimated GFR POC Glucose 152 H 179 H Random Glucose Calcium B-Natriuretic Peptide 04/29/21 04/29/21 04/29/21 05:12 05:12 07:31 WBC RBC Hgb Hct MCV MCH MCHC RDW Plt Count MPV Absolute Nucleated RBC Nucleated RBC % (auto) Sodium 137 Potassium 3.5 Chloride 95 L Carbon Dioxide 32 H Anion Gap 14 BUN 14 Creatinine 1.00 Estim Creat Clear Calc 187.7 Estimated GFR > 60 POC Glucose 144 H Random Glucose 158 H Calcium 8.8 B-Natriuretic Peptide 91 Discharge Plan Discharge Patient Disposition: Home, Self-Care Discharge Diagnosis: chf, pe Referrals: Gt Menendez MD [Primary Care Provider] - 1 Week (Per Dr. Menendez's office, please call them when you are home to schedule a follow up appointment.) Discharge Medications: New Eliquis 5 mg Tablet 5 mg PO BID Qty: 60 RF: 0 Continued albuterol sulfate 90 mcg/actuation HFA aerosol inhaler 1 inh inhalation QID PRN (Reason: bronchospasm) Qty: 8.5 RF: 0 metoprolol succinate 25 mg Tablet Extended Release 24 Hr 25 mg PO DAILY Qty: 30 RF: 0 furosemide 40 mg tablet 1 tab PO BID RF: 0 insulin aspart U-100 [Novolog Flexpen U-100 Insulin] 100 unit/mL (3 mL) insulin pen See Protocol sliding scale dose subcut TID RF: 0 phenytoin sodium extended [Dilantin Extended] 100 mg capsule 700 mg PO BID RF: 0 atorvastatin 20 mg tablet 20 mg PO DAILY RF: 0 albuterol sulfate 2.5 mg /3 mL (0.083 %) solution for nebulization 2.5 mg inhalation Q4-6H PRN (Reason: Wheezing) RF: 0 Discontinued aspirin 325 mg tablet 325 mg PO DAILY RF: 0 Discharge Orders: Discharge Order (Routine); Ordered 04/29/21 Ordered By: Sam Perez Diet: advance to usual diet Activity on Discharge: As tolerated Stand Alone Forms: Patient Portal Discharge page Care Plan Goals: recovery Health Concerns: pe, chf Plan of Treatment: mehdi agarwal Assessment: see above
[2021-04-29 11:38] LABS: Glucose, Whole Blood 202 mg/dL (60-115)
--- NOTE | 2021-04-29 11:56 | MHC.CM.PN ---
PT DISCHARGING HOME SELF-CARE W/NEW SCRIPT FOR MURIEL DORAN VERIFIED ELIQUIS IS COVERED W/NO COPAY SO PT DOES NOT NEED A ELIQUIS COUPON, PT WILL CALL TO ARRANGE TRANSPORTATION.
[2021-04-29] MEDS: Insulin Lispro 100 UNIT/ML 3 ML VIAL SUBCUT (11:58)
--- NOTE | 2021-04-29 15:04 | HO.POSTANES ---
Post Anesthesia Evaluation Post Anesthesia Evaluation Vital Signs: Vital Signs Temp Pulse Resp BP Pulse Ox 04/29/21 07:15 97.7 F 96 17 130/93 H 93 Anesthesia: Monitored Mental Status: Awake Pain Control: Satisfactory Nausea/Vomiting: None Hydration: Adequate Anesthesia-Related Issues: No Anes. Related Issues
== END 2021-04-29 13:18 | disposition home or self-care (01) | DRG 175 ==
LOC: HO.ED 14:09 → HO.EDOVER 17:00 → HO.S3 17:32
PROVIDERS: Internal Medicine Gastroenterology; Admitting Provider Student in an Organized Health Care Education/Training Program; Emergency Provider Emergency Medicine; PCP Internal Medicine; Visit Provider Internal Medicine
PROC: 0DJD8ZZ Inspection of Lower Intestinal Tract, Via Natural or Artificial Opening Endoscopic (ICD-10-PCS; CPT 45378; principal; 2021-04-28 13:00)
DX: I26.99 Other pulmonary embolism without acute cor pulmonale (principal); I50.33 Acute on chronic diastolic (congestive) heart failure; J96.21 Acute and chronic respiratory failure with hypoxia; Z68.45 Body mass index [BMI] 70 or greater, adult; K62.5 Hemorrhage of anus and rectum; E11.9 Type 2 diabetes mellitus without complications; E66.01 Morbid (severe) obesity due to excess calories; I48.91 Unspecified atrial fibrillation; I27.20 Pulmonary hypertension, unspecified; K63.5 Polyp of colon; K64.8 Other hemorrhoids; G47.33 Obstructive sleep apnea (adult) (pediatric); Z99.81 Dependence on supplemental oxygen; Z20.822 Contact with and (suspected) exposure to COVID-19; Z88.5 Allergy status to narcotic agent; Z88.6 Allergy status to analgesic agent; Z79.4 Long term (current) use of insulin; Z79.01 Long term (current) use of anticoagulants; Z79.899 Other long term (current) drug therapy
CPT/HCPCS: 36415; 71045; 73564; 78580; 80048; 80076; 80185; 82947; 83605; 83690; 83735; 83880; 84484; 85025; 85027; 85379; 85610; 85730; 87040; 87635; 88305; 93005; 93970; 94640; 94644; 94660; 97161; 99285; A9540; J1940; J2405; J2765

== ENCOUNTER → 2021-05-22 10:23 | Outpatient (BNVA) | payer MEDICARE, MEDICAID, SELFPAY | PROVIDERS: PCP Internal Medicine; Referring Provider Internal Medicine; Visit Provider Physician Assistant ==

== ENCOUNTER → 2021-05-28 09:34 | Outpatient (BNVA) | payer MEDICARE, MEDICAID, SELFPAY | PROVIDERS: Visit Provider Physician Assistant | DX: Z13.89 Encounter for screening for other disorder (principal) ==

== ENCOUNTER → 2021-06-05 08:43 | Outpatient (BNVA) | payer MEDICARE, MEDICAID, SELFPAY | PROVIDERS: PCP Internal Medicine; Visit Provider Physician Assistant | DX: M17.12 Unilateral primary osteoarthritis, left knee (principal) | CPT/HCPCS: 99202 ==

== ENCOUNTER → 2021-06-08 15:00 | Outpatient (BNVA) | payer MEDICARE, MEDICAID, SELFPAY | PROVIDERS: PCP Internal Medicine; Visit Provider Internal Medicine | DX: G47.33 Obstructive sleep apnea (adult) (pediatric) (principal); E66.01 Morbid (severe) obesity due to excess calories; I27.21 Secondary pulmonary arterial hypertension; I26.99 Other pulmonary embolism without acute cor pulmonale | CPT/HCPCS: 99212 ==

== ENCOUNTER → 2021-06-09 10:52 | Outpatient (BNVA) | payer MEDICARE, MEDICAID, SELFPAY | PROVIDERS: PCP Internal Medicine; Visit Provider Physician Assistant Surgical | DX: E66.01 Morbid (severe) obesity due to excess calories (principal); Z68.45 Body mass index [BMI] 70 or greater, adult | CPT/HCPCS: 99212 ==

== ENCOUNTER → 2021-06-17 08:03 | Outpatient (BNVA) | payer MEDICARE, MEDICAID, SELFPAY | PROVIDERS: PCP Internal Medicine; Visit Provider Dietitian, Registered | DX: E66.01 Morbid (severe) obesity due to excess calories (principal); E11.9 Type 2 diabetes mellitus without complications | CPT/HCPCS: 97803 ==

== ENCOUNTER → 2021-06-18 10:17 | Outpatient (BNVA) | payer MEDICARE, MEDICAID, SELFPAY | PROVIDERS: PCP Internal Medicine; Referring Provider Internal Medicine; Visit Provider Physician Assistant | DX: Z13.89 Encounter for screening for other disorder (principal) ==

== ENCOUNTER → 2021-06-26 09:14 | Outpatient (BNVA) | payer MEDICARE, MEDICAID, SELFPAY | PROVIDERS: PCP Internal Medicine; Referring Provider Internal Medicine; Visit Provider Physician Assistant Surgical | DX: Z13.89 Encounter for screening for other disorder (principal) ==

== ENCOUNTER → 2021-07-02 08:12 | Outpatient (BNVA) | payer MEDICARE, MEDICAID, SELFPAY | PROVIDERS: PCP Internal Medicine; Referring Provider Physician Assistant Surgical; Visit Provider Dietitian, Registered | DX: E66.01 Morbid (severe) obesity due to excess calories (principal); Z68.45 Body mass index [BMI] 70 or greater, adult; E11.9 Type 2 diabetes mellitus without complications; Z71.3 Dietary counseling and surveillance | CPT/HCPCS: 97803 ==

== ENCOUNTER → 2021-07-03 10:37 | Outpatient (BNVA) | payer MEDICARE, MEDICAID, SELFPAY | PROVIDERS: PCP Internal Medicine; Referring Provider Internal Medicine; Visit Provider Physician Assistant Surgical | DX: Z13.89 Encounter for screening for other disorder (principal) ==

== ENCOUNTER → 2021-07-16 12:00 | Outpatient (BNVA) | payer MEDICARE, MEDICAID, SELFPAY | PROVIDERS: PCP Internal Medicine; Visit Provider Counselor Mental Health | DX: F43.23 Adjustment disorder with mixed anxiety and depressed mood (principal) | CPT/HCPCS: 90834 ==

== ENCOUNTER 2021-07-17 | Outpatient (REF) | payer MEDICARE, MEDICAID, SELFPAY | END 2021-07-17 00:01 | LOC: CF | PROVIDERS: Visit Provider Dietitian, Registered | DX: E66.01 Morbid (severe) obesity due to excess calories (principal); E11.9 Type 2 diabetes mellitus without complications; Z71.3 Dietary counseling and surveillance | CPT/HCPCS: 97803 ==

== ENCOUNTER → 2021-08-14 13:39 | Outpatient (BNVA) | payer MEDICARE, MEDICAID, SELFPAY | PROVIDERS: PCP Internal Medicine; Referring Provider Internal Medicine; Visit Provider Dietitian, Registered | DX: E66.01 Morbid (severe) obesity due to excess calories (principal); Z68.45 Body mass index [BMI] 70 or greater, adult; E11.9 Type 2 diabetes mellitus without complications; Z71.3 Dietary counseling and surveillance | CPT/HCPCS: 97803 ==

== ENCOUNTER 2021-09-11 04:21 | Emergency (ER) | payer MEDICARE, MEDICAID, SELFPAY ==
[2021-09-11 04:46] VITALS: BP 170/91; PULSE 108; RESP 22; TEMP 37.1; O2SAT 93; BMI 69.1
[2021-09-11] MEDS: Ondansetron ODT 4 MG TAB.RAPDIS TRANSLINGU (04:57)
--- NOTE | 2021-09-11 04:58 | PC.NURSE ---
pt dry heaving in WR
[2021-09-11 05:20] LABS: Basophils Percent Auto 0.2 % (0-2); Eosinophils Percent Auto 0.4 % (0-4); Hematocrit 39.2 % (42.0-52.0); Imm Gran Abs Auto 0.11 X10*3/uL (0.00-0.03); Lymphocytes Absolute Auto 1.1 X10*3/uL (1.2-4.9); Lymphocytes Percent Auto 9.7 % (20-40); MANUAL DIFF FLAG NO; Mean Corpuscular HGB Conc 33.2 g/dl (31.0-36.0); Mean Corpuscular Hemoglobin 30.1 pg (27.0-33.0); Mean Corpuscular Volume 90.7 fL (80.0-98.0); Mean Platelet Volume 11.2 fL (9.4-12.4); Monocytes Absolute Auto 0.9 X10*3/uL (0.1-1.2); Monocytes Percent Auto 8.5 % (2-11); Neutrophils Absolute Auto 8.8 x10*3/uL (2.0-8.3); Neutrophils Percent Auto 80.2 % (45-73); Platelet Count 142 X10*3/uL (160-400); Red Blood Count 4.32 X10*6/uL (4.60-5.80); Red Cell Distribution Width 13.7 % (11.0-16.0)
[2021-09-11 05:29] LABS: D Dimer High Sensitivity 171 NG/ML
[2021-09-11 05:47] LABS: B Type Natriuretic Peptide 153 pg/mL (<100)
[2021-09-11 05:49] LABS: Alanine Aminotransferase 32 U/L (0-40); Albumin Level 3.8 g/dL (3.5-5.0); Alkaline Phosphatase 245 U/L (39-117); Anion Gap 12 (12-20); Aspartate Amino Transferase 16 U/L (5-37); Bilirubin Direct 0.3 mg/dL (0.0-0.5); Bilirubin Total 0.7 mg/dL (0.0-1.0); Blood Urea Nitrogen 9 mg/dL (9-16); Carbon Dioxide 30 mmol/L (22-29); Chloride 99 mmol/L (96-108); Creatinine Clr Calc Pharmacy 216.1; Estimated Glomerular Filt Rate > 60; Glucose Random 128 mg/dL (60-115); Lipase 9 U/L (8-78); Potassium 4.1 mmol/L (3.3-5.1); Sodium 137 mmol/L (135-145); Total Protein 6.9 g/dL (6.5-8.0)
--- NOTE | 2021-09-11 07:06 | ED.LOWEXIN ---
HPI - Extremity Injury (Lower) General Chief Complaint: Extremity Injury, Lower Stated Complaint: L foot & ankle swollen, gout? Time Seen by Provider: 09/11/21 06:44 Source: patient and family (, Carolyn) Mode of arrival: ambulatory Limitations: no limitations History of Present Illness HPI Narrative: 46-year-old male who presents emergency department for evaluation of left foot and ankle pain and swelling x3 days. The patient denies any injury. He states the pain started suddenly and has gotten gradually worse. He states the pain is a constant, sharp, burning pain which is 8/10 at its worst. That pain is worse with palpation of the foot ankle and heel and is worse with bearing weight. Patient states the pain is so bad that he is having difficulty walking. This is his 1st episode of this type of pain. He states he takes oxycodone 10 mg 3 times a day for knee pain however this is not touching his pain. The patient is allergic to NSAIDs and gets hives and swelling with these medications. He denied fever, chills, rhinorrhea, sore throat, cough, chest pain, shortness of breath, nausea, vomiting, diarrhea, fatigue or weakness. MD complaint: other (Foot and ankle) Onset (ago): day(s) (3) Injury: Left: ankle and foot Type of Injury: other (None) Severity: severe Severity scale (1-10): 8 Relieving factors: nothing Exacerbating factors: weight bearing, movement and palpation Associated symptoms: swelling and able to partially bear weight Other symptoms: none Treatments prior to arrival: other (Oxycodone) Related Data Home Medications Medication Instructions Recorded Confirmed insulin aspart U-100 100 unit/mL See Protocol SUBCUT TID 02/28/20 06/09/21 (3 mL) subcutaneous pen (Novolog Flexpen U-100 Insulin aspart) phenytoin sodium extended 100 mg 700 mg PO BID cap 02/23/21 06/09/21 capsule (Dilantin Extended) atorvastatin 20 mg tablet 20 mg PO DAILY 03/05/21 06/09/21 albuterol sulfate 2.5 mg INHALATION Q4-6H PRN 04/06/21 06/09/21 furosemide 40 mg tablet 1 tab PO BID 04/23/21 06/09/21 nystatin 100,000 unit/gram topical TOPICAL 06/08/21 06/09/21 cream oxycodone 10 mg tablet 10 mg PO TID PRN tab 06/08/21 06/09/21 Previous Rx's Medication Instructions Recorded albuterol sulfate 90 mcg/actuation 1 inh INHALATION QID PRN #8.5 g 03/25/21 aerosol inhaler metoprolol succinate 25 mg 25 mg PO DAILY #30 tab 03/25/21 tablet,extended release 24 hr apixaban 5 mg tablet (Eliquis) 5 mg PO BID #60 tab 04/29/21 meloxicam 15 mg tablet 15 mg PO DAILY #30 tab 06/05/21 colchicine 0.6 mg tablet (Colcrys) 0.6 mg PO ONCE #6 tab 09/11/21 hydromorphone 2 mg tablet 2 mg PO Q4-6H PRN #14 tab 09/11/21 Allergies Allergy/AdvReac Type Severity Reaction Status Date / Time codeine [Codeine] Allergy Unknown RASH, hives Verified 06/09/21 11:08 ibuprofen [From Motrin] Allergy Unknown HIVES Verified 06/09/21 11:08 Review of Systems Review of Systems: Yes all other systems are reviewed and are negative [facility] Past Medical History Medical History A-fib Aftercare following bilateral ankle joint replacement surgery Brain tumor Diabetes Hypoxemia Morbid obesity Morbid obesity with body mass index (BMI) greater than or equal to 70 in adult NORIS (obstructive sleep apnea) NORIS (obstructive sleep apnea) Persistent atrial fibrillation Pulmonary arterial hypertension Right hand dominant Seizure disorder Shortness of breath Sleep apnea, obstructive Surgical History History of ankle surgery Family History Family History Paternal Grandmother Myocardial infarction Maternal Grandfather Myocardial infarction Brother No problems noted. Sister No problems noted. Sister No problems noted. Social History Social History Household Members: Family Housing: House Do you presently have visiting nurse or other home services: No Alcohol intake: never Patient Tobacco Use Status: Never used Tobacco Advance Directives: Yes Advance Directives Information Provided: Yes Advance Directives on File: No service: No Current occupational status: disabled Current occupation: [employer] handed Physical Exam Vital Signs: Vital Signs: Last Vital Signs Temp 98.7 F 09/11/21 04:46 Pulse 106 H 09/11/21 09:40 Resp 19 09/11/21 09:43 BP 122/66 09/11/21 09:40 Pulse Ox 93 09/11/21 09:40 BMI result Body Mass Index 69.1 Const: Other: Awake, alert, male patient, pleasant, cooperative appears in distress secondary to his ankle pain, BMI 231 Orientation/consciousness: oriented to person and oriented to place HEENT: Head: Yes normal to inspection, Yes normocephalic and Yes atraumatic Ears: external ears normal General nose exam: Normal external nose present Face and sinus: Yes normal facial exam Mouth: Normal oral and palatal mucosa present Throat: Yes posterior oropharynx normal Eyes: General: appearance normal, both eyes and all related structures Pupils: Equal, round and reactive pupils present Neck: Neck: Yes normal visual inspection, Yes no lymphadenopathy, Yes trachea midline and Yes supple Chest: Chest palpation & inspection: normal inspection of the chest and normal palpation of entire chest wall Resp: Effort & Inspection: normal respiratory effort and able to speak in complete sentences Auscultation: clear to auscultation bilaterally Cardio: Rate: regular rate Rhythm: regular rhythm Heart sounds: S1 normal heart sound present, S2 normal heart sound present and no murmurs GI: Inspection: Yes normal to inspection Palpation (GI): Soft to palpation, nontender and no guarding Auscultation: normal bowel sounds : General: Yes no CVA tenderness Back/Spine/Pelvis: Back: no CVA tenderness Skin: General skin exam: no rashes or lesions noted Neuro: General: oriented to person and oriented to place Cranial nerves: Yes Equal, round and reactive pupils present Cognition (Neuro): normal cognition Motor exam (neuro): 5/5 motor strength present throughout Extrem: Other: There is soft tissue swelling of the patient's ankle foot and toes, there is some slight increased warmth of these areas with no erythema. The patient has severe pain with minimal palpation of the MTP joints and lateral and medial malleolus areas bilaterally Psych: Appearance: grossly normal Speech and movement: Normal speech and movement present Affect: normal affect Attitude: cooperative Course Course Course Narrative: 46-year-old male who presents emergency department for evaluation of pain and swelling of the left foot ankle and toes x3 days. The patient did not have any injury . He has had no systemic symptoms such as fever chills or fatigue. Vital signs revealed an elevated blood pressure of 170/91, elevated pulse of 108 elevated respiratory rate of 22. He was afebrile with a temperature of 98.7 degrees his O2 saturation was normal 93% on room air. His examination did reveal some increased warmth over the ankle foot and toes with no erythema. He is exquisitely tender with palpation over these areas. The differential includes was not limited to gout, infection, DVT, fracture/injury. At this time based on the presentation and findings I suspect the patient has gout. The patient does have a history of PE and is taking Eliquis therefore I doubt that he has a DVT, also the patient has tenderness is which is usual with a DVT. I did discuss the treatment of gout with the patient. The patient has been taking oxycodone with no relief his pain therefore he was ordered to get morphine 4 mg IV and Zofran 4 mg IV. 0715: Laboratory evaluation: [place] [address], low platelet count a 486297, this is chronic, elevated alk-phos of 245. 1026: The patient required a 2nd dose of morphine 4 mg IV with only minimal relief his pain. He was then given Dilaudid 1 mg IV with significant improvement. The patient prescribed Dilaudid 2 mg, 1 pill every 4-6 hours as needed for pain. He is advised to not take his oxycodone while he was taking Dilaudid. He was also prescribed Colcrys. He was given printed and verbal instructions and discharged home. MDM - Extremity Injury (Lower) Lab Data Result diagrams: 09/11/21 05:14 09/11/21 05:14 Labs: Lab Results 09/11/21 09/11/21 09/11/21 Range/Units 05:14 05:14 05:14 WBC 11.0 H (4.8-10.8) X10*3/uL RBC 4.32 L (4.60-5.80) X10*6/uL Hgb 13.0 L (14.0-18.0) g/dl Hct 39.2 L (42.0-52.0) % MCV 90.7 (80.0-98.0) fL MCH 30.1 (27.0-33.0) pg MCHC 33.2 (31.0-36.0) g/dl RDW 13.7 (11.0-16.0) % Plt Count 142 L (160-400) X10*3/uL MPV 11.2 (9.4-12.4) fL Immature Gran % (Auto) 1.0 H (0.0-0.4) % Neut % (Auto) 80.2 H (45-73) % Lymph % (Auto) 9.7 L (20-40) % [place] % (Auto) 8.5 (2-11) % Eos % (Auto) 0.4 (0-4) % Baso % (Auto) 0.2 (0-2) % Lymph # (Auto) 1.1 L (1.2-4.9) X10*3/uL [place] # (Auto) 0.9 (0.1-1.2) X10*3/uL Eos # (Auto) 0.0 (0.0-0.4) X10*3/uL Baso # (Auto) 0.0 (0.0-0.2) X10*3/uL Abs Immat Gran (auto) 0.11 H (0.00-0.03) X10*3/uL Absolute Neuts (auto) 8.8 H (2.0-8.3) x10*3/uL Absolute Nucleated RBC 0.000 (0.0-0.012) X10*3/uL Nucleated RBC % (auto) 0.0 (0.0-0.2) /100WBC D-Dimer High Sensitivty NG/ML Sodium 137 (135-145) mmol/L Potassium 4.1 (3.3-5.1) mmol/L Chloride 99 (96-108) mmol/L Carbon Dioxide 30 H (22-29) mmol/L Anion Gap 12 (12-20) BUN 9 (9-16) mg/dL Creatinine 0.84 (0.5-1.4) mg/dL Estim Creat Clear Calc 216.1 Estimated GFR > 60 Random Glucose 128 H (60-115) mg/dL Calcium 9.0 (8.4-10.2) mg/dL Total Bilirubin 0.7 (0.0-1.0) mg/dL Direct Bilirubin 0.3 (0.0-0.5) mg/dL AST 16 D (5-37) U/L ALT 32 (0-40) U/L Alkaline Phosphatase 245 H D (39-117) U/L B-Natriuretic Peptide 153 H (<100) pg/mL Total Protein 6.9 (6.5-8.0) g/dL Albumin 3.8 (3.5-5.0) g/dL Lipase 9 (8-78) U/L / Range/Units 05:14 WBC (4.8-10.8) X10*3/uL RBC (4.60-5.80) X10*6/uL Hgb (14.0-18.0) g/dl Hct (42.0-52.0) % MCV (80.0-98.0) fL MCH (27.0-33.0) pg MCHC (31.0-36.0) g/dl RDW (11.0-16.0) % Plt Count (160-400) X10*3/uL MPV (9.4-12.4) fL Immature Gran % (Auto) (0.0-0.4) % Neut % (Auto) (45-73) % Lymph % (Auto) (20-40) % [place] % (Auto) (2-11) % Eos % (Auto) (0-4) % Baso % (Auto) (0-2) % Lymph # (Auto) (1.2-4.9) X10*3/uL [place] # (Auto) (0.1-1.2) X10*3/uL Eos # (Auto) (0.0-0.4) X10*3/uL Baso # (Auto) (0.0-0.2) X10*3/uL Abs Immat Gran (auto) (0.00-0.03) X10*3/uL Absolute Neuts (auto) (2.0-8.3) x10*3/uL Absolute Nucleated RBC (0.0-0.012) X10*3/uL Nucleated RBC % (auto) (0.0-0.2) /100WBC D-Dimer High Sensitivty 171 NG/ML Sodium (135-145) mmol/L Potassium (3.3-5.1) mmol/L Chloride (96-108) mmol/L Carbon Dioxide (22-29) mmol/L Anion Gap (12-20) BUN (9-16) mg/dL Creatinine (0.5-1.4) mg/dL Estim Creat Clear Calc Estimated GFR Random Glucose (60-115) mg/dL Calcium (8.4-10.2) mg/dL Total Bilirubin (0.0-1.0) mg/dL Direct Bilirubin (0.0-0.5) mg/dL AST (5-37) U/L ALT (0-40) U/L Alkaline Phosphatase (39-117) U/L B-Natriuretic Peptide (<100) pg/mL Total Protein (6.5-8.0) g/dL Albumin (3.5-5.0) g/dL Lipase (8-78) U/L Discharge Plan Discharge Clinical Impression: Acute gout of left foot, Acute gout of left ankle Patient Disposition: Home, Self-Care Instructions: Gout (ED) Additional Instructions: At this time, I believe that your symptoms are consistent with gout. I do not think that you have an infection however if you get increased redness, increased warmth, fever, chills, fatigue, weakness then an infection would be more likely. I want you to stop taking your oxycodone. Take Tylenol (acetaminophen) 2 pills every 4-6 hours as needed for pain. For pain not relieved by ibuprofen or Tylenol take Dilaudid (hydromorphone) 2 mg pills, 1 pill every 4-6 hours as needed for pain. This medication will make you sleepy, do not drive or work while taking this medication. Dilaudid (hydromorphone) is a narcotic medication and can be addicting. If you are concerned about addiction you can ask the pharmacist for less pills or do not get this prescription filled. When you are feeling better, your doctor should check a uric acid level on you and you may need further testing for gout. Follow-up with your doctor in 2 days. Please return to the emergency department if your symptoms get worse or if you develop any symptoms that are concerning to you. Prescriptions: New hydromorphone 2 mg tablet 2 mg PO Q4-6H PRN (Reason: pain) Qty: 14 0RF Rx Instructions: Patient may request partial refill colchicine [Colcrys] 0.6 mg tablet 0.6 mg PO ONCE Qty: 6 0RF Rx Instructions: 1.2 mg orally, then 1 hour later take 0.6 mg orally, may repeat in 3 days No Action albuterol sulfate 90 mcg/actuation HFA aerosol inhaler 1 inh inhalation QID PRN (Reason: bronchospasm) Qty: 8.5 0RF metoprolol succinate 25 mg Tablet Extended Release 24 Hr 25 mg PO DAILY Qty: 30 0RF Protocol: Hold for SBP/HR < HOLD for SBP < : 90 HOLD for HR < : 60 furosemide 40 mg tablet 1 tab PO BID 0RF Eliquis 5 mg Tablet 5 mg PO BID Qty: 60 0RF insulin aspart U-100 [Novolog Flexpen U-100 Insulin] 100 unit/mL (3 mL) insulin pen See Protocol sliding scale dose subcut TID 0RF Protocol: Insulin Correction Scale Less than or equal to 110 ---- Give (units): 0 111 to 150 Give (units): 0 151 to 200 Give (units): 2 201 to 250 Give (units): 4 251 to 300 Give (units): 6 301 to 350 Give (units): 8 Greater than 350 Give (units): 10 Call MD if Blood Glucose > : 350 Label Comments: pt takes as needed phenytoin sodium extended [Dilantin Extended] 100 mg capsule 700 mg PO BID 0RF atorvastatin 20 mg tablet 20 mg PO DAILY 0RF meloxicam 15 mg tablet 15 mg PO DAILY Qty: 30 0RF albuterol sulfate 2.5 mg /3 mL (0.083 %) solution for nebulization 2.5 mg inhalation Q4-6H PRN (Reason: Wheezing) 0RF Protocol: Insulin Correction Scale Less than or equal to 110 ---- Give (units): 0 111 to 150 Give (units): 0 151 to 200 Give (units): 2 201 to 250 Give (units): 4 251 to 300 Give (units): 6 301 to 350 Give (units): 8 Greater than 350 Give (units): 10 Call MD if Blood Glucose > : 350 nystatin 100,000 unit/gram cream topical 0RF oxycodone 10 mg tablet 10 mg PO TID PRN0RF
[2021-09-11] MEDS: Morphine Sulfate 4 MG/ML CARTRIDGE IVPUSH ×2 (07:30→08:16)
[2021-09-11] MEDS: ondansetron HCL 4 MG/2 ML VIAL IVPUSH (07:30)
--- NOTE | 2021-09-11 08:20 | PC.NURSE ---
PT REPORTS PAIN CONTINUES, BURNING IN HIS LEGS. MEDICATED CHARTED
[2021-09-11 09:15] VITALS: RESP 19
[2021-09-11 09:40] VITALS: BP 122/66; PULSE 106; RESP 18; O2SAT 93
[2021-09-11 09:43] VITALS: RESP 19
[2021-09-11] MEDS: HYDROmorphone HCl 1 MG/ML SYRINGE IVPUSH (09:43)
--- NOTE | 2021-09-11 10:10 | PC.NURSE ---
AT BEDSIDE FOR RE EVAL.
[2021-09-11 10:27] VITALS: RESP 20
== END 2021-09-11 11:00 | disposition home or self-care (01) ==
PROVIDERS: Emergency Medicine; Emergency Provider Emergency Medicine Emergency Medical Services; PCP Internal Medicine
DX: M10.9 Gout, unspecified (principal); E11.9 Type 2 diabetes mellitus without complications; I48.19 Other persistent atrial fibrillation; G40.909 Epilepsy, unspecified, not intractable, without status epilepticus; M25.569 Pain in unspecified knee; Z79.891 Long term (current) use of opiate analgesic
CPT/HCPCS: 36415; 80053; 82248; 83690; 83880; 85025; 85379; 96374; 96375; 96376; 99283; 99284; J1170; J2270; J2405

== ENCOUNTER → 2021-09-17 11:59 | Outpatient (BNVA) | payer MEDICARE, MEDICAID, SELFPAY | PROVIDERS: PCP Internal Medicine; Referring Provider Internal Medicine; Visit Provider Dietitian, Registered | DX: E66.01 Morbid (severe) obesity due to excess calories (principal); E11.9 Type 2 diabetes mellitus without complications; Z71.3 Dietary counseling and surveillance | CPT/HCPCS: 97803 ==

== ENCOUNTER 2021-10-21 12:57 | Outpatient (REF) | payer MEDICARE, MEDICAID, SELFPAY ==
[2021-10-21 14:16] LABS: Estimated Average Glucose 220 mg/dL; Hemoglobin A1c % 9.3 %
[2021-10-21 14:22] LABS: Uric Acid 7.1 mg/dL (3.4-7.0)
== END 2021-10-21 12:58 | disposition home or self-care (01) ==
LOC: HO.HMGCLDS 12:57
PROVIDERS: PCP Internal Medicine; Visit Provider Internal Medicine
DX: M10.9 Gout, unspecified (principal); E11.9 Type 2 diabetes mellitus without complications; Z79.4 Long term (current) use of insulin
CPT/HCPCS: 36415; 83036; 84550

== ENCOUNTER 2021-12-07 13:26 | Outpatient (REF) | payer MEDICARE, MEDICAID, SELFPAY ==
--- NOTE | ~2021-12-07 | XR_ITS ---
EXAMINATION: XR FOOT, RIGHT CLINICAL INFORMATION: Plantar area pain. COMPARISON: None TECHNIQUE: AP, lateral, and oblique views of the right foot. FINDINGS: The bones and soft tissues are normal. No fracture. Alignment is anatomic. Joint spaces are maintained. There is a small calcaneal heel and retrocalcaneal enthesophytes. XR/XR foot RT min 3V IMPRESSION: Small calcaneal heel and retrocalcaneal enthesophytes. No visible acute fracture, dislocation or subluxation seen.
== END 2021-12-07 13:27 | disposition home or self-care (01) ==
LOC: HO.HMGCX 13:26
PROVIDERS: PCP Internal Medicine; Visit Provider Internal Medicine
DX: M79.671 Pain in right foot (principal)
CPT/HCPCS: 73630

== ENCOUNTER → 2021-12-15 13:40 | Outpatient (BNVA) | payer MEDICARE, MEDICAID, SELFPAY | PROVIDERS: PCP Internal Medicine; Visit Provider Internal Medicine | DX: E66.01 Morbid (severe) obesity due to excess calories (principal); G47.33 Obstructive sleep apnea (adult) (pediatric); J96.21 Acute and chronic respiratory failure with hypoxia | CPT/HCPCS: Q3014 ==

== ENCOUNTER → 2022-01-18 11:08 | Outpatient (BNVA) | payer MEDICARE, MEDICAID, SELFPAY | PROVIDERS: PCP Internal Medicine; Visit Provider Physician Assistant Surgical | DX: E66.01 Morbid (severe) obesity due to excess calories (principal); Z68.45 Body mass index [BMI] 70 or greater, adult | CPT/HCPCS: 99212 ==

== ENCOUNTER 2022-02-17 10:44 | Outpatient (REF) | payer MEDICARE, MEDICAID, SELFPAY ==
[2022-02-17 13:50] LABS: MANUAL DIFF FLAG NO
[2022-02-17 14:02] LABS: Basophils Absolute Auto 0.1 X10*3/uL (0.0-0.2); Basophils Percent Auto 0.6 % (0-2); Eosinophils Absolute Auto 0.4 X10*3/uL (0.0-0.4); Eosinophils Percent Auto 3.9 % (0-4); Hematocrit 47.3 % (42.0-52.0); Hemoglobin 15.3 g/dl (14.0-18.0); Imm Gran Abs Auto 0.04 X10*3/uL (0.00-0.03); Imm Gran Pct Auto 0.4 % (0.0-0.4); Lymphocytes Absolute Auto 1.8 X10*3/uL (1.2-4.9); Lymphocytes Percent Auto 19.7 % (20-40); Mean Corpuscular HGB Conc 32.3 g/dl (31.0-36.0); Mean Corpuscular Hemoglobin 28.5 pg (27.0-33.0); Mean Corpuscular Volume 88.1 fL (80.0-98.0); Mean Platelet Volume 12.3 fL (9.4-12.4); Monocytes Absolute Auto 0.9 X10*3/uL (0.1-1.2); Monocytes Percent Auto 9.2 % (2-11); Neutrophils Absolute Auto 6.2 x10*3/uL (2.0-8.3); Neutrophils Percent Auto 66.2 % (45-73); Platelet Count 183 X10*3/uL (160-400); Red Blood Count 5.37 X10*6/uL (4.60-5.80); Red Cell Distribution Width 13.3 % (11.0-16.0); White Blood Count 9.3 X10*3/uL (4.8-10.8)
[2022-02-17 14:13] LABS: Estimated Average Glucose 171 mg/dL; Hemoglobin A1c % 7.6 %
[2022-02-17 14:27] LABS: Alanine Aminotransferase 16 U/L (0-40); Albumin Level 4.4 g/dL (3.5-5.0); Alkaline Phosphatase 245 U/L (39-117); Anion Gap 16 (12-20); Aspartate Amino Transferase 17 U/L (5-37); Bilirubin Total 0.3 mg/dL (0.0-1.0); Blood Urea Nitrogen 12 mg/dL (9-16); Calcium 9.2 mg/dL (8.4-10.2); Carbon Dioxide 28 mmol/L (22-29); Chloride 99 mmol/L (96-108); Estimated Glomerular Filt Rate > 60; Glucose Fasting 162 mg/dL (60-99); Potassium 4.3 mmol/L (3.3-5.1); Sodium 139 mmol/L (135-145); Total Protein 7.8 g/dL (6.5-8.0)
== END 2022-02-17 10:45 | disposition home or self-care (01) ==
LOC: HO.HMGCLDS 10:44
PROVIDERS: PCP Internal Medicine; Visit Provider Internal Medicine
DX: E66.01 Morbid (severe) obesity due to excess calories (principal); R53.83 Other fatigue; E11.8 Type 2 diabetes mellitus with unspecified complications; Z79.4 Long term (current) use of insulin; Z79.899 Other long term (current) drug therapy; Z68.45 Body mass index [BMI] 70 or greater, adult; Z71.3 Dietary counseling and surveillance
CPT/HCPCS: 36415; 80053; 83036; 85025; 99212

== ENCOUNTER → 2022-02-24 13:42 | Outpatient (BNVA) | payer MEDICARE, MEDICAID, SELFPAY | PROVIDERS: PCP Internal Medicine; Visit Provider Internal Medicine | DX: G47.33 Obstructive sleep apnea (adult) (pediatric) (principal); E66.01 Morbid (severe) obesity due to excess calories | CPT/HCPCS: Q3014 ==

== ENCOUNTER → 2022-03-17 10:17 | Outpatient (BNVA) | payer MEDICARE, MEDICAID, SELFPAY | PROVIDERS: PCP Internal Medicine; Visit Provider Physician Assistant Surgical | DX: E66.01 Morbid (severe) obesity due to excess calories (principal); Z68.45 Body mass index [BMI] 70 or greater, adult | CPT/HCPCS: Q3014 ==

== ENCOUNTER 2022-05-21 22:04 | Emergency (ER) | payer MEDICARE, MEDICAID, SELFPAY ==
--- NOTE | ~2022-05-21 | XR_ITS ---
EXAMINATION: XR HAND/WRIST, LEFT CLINICAL INFORMATION: Fall with pain COMPARISON: 01/25/2021 TECHNIQUE: 3 views of the left hand/wrist. FINDINGS: Osseous alignment is anatomic. No acute fracture is seen. No significant focal soft tissue abnormality identified. XR/XR hand wrist LT IMPRESSION: No acute findings identified.
[2022-05-21 22:16] VITALS: BP 143/96; PULSE 96; RESP 22; TEMP 36.6; O2SAT 94; BMI 73.9
--- NOTE | 2022-05-21 22:30 | ED_ITS ---
HPI - Seizure General Chief Complaint: Seizure Stated Complaint: epileptic seizure Time Seen by Provider: 05/21/22 22:28 Source: patient Mode of arrival: ambulatory Limitations: no limitations History of Present Illness HPI Narrative: Patient's history of epilepsy his childhood on Dilantin 750 mg twice daily fairly compliant last seizure was 1 year ago today patient was going down stairs felt lightheaded tried to sit down fell down breaking his fall with left wrist had a generalized tonic-clonic seizure lasted for few minutes again had 2nd episode which lasted for few minutes patient was postictal feeling sleepy now no head injury no tongue bite Related Data Home Medications Medication Instructions Recorded Confirmed insulin aspart U-100 100 unit/mL See Protocol subcut TID 02/28/20 03/17/22 (3 mL) subcutaneous pen (Novolog FlexPen U-100 Insulin aspart) phenytoin sodium extended 100 mg 700 mg PO BID 02/23/21 03/17/22 capsule (Dilantin Extended) atorvastatin 20 mg tablet 20 mg PO DAILY 03/05/21 03/17/22 albuterol sulfate 2.5 mg/3 mL 2.5 mg inhalation Q4-6H PRN 04/06/21 03/17/22 (0.083 %) solution for nebulization Wheezing furosemide 40 mg tablet 1 tab PO BID 04/23/21 03/17/22 nystatin 100,000 unit/gram topical topical 06/08/21 03/17/22 cream oxycodone 10 mg tablet 15 mg PO TID PRN 01/18/22 03/17/22 allopurinol 300 mg tablet 300 mg PO DAILY 02/24/22 03/17/22 Previous Rx's Medication Instructions Recorded albuterol sulfate 90 mcg/actuation 1 inh inhalation QID PRN 03/25/21 aerosol inhaler bronchospasm #8.5 grams metoprolol succinate 25 mg 25 mg PO DAILY #30 tabs 03/25/21 tablet,extended release 24 hr apixaban 5 mg tablet (Eliquis) 5 mg PO BID #60 tabs 04/29/21 meloxicam 15 mg tablet 15 mg PO DAILY #30 tabs 06/05/21 colchicine 0.6 mg tablet (Colcrys) 0.6 mg PO ONCE #6 tabs 09/11/21 Allergies Allergy/AdvReac Type Severity Reaction Status Date / Time codeine [Codeine] Allergy Unknown RASH, hives Verified 05/21/22 22:20 ibuprofen [From Motrin] Allergy Unknown HIVES Verified 05/21/22 22:20 Review of Systems Review of Systems: Yes all other systems are reviewed and are negative [facility] Past Medical History Medical History A-fib Aftercare following bilateral ankle joint replacement surgery Brain tumor Diabetes Hypoxemia Morbid obesity Morbid obesity with body mass index (BMI) greater than or equal to 70 in adult NORIS (obstructive sleep apnea) NORIS (obstructive sleep apnea) Persistent atrial fibrillation Pulmonary arterial hypertension Right hand dominant Seizure disorder Shortness of breath Sleep apnea, obstructive Surgical History History of ankle surgery Family History Family History Paternal Grandmother Myocardial infarction Maternal Grandfather Myocardial infarction Brother No problems noted. Sister No problems noted. Sister No problems noted. Social History Social History Household Members: Family Housing: House Do you presently have visiting nurse or other home services: No Alcohol intake: never Patient Tobacco Use Status: Never used Tobacco Smoked in Last 30 Days: No Use of substances other than those prescribed or required for medical reasons: No Advance Directives: No Advance Directives Information Provided: Yes service: No Current occupational status: disabled Current occupation: Rt handed Physical Exam Vital Signs: Vital Signs: Last Vital Signs Temp 97.8 F 05/21/22 22:16 Pulse 96 05/22/22 01:55 Resp 22 H 05/22/22 01:55 BP 143/96 H 05/21/22 22:16 Pulse Ox 95 05/22/22 01:55 O2 Del Method 05/22/22 01:55 O2 Flow Rate 2.5 05/22/22 00:05 BMI result Body Mass Index 73.9 Appearance: Alert. Oriented X3. No acute distress. obese sleepy Eyes: PERRLA, No Nystagmus ENT: Pharynx normal. Oral Mucosa moist no tongue bite Neck: Normal inspection. Neck supple. CVS: Normal heart rate and rhythm. Pulses normal. Respiratory: No respiratory distress. Equal air entry bilateral, no wheezing/rales/rhonchi Abdomen: Soft and nontender. Bowel sounds are present, no mass palpable, no CVA tenderness Skin: Skin warm and dry. Normal skin color. Normal skin turgor. Extremities: No lower extremity edema. No calf tenderness left wrist with obvious deformity and tenderness Neuro: Oriented X 3. No motor deficit. No sensory deficit.No cerebellar signs , cranial nerves II-XII intact Medications Administered Discontinued Medications Generic Name Dose Route Start Last Admin Trade Name Freq PRN Reason Stop Dose Admin Phenytoin Sodium 500 mg/ 110 mls @ 100 mls/hr 05/21/22 23:13 05/22/22 00:40 Sodium Chloride IV 05/22/22 00:18 Infused ONCE ONE Infusion Lorazepam 1 mg 05/21/22 22:41 05/21/22 22:55 Lorazepam 2 Mg/Ml Vial IVPUSH 05/21/22 22:42 1 mg ONCE ONE Administration Morphine Sulfate 4 mg 05/21/22 22:41 05/21/22 22:56 Morphine Sulfate 4 Mg/Ml Cartridge IVPUSH 05/21/22 22:42 4 mg ONCE ONE Administration Protocol Ondansetron HCl 4 mg 05/21/22 22:41 05/21/22 22:56 Ondansetron Hcl 4 Mg/2 Ml Vial IVPUSH 05/21/22 22:42 4 mg ONCE ONE Administration Medical Decision Making Medical Decision Making [facility] Narrative: Patient with breakthrough seizure Dilantin level was 7.5 was given IV Dilantin patient says he is fairly compliant with diet increase the dose of Dilantin 2 5 mg 3 times a day state of 700 twice daily. Advised to follow with neurologist. Patient with about 550 lb denies any headache no head injury during stay patient was alert oriented x3 denies any complaints CT scan of the head was deferred other were no signs of injury and we are unable to do CT scan at this time. We advised the patient and/patient family to watch closely if he has any significant headache to bring him back for further management. X-ray of the left wrist was negative fracture was given a splint. Lab Data [facility] Lab Attestation statement: I reviewed the patient's lab results. 05/21/22 22:45 05/21/22 22:45 Labs: Lab Results 05/21/22 05/21/22 05/21/22 Range/Units 22:45 22:45 22:45 WBC 6.9 (4.8-10.8) X10*3/uL RBC 5.03 (4.60-5.80) X10*6/uL Hgb 14.4 (14.0-18.0) g/dl Hct 43.6 (42.0-52.0) % MCV 86.7 (80.0-98.0) fL MCH 28.6 (27.0-33.0) pg MCHC 33.0 (31.0-36.0) g/dl RDW 13.5 (11.0-16.0) % Plt Count 142 L (160-400) X10*3/uL MPV 11.0 (9.4-12.4) fL Immature Gran % (Auto) 0.6 H (0.0-0.4) % Neut % (Auto) 65.2 (45-73) % Lymph % (Auto) 22.8 (20-40) % Bent % (Auto) 8.5 (2-11) % Eos % (Auto) 2.5 (0-4) % Baso % (Auto) 0.4 (0-2) % Lymph # (Auto) 1.6 (1.2-4.9) X10*3/uL Bent # (Auto) 0.6 (0.1-1.2) X10*3/uL Eos # (Auto) 0.2 (0.0-0.4) X10*3/uL Baso # (Auto) 0.0 (0.0-0.2) X10*3/uL Abs Immat Gran (auto) 0.04 H (0.00-0.03) X10*3/uL Absolute Neuts (auto) 4.5 (2.0-8.3) x10*3/uL Absolute Nucleated RBC 0.000 (0.0-0.012) X10*3/uL Nucleated RBC % (auto) 0.0 (0.0-0.2) /100WBC Sodium 139 (135-145) mmol/L Potassium 3.9 (3.3-5.1) mmol/L Chloride 102 (96-108) mmol/L Carbon Dioxide 29 (22-29) mmol/L Anion Gap 12 (12-20) BUN 16 (9-16) mg/dL Creatinine 0.84 (0.5-1.4) mg/dL Estim Creat Clear Calc 223.6 Estimated GFR > 60 Random Glucose 328 H (60-115) mg/dL Calcium 9.0 (8.4-10.2) mg/dL Total Bilirubin 0.3 (0.0-1.0) mg/dL AST 15 (5-37) U/L ALT 28 (0-40) U/L Alkaline Phosphatase 191 H (39-117) U/L Total Protein 6.9 (6.5-8.0) g/dL Albumin 3.9 (3.5-5.0) g/dL Phenytoin 7.7 L* (10.0-20.0) ug/mL Discharge Plan Discharge Clinical Impression: Epileptic seizure Patient Disposition: Home, Self-Care Instructions: Recurrent Seizures in Adults (ED) Additional Instructions: Take your Dilantin on time, increase the dose of Dilantin to 500 mg 3 times a day Sleep well, recheck Dilantin level in 1 week Follow-up with neurologist Prescriptions: No Action albuterol sulfate 90 mcg/actuation HFA aerosol inhaler 1 inh inhalation QID PRN (Reason: bronchospasm) Qty: 8.5 0RF metoprolol succinate 25 mg Tablet Extended Release 24 Hr 25 mg PO DAILY Qty: 30 0RF Protocol: Hold for SBP/HR < HOLD for SBP < : 90 HOLD for HR < : 60 furosemide 40 mg tablet 1 tab PO BID Eliquis 5 mg Tablet 5 mg PO BID Qty: 60 0RF colchicine [Colcrys] 0.6 mg tablet 0.6 mg PO ONCE Qty: 6 0RF Rx Instructions: 1.2 mg orally, then 1 hour later take 0.6 mg orally, may repeat in 3 days insulin aspart U-100 [Novolog FlexPen U-100 Insulin] 100 unit/mL (3 mL) insulin pen See Protocol subcut TID Protocol: Insulin Correction Scale Less than or equal to 110 ---- Give (units): 0 111 to 150 Give (units): 0 151 to 200 Give (units): 2 201 to 250 Give (units): 4 251 to 300 Give (units): 6 301 to 350 Give (units): 8 Greater than 350 Give (units): 10 Call MD if Blood Glucose > : 350 Label Comments: pt takes as needed phenytoin sodium extended [Dilantin Extended] 100 mg capsule 700 mg PO BID atorvastatin 20 mg tablet 20 mg PO DAILY meloxicam 15 mg tablet 15 mg PO DAILY Qty: 30 0RF albuterol sulfate 2.5 mg /3 mL (0.083 %) solution for nebulization 2.5 mg inhalation Q4-6H PRN (Reason: Wheezing) Protocol: Insulin Correction Scale Less than or equal to 110 ---- Give (units): 0 111 to 150 Give (units): 0 151 to 200 Give (units): 2 201 to 250 Give (units): 4 251 to 300 Give (units): 6 301 to 350 Give (units): 8 Greater than 350 Give (units): 10 Call MD if Blood Glucose > : 350 nystatin 100,000 unit/gram cream topical oxycodone 10 mg tablet 15 mg PO TID PRN allopurinol 300 mg tablet 300 mg PO DAILY Interventions: ED Discharge Assessment Last Done: 05/22/22 02:13 Discharge Date/Time: 05/22/22 02:14
[2022-05-21 22:53] LABS: Basophils Percent Auto 0.4 % (0-2); Eosinophils Absolute Auto 0.2 X10*3/uL (0.0-0.4); Eosinophils Percent Auto 2.5 % (0-4); Hematocrit 43.6 % (42.0-52.0); Hemoglobin 14.4 g/dl (14.0-18.0); Imm Gran Abs Auto 0.04 X10*3/uL (0.00-0.03); Imm Gran Pct Auto 0.6 % (0.0-0.4); Lymphocytes Absolute Auto 1.6 X10*3/uL (1.2-4.9); Lymphocytes Percent Auto 22.8 % (20-40); MANUAL DIFF FLAG NO; Mean Corpuscular Hemoglobin 28.6 pg (27.0-33.0); Mean Corpuscular Volume 86.7 fL (80.0-98.0); Monocytes Absolute Auto 0.6 X10*3/uL (0.1-1.2); Monocytes Percent Auto 8.5 % (2-11); Neutrophils Absolute Auto 4.5 x10*3/uL (2.0-8.3); Neutrophils Percent Auto 65.2 % (45-73); Platelet Count 142 X10*3/uL (160-400); Red Blood Count 5.03 X10*6/uL (4.60-5.80); Red Cell Distribution Width 13.5 % (11.0-16.0); White Blood Count 6.9 X10*3/uL (4.8-10.8)
[2022-05-21] MEDS: LORazepam 2 MG/ML VIAL 1 MG IVPUSH (22:55)
[2022-05-21] MEDS: ondansetron HCL 4 MG/2 ML VIAL IVPUSH (22:56)
[2022-05-21] MEDS: Morphine Sulfate 4 MG/ML CARTRIDGE IVPUSH (22:56)
[2022-05-21 23:00] VITALS: PULSE 110; RESP 22; O2SAT 88
[2022-05-21 23:10] LABS: Alanine Aminotransferase 28 U/L (0-40); Albumin Level 3.9 g/dL (3.5-5.0); Alkaline Phosphatase 191 U/L (39-117); Anion Gap 12 (12-20); Aspartate Amino Transferase 15 U/L (5-37); Bilirubin Total 0.3 mg/dL (0.0-1.0); Blood Urea Nitrogen 16 mg/dL (9-16); Carbon Dioxide 29 mmol/L (22-29); Chloride 102 mmol/L (96-108); Creatinine Clr Calc Pharmacy 223.6; Estimated Glomerular Filt Rate > 60; Glucose Random 328 mg/dL (60-115); Potassium 3.9 mmol/L (3.3-5.1); Sodium 139 mmol/L (135-145); Total Protein 6.9 g/dL (6.5-8.0)
[2022-05-21 23:15] LABS: Phenytoin Dilantin 7.7 ug/mL (10.0-20.0)
[2022-05-21] MEDS: Phenytoin Sodium 500 MG in 0.9 % Sodium Chloride 100 ML 100 MG IV (23:31)
[2022-05-22 00:05] VITALS: PULSE 84; RESP 20; O2SAT 96
--- NOTE | 2022-05-22 01:40 | MHC.EDTECH ---
VELCRO SPLINT APPLY TO PATIENT LEFT WRIST .
[2022-05-22 01:55] VITALS: PULSE 96; RESP 22; O2SAT 95
--- NOTE | 2022-05-22 02:09 | PC.NURSE ---
LATE ENTRY- pt medicated according to jun. post med administration @ 2300. pt desatted to 88% RA. this rn placed pt on 2.[address] harrell made aware of this. pt states he has a history of sleep apnea. on 2.5 NC SpO2 93-96%
--- NOTE | 2022-05-22 02:11 | PC.NURSE ---
pt tolerated removal of 2.5 NC O2 well. 95% RA. IV removed at this time. licensed sales assistant placed splint on L wrist. pt this rn assessed splint. pt able to move all digits. reports comfortable at this time. cap refill intact. pt placed in WC at discharge. pt nephew present at discharge. pt provided with discharge packet. pt verbalized understanding of discharge plan
== END 2022-05-22 02:14 | disposition home or self-care (01) ==
PROVIDERS: Emergency Provider Internal Medicine; PCP Internal Medicine
DX: G40.909 Epilepsy, unspecified, not intractable, without status epilepticus (principal); M25.532 Pain in left wrist; E11.9 Type 2 diabetes mellitus without complications; I48.19 Other persistent atrial fibrillation; Z79.4 Long term (current) use of insulin; Z79.02 Long term (current) use of antithrombotics/antiplatelets; Z79.899 Other long term (current) drug therapy; Z79.01 Long term (current) use of anticoagulants; E66.01 Morbid (severe) obesity due to excess calories; Z68.45 Body mass index [BMI] 70 or greater, adult
CPT/HCPCS: 36415; 73110; 73130; 80053; 80185; 85025; 96365; 96375; 99284; J2060; J2270; J2405

== ENCOUNTER → 2022-07-30 08:20 | Outpatient (BNVA) | payer MEDICARE, MEDICAID, SELFPAY | PROVIDERS: PCP Internal Medicine; Visit Provider Physician Assistant Surgical ==

== ENCOUNTER → 2022-08-06 09:14 | Outpatient (BNVA) | payer MEDICARE, MEDICAID, SELFPAY | PROVIDERS: PCP Internal Medicine; Visit Provider Physician Assistant Surgical ==

== ENCOUNTER → 2022-08-11 08:13 | Outpatient (BNVA) | payer MEDICARE, MEDICAID, SELFPAY | PROVIDERS: PCP Internal Medicine; Visit Provider Surgery | DX: E66.01 Morbid (severe) obesity due to excess calories (principal); I48.91 Unspecified atrial fibrillation; G47.33 Obstructive sleep apnea (adult) (pediatric); Z68.45 Body mass index [BMI] 70 or greater, adult; Z79.4 Long term (current) use of insulin; Z79.891 Long term (current) use of opiate analgesic | CPT/HCPCS: Q3014 ==

== ENCOUNTER → 2022-08-13 08:59 | Outpatient (BNVA) | payer MEDICARE, MEDICAID, SELFPAY | PROVIDERS: PCP Internal Medicine; Visit Provider Physician Assistant Surgical ==

== ENCOUNTER → 2022-08-20 09:14 | Outpatient (BNVA) | payer MEDICARE, MEDICAID, SELFPAY | PROVIDERS: PCP Internal Medicine; Visit Provider Physician Assistant Surgical ==

== ENCOUNTER → 2022-08-26 10:07 | Outpatient (BNVA) | payer MEDICARE, MEDICAID, SELFPAY | PROVIDERS: PCP Internal Medicine; Visit Provider Internal Medicine | DX: G47.33 Obstructive sleep apnea (adult) (pediatric) (principal); I27.21 Secondary pulmonary arterial hypertension; I26.99 Other pulmonary embolism without acute cor pulmonale; E66.01 Morbid (severe) obesity due to excess calories; Z68.45 Body mass index [BMI] 70 or greater, adult | CPT/HCPCS: 99212 ==

== ENCOUNTER → 2022-09-03 09:43 | Outpatient (BNVA) | payer MEDICARE, MEDICAID, SELFPAY | PROVIDERS: PCP Internal Medicine; Visit Provider Physician Assistant Surgical ==

== ENCOUNTER → 2022-09-24 09:07 | Outpatient (BNVA) | payer MEDICARE, MEDICAID, SELFPAY | PROVIDERS: PCP Internal Medicine; Referring Provider Internal Medicine; Visit Provider Physician Assistant Surgical ==

== ENCOUNTER → 2022-10-01 08:57 | Outpatient (BNVA) | payer MEDICARE, MEDICAID, SELFPAY | PROVIDERS: PCP Internal Medicine; Referring Provider Internal Medicine; Visit Provider Physician Assistant ==

== ENCOUNTER 2022-10-02 20:44 | Emergency (ER) | payer MEDICARE, MEDICAID, SELFPAY ==
--- NOTE | 2022-10-02 | ECG_ITS ---
Test Reason : SEIZURE Blood Pressure : / mmHG Vent. Rate : 100 BPM Atrial Rate : 000 BPM P-R Int : 000 ms QRS Dur : 080 ms QT Int : 368 ms P-R-T Axes : 000 -09 055 degrees QTc Int : 474 ms Atrial fibrillation Low voltage QRS Possible Inferior infarct , age undetermined Cannot rule out Anterior infarct (cited on or before 18-JUN-2019) Abnormal ECG When compared with ECG of 23-APR-2021 08:46, Borderline criteria for Inferior infarct are now Present Questionable change in initial forces of Septal leads Nonspecific T wave abnormality has replaced inverted T waves in Anterior leads Referred By: Generic ED Physician Electronically Signed By:Pako Pleitez
[2022-10-02 20:54] VITALS: BP 124/83; BP 166/86; PULSE 102; PULSE 120; RESP 15; TEMP 37; O2SAT 94; O2SAT 99; BMI 75.1
[2022-10-02 21:00] LABS: Glucose, Whole Blood 171 mg/dL (60-115)
[2022-10-02 21:12] LABS: MANUAL DIFF FLAG NO
[2022-10-02 21:15] LABS: Basophils Percent Auto 0.5 % (0-2); Eosinophils Absolute Auto 0.2 X10*3/uL (0.0-0.4); Eosinophils Percent Auto 1.7 % (0-4); Hematocrit 43.9 % (42.0-52.0); Hemoglobin 14.8 g/dl (14.0-18.0); Imm Gran Abs Auto 0.03 X10*3/uL (0.00-0.03); Imm Gran Pct Auto 0.3 % (0.0-0.4); Lymphocytes Absolute Auto 1.9 X10*3/uL (1.2-4.9); Lymphocytes Percent Auto 21.1 % (20-40); Mean Corpuscular HGB Conc 33.7 g/dl (31.0-36.0); Mean Corpuscular Hemoglobin 29.1 pg (27.0-33.0); Mean Corpuscular Volume 86.2 fL (80.0-98.0); Mean Platelet Volume 12.3 fL (9.4-12.4); Monocytes Absolute Auto 0.8 X10*3/uL (0.1-1.2); Monocytes Percent Auto 8.8 % (2-11); Neutrophils Percent Auto 67.6 % (45-73); Platelet Count 147 X10*3/uL (160-400); Red Blood Count 5.09 X10*6/uL (4.60-5.80); Red Cell Distribution Width 13.3 % (11.0-16.0); White Blood Count 8.8 X10*3/uL (4.8-10.8)
[2022-10-02 21:24] LABS: INTERNATIONAL NORM RATIO 1.2 (0.9-1.1); Prothrombin Time 13.5 SEC (10.0-13.1)
[2022-10-02 21:27] LABS: Partial Thromboplastin Time 26.9 SEC (26.0-36.4)
[2022-10-02 21:31] LABS: Alanine Aminotransferase 17 U/L (0-40); Albumin Level 4.3 g/dL (3.5-5.0); Alkaline Phosphatase 179 U/L (39-117); Anion Gap 20 (12-20); Aspartate Amino Transferase 21 U/L (5-37); Bilirubin Total 0.6 mg/dL (0.0-1.0); Blood Urea Nitrogen 19 mg/dL (9-16); Calcium 9.4 mg/dL (8.4-10.2); Carbon Dioxide 19 mmol/L (22-29); Chloride 105 mmol/L (96-108); Creatinine Clr Calc Pharmacy 179.1; Estimated Glomerular Filt Rate > 60; Ethanol < 10 mg/dL; Glucose Random 175 mg/dL (60-115); Sodium 140 mmol/L (135-145); Total Protein 7.6 g/dL (6.5-8.0)
[2022-10-02 21:31] LABS: Phenytoin Dilantin 5.1 ug/mL (10.0-20.0)
--- NOTE | 2022-10-02 21:31 | ED.SEIZURE ---
HPI - Seizure General Chief Complaint: Seizure Stated Complaint: seizures Time Seen by Provider: 10/02/22 21:04 Source: patient, family and EMS Mode of arrival: EMS Limitations: altered mental status (Postictal) History of Present Illness HPI Narrative: 47-year-old male with history of seizure disorder presents with reportedly 8 3 seizures today. Patient is currently postictal. His seizures were witnessed. One of which was on route by EMS. Patient is describing this morning to be discharged at this time needing P over son. According to family, and son may have left some time ago leaving him in emotional distress. When patient is more stressed, his seizures become increasingly more frequent. Patient is on blood thinning medications for atrial fibrillation. Patient does describe a moderate headache. The headache is generalized. Does not radiate. Not associated with neck pain or stiffness. No focal deficits. Patient denies any falls or injury. No reports of injuries either. Patient denies any numbness or tingling. He denies any photo or phonophobia. Patient reportedly had his Dilantin level lower due to her suprapubic therapeutic level. There are no reports of drugs or alcohol abuse. Seizure History: Yes Place: Home Related Data Home Medications Medication Instructions Recorded Confirmed insulin aspart U-100 100 unit/mL See Protocol subcut TID 02/28/20 08/11/22 (3 mL) subcutaneous pen (Novolog FlexPen U-100 Insulin aspart) phenytoin sodium extended 100 mg 700 mg PO BID 02/23/21 08/11/22 capsule (Dilantin Extended) atorvastatin 20 mg tablet 20 mg PO DAILY 03/05/21 08/11/22 furosemide 40 mg tablet 1 tab PO BID 04/23/21 08/11/22 nystatin 100,000 unit/gram topical topical 06/08/21 08/11/22 cream oxycodone 10 mg tablet 15 mg PO TID PRN 01/18/22 08/11/22 lorazepam 1 mg tablet mg PO 08/26/22 metoprolol succinate 25 mg 50 mg PO DAILY 08/26/22 tablet,extended release 24 hr ondansetron 4 mg disintegrating mg PO 08/26/22 tablet triamcinolone acetonide 0.5 % appl topical 08/26/22 topical cream Previous Rx's Medication Instructions Recorded apixaban 5 mg tablet (Eliquis) 5 mg PO BID #60 tabs 04/29/21 Allergies Allergy/AdvReac Type Severity Reaction Status Date / Time codeine [Codeine] Allergy Unknown RASH, hives Verified 08/26/22 11:02 ibuprofen [From Motrin] Allergy Unknown HIVES Verified 08/26/22 11:02 Review of Systems Review of Systems: CONSTITUTIONAL: Positive weight loss, negative fever and chills. HEENT: Denies changes in vision and hearing. RESPIRATORY: Denies SOB and cough. CV: Denies palpitations no CP. GI: Denies abdominal pain, nausea, vomiting and diarrhea. : Denies dysuria and urinary frequency. MSK: Denies myalgia and joint pain. SKIN: Denies rash and pruritus. NEUROLOGICAL: Denies headache and syncope. PSYCHIATRIC: Denies recent changes in mood. Denies anxiety and depression. All other ROS are negative unless in HPI PMFSH Past Medical History Medical History A-fib Aftercare following bilateral ankle joint replacement surgery Brain tumor Diabetes Hypoxemia Morbid obesity Morbid obesity with body mass index (BMI) greater than or equal to 70 in adult NORIS (obstructive sleep apnea) NORIS (obstructive sleep apnea) Persistent atrial fibrillation Pulmonary arterial hypertension Right hand dominant Seizure disorder Shortness of breath Sleep apnea, obstructive Surgical History History of ankle surgery Family History Family History Paternal Grandmother Myocardial infarction Maternal Grandfather Myocardial infarction Brother No problems noted. Sister No problems noted. Sister No problems noted. Social History Social History Household Members: Family Housing: House Do you presently have visiting nurse or other home services: No Alcohol intake: never Patient Tobacco Use Status: Never used Tobacco Smoked in Last 30 Days: No Use of substances other than those prescribed or required for medical reasons: No Advance Directives: No Advance Directives Information Provided: Yes service: No Current occupational status: disabled Current occupation: Rt handed Physical Exam Vital Signs: Vital Signs: Last Vital Signs Temp 98.6 F 10/02/22 20:54 Pulse 85 10/02/22 22:00 Resp 18 10/02/22 22:00 BP 118/73 10/02/22 22:00 Pulse Ox 94 10/02/22 22:00 O2 Del Method Room Air 10/02/22 20:54 BMI result Body Mass Index 75.1 GEN: Morbidly obese, + acute distress, alert, oriented HEENT: Normocephalic, atraumatic, normal external ears, nose appears normal, no oropharyngeal edema or exudates Eyes: Normal to appearance Neck: Supple, no lymphadenopathy Respiratory: Talks in complete sentences, no respiratory distress, clear to auscultation bilaterally Cardiovascular: Regular rate and rhythm, no murmurs rubs or gallops Abdomen: Soft, nontender, nondistended, no guarding, no rebound Back: No CVA tenderness Extremities: No clubbing cyanosis or edema Neurologic: No focal neurologic deficits, cranial nerves 2-12 intact, strength is 5/5 bilaterally Skin: No rash Course Course Course Narrative: Patient presents what appears to be a postictal, anxious state. His heart rate is irregularly irregular. You slightly tachycardic. He is otherwise no evidence of trauma or injury. He according to family, patient is postictal patient will have laboratory analysis, blood sugar, check a Dilantin level frequent re-evaluations. Reevaluation(s) Reevaluation #1: I was informed by CT scan that patient is too heavy for either of her CT scan machines in the department or in the hospital. Time: 21:36 Reevaluation #2: Patient appears to be doing much better at this time. Still has some slight confusion. His Dilantin was loaded at this time. He has a significant amount of care at home. Will discharge home to follow up as needed. Patient has been counseled not to drive. Parent lead does not drive in any event. Time: 23:43 Medications Administered Discontinued Medications Generic Name Dose Route Start Last Admin Trade Name Freq PRN Reason Stop Dose Admin Phenytoin Sodium 500 mg/ 110 mls @ 100 mls/hr 10/02/22 21:48 10/02/22 23:34 Sodium Chloride IV 10/02/22 22:53 Infused ONCE ONE Infusion Medical Decision Making Medical Decision Making [facility] Narrative: Patient presents with seizure. Had patient has a history of seizure disorder, is on blood thinning medications with atrial fibrillation. Patient appears to be anxious and possibly postictal. According to family, he is in fact postictal. Differential diagnosis includes medication noncompliance, alcohol use, pseudo-seizure, hyponatremia, electrolyte abnormality, hypoglycemia, stress reaction. There are no focal deficits. There is no evidence of trauma. Would like to get a CT scan given seizure as well as on blood thinning medications. The meantime, will continue to monitor infrequently check patient. Differential Diagnosis Differential Diagnoses: The differential diagnosis associated with the presentation includes (See above) Admission/Observation Consideration of admission/observation: Escalation of care including admission/observation considered Lab Data MDM Lab Attestation statement: I reviewed the patient's lab results. 10/02/22 21:07 10/02/22 21:07 Labs: Lab Results 10/02/22 10/02/22 10/02/22 Range/Units 20:57 21:07 21:07 WBC 8.8 (4.8-10.8) X10*3/uL RBC 5.09 (4.60-5.80) X10*6/uL Hgb 14.8 (14.0-18.0) g/dl Hct 43.9 (42.0-52.0) % MCV 86.2 (80.0-98.0) fL MCH 29.1 (27.0-33.0) pg MCHC 33.7 (31.0-36.0) g/dl RDW 13.3 (11.0-16.0) % Plt Count 147 L (160-400) X10*3/uL MPV 12.3 (9.4-12.4) fL Immature Gran % (Auto) 0.3 (0.0-0.4) % Neut % (Auto) 67.6 (45-73) % Lymph % (Auto) 21.1 (20-40) % Metcalfe % (Auto) 8.8 (2-11) % Eos % (Auto) 1.7 (0-4) % Baso % (Auto) 0.5 (0-2) % Lymph # (Auto) 1.9 (1.2-4.9) X10*3/uL Metcalfe # (Auto) 0.8 (0.1-1.2) X10*3/uL Eos # (Auto) 0.2 (0.0-0.4) X10*3/uL Baso # (Auto) 0.0 (0.0-0.2) X10*3/uL Abs Immat Gran (auto) 0.03 (0.00-0.03) X10*3/uL Absolute Neuts (auto) 6.0 (2.0-8.3) x10*3/uL Absolute Nucleated RBC 0.000 (0.0-0.012) X10*3/uL Nucleated RBC % (auto) 0.0 (0.0-0.2) /100WBC PT 13.5 H (10.0-13.1) SEC INR 1.2 H (0.9-1.1) APTT 26.9 (26.0-36.4) SEC Sodium (135-145) mmol/L Potassium (3.3-5.1) mmol/L Chloride (96-108) mmol/L Carbon Dioxide (22-29) mmol/L Anion Gap (12-20) BUN (9-16) mg/dL Creatinine (0.5-1.4) mg/dL Estim Creat Clear Calc Estimated GFR POC Glucose 171 H (60-115) mg/dL Random Glucose (60-115) mg/dL Calcium (8.4-10.2) mg/dL Total Bilirubin (0.0-1.0) mg/dL AST (5-37) U/L ALT (0-40) U/L Alkaline Phosphatase (39-117) U/L Troponin I High Sens (<3.5-35.0) ng/L Total Protein (6.5-8.0) g/dL Albumin (3.5-5.0) g/dL Phenytoin (10.0-20.0) ug/mL Ethyl Alcohol mg/dL 10/02/22 10/02/22 10/02/22 Range/Units 21:07 21:07 21:08 WBC (4.8-10.8) X10*3/uL RBC (4.60-5.80) X10*6/uL Hgb (14.0-18.0) g/dl Hct (42.0-52.0) % MCV (80.0-98.0) fL MCH (27.0-33.0) pg MCHC (31.0-36.0) g/dl RDW (11.0-16.0) % Plt Count (160-400) X10*3/uL MPV (9.4-12.4) fL Immature Gran % (Auto) (0.0-0.4) % Neut % (Auto) (45-73) % Lymph % (Auto) (20-40) % Metcalfe % (Auto) (2-11) % Eos % (Auto) (0-4) % Baso % (Auto) (0-2) % Lymph # (Auto) (1.2-4.9) X10*3/uL Metcalfe # (Auto) (0.1-1.2) X10*3/uL Eos # (Auto) (0.0-0.4) X10*3/uL Baso # (Auto) (0.0-0.2) X10*3/uL Abs Immat Gran (auto) (0.00-0.03) X10*3/uL Absolute Neuts (auto) (2.0-8.3) x10*3/uL Absolute Nucleated RBC (0.0-0.012) X10*3/uL Nucleated RBC % (auto) (0.0-0.2) /100WBC PT (10.0-13.1) SEC INR (0.9-1.1) APTT (26.0-36.4) SEC Sodium 140 (135-145) mmol/L Potassium 4.0 (3.3-5.1) mmol/L Chloride 105 (96-108) mmol/L Carbon Dioxide 19 L (22-29) mmol/L Anion Gap 20 (12-20) BUN 19 H (9-16) mg/dL Creatinine 1.06 (0.5-1.4) mg/dL Estim Creat Clear Calc 179.1 Estimated GFR > 60 POC Glucose (60-115) mg/dL Random Glucose 175 H (60-115) mg/dL Calcium 9.4 (8.4-10.2) mg/dL Total Bilirubin 0.6 (0.0-1.0) mg/dL AST 21 (5-37) U/L ALT 17 (0-40) U/L Alkaline Phosphatase 179 H (39-117) U/L Troponin I High Sens 2.9 (<3.5-35.0) ng/L Total Protein 7.6 (6.5-8.0) g/dL Albumin 4.3 (3.5-5.0) g/dL Phenytoin 5.1 L* (10.0-20.0) ug/mL Ethyl Alcohol < 10 mg/dL Independent Interpretation I performed an independent interpretation of an: EKG (Atrial fibrillation heart rate 100, low voltage, no acute ST elevations depressions, nonspecific T-wave changes) Independent Historian Clinical information obtained from an independent historian. History obtained from or confirmed by: EMS and Other (Son, sister) Tests considered The following testing was considered but not selected: CT/MRI Prescription Management I considered prescription management with: Other (Anxiety medications, seizure medications) Chronic Conditions Patient?s care impacted by: Other (Seizure disorder, atrial fibrillation, sleep apnea) Discharge Plan Discharge Clinical Impression: Generalized seizure Patient Disposition: Still a Patient Instructions: Recurrent Seizures in Adults (ED) Prescriptions: No Action furosemide 40 mg tablet 1 tab PO BID Eliquis 5 mg Tablet 5 mg PO BID Qty: 60 0RF insulin aspart U-100 [Novolog FlexPen U-100 Insulin] 100 unit/mL (3 mL) insulin pen See Protocol subcut TID Protocol: Insulin Correction Scale Less than or equal to 110 ---- Give (units): 0 111 to 150 Give (units): 0 151 to 200 Give (units): 2 201 to 250 Give (units): 4 251 to 300 Give (units): 6 301 to 350 Give (units): 8 Greater than 350 Give (units): 10 Call MD if Blood Glucose > : 350 Patient Comments: pt takes as needed phenytoin sodium extended [Dilantin Extended] 100 mg capsule 700 mg PO BID atorvastatin 20 mg tablet 20 mg PO DAILY nystatin 100,000 unit/gram cream topical oxycodone 10 mg tablet 15 mg PO TID PRN ondansetron 4 mg tablet,disintegrating PO triamcinolone acetonide 0.5 % cream topical metoprolol succinate 25 mg tablet extended release 24 hr 50 mg PO DAILY Protocol: Hold for SBP/HR < HOLD for SBP < : 90 HOLD for HR < : 60 lorazepam 1 mg tablet PO Referrals: Gt Menendez MD [Primary Care Provider] - 3 days
[2022-10-02 21:36] LABS: Troponin-I High Sensitivity 2.9 ng/L (<3.5-35.0)
[2022-10-02 22:00] VITALS: BP 118/73; PULSE 85; RESP 18; O2SAT 94
[2022-10-02] MEDS: Phenytoin Sodium 500 MG in 0.9 % Sodium Chloride 100 ML 100 MG IV (22:05)
--- NOTE | 2022-10-02 23:34 | PC.NURSE ---
Pt mentation continues to imrpvoe, cooperative with staff and compliant with treatments and assessments at this time. Pt remains with some loss of events today, and confusing events from last few days, but otherwise cooperative.
== END 2022-10-03 00:24 | disposition still patient (30) ==
PROVIDERS: Emergency Provider Emergency Medicine; PCP Internal Medicine
DX: G40.409 Other generalized epilepsy and epileptic syndromes, not intractable, without status epilepticus (principal); E11.9 Type 2 diabetes mellitus without complications; I48.19 Other persistent atrial fibrillation; E66.01 Morbid (severe) obesity due to excess calories; Z68.45 Body mass index [BMI] 70 or greater, adult; Z86.711 Personal history of pulmonary embolism; Z79.01 Long term (current) use of anticoagulants; Z79.4 Long term (current) use of insulin; Z79.02 Long term (current) use of antithrombotics/antiplatelets; Z79.899 Other long term (current) drug therapy
CPT/HCPCS: 36415; 80053; 80185; 80307; 82947; 84484; 85025; 85610; 85730; 93005; 96365; 99284; 99285

== ENCOUNTER → 2022-10-08 09:03 | Outpatient (BNVA) | payer MEDICARE, MEDICAID, SELFPAY | PROVIDERS: PCP Internal Medicine; Visit Provider Physician Assistant Surgical ==

== ENCOUNTER → 2022-10-15 08:44 | Outpatient (BNVA) | payer MEDICARE, MEDICAID, SELFPAY | PROVIDERS: PCP Internal Medicine; Visit Provider Physician Assistant Surgical ==

== ENCOUNTER 2022-10-20 13:12 | Outpatient (REF) | payer MEDICARE, MEDICAID, SELFPAY ==
[2022-10-20 14:54] LABS: Phenytoin Dilantin 17.4 ug/mL (10.0-20.0)
== END 2022-10-20 13:13 | disposition home or self-care (01) ==
LOC: HO.HMGCLDS 13:12
PROVIDERS: PCP Internal Medicine; Visit Provider Internal Medicine
DX: R56.9 Unspecified convulsions (principal)
CPT/HCPCS: 36415; 80185

== ENCOUNTER → 2022-10-21 08:17 | Outpatient (BNVA) | payer MEDICARE, MEDICAID, SELFPAY | PROVIDERS: PCP Internal Medicine; Visit Provider Physician Assistant Surgical | DX: E66.01 Morbid (severe) obesity due to excess calories (principal); G40.909 Epilepsy, unspecified, not intractable, without status epilepticus; Z68.45 Body mass index [BMI] 70 or greater, adult | CPT/HCPCS: 99212 ==

== ENCOUNTER → 2022-10-22 08:25 | Outpatient (BNVA) | payer MEDICARE, MEDICAID, SELFPAY | PROVIDERS: PCP Internal Medicine; Visit Provider Physician Assistant Surgical ==

== ENCOUNTER → 2022-11-12 08:37 | Outpatient (BNVA) | payer MEDICARE, MEDICAID, SELFPAY | PROVIDERS: PCP Internal Medicine; Visit Provider Physician Assistant Surgical ==

== ENCOUNTER 2022-11-12 09:15 | Observation (INO) | payer MEDICARE, MEDICAID, SELFPAY ==
[2022-11-12] VITALS (9 sets, daily range): BP systolic 142–169; BP diastolic 91–106; PULSE 69–124; RESP 18–22; TEMP 35.8–36.8; O2SAT 90–100; BMI 75.8; BMI 74.1
--- NOTE | 2022-11-12 09:22 | ECG_ITS ---
Test Reason : cp Blood Pressure : / mmHG Vent. Rate : 087 BPM Atrial Rate : 000 BPM P-R Int : 000 ms QRS Dur : 090 ms QT Int : 394 ms P-R-T Axes : 000 001 135 degrees QTc Int : 474 ms Atrial fibrillation Low voltage QRS Inferior infarct (cited on or before 18-JUN-2019) Cannot rule out Anterior infarct (cited on or before 18-JUN-2019) Abnormal ECG When compared with ECG of 02-OCT-2022 20:56, No significant change was found Referred By: Sage Rutledge Electronically Signed By:Pako Pleitez
[2022-11-12 09:24] LABS: Glucose, Whole Blood 196 mg/dL (60-115)
--- NOTE | 2022-11-12 09:27 | ED_ITS ---
HPI - Seizure General Chief Complaint: Seizure Stated Complaint: seizure Time Seen by Provider: 11/12/22 09:20 History of Present Illness HPI Narrative: This is a 47 years old brought in as a rapid response from the bariatric clinic after seizure, the patient does have history of epilepsy I understand he is on Dilantin 700 b.i.d. prescribed by PCP, per family does no see neurology macario martel, per family as daily seizure. He has been seen in this emergency room for seizure he was here April 2022 and September 2022. He arrives postictal I received the in the clinic 4 mg of Ativan IM x2 complaint: seizure Description of Episode: tonic-clonic movement Witnessed: Yes - by Bystander Trauma: No Seizure History: Yes Place: bariatric clinic Possible Precipitating Event: none Related Data Home Medications Medication Instructions Recorded Confirmed insulin aspart U-100 100 unit/mL See Protocol subcut TID 02/28/20 10/21/22 (3 mL) subcutaneous pen (Novolog FlexPen U-100 Insulin aspart) phenytoin sodium extended 100 mg 700 mg PO BID 02/23/21 10/21/22 capsule (Dilantin Extended) atorvastatin 20 mg tablet 20 mg PO DAILY 03/05/21 10/21/22 furosemide 40 mg tablet 1 tab PO BID 04/23/21 10/21/22 nystatin 100,000 unit/gram topical topical 06/08/21 10/21/22 cream oxycodone 10 mg tablet 15 mg PO TID PRN 01/18/22 10/21/22 lorazepam 1 mg tablet mg PO 08/26/22 10/21/22 metoprolol succinate 25 mg 50 mg PO DAILY 08/26/22 10/21/22 tablet,extended release 24 hr ondansetron 4 mg disintegrating mg PO 08/26/22 10/21/22 tablet triamcinolone acetonide 0.5 % appl topical 08/26/22 10/21/22 topical cream Previous Rx's Medication Instructions Recorded apixaban 5 mg tablet (Eliquis) 5 mg PO BID #60 tabs 04/29/21 Allergies Allergy/AdvReac Type Severity Reaction Status Date / Time codeine [Codeine] Allergy Unknown RASH, hives Verified 10/21/22 08:21 ibuprofen [From Motrin] Allergy Unknown HIVES Verified 10/21/22 08:21 Review of Systems Review of Systems: Yes Unobtainable due to mental condition PMFSH Past Medical History Medical History A-fib Aftercare following bilateral ankle joint replacement surgery Brain tumor Diabetes Hypoxemia Morbid obesity Morbid obesity with body mass index (BMI) greater than or equal to 70 in adult NORIS (obstructive sleep apnea) NORIS (obstructive sleep apnea) Persistent atrial fibrillation Pulmonary arterial hypertension Right hand dominant Seizure disorder Shortness of breath Sleep apnea, obstructive Surgical History History of ankle surgery Family History Family History Paternal Grandmother Myocardial infarction Maternal Grandfather Myocardial infarction Brother No problems noted. Sister No problems noted. Sister No problems noted. Social History Social History Household Members: Family Housing: House Do you presently have visiting nurse or other home services: No Alcohol intake: never Patient Tobacco Use Status: Never used Tobacco Smoked in Last 30 Days: No Use of substances other than those prescribed or required for medical reasons: No Advance Directives: No Advance Directives Information Provided: Yes service: No Current occupational status: disabled Current occupation: Rt handed Physical Exam Vital Signs: Vital Signs: Last Vital Signs Temp 98.0 F 11/12/22 09:19 Pulse 81 11/12/22 15:56 Resp 20 11/12/22 15:56 BP 145/91 H 11/12/22 11:37 Pulse Ox 95 11/12/22 15:56 O2 Del Method Room Air 11/12/22 15:56 O2 Flow Rate 2 11/12/22 09:26 BMI result Body Mass Index 74.1 Const: General: other (post ictal) Nutritional Appearance: well nourished HEENT: Other: No facial injury Head: Yes atraumatic Face and sinus: Yes normal facial exam Mouth: Normal oral and palatal mucosa present Throat: Yes posterior oropharynx normal Neck: Neck: Yes normal visual inspection Thyroid: Thyroid normal Chest: Chest palpation & inspection: normal inspection of the chest Resp: Effort & Inspection: normal respiratory effort Auscultation: clear to auscultation bilaterally Cardio: Jugular venous distension: no JVD Rate: regular rate Rhythm: regular rhythm GI: Inspection: Yes normal to inspection Palpation (GI): Soft to palpation, not firm and nontender Skin: General skin exam: no rashes or lesions noted Lesions: no lesions Rashes: no rashes Hair: normal Nails: normal Neuro: Other: Patient is postictal at this time does no follow command Cranial nerves: Yes CN's II-XII intact bilaterally Gait exam (Neuro): Normal gait present Course Reevaluation(s) Reevaluation #1: doing better ,spoke with sister ,spoke with Dr Uriarte neurologist Time: 15:32 Reevaluation #2: Patient had multiple seizure the emergency room he was loaded with Keppra, discussed the case with the configuration manager for possible ICU admission he will see the patient in the ED Time: 17:14 Medications Administered Discontinued Medications Generic Name Dose Route Start Last Admin Trade Name Freq PRN Reason Stop Dose Admin Carbamazepine 400 mg 11/12/22 12:16 11/12/22 13:19 Carbamazepine 200 Mg Tablet PO 11/12/22 12:17 400 mg ONCE ONE Administration Carbamazepine 200 mg 11/12/22 15:31 11/12/22 15:58 Carbamazepine 200 Mg Tablet PO 11/12/22 15:32 200 mg ONCE ONE Administration Sodium Chloride 1,000 mls @ 999 mls/hr 11/12/22 09:30 11/12/22 13:21 Ns IVCONT 11/12/22 10:30 Infused .Q1H1M DANDY Infusion Levetiracetam 1,500 mg 11/12/22 15:40 11/12/22 15:59 Levetiracetam 1,000 Mg Tablet PO 11/12/22 15:41 1,500 mg ONCE ONE Administration Medical Decision Making Medical Decision Making [facility] Narrative: Patient presented with multiple seizure receive a mg of IM Ativan pre-ED remained postictal ,he had further seizure in the the emergency room was given IV Keppra IV Depakote Differential Diagnosis Differential Diagnoses: The differential diagnosis associated with the presentation includes Status epilepticus/hyponatremia hypernatremia Admission/Observation Consideration of admission/observation: Escalation of care including admission/observation considered Consult Healthcare Provider I consulted the configuration manager Lab Data 11/12/22 09:21 11/12/22 09:21 Labs: Lab Results 11/12/22 11/12/22 11/12/22 Range/Units 09:18 09:21 09:21 WBC 7.5 (4.8-10.8) X10*3/uL RBC 5.29 (4.60-5.80) X10*6/uL Hgb 15.3 (14.0-18.0) g/dl Hct 48.0 (42.0-52.0) % MCV 90.7 (80.0-98.0) fL MCH 28.9 (27.0-33.0) pg MCHC 31.9 (31.0-36.0) g/dl RDW 13.9 (11.0-16.0) % Plt Count 191 D (160-400) X10*3/uL MPV 11.8 (9.4-12.4) fL Immature Gran % (Auto) 0.7 H (0.0-0.4) % Neut % (Auto) 57.7 (45-73) % Lymph % (Auto) 29.9 (20-40) % Boyd % (Auto) 8.9 (2-11) % Eos % (Auto) 2.4 (0-4) % Baso % (Auto) 0.4 (0-2) % Lymph # (Auto) 2.2 (1.2-4.9) X10*3/uL Boyd # (Auto) 0.7 (0.1-1.2) X10*3/uL Eos # (Auto) 0.2 (0.0-0.4) X10*3/uL Baso # (Auto) 0.0 (0.0-0.2) X10*3/uL Abs Immat Gran (auto) 0.05 H (0.00-0.03) X10*3/uL Absolute Neuts (auto) 4.3 (2.0-8.3) x10*3/uL Absolute Nucleated RBC 0.000 (0.0-0.012) X10*3/uL Nucleated RBC % (auto) 0.0 (0.0-0.2) /100WBC Sodium 141 (135-145) mmol/L Potassium 3.5 (3.3-5.1) mmol/L Chloride 102 (96-108) mmol/L Carbon Dioxide 23 (22-29) mmol/L Anion Gap 20 (12-20) BUN 21 H (9-16) mg/dL Creatinine 1.13 (0.5-1.4) mg/dL Estim Creat Clear Calc 169.1 Estimated GFR > 60 POC Glucose 196 H (60-115) mg/dL Random Glucose 197 H (60-115) mg/dL Calcium 9.5 (8.4-10.2) mg/dL Magnesium 2.0 (1.6-2.6) mg/dL Total Bilirubin 0.3 (0.0-1.0) mg/dL AST 25 (5-37) U/L ALT 27 (0-40) U/L Alkaline Phosphatase 181 H (39-117) U/L Total Protein 8.1 H (6.5-8.0) g/dL Albumin 4.6 (3.5-5.0) g/dL Phenytoin (10.0-20.0) ug/mL Carbamazepine (5.0-12.0) mcg/mL 11/12/22 11/12/22 Range/Units 09:21 12:53 WBC (4.8-10.8) X10*3/uL RBC (4.60-5.80) X10*6/uL Hgb (14.0-18.0) g/dl Hct (42.0-52.0) % MCV (80.0-98.0) fL MCH (27.0-33.0) pg MCHC (31.0-36.0) g/dl RDW (11.0-16.0) % Plt Count (160-400) X10*3/uL MPV (9.4-12.4) fL Immature Gran % (Auto) (0.0-0.4) % Neut % (Auto) (45-73) % Lymph % (Auto) (20-40) % Boyd % (Auto) (2-11) % Eos % (Auto) (0-4) % Baso % (Auto) (0-2) % Lymph # (Auto) (1.2-4.9) X10*3/uL Boyd # (Auto) (0.1-1.2) X10*3/uL Eos # (Auto) (0.0-0.4) X10*3/uL Baso # (Auto) (0.0-0.2) X10*3/uL Abs Immat Gran (auto) (0.00-0.03) X10*3/uL Absolute Neuts (auto) (2.0-8.3) x10*3/uL Absolute Nucleated RBC (0.0-0.012) X10*3/uL Nucleated RBC % (auto) (0.0-0.2) /100WBC Sodium (135-145) mmol/L Potassium (3.3-5.1) mmol/L Chloride (96-108) mmol/L Carbon Dioxide (22-29) mmol/L Anion Gap (12-20) BUN (9-16) mg/dL Creatinine (0.5-1.4) mg/dL Estim Creat Clear Calc Estimated GFR POC Glucose (60-115) mg/dL Random Glucose (60-115) mg/dL Calcium (8.4-10.2) mg/dL Magnesium (1.6-2.6) mg/dL Total Bilirubin (0.0-1.0) mg/dL AST (5-37) U/L ALT (0-40) U/L Alkaline Phosphatase (39-117) U/L Total Protein (6.5-8.0) g/dL Albumin (3.5-5.0) g/dL Phenytoin 17.5 (10.0-20.0) ug/mL Carbamazepine 3.7 L 3.2 L* (5.0-12.0) mcg/mL ABG Data Attestation ABG: I personally reviewed and interpreted this ABG as follows: Independent Historian Clinical information obtained from an independent historian. History obtained from or confirmed by: Other (sister) External Record Review External record reviewed: Office record Chronic Conditions obesity Critical Care Time Critical Care Time Critical Care Time: Yes Total Critical Care Time: 60 Attestation: Speaking in the ICU/with the family Discharge Plan Discharge Clinical Impression: Seizure, Epileptic seizure Patient Disposition: Still a Patient Prescriptions: No Action furosemide 40 mg tablet 1 tab PO BID Eliquis 5 mg Tablet 5 mg PO BID Qty: 60 0RF insulin aspart U-100 [Novolog FlexPen U-100 Insulin] 100 unit/mL (3 mL) insulin pen See Protocol subcut TID Protocol: Insulin Correction Scale Less than or equal to 110 ---- Give (units): 0 111 to 150 Give (units): 0 151 to 200 Give (units): 2 201 to 250 Give (units): 4 251 to 300 Give (units): 6 301 to 350 Give (units): 8 Greater than 350 Give (units): 10 Call if Blood Glucose > : 350 Patient Comments: pt takes as needed phenytoin sodium extended [Dilantin Extended] 100 mg capsule 700 mg PO BID atorvastatin 20 mg tablet 20 mg PO DAILY nystatin 100,000 unit/gram cream topical oxycodone 10 mg tablet 15 mg PO TID PRN ondansetron 4 mg tablet,disintegrating PO triamcinolone acetonide 0.5 % cream topical metoprolol succinate 25 mg tablet extended release 24 hr 50 mg PO DAILY Protocol: Hold for SBP/HR < HOLD for SBP < : 90 HOLD for HR < : 60 lorazepam 1 mg tablet PO Referrals: Evita Cardoso MD [Physician] - 3 days
--- NOTE | 2022-11-12 09:28 | PC.NURSE ---
pt was an outpatient response call in bariatrics. 4mg im ativan given at 0855 per alvaro francois, 4mg im ativan given at 0910 per alvaro francois. pulled from 911 override and administered by brenton rivas.
[2022-11-12 09:39] LABS: MANUAL DIFF FLAG NO
[2022-11-12 09:41] LABS: Basophils Percent Auto 0.4 % (0-2); Eosinophils Absolute Auto 0.2 X10*3/uL (0.0-0.4); Eosinophils Percent Auto 2.4 % (0-4); Hemoglobin 15.3 g/dl (14.0-18.0); Imm Gran Abs Auto 0.05 X10*3/uL (0.00-0.03); Imm Gran Pct Auto 0.7 % (0.0-0.4); Lymphocytes Absolute Auto 2.2 X10*3/uL (1.2-4.9); Lymphocytes Percent Auto 29.9 % (20-40); Mean Corpuscular HGB Conc 31.9 g/dl (31.0-36.0); Mean Corpuscular Hemoglobin 28.9 pg (27.0-33.0); Mean Corpuscular Volume 90.7 fL (80.0-98.0); Mean Platelet Volume 11.8 fL (9.4-12.4); Monocytes Absolute Auto 0.7 X10*3/uL (0.1-1.2); Monocytes Percent Auto 8.9 % (2-11); Neutrophils Absolute Auto 4.3 x10*3/uL (2.0-8.3); Neutrophils Percent Auto 57.7 % (45-73); Platelet Count 191 X10*3/uL (160-400); Red Blood Count 5.29 X10*6/uL (4.60-5.80); Red Cell Distribution Width 13.9 % (11.0-16.0); White Blood Count 7.5 X10*3/uL (4.8-10.8)
[2022-11-12 09:55] LABS: Phenytoin Dilantin 17.5 ug/mL (10.0-20.0)
[2022-11-12 10:03] LABS: Alanine Aminotransferase 27 U/L (0-40); Albumin Level 4.6 g/dL (3.5-5.0); Alkaline Phosphatase 181 U/L (39-117); Anion Gap 20 (12-20); Aspartate Amino Transferase 25 U/L (5-37); Bilirubin Total 0.3 mg/dL (0.0-1.0); Blood Urea Nitrogen 21 mg/dL (9-16); Calcium 9.5 mg/dL (8.4-10.2); Carbon Dioxide 23 mmol/L (22-29); Chloride 102 mmol/L (96-108); Creatinine Clr Calc Pharmacy 169.1; Estimated Glomerular Filt Rate > 60; Glucose Random 197 mg/dL (60-115); Potassium 3.5 mmol/L (3.3-5.1); Sodium 141 mmol/L (135-145); Total Protein 8.1 g/dL (6.5-8.0)
[2022-11-12 11:38] LABS: Carbamazepine Tegretol 3.7 mcg/mL (5.0-12.0)
[2022-11-12] MEDS: 0.9 % Sodium Chloride 1,000 ML 999 ML IVCONT (11:41)
--- NOTE | 2022-11-12 11:42 | PC.NURSE ---
Alert and oriented. Reports carine taste in mouth which patient states is the taste he gets after his seizures. Denies pain or discomfort. Fluids running per order. Sons at bedside. VSS.
[2022-11-12] MEDS: carBAMazepine 200 MG TABLET 400 MG PO ×2 (13:19→21:40)
--- NOTE | 2022-11-12 13:33 | PC.NURSE ---
Alert and oriented. remains sleepy s/p seizure. Denies pain or discomfort. Son at bedside. PO seizure given per order
[2022-11-12 13:46] LABS: Carbamazepine Tegretol 3.2 mcg/mL (5.0-12.0)
--- NOTE | 2022-11-12 15:39 | PC.NURSE ---
noted seizure, md at bedside. verbal order for 1mg IV ativan. given per md order.
[2022-11-12] MEDS: carBAMazepine 200 MG TABLET PO (15:58)
[2022-11-12] MEDS: levETIRAcetam 1,000 MG TABLET 1500 MG PO (15:59)
--- NOTE | 2022-11-12 16:01 | PC.NURSE ---
po seizure meds as ordered, patient alert and oriented requesting to go home
--- NOTE | 2022-11-12 17:39 | PM.CCN ---
Critical Care Event Note Summary Date of Service: 11/12/22 Code activated: No Narrative: 47-year-old gentleman with underlying history of morbid obesity with BMI of 74, epilepsy remotely under care of Dr. Guevara, recently antiepileptics prescribed by his primary care including Dilantin, also recently started on carbamazepine noted to have seizure-like activity during his bariatric outpatient visit and transferred to emergency room for evaluation. On emergency room evaluation patient states that he has daily seizures and noted to have several episodes of tonic/clonic movements. Patient has been reloaded with Keppra, Valproate, and carbamazepine. On my evaluation patient is awake and alert and able to maintain a normal conversation. Blood gas with no evidence of CO2 retention and normal O2 saturation. Hemodynamics normal. Carbamazepine level is low. At this time patient does not require intensive care level of monitoring. Please notify for re-evaluation, if patient's condition changes. Critical Care Time (minutes): 0
[2022-11-12] MEDS: Valproic Acid (as Sodium Salt) 1,000 MG in Dextrose 5 % 50 ML 60 MG IV (18:20)
--- NOTE | 2022-11-12 18:59 | PM.IMHP ---
History of Present Illness Date of Service: 11/12/22 Attending physician on admission: Sam Perez Chief Complaint: breakthrough seizures 47-year-old male with history of insulin-dependent type 2 diabetes, history of brain tumor, persistent atrial fibrillation anticoagulated with Eliquis, epilepsy, obstructive sleep apnea compliant with CPAP, who is morbidly obese with BMI greater than 74 presents to the ED from the bariatric clinic after having a witnessed tonic clonic seizure. Patient has had at least 2 additional witnessed seizures in the ED with postictal state. On exam, patient is reportedly post ictal and is unable to provide much history but his sister, Mavis, is able to provide history. The patient is opening his eyes on command, not answering questions, hitting chest, mumbling want to go home . She states for the last 6 weeks, the patient has been having between 3-7 breakthrough seizures on a daily basis. She describes the seizures as tonic clonic with occasional urinary incontinence followed by postictal state. She reports he has been compliant with his phenytoin and was started on Tegretol by his PCP last week. He has not seen a neurologist in 15 years and his epilepsy has been managed solely by PCP. Since arrival, patient has been intermittently tachycardic to 124, vitals otherwise stable. Did develop brief hypoxia following seizure and was placed on 2 L supplemental O2 which she has been weaned from. Hematology studies unremarkable. Renal function and electrolyte levels normal. Glucose 196. Phenytoin level therapeutic at 17.5. Carbamazepine level subtherapeutic at 3.2. EKG shows atrial fibrillation, rate 87 without any acute ischemic changes. In the ED, patient loaded with 1000 mg Depakote and 1500 mg Keppra. He was also given a total of 600 mg carbamazepine and 1 L IV NS. He was evaluated by hand sewer who did not feel patient was post ictal nor in status epilepticus and did not require ICU level of care. Review of Systems Review of Systems: General: No fevers, malaise, unintentional weight loss HEENT: No blurred vision, diplopia. No sore throat, nasal congestion, rhinorrhea, sinus pain, ear pain Cardiovascular: No chest pain, palpitations, or leg edema Respiratory: No shortness of breath, wheezing, cough GI: No abdominal pain, nausea, vomiting, diarrhea, constipation, melena, hematochezia : No dysuria, hematuria, increased urinary frequency, decreased urinary output MSK: No myalgia, back pain Neuro: No headaches, weakness, paresthesias. +seizure Skin: No rashes or lesions [facility] Medical History A-fib Aftercare following bilateral ankle joint replacement surgery Brain tumor Diabetes Hypoxemia Morbid obesity Morbid obesity with body mass index (BMI) greater than or equal to 70 in adult NORIS (obstructive sleep apnea) NORIS (obstructive sleep apnea) Persistent atrial fibrillation Pulmonary arterial hypertension Right hand dominant Seizure disorder Shortness of breath Sleep apnea, obstructive Family History Paternal Grandmother Myocardial infarction Maternal Grandfather Myocardial infarction Brother No problems noted. Sister No problems noted. Sister No problems noted. Surgical History History of ankle surgery Social History Household Members: Family Housing: House Do you presently have visiting nurse or other home services: No Alcohol intake: never Patient Tobacco Use Status: Never used Tobacco Smoked in Last 30 Days: No Use of substances other than those prescribed or required for medical reasons: No Advance Directives: No Advance Directives Information Provided: Yes service: No Current occupational status: disabled Current occupation: Rt handed Meds Allergies Allergy/AdvReac Type Severity Reaction Status Date / Time codeine [Codeine] Allergy Unknown RASH, hives Verified 10/21/22 08:21 ibuprofen [From Motrin] Allergy Unknown HIVES Verified 10/21/22 08:21 Active Medications: Current Medications Acetaminophen (Acetaminophen 325 Mg Tablet) 650 mg PO Q6H PRN PRN Reason: Pain, Mild (Pain Scale 1-3) Docusate Sodium (Docusate Sodium 100 Mg Capsule) 100 mg PO DAILY PRN PRN Reason: Constipation Enoxaparin Sodium (Enoxaparin Sodium 40 Mg/0.4 Ml Syringe) 40 mg SUBCUT Q24H DANDY Ondansetron HCl (Ondansetron Hcl 4 Mg/2 Ml Vial) 4 mg IVPUSH Q8H PRN PRN Reason: Nausea and Vomiting Pharmacy Consult (Consult Rx Perform Med Rec) 1 each MISCELLANE ONCE PRN PRN Reason: Consult order Home Medications Medication Instructions Recorded Confirmed Last Taken Type phenytoin sodium extended 100 mg 700 mg PO BID 02/23/21 11/12/22 04/22/21 History capsule (Dilantin Extended) atorvastatin 20 mg tablet 20 mg PO BEDTIME 03/05/21 11/12/22 11/11/22 History nystatin 100,000 unit/gram topical 1 appl topical BID PRN Rash 06/08/21 11/12/22 Unknown History cream oxycodone 10 mg tablet 15 mg PO QID 01/18/22 11/12/22 Unknown History lorazepam 1 mg tablet 2 mg PO TID 08/26/22 11/12/22 11/12/22 History metoprolol succinate 25 mg 50 mg PO DAILY 08/26/22 11/12/22 Unknown History tablet,extended release 24 hr allopurinol 300 mg tablet 300 mg PO DAILY 11/12/22 11/12/22 Unknown History carbamazepine 200 mg tablet 400 mg PO BID 11/12/22 11/12/22 Unknown History Physical Exam Vital Signs and Narrative: Vital Signs: Last Vital Signs Temp 98.0 F 11/12/22 09:19 Pulse 124 H 11/12/22 18:34 Resp 18 11/12/22 18:34 BP 169/106 H 11/12/22 18:34 Pulse Ox 98 11/12/22 18:34 O2 Del Method Room Air 11/12/22 18:34 O2 Flow Rate 2 11/12/22 09:26 BMI result Body Mass Index 74.1 Constitutional - Awake and Alert, No apparent distress Eyes - PERRLA, EOMI Cardiovascular - S1S2, RRR, No edema Respiratory - Normal lung expansion, Normal respiratory effort, No respiratory distress, CTA bilaterally Gastrointestinal - NT / ND; +BS; No rebound or guarding Extremities - no calf tenderness bilaterally, no swelling Skin - Warm/Dry Neurological - Awake and reportedly post ictal, rolled on side hitting chest go home , eyes open on command, following some commands Psychological - Appropriate affect Results Labs 11/12/22 09:21 11/12/22 09:21 Labs: Laboratory Results - last 24 hr 11/12/22 11/12/22 11/12/22 09:18 09:21 09:21 MCV 90.7 MCH 28.9 MCHC 31.9 RDW 13.9 Plt Count 191 D MPV 11.8 Immature Gran % (Auto) 0.7 H Neut % (Auto) 57.7 Lymph % (Auto) 29.9 Stanley % (Auto) 8.9 Eos % (Auto) 2.4 Baso % (Auto) 0.4 Lymph # (Auto) 2.2 Stanley # (Auto) 0.7 Eos # (Auto) 0.2 Baso # (Auto) 0.0 Abs Immat Gran (auto) 0.05 H Absolute Neuts (auto) 4.3 Absolute Nucleated RBC 0.000 Nucleated RBC % (auto) 0.0 Anion Gap 20 Estim Creat Clear Calc 169.1 Estimated GFR > 60 POC Glucose 196 H Random Glucose 197 H Calcium 9.5 Magnesium 2.0 Total Bilirubin 0.3 AST 25 ALT 27 Alkaline Phosphatase 181 H Total Protein 8.1 H Albumin 4.6 Phenytoin Carbamazepine 11/12/22 11/12/22 09:21 12:53 MCV MCH MCHC RDW Plt Count MPV Immature Gran % (Auto) Neut % (Auto) Lymph % (Auto) Stanley % (Auto) Eos % (Auto) Baso % (Auto) Lymph # (Auto) Stanley # (Auto) Eos # (Auto) Baso # (Auto) Abs Immat Gran (auto) Absolute Neuts (auto) Absolute Nucleated RBC Nucleated RBC % (auto) Anion Gap Estim Creat Clear Calc Estimated GFR POC Glucose Random Glucose Calcium Magnesium Total Bilirubin AST ALT Alkaline Phosphatase Total Protein Albumin Phenytoin 17.5 Carbamazepine 3.7 L 3.2 L* Assessment and Plan (1) Seizure: Status: Acute Plan 47-year-old male with history of insulin-dependent type 2 diabetes, history of brain tumor, persistent atrial fibrillation anticoagulated with Eliquis, epilepsy, obstructive sleep apnea compliant with CPAP, who is morbidly obese with BMI greater than 74 to be observed for breakthrough seizure activity. #Epilepsy with breakthrough seizures -reported to have tonic clonic seizure with increase in frequency to 3-7 daily. Reportedly increased stress has been triggering the increase. ?component of pseudoseizures -Pt in post ictal state on exam per sister, however he is responding to verbal command though no meaningful verbal response -loaded with IV Depakote 1g, 1500mg Keppra, 600mg tegretol -Continue home tegretol and phenytoin. Continue PO keppra and depakote -neuro consult -eeg ordered -seizure precautions # persistent atrial fibrillation- intermittently tachycardic following seizure, but no sustained RVR -continue Eliquis -continue metoprolol # insulin-dependent type 2 diabetes -dose adjusted basal insulin -POC glucose -diabetic diet -Humalog on sliding scale # obstructive sleep apnea -CPAP at bedtime # morbid obesity with BMI greater than 74 -patient is following at bariatric surgery and has lost 80 lb -continue with healthy diet and exercise DVT prophylaxis-Eliquis Full code Time Spent With Patient Time: Total time managing care of this patient today ____ minutes. Quality Stroke Does the patient have a stroke diagnosis?: No VTE Prior VTE?: No VTE Risk Level:: Medical - moderate - high VTE Device Contraindication: Treatment Not Indicated VTE Drug Contraindication: N/A - Med Ordered
--- NOTE | 2022-11-12 19:40 | PC.NURSE ---
Assumed care for pt. Pt currently sleeping at the bedside in no apparent distress. Breaths are even regular and unlabored. Seizure precautions in place. Pending bed assignment. Will continue to monitor.
--- NOTE | 2022-11-12 19:59 | PHA.MEDREC ---
Pharmacy Consult ? Medication Reconciliation Pharmacy has completed the medication reconciliation.
[2022-11-12] MEDS: Phenytoin Sodium Extended 100 MG CAPSULE 700 MG PO (21:39)
[2022-11-12] MEDS: LORazepam 1 MG TABLET 2 MG PO (21:40)
[2022-11-12] MEDS: Atorvastatin Calcium 20 MG TABLET PO (21:40)
[2022-11-12] MEDS: Apixaban 5 MG TABLET PO (21:41)
[2022-11-12] MEDS: oxyCODONE HCl Immed Release 15 MG TABLET PO (21:44)
[2022-11-12 22:13] LABS: Glucose, Whole Blood 122 mg/dL (60-115)
[2022-11-13 01:12] VITALS: PULSE 97; O2SAT 95
[2022-11-13 03:22] VITALS: BP 141/81; PULSE 77; RESP 18; TEMP 36; O2SAT 94
[2022-11-13] MEDS: Valproic Acid (as Sodium Salt) 500 MG in Dextrose 5 % 50 ML 55 MG IV (06:22)
[2022-11-13 07:15] VITALS: BP 140/79; PULSE 82; RESP 18; TEMP 36.3; O2SAT 96
[2022-11-13 07:20] LABS: MANUAL DIFF FLAG NO
[2022-11-13 07:24] LABS: Basophils Percent Auto 0.7 % (0-2); Eosinophils Absolute Auto 0.2 X10*3/uL (0.0-0.4); Eosinophils Percent Auto 3.1 % (0-4); Hematocrit 42.3 % (42.0-52.0); Hemoglobin 13.8 g/dl (14.0-18.0); Imm Gran Abs Auto 0.03 X10*3/uL (0.00-0.03); Imm Gran Pct Auto 0.5 % (0.0-0.4); Lymphocytes Absolute Auto 1.8 X10*3/uL (1.2-4.9); Lymphocytes Percent Auto 31.6 % (20-40); Mean Corpuscular HGB Conc 32.6 g/dl (31.0-36.0); Mean Corpuscular Hemoglobin 29.4 pg (27.0-33.0); Monocytes Absolute Auto 0.5 X10*3/uL (0.1-1.2); Monocytes Percent Auto 8.5 % (2-11); Neutrophils Absolute Auto 3.2 x10*3/uL (2.0-8.3); Neutrophils Percent Auto 55.6 % (45-73); Platelet Count 141 X10*3/uL (160-400); Red Cell Distribution Width 13.9 % (11.0-16.0); White Blood Count 5.8 X10*3/uL (4.8-10.8)
[2022-11-13 07:33] LABS: Glucose, Whole Blood 146 mg/dL (60-115)
[2022-11-13 07:44] LABS: Anion Gap 10 (12-20); Blood Urea Nitrogen 12 mg/dL (9-16); Calcium 8.8 mg/dL (8.4-10.2); Carbon Dioxide 27 mmol/L (22-29); Chloride 108 mmol/L (96-108); Creatinine Clr Calc Pharmacy 254.3; Estimated Glomerular Filt Rate > 60; Glucose Random 139 mg/dL (60-115); Sodium 141 mmol/L (135-145)
[2022-11-13] MEDS: carBAMazepine 200 MG TABLET 400 MG PO ×2 (08:55→20:18)
[2022-11-13] MEDS: allopurinoL 300 MG TABLET PO (08:55)
[2022-11-13] MEDS: Phenytoin Sodium Extended 100 MG CAPSULE 700 MG PO ×2 (08:55→20:19)
[2022-11-13] MEDS: oxyCODONE HCl Immed Release 15 MG TABLET PO ×4 (08:56→20:19)
[2022-11-13] MEDS: LORazepam 1 MG TABLET 2 MG PO ×3 (08:56→20:19)
[2022-11-13] MEDS: Metoprolol Succinate ER 50 MG TAB.ER.24H PO (08:56)
[2022-11-13] MEDS: levETIRAcetam 1,000 MG TABLET 1000 MG PO (08:56)
[2022-11-13] MEDS: Apixaban 5 MG TABLET PO ×2 (08:57→20:21)
--- NOTE | 2022-11-13 09:07 | HO.PM.IMPN ---
Subjective Subjective Date of Service: 11/13/22 Interval History: doesnt remember yesterday Physical Exam Vital Signs: Vital Signs: Last Vital Signs Temp 97.4 F 11/13/22 07:15 Pulse 82 11/13/22 07:15 Resp 18 11/13/22 07:15 BP 140/79 H 11/13/22 07:15 Pulse Ox 96 11/13/22 07:15 O2 Del Method Room Air 11/13/22 07:15 O2 Flow Rate 2 11/12/22 09:26 BMI result Body Mass Index 74.1 General: AO X 3, no acute distress Resp: CTA bilateral, no accessory muscles used CVS: S1,S2,RRR GI: soft, non tender, non distended Neuro: motor grossly intact, alert Psych: appropriate affect, appropriate insight Objective Data Active Medications Acetaminophen (Acetaminophen 325 Mg Tablet) 650 mg PO Q6H PRN PRN Reason: Pain, Mild (Pain Scale 1-3) Allopurinol (Allopurinol 300 Mg Tablet) 300 mg PO DAILY [facility] Last Admin: 11/13/22 08:55 Dose: 300 mg Documented By: JOSELINE Apixaban (Apixaban 5 Mg Tablet) 5 mg PO BID [facility] Last Admin: 11/13/22 08:57 Dose: 5 mg Documented By: JOSELINE Atorvastatin Calcium (Atorvastatin Calcium 20 Mg Tablet) 20 mg PO BEDTIME [facility] Last Admin: 11/12/22 21:40 Dose: 20 mg Documented By: INEZ Carbamazepine (Carbamazepine 200 Mg Tablet) 400 mg PO BID [facility] Last Admin: 11/13/22 08:55 Dose: 400 mg Documented By: JOSELINE Dextrose (Dextrose 50 % 25 Gm/50 Ml Syringe) 25 gm IVPUSH Q15M PRN; Protocol PRN Reason: per Hypoglycemia Standing Ord. Docusate Sodium (Docusate Sodium 100 Mg Capsule) 100 mg PO DAILY PRN PRN Reason: Constipation Glucose (Glucose Gel 15 Gm Gel..Gram.) 15 gm PO Q15M PRN; Protocol PRN Reason: per Hypoglycemia Standing Ord. Valproic Acid 500 mg/ Dextrose 55 mls @ 55 mls/hr IV Q6H [facility] Last Infusion: 11/13/22 07:22 Dose: 0 mls/hr Documented By: JOSELINE Insulin Human Lispro (Insulin Lispro 100 Unit/Ml 3 Ml Vial) 0 unit SUBCUT QIDACHS [facility]; Protocol Last Admin: 11/13/22 07:40 Dose: Not Given Documented By: JOSELINE Non-Admin Reason: No Insulin Coverage Levetiracetam (Levetiracetam 1,000 Mg Tablet) 1,000 mg PO BID [facility] Last Admin: 11/13/22 08:56 Dose: 1,000 mg Documented By: JOSELINE Lorazepam (Lorazepam 1 Mg Tablet) 2 mg PO TID [facility] Last Admin: 11/13/22 08:56 Dose: 2 mg Documented By: JOSELINE Metoprolol Succinate (Metoprolol Succinate Er 50 Mg Tab.Er.24h) 50 mg PO DAILY [facility]; Protocol Last Admin: 11/13/22 08:56 Dose: 50 mg Documented By: JOSELINE Nystatin (Nystatin Cream 15 Gm Tube) 1 appl TOPICAL BID PRN; Protocol PRN Reason: Rash Ondansetron HCl (Ondansetron Hcl 4 Mg/2 Ml Vial) 4 mg IVPUSH Q8H PRN PRN Reason: Nausea and Vomiting Oxycodone HCl (Oxycodone Hcl Immed Release 15 Mg Tablet) 15 mg PO QID [facility] Last Admin: 11/13/22 08:56 Dose: 15 mg Documented By: JOSELINE Pharmacy Consult (Consult Rx Perform Med Rec) 1 each MISCELLANE ONCE PRN PRN Reason: Consult order Phenytoin Sodium (Phenytoin Sodium Extended 100 Mg Capsule) 700 mg PO BID [facility] Last Admin: 11/13/22 08:55 Dose: 700 mg Documented By: JOSELINE Labs 11/13/22 06:21 11/13/22 06:21 Labs: Laboratory Results - last 24 hr 11/12/22 11/12/22 11/12/22 09:18 09:21 09:21 MCV 90.7 MCH 28.9 MCHC 31.9 RDW 13.9 Plt Count 191 D MPV 11.8 Immature Gran % (Auto) 0.7 H Neut % (Auto) 57.7 Lymph % (Auto) 29.9 [place] % (Auto) 8.9 Eos % (Auto) 2.4 Baso % (Auto) 0.4 Lymph # (Auto) 2.2 [place] # (Auto) 0.7 Eos # (Auto) 0.2 Baso # (Auto) 0.0 Abs Immat Gran (auto) 0.05 H Absolute Neuts (auto) 4.3 Absolute Nucleated RBC 0.000 Nucleated RBC % (auto) 0.0 Anion Gap 20 Estim Creat Clear Calc 169.1 Estimated GFR > 60 POC Glucose 196 H Random Glucose 197 H Calcium 9.5 Magnesium 2.0 Total Bilirubin 0.3 AST 25 ALT 27 Alkaline Phosphatase 181 H Total Protein 8.1 H Albumin 4.6 Phenytoin Carbamazepine 11/12/22 11/12/22 11/12/22 09:21 12:53 21:53 MCV MCH MCHC RDW Plt Count MPV Immature Gran % (Auto) Neut % (Auto) Lymph % (Auto) [place] % (Auto) Eos % (Auto) Baso % (Auto) Lymph # (Auto) [place] # (Auto) Eos # (Auto) Baso # (Auto) Abs Immat Gran (auto) Absolute Neuts (auto) Absolute Nucleated RBC Nucleated RBC % (auto) Anion Gap Estim Creat Clear Calc Estimated GFR POC Glucose 122 H Random Glucose Calcium Magnesium Total Bilirubin AST ALT Alkaline Phosphatase Total Protein Albumin Phenytoin 17.5 Carbamazepine 3.7 L 3.2 L* 11/13/22 11/13/22 11/13/22 06:21 06:21 07:03 MCV 90.0 MCH 29.4 MCHC 32.6 RDW 13.9 Plt Count 141 L D MPV 12.0 Immature Gran % (Auto) 0.5 H Neut % (Auto) 55.6 Lymph % (Auto) 31.6 [place] % (Auto) 8.5 Eos % (Auto) 3.1 Baso % (Auto) 0.7 Lymph # (Auto) 1.8 [place] # (Auto) 0.5 Eos # (Auto) 0.2 Baso # (Auto) 0.0 Abs Immat Gran (auto) 0.03 Absolute Neuts (auto) 3.2 Absolute Nucleated RBC 0.000 Nucleated RBC % (auto) 0.0 Anion Gap 10 L Estim Creat Clear Calc 254.3 Estimated GFR > 60 POC Glucose 146 H Random Glucose 139 H Calcium 8.8 D Magnesium Total Bilirubin AST ALT Alkaline Phosphatase Total Protein Albumin Phenytoin Carbamazepine Assessment and Plan (1) Seizure: Status: Acute Plan 47M PMH DM, brain tumor, persistent afib, epilepsy, NORIS, morbid obesity, presented with seizure epilepsy and seizure keppra, tegretol, dilantin, depakote, neuro eval persistent afib eliqwuis, metoprolol DM insulin NORIS cpap morbid obesity weight loss dvt prophylaxis - eliquis full code reason for continued hospitalization:neuro eval Time Spent With Patient Time: Total time managing care of this patient today ____ minutes. Quality Stroke Does the patient have a stroke diagnosis?: No VTE Prior VTE?: No VTE Risk Level:: Medical - moderate - high VTE Device Contraindication: Treatment Not Indicated VTE Drug Contraindication: N/A - Med Ordered
--- NOTE | 2022-11-13 09:15 | PC.NURSE ---
pt was alert and orient to self, place and situations on morning assessment. Seizure and high fall risk precaution in place. Gave morning medicines orally. pt tolerated well. Pt was telling recently changes about his family. Assisted pt to the bathroom and back at 9:10. pt started to changed with confusion and wanted to go home. pt was attempting to fight staff and officers with aggression and wandering in the [address] [address]. After get back to his room, pt had a seizure at 9:15 lasted less than 1 minute approximately 40 seconds on the floor. Then, pt picked himself off the floor and sit at the edge of bed. pt continued to fight with staff and officers. IV Ativan 2mg/1ml given by nursing packing house supervisor. Pt finally calm down and rested in bed. MD camejo. Tried to call pt sister but unsuccessful per pt request.
[2022-11-13] MEDS: LORazepam 2 MG/ML VIAL IVPUSH (09:36)
--- NOTE | 2022-11-13 09:42 | PC.NURSE ---
Pt became aggressive wandering in the [place] way. Code assist called, two officers came to assist. patient attempting to fight staff and officers. upon aggression patient had a seizure and fell to the floor. did not hit his head. Seizure lasted less approx 45 seconds. patient picked himself off the floor and continued to fight staff, swinging his fist at staff, eventually patient agreed to sit on the bed and lay down. Nursing Sup admin Ativan IV as patient accepted. MD aware of incident. Attempted to call sister per patient request and no answer on the phone.
[2022-11-13 10:25] LABS: Lactic Acid 2.8 mmol/L (0.5-2.0)
--- NOTE | 2022-11-13 10:36 | PM.NEUROCN ---
History of Present Illness Data of Consult Service Date: 11/13/22 Primary Care Provider: Gt Menendez MD [facility] Reason for consult: Multiple seizures 47 years old man with morbid obesity and epilepsy. He was seen once in our office in 2013 and did not want to follow through in this office. Apparently he has been having seizures for number of years, since he was young. Seizures were generalized tonic clonic type. He said that sometime he would have avoid awning of an abnormal feeling in his mouth like he had some marbles and his mouth. He was at a clinic yesterday where he had generalized seizure and was brought to emergency room where he had another 1 and then he was treated with benzodiazepine. Review of Systems Review of Systems: Morbid obesity PMFSH Past Medical History Medical History A-fib Aftercare following bilateral ankle joint replacement surgery Brain tumor Diabetes Hypoxemia Morbid obesity Morbid obesity with body mass index (BMI) greater than or equal to 70 in adult NORIS (obstructive sleep apnea) NORIS (obstructive sleep apnea) Persistent atrial fibrillation Pulmonary arterial hypertension Right hand dominant Seizure disorder Shortness of breath Sleep apnea, obstructive Family History Family History Paternal Grandmother Myocardial infarction Maternal Grandfather Myocardial infarction Brother No problems noted. Sister No problems noted. Sister No problems noted. Surgical History Surgical History History of ankle surgery Social History Social History Household Members: Family Housing: House Do you presently have visiting nurse or other home services: No Alcohol intake: never Patient Tobacco Use Status: Never used Tobacco Smoked in Last 30 Days: No Use of substances other than those prescribed or required for medical reasons: No Advance Directives: No Advance Directives Information Provided: Yes Nutrition Risks: No Nutritional Risk service: No Current occupational status: disabled Current occupation: Rt handed Meds Allergies Allergy/AdvReac Type Severity Reaction Status Date / Time codeine [Codeine] Allergy Unknown RASH, hives Verified 10/21/22 08:21 ibuprofen [From Motrin] Allergy Unknown HIVES Verified 10/21/22 08:21 Active Medications: Current Medications Acetaminophen (Acetaminophen 325 Mg Tablet) 650 mg PO Q6H PRN PRN Reason: Pain, Mild (Pain Scale 1-3) Allopurinol (Allopurinol 300 Mg Tablet) 300 mg PO DAILY [facility] Last Admin: 11/13/22 08:55 Dose: 300 mg Apixaban (Apixaban 5 Mg Tablet) 5 mg PO BID [facility] Last Admin: 11/13/22 08:57 Dose: 5 mg Atorvastatin Calcium (Atorvastatin Calcium 20 Mg Tablet) 20 mg PO BEDTIME [facility] Last Admin: 11/12/22 21:40 Dose: 20 mg Carbamazepine (Carbamazepine 200 Mg Tablet) 400 mg PO BID [facility] Last Admin: 11/13/22 08:55 Dose: 400 mg Dextrose (Dextrose 50 % 25 Gm/50 Ml Syringe) 25 gm IVPUSH Q15M PRN; Protocol PRN Reason: per Hypoglycemia Standing Ord. Docusate Sodium (Docusate Sodium 100 Mg Capsule) 100 mg PO DAILY PRN PRN Reason: Constipation Glucose (Glucose Gel 15 Gm Gel..Gram.) 15 gm PO Q15M PRN; Protocol PRN Reason: per Hypoglycemia Standing Ord. Valproic Acid 500 mg/ Dextrose 55 mls @ 55 mls/hr IV Q6H [facility] Last Infusion: 11/13/22 07:22 Dose: Infused Insulin Human Lispro (Insulin Lispro 100 Unit/Ml 3 Ml Vial) 0 unit SUBCUT QIDACHS [facility]; Protocol Last Admin: 11/13/22 07:40 Dose: Not Given Levetiracetam (Levetiracetam 1,000 Mg Tablet) 1,000 mg PO BID [facility] Last Admin: 11/13/22 08:56 Dose: 1,000 mg Lorazepam (Lorazepam 1 Mg Tablet) 2 mg PO TID [facility] Last Admin: 11/13/22 08:56 Dose: 2 mg Metoprolol Succinate (Metoprolol Succinate Er 50 Mg Tab.Er.24h) 50 mg PO DAILY [facility]; Protocol Last Admin: 11/13/22 08:56 Dose: 50 mg Nystatin (Nystatin Cream 15 Gm Tube) 1 appl TOPICAL BID PRN; Protocol PRN Reason: Rash Ondansetron HCl (Ondansetron Hcl 4 Mg/2 Ml Vial) 4 mg IVPUSH Q8H PRN PRN Reason: Nausea and Vomiting Oxycodone HCl (Oxycodone Hcl Immed Release 15 Mg Tablet) 15 mg PO QID [facility] Last Admin: 11/13/22 08:56 Dose: 15 mg Pharmacy Consult (Consult Rx Perform Med Rec) 1 each MISCELLANE ONCE PRN PRN Reason: Consult order Phenytoin Sodium (Phenytoin Sodium Extended 100 Mg Capsule) 700 mg PO BID [facility] Last Admin: 11/13/22 08:55 Dose: 700 mg Home Medications Medication Instructions Recorded Confirmed Last Taken Type phenytoin sodium extended 100 mg 700 mg PO BID 02/23/21 11/12/22 04/22/21 History capsule (Dilantin Extended) atorvastatin 20 mg tablet 20 mg PO BEDTIME 03/05/21 11/12/22 11/11/22 History nystatin 100,000 unit/gram topical 1 appl topical BID PRN Rash 06/08/21 11/12/22 Unknown History cream oxycodone 10 mg tablet 15 mg PO QID 01/18/22 11/12/22 Unknown History lorazepam 1 mg tablet 2 mg PO TID 08/26/22 11/12/22 11/12/22 History metoprolol succinate 25 mg 50 mg PO DAILY 08/26/22 11/12/22 Unknown History tablet,extended release 24 hr allopurinol 300 mg tablet 300 mg PO DAILY 11/12/22 11/12/22 Unknown History carbamazepine 200 mg tablet 400 mg PO BID 11/12/22 11/12/22 Unknown History Physical Exam Vital Signs: Vital Signs: Last Vital Signs Temp 97.4 F 11/13/22 07:15 Pulse 82 11/13/22 07:15 Resp 18 11/13/22 07:15 BP 140/79 H 11/13/22 07:15 Pulse Ox 96 11/13/22 07:15 O2 Del Method Room Air 11/13/22 07:15 O2 Flow Rate 2 11/12/22 09:26 BMI result Body Mass Index 74.1 Neuro: Other: morbidly obese very sleepy man in no obvious distress. He was barely able to open his eyes and conversed with me briefly. There was no obvious focal arm or leg weakness. Face was symmetrical. 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 He was not following any neurologist. he was seen in our office many years ago but did not want of follow through with this office. He was brought to emergency room with multiple generalized seizures. He is maintained on relatively large dose of phenytoin and Tegretol. My recommendation is to continue same doses of Dilantin and Tegretol, which she was taking, and add topiramate 100 mg twice a day, which can help with this type of seizure disorder and also help him lose or control weight. Time Spent With Patient Time: Total time managing care of this patient today ____ minutes. Procedures Date of Service Date of Service: 11/13/22
[2022-11-13 11:37] LABS: Glucose, Whole Blood 162 mg/dL (60-115)
[2022-11-13 11:51] LABS: Reflex Lactate? Lactic Acid Added
[2022-11-13] MEDS: Insulin Lispro 100 UNIT/ML 3 ML VIAL SUBCUT (11:54)
[2022-11-13] MEDS: Topiramate 25 MG TABLET 100 MG PO ×2 (11:54→20:19)
[2022-11-13 15:45] VITALS: BP 146/78; PULSE 66; RESP 17; TEMP 36.4; O2SAT 97
[2022-11-13 16:24] LABS: Glucose, Whole Blood 146 mg/dL (60-115)
[2022-11-13 19:53] VITALS: BP 127/59; PULSE 73; RESP 17; TEMP 36.2; O2SAT 93
[2022-11-13 20:02] LABS: Glucose, Whole Blood 134 mg/dL (60-115)
[2022-11-13] MEDS: Atorvastatin Calcium 20 MG TABLET PO (20:19)
[2022-11-13 23:49] VITALS: BP 133/65; PULSE 95; RESP 16; TEMP 36.1; O2SAT 96
[2022-11-14 02:32] VITALS: BP 127/71; PULSE 90; RESP 18; TEMP 36.6; O2SAT 94
[2022-11-14 07:47] LABS: Glucose, Whole Blood 122 mg/dL (60-115)
[2022-11-14 07:50] VITALS: BP 137/73; PULSE 78; RESP 18; TEMP 36.1; O2SAT 92
[2022-11-14] MEDS: Phenytoin Sodium Extended 100 MG CAPSULE 700 MG PO (08:25)
[2022-11-14] MEDS: Apixaban 5 MG TABLET PO (08:26)
[2022-11-14] MEDS: oxyCODONE HCl Immed Release 15 MG TABLET PO (08:26)
[2022-11-14] MEDS: carBAMazepine 200 MG TABLET 400 MG PO (08:26)
[2022-11-14] MEDS: Topiramate 25 MG TABLET 100 MG PO (08:26)
[2022-11-14] MEDS: Metoprolol Succinate ER 50 MG TAB.ER.24H PO (08:27)
[2022-11-14] MEDS: LORazepam 1 MG TABLET 2 MG PO (08:27)
[2022-11-14] MEDS: allopurinoL 300 MG TABLET PO (08:27)
--- NOTE | 2022-11-14 08:45 | HO.PM.IMPN ---
Subjective Subjective Date of Service: 11/14/22 Interval History: amnestic Physical Exam Vital Signs: Vital Signs: Last Vital Signs Temp 97.0 F 11/14/22 07:50 Pulse 78 11/14/22 07:50 Resp 18 11/14/22 07:50 BP 137/73 11/14/22 07:50 Pulse Ox 92 11/14/22 07:50 O2 Del Method Room Air 11/14/22 07:50 O2 Flow Rate 2 11/12/22 09:26 BMI result Body Mass Index 74.1 Neuro: Other: morbidly obese very sleepy man in no obvious distress. He was barely able to open his eyes and conversed with me briefly. There was no obvious focal arm or leg weakness. Face was symmetrical. Objective Data Active Medications Acetaminophen (Acetaminophen 325 Mg Tablet) 650 mg PO Q6H PRN PRN Reason: Pain, Mild (Pain Scale 1-3) Allopurinol (Allopurinol 300 Mg Tablet) 300 mg PO DAILY [facility] Last Admin: 11/14/22 08:27 Dose: 300 mg Documented By: JOY Apixaban (Apixaban 5 Mg Tablet) 5 mg PO BID [facility] Last Admin: 11/14/22 08:26 Dose: 5 mg Documented By: JOY Atorvastatin Calcium (Atorvastatin Calcium 20 Mg Tablet) 20 mg PO BEDTIME [facility] Last Admin: 11/13/22 20:19 Dose: 20 mg Documented By: YOUSUF Carbamazepine (Carbamazepine 200 Mg Tablet) 400 mg PO BID [facility] Last Admin: 11/14/22 08:26 Dose: 400 mg Documented By: JOY Dextrose (Dextrose 50 % 25 Gm/50 Ml Syringe) 25 gm IVPUSH Q15M PRN; Protocol PRN Reason: per Hypoglycemia Standing Ord. Docusate Sodium (Docusate Sodium 100 Mg Capsule) 100 mg PO DAILY PRN PRN Reason: Constipation Glucose (Glucose Gel 15 Gm Gel..Gram.) 15 gm PO Q15M PRN; Protocol PRN Reason: per Hypoglycemia Standing Ord. Insulin Human Lispro (Insulin Lispro 100 Unit/Ml 3 Ml Vial) 0 unit SUBCUT QIDACHS [facility]; Protocol Last Admin: 11/14/22 07:50 Dose: Not Given Documented By: JOY Non-Admin Reason: No Insulin Coverage Lorazepam (Lorazepam 1 Mg Tablet) 2 mg PO TID [facility] Last Admin: 11/14/22 08:27 Dose: 2 mg Documented By: JOY Metoprolol Succinate (Metoprolol Succinate Er 50 Mg Tab.Er.24h) 50 mg PO DAILY [facility]; Protocol Last Admin: 11/14/22 08:27 Dose: 50 mg Documented By: JOY Nystatin (Nystatin Cream 15 Gm Tube) 1 appl TOPICAL BID PRN; Protocol PRN Reason: Rash Ondansetron HCl (Ondansetron Hcl 4 Mg/2 Ml Vial) 4 mg IVPUSH Q8H PRN PRN Reason: Nausea and Vomiting Oxycodone HCl (Oxycodone Hcl Immed Release 15 Mg Tablet) 15 mg PO QID [facility] Last Admin: 11/14/22 08:26 Dose: 15 mg Documented By: JOY Pharmacy Consult (Consult Rx Perform Med Rec) 1 each MISCELLANE ONCE PRN PRN Reason: Consult order Phenytoin Sodium (Phenytoin Sodium Extended 100 Mg Capsule) 700 mg PO BID [facility] Last Admin: 11/14/22 08:25 Dose: 700 mg Documented By: JOY Topiramate (Topiramate 25 Mg Tablet) 100 mg PO BID [facility] Last Admin: 11/14/22 08:26 Dose: 100 mg Documented By: JOY Labs 11/13/22 06:21 11/13/22 06:21 Labs: Laboratory Results - last 24 hr 11/13/22 11/13/22 11/13/22 09:47 11:30 16:17 POC Glucose 162 H 146 H Lactic Acid 2.8 H* 11/13/22 11/14/22 19:58 07:43 POC Glucose 134 H 122 H Lactic Acid Assessment and Plan (1) Seizure: Status: Acute Plan 47M PMH DM, brain tumor, persistent afib, epilepsy, NORIS, morbid obesity, presented with seizure epilepsy and seizure neuro appreciated started topiromate 100mg bid continue dilantin and tegretol persistent afib eliqwuis, metoprolol DM insulin NORIS cpap morbid obesity weight loss dvt prophylaxis - eliquis full code reason for continued hospitalization:monitor for seizure Time Spent With Patient Time: Total time managing care of this patient today ____ minutes. Quality Stroke Does the patient have a stroke diagnosis?: No VTE Prior VTE?: No VTE Risk Level:: Medical - moderate - high VTE Device Contraindication: Treatment Not Indicated VTE Drug Contraindication: N/A - Med Ordered
--- NOTE | 2022-11-14 09:37 | PM.DS ---
DS: Providers Provider Date of Service: 11/14/22 Date of admission: 11/12/22 18:54 Primary care physician: Gt Menendez MD Consults: 11/12/22 18:59 Consult to Neurology Routine Consulting Provider: [facility] Reason for consultation: uncontrolled seizure activity DS: Diagnosis Discharge Diagnosis (1) Seizure: Status: Acute DS: Summary Hospital Course Hospital Course: from initial hpi: 47-year-old male with history of insulin-dependent type 2 diabetes, history of brain tumor, persistent atrial fibrillation anticoagulated with Eliquis, epilepsy, obstructive sleep apnea compliant with CPAP, who is morbidly obese with BMI greater than 74 presents to the ED from the bariatric clinic after having a witnessed tonic clonic seizure.? Patient has had at least 2 additional witnessed seizures in the ED with postictal state.? On exam, patient is reportedly post ictal and is unable to provide much history but his sister, Mavis, is able to provide history. The patient is opening his eyes on command, not answering questions, hitting chest, mumbling want to go home . She states for the last 6 weeks, the patient has been having between 3-7 breakthrough seizures on a daily basis.? She describes the seizures as tonic clonic with occasional urinary incontinence followed by postictal state.? She reports he has been compliant with his phenytoin and was started on Tegretol by his PCP last week.? He has not seen a neurologist in 15 years and his epilepsy has been managed solely by PCP.? Since arrival, patient has been intermittently tachycardic to 124, vitals otherwise stable.? Did develop brief hypoxia following seizure and was placed on 2 L supplemental O2 which she has been weaned from.? Hematology studies unremarkable.? Renal function and electrolyte levels normal.? Glucose 196.? Phenytoin level therapeutic at 17.5.? Carbamazepine level subtherapeutic at 3.2.? EKG shows atrial fibrillation, rate 87 without any acute ischemic changes.? In the ED, patient loaded with 1000 mg Depakote and 1500 mg Keppra.? He was also given a total of 600 mg carbamazepine and 1 L IV NS. He was evaluated by shift engineer who did not feel patient was post ictal nor in status epilepticus and did not require ICU level of care. hospital course: Patient was admitted for epilepsy with breakthrough seizure. He was seen by neurology recommended continuing phenytoin and Tegretol and starting topiramate 100 mg b.i.d.. After starting to topiramate had no further seizures. He will be discharged home and follow-up with Neurology as outpatient. For persistent atrial fibrillation was continue Eliquis and metoprolol. For diabetes was continue insulin. For NORIS was given CPAP at night. For morbid obesity weight loss is recommended. Time Spent with Patient Time attestation: Total time managing care of this patient today ____ minutes. Discharge coordination time: Greater than 30 minutes Quality: Safe Use of Opioids Does Pt have an Active Cancer Diagnosis on the Problem List?: No Quality: Stroke Does the patient have a stroke diagnosis?: No Physical Exam Vital Signs: Vital Signs: Last Vital Signs Temp 97.0 F 11/14/22 07:50 Pulse 78 11/14/22 07:50 Resp 18 11/14/22 07:50 BP 137/73 11/14/22 07:50 Pulse Ox 92 11/14/22 07:50 O2 Del Method Room Air 11/14/22 07:50 O2 Flow Rate 2 11/12/22 09:26 BMI result Body Mass Index 74.1 General: AO X 3, no acute distress Resp: CTA bilateral, no accessory muscles used CVS: S1,S2,RRR GI: soft, non tender, non distended Neuro: motor grossly intact, alert Psych: appropriate affect, appropriate insight DS: Data Data Completed and Pending Completed studies during hospitalization [Text1]: Procedures Assistance with Respiratory Ventilation, Less than 24 Consecutive Hours, Continuous Positive Airway Pressure (03/23/21) Excision of Large Intestine, Via Natural or Artificial Opening Endoscopic, Diagnostic (04/23/21) Labs on day of discharge: Laboratory Results - last 24 hr 11/13/22 11/13/22 11/13/22 09:47 11:30 16:17 POC Glucose 162 H 146 H Lactic Acid 2.8 H* 11/13/22 11/14/22 19:58 07:43 POC Glucose 134 H 122 H Lactic Acid Discharge Plan Discharge Anticipated Discharge Date/Time: 11/14/22 09:35 Patient Disposition: Home, Self-Care Discharge Diagnosis: seizure Referrals: Evita Cardoso MD [Physician] - 3 days Gt Menendez MD [Primary Care Provider] - 1 Week Discharge Medications: New topiramate 25 mg Tablet 100 mg PO BID Qty: 240 0RF Continued Eliquis 5 mg Tablet 5 mg PO BID Qty: 60 0RF carbamazepine 200 mg tablet 400 mg PO BID allopurinol 300 mg tablet 300 mg PO DAILY phenytoin sodium extended [Dilantin Extended] 100 mg capsule 700 mg PO BID atorvastatin 20 mg tablet 20 mg PO BEDTIME nystatin 100,000 unit/gram cream 1 appl topical BID PRN (Reason: Rash) oxycodone 10 mg tablet 15 mg PO QID metoprolol succinate 25 mg tablet extended release 24 hr 50 mg PO DAILY Protocol: Hold for SBP/HR < HOLD for SBP < : 90 HOLD for HR < : 60 lorazepam 1 mg tablet 2 mg PO TID Discharge Orders: Discharge Order (Routine); Ordered 11/14/22 Ordered By: Sam Perez Diet: Advance to usual diet Activity on Discharge: As tolerated Stand Alone Forms: Patient Portal Discharge page Care Plan Goals: recovery Health Concerns: chaya morbid obesity Plan of Treatment: added topiramate 100mg bid, weight loss Assessment: see above
--- NOTE | 2022-11-14 11:53 | MHC.CM.PN ---
CM ATTEMPTED TO SEE PT WHO WAS RECEIVING NURSING CARE
[2022-11-15 19:28] LABS: Prolactin 9.3 ng/mL (2.0-18.0)
== END 2022-11-14 11:11 | disposition home or self-care (01) ==
LOC: HO.ED 18:03 → HO.EDOVER 19:10 → HO.S3 19:40
PROVIDERS: Admitting Provider Physician Assistant; Emergency Provider Emergency Medicine; PCP Internal Medicine; Visit Provider Internal Medicine
DX: G40.409 Other generalized epilepsy and epileptic syndromes, not intractable, without status epilepticus (principal); E11.9 Type 2 diabetes mellitus without complications; I48.91 Unspecified atrial fibrillation; E66.01 Morbid (severe) obesity due to excess calories; Z68.45 Body mass index [BMI] 70 or greater, adult; Z79.01 Long term (current) use of anticoagulants; Z79.4 Long term (current) use of insulin; Z79.899 Other long term (current) drug therapy
CPT/HCPCS: 36415; 80048; 80053; 80156; 80185; 82947; 83605; 83735; 84146; 85025; 93005; 94660; 96361; 96365; 96366; 96372; 96375; 99221; 99285; J2060

== ENCOUNTER → 2022-11-12 09:22 | Outpatient (BNV) | payer MEDICARE, MEDICAID, SELFPAY | PROVIDERS: Admitting Provider Physician Assistant; Emergency Provider Emergency Medicine; PCP Internal Medicine; Visit Provider Internal Medicine Cardiovascular Disease | DX: I48.91 Unspecified atrial fibrillation (principal); R94.31 Abnormal electrocardiogram [ECG] [EKG] | CPT/HCPCS: 93010 ==

== ENCOUNTER → 2022-11-12 09:33 | Outpatient (BNV) | payer MEDICARE, MEDICAID, SELFPAY | PROVIDERS: Emergency Provider Emergency Medicine; PCP Internal Medicine; Visit Provider Internal Medicine Pulmonary Disease | DX: G40.909 Epilepsy, unspecified, not intractable, without status epilepticus (principal); E66.01 Morbid (severe) obesity due to excess calories; Z68.45 Body mass index [BMI] 70 or greater, adult | CPT/HCPCS: 99499 ==

== ENCOUNTER → 2022-11-12 18:54 | Outpatient (BNV) | payer MEDICARE, MEDICAID, SELFPAY | PROVIDERS: Admitting Provider Physician Assistant; Emergency Provider Emergency Medicine; PCP Internal Medicine; Visit Provider Physician Assistant | DX: R56.9 Unspecified convulsions (principal) | CPT/HCPCS: 99223; 99232; 99239 ==

== ENCOUNTER 2022-11-16 18:34 | Inpatient (IN) | payer MEDICARE, MEDICAID, SELFPAY ==
--- NOTE | ~2022-11-16 | XR_ITS ---
EXAMINATION: XR WRIST, LEFT XR HAND, LEFT CLINICAL INFORMATION: Punched a wall COMPARISON: 05/21/2022 TECHNIQUE: PA, lateral, and oblique views of the left wrist and hand FINDINGS: No fracture or dislocation. Alignment is maintained. Joint spaces are maintained. The soft tissues are unremarkable. XR/XR hand wrist LT IMPRESSION: Normal left hand and wrist.
--- NOTE | ~2022-11-16 | XR_ITS ---
EXAMINATION: XR CHEST CLINICAL INFORMATION: Weakness COMPARISON: None available. TECHNIQUE: Frontal view of the chest was obtained. FINDINGS: No significant abnormality is noted involving the heart, lungs, mediastinum, bony thorax or soft tissues. Diminished lung volumes. XR/XR chest 1V IMPRESSION: Diminished lung volumes.
--- NOTE | 2022-11-16 18:44 | ED.GENADULT ---
HPI - General Adult General Chief complaint: Extremity Injury, Upper Stated complaint: Fall injury to left wrist Time Seen by Provider: 11/16/22 19:13 Related Data Home Medications Medication Instructions Recorded Confirmed atorvastatin 20 mg tablet 20 mg PO BEDTIME 03/05/21 12/28/22 nystatin 100,000 unit/gram topical 1 appl topical BID PRN Rash 06/08/21 12/28/22 cream metoprolol succinate 25 mg 50 mg PO DAILY 08/26/22 12/28/22 tablet,extended release 24 hr allopurinol 300 mg tablet 300 mg PO DAILY 11/12/22 12/28/22 carbamazepine 200 mg tablet 400 mg PO BID 11/12/22 12/28/22 baclofen 10 mg tablet 10 mg PO TID PRN Muscle Spasm 11/16/22 12/28/22 lorazepam 2 mg tablet 2 mg PO TID 11/16/22 12/28/22 oxycodone 15 mg tablet 15 mg PO QID 11/16/22 12/28/22 phenytoin sodium extended 100 mg 600 mg PO BID 12/28/22 12/28/22 capsule (Dilantin Extended) Previous Rx's Medication Instructions Recorded apixaban 5 mg tablet (Eliquis) 5 mg PO BID #60 tabs 04/29/21 acetaminophen 325 mg capsule 650 mg (2 x 325 mg) PO Q6H PRN 12/09/22 (Tylenol) fever or pain #20 caps Allergies Allergy/AdvReac Type Severity Reaction Status Date / Time codeine [Codeine] Allergy Unknown RASH, hives Verified 03/23/23 14:31 ibuprofen [From Motrin] Allergy Unknown HIVES Verified 03/23/23 14:31 [facility] Past Medical History Medical History A-fib Aftercare following bilateral ankle joint replacement surgery Brain tumor Diabetes Hypoxemia Morbid obesity Morbid obesity with body mass index (BMI) greater than or equal to 70 in adult NORIS (obstructive sleep apnea) NORIS (obstructive sleep apnea) Persistent atrial fibrillation Pulmonary arterial hypertension Right hand dominant Seizure disorder Shortness of breath Sleep apnea, obstructive Surgical History History of ankle surgery Family History Family History Paternal Grandmother Myocardial infarction Maternal Grandfather Myocardial infarction Brother No problems noted. Sister No problems noted. Sister No problems noted. Social History Social History Household Members: Family Housing: House Do you presently have visiting nurse or other home services: No Alcohol intake: never Comment: changed to low risk Patient Tobacco Use Status: Never used Tobacco service: No Current occupational status: disabled Current occupation: Rt handed Physical Exam ED Vital Signs: BMI result Body Mass Index 74.9 Course Course Course Narrative: RME- 47 year old male presents for evaluation of weakness. He reports that he became dizzy and fell earlier injuring his left wrist. Patient had just sat down for triage when he stood back up with states that he did not feel well. He had a witnessed syncopal episode and seizure-like activity lasted for approximately 30 seconds. He was somewhat postictal for a few minutes afterwards. There was no head strike during the syncopal episode. Workup ordered. Patient was brought back to room in the main ED Medications Administered Discontinued Medications Generic Name Dose Route Start Last Admin Trade Name Freq PRN Reason Stop Dose Admin Acetaminophen 650 mg 11/16/22 22:34 11/16/22 23:24 Acetaminophen 325 Mg Tablet PO 650 mg Q6H PRN Administration Pain, Mild (Pain Scale 1-3) Allopurinol 300 mg 11/17/22 09:00 11/17/22 08:55 Allopurinol 300 Mg Tablet PO 300 mg DAILY DANDY Administration Apixaban 5 mg 11/16/22 22:40 11/17/22 08:54 Apixaban 5 Mg Tablet PO 5 mg BID DANDY Administration Carbamazepine 400 mg 11/16/22 22:40 11/17/22 08:55 Carbamazepine 200 Mg Tablet PO 400 mg BID DANDY Administration Levetiracetam 1,500 mg in 100 mls @ 400 mls/hr 11/16/22 19:05 11/16/22 21:14 Keppra IV 11/16/22 19:19 Infused ONCE ONE Infusion Sodium Chloride 1,000 mls @ 999 mls/hr 11/16/22 20:53 11/16/22 23:26 Ns IVCONT 11/16/22 21:53 Infused .Q1H1M ONE Infusion Lorazepam 2 mg 11/16/22 19:03 11/16/22 19:05 Lorazepam 2 Mg/Ml Vial IM 11/16/22 19:04 2 mg STAT STA Administration Lorazepam 2 mg 11/16/22 19:12 11/16/22 19:16 Lorazepam 2 Mg/Ml Vial IM 11/16/22 19:13 2 mg ONCE ONE Administration Metoprolol Succinate 50 mg 11/17/22 09:00 11/17/22 08:53 Metoprolol Succinate Er 50 Mg Tab.Er.24h PO 50 mg DAILY DANDY Administration Protocol Oxycodone HCl 15 mg 11/17/22 09:00 11/17/22 08:54 Oxycodone Hcl Immed Release 15 Mg Tablet PO 15 mg QID DANDY Administration Phenytoin Sodium 700 mg 11/16/22 22:45 11/17/22 08:52 Phenytoin Sodium Extended 100 Mg Capsule PO 700 mg BID DANDY Administration Sodium Chloride 3 ml 11/17/22 00:00 11/17/22 08:55 0.9 % Sodium Chloride Flush 3 Ml Syringe IVFLUSH 3 ml QSHIFT DANDY Administration Topiramate 100 mg 11/16/22 22:40 11/17/22 08:54 Topiramate 25 Mg Tablet PO 100 mg BID DANDY Administration Medical Decision Making Lab Data 11/16/22 20:07 11/17/22 04:39 Labs: Lab Results 11/16/22 Range/Units 20:07 WBC 8.3 (4.8-10.8) X10*3/uL RBC 5.14 (4.60-5.80) X10*6/uL Hgb 15.1 (14.0-18.0) g/dl Hct 45.3 (42.0-52.0) % MCV 88.1 (80.0-98.0) fL MCH 29.4 (27.0-33.0) pg MCHC 33.3 (31.0-36.0) g/dl RDW 13.9 (11.0-16.0) % Plt Count 162 (160-400) X10*3/uL MPV 12.1 (9.4-12.4) fL Immature Gran % (Auto) 0.5 H (0.0-0.4) % Neut % (Auto) 73.1 H (45-73) % Lymph % (Auto) 16.5 L (20-40) % [place] % (Auto) 7.8 (2-11) % Eos % (Auto) 1.7 (0-4) % Baso % (Auto) 0.4 (0-2) % Lymph # (Auto) 1.4 (1.2-4.9) X10*3/uL [place] # (Auto) 0.7 (0.1-1.2) X10*3/uL Eos # (Auto) 0.1 (0.0-0.4) X10*3/uL Baso # (Auto) 0.0 (0.0-0.2) X10*3/uL Abs Immat Gran (auto) 0.04 H (0.00-0.03) X10*3/uL Absolute Neuts (auto) 6.1 (2.0-8.3) x10*3/uL Absolute Nucleated RBC 0.000 (0.0-0.012) X10*3/uL Nucleated RBC % (auto) 0.0 (0.0-0.2) /100WBC PT 13.5 H (11.1-13.3) SEC INR 1.1 (0.9-1.1) APTT 22.3 L (26.0-36.4) SEC Sodium 141 (135-145) mmol/L Potassium 3.9 (3.3-5.1) mmol/L Chloride 107 (96-108) mmol/L Carbon Dioxide 25 (22-29) mmol/L Anion Gap 13 (12-20) BUN 14 (9-16) mg/dL Creatinine 1.16 (0.5-1.4) mg/dL Estim Creat Clear Calc 163.3 Estimated GFR > 60 Random Glucose 179 H (60-115) mg/dL Lactic Acid 2.2 H* (0.5-2.0) mmol/L Calcium 9.1 (8.4-10.2) mg/dL Magnesium 2.0 (1.6-2.6) mg/dL Total Bilirubin 0.3 (0.0-1.0) mg/dL AST 20 (5-37) U/L ALT 22 (0-40) U/L Alkaline Phosphatase 183 H (39-117) U/L Total Creatine Kinase 93 (38-174) U/L Troponin I High Sens < 2.7 (<3.5-35.0) ng/L Total Protein 7.4 (6.5-8.0) g/dL Albumin 4.1 (3.5-5.0) g/dL Lipase 17 (8-78) U/L Phenytoin 17.2 (10.0-20.0) ug/mL Ethyl Alcohol < 10 mg/dL Discharge Plan Discharge Clinical Impression: Breakthrough seizure Patient Disposition: Admitted As Inpatient Interventions: Admission Worksheet (ED) Last Done: 11/17/22 07:48 Discharge Date/Time: 11/17/22 07:52
--- NOTE | 2022-11-16 18:48 | ECG_ITS ---
Test Reason : SEIZURES Blood Pressure : / mmHG Vent. Rate : 096 BPM Atrial Rate : 000 BPM P-R Int : 000 ms QRS Dur : 082 ms QT Int : 376 ms P-R-T Axes : 000 -02 082 degrees QTc Int : 475 ms Atrial fibrillation Low voltage QRS Inferior infarct (cited on or before 18-JUN-2019) Cannot rule out Anterior infarct (cited on or before 18-JUN-2019) Abnormal ECG When compared with ECG of 12-NOV-2022 11:25, Questionable change in initial forces of Anterior leads Nonspecific T wave abnormality, worse in Anterior leads Referred By: Isaak Sarabia Electronically Signed By:ISRA PINON MD
[2022-11-16 18:58] VITALS: BMI 74.9
[2022-11-16] MEDS: LORazepam 2 MG/ML VIAL IM ×2 (19:05→19:16)
[2022-11-16] MEDS: levETIRAcetam in NaCl (iso-os) 1,500 MG/100 ML PIGGYBACK 400 MG IV (19:21)
--- NOTE | 2022-11-16 19:23 | ED.GENADULT ---
HPI - General Adult General Chief complaint: Extremity Injury, Upper Stated complaint: Fall injury to left wrist Time Seen by Provider: 11/16/22 19:13 Source: patient and family Mode of arrival: ambulatory Limitations: other History of Present Illness HPI narrative: Patient comes to the emergency room complaining of hitting a wall with his left wrist. There are 2 different stories. One is that the patient punched a hole in the wall purposefully due to altered mental status. The other stories that the patient syncopized when standing and his hand hit the wall. Patient came to the Emergency accompanied by family. In triage, patient had seizure-like activity. Patient was able to lower himself to the ground from sitting position to his knees then to his side. Of note, patient was discharged 2 days ago from this facility, patient was admitted for seizures. Patient's family states that yesterday he went to see his primary care physician, his medications for seizures were switched. Originally, neurology recommended to take Tegretol and Dilantin, per family, PCP increased the Dilantin dose and discontinue Tegretol. After the patient was discharged from hospital, according to the family the patient remained a bit confused and slept for almost 24 hours until his visit with his PCP. On arrival to the emergency room, patient was given 2 IM mg of Ativan Per triage provider and nurse, patient did not hit his head. Patient is on Eliquis for atrial fibrillation. Related Data Home Medications Medication Instructions Recorded Confirmed phenytoin sodium extended 100 mg 700 mg PO BID 02/23/21 11/12/22 capsule (Dilantin Extended) atorvastatin 20 mg tablet 20 mg PO BEDTIME 03/05/21 11/12/22 nystatin 100,000 unit/gram topical 1 appl topical BID PRN Rash 06/08/21 11/12/22 cream oxycodone 10 mg tablet 15 mg PO QID 01/18/22 11/12/22 lorazepam 1 mg tablet 2 mg PO TID 08/26/22 11/12/22 metoprolol succinate 25 mg 50 mg PO DAILY 08/26/22 11/12/22 tablet,extended release 24 hr allopurinol 300 mg tablet 300 mg PO DAILY 11/12/22 11/12/22 carbamazepine 200 mg tablet 400 mg PO BID 11/12/22 11/12/22 Previous Rx's Medication Instructions Recorded apixaban 5 mg tablet (Eliquis) 5 mg PO BID #60 tabs 04/29/21 topiramate 25 mg tablet 100 mg PO BID #240 tabs 11/14/22 Allergies Allergy/AdvReac Type Severity Reaction Status Date / Time codeine [Codeine] Allergy Unknown RASH, hives Verified 11/16/22 18:45 ibuprofen [From Motrin] Allergy Unknown HIVES Verified 11/16/22 18:45 Review of Systems Review of Systems: Yes Unobtainable due to mental condition (Seems confused/postictal) [facility] Past Medical History Medical History A-fib Aftercare following bilateral ankle joint replacement surgery Brain tumor Diabetes Hypoxemia Morbid obesity Morbid obesity with body mass index (BMI) greater than or equal to 70 in adult NORIS (obstructive sleep apnea) NORIS (obstructive sleep apnea) Persistent atrial fibrillation Pulmonary arterial hypertension Right hand dominant Seizure disorder Shortness of breath Sleep apnea, obstructive Surgical History History of ankle surgery Family History Family History Paternal Grandmother Myocardial infarction Maternal Grandfather Myocardial infarction Brother No problems noted. Sister No problems noted. Sister No problems noted. Social History Social History Household Members: Family Housing: House Do you presently have visiting nurse or other home services: No Alcohol intake: never Patient Tobacco Use Status: Never used Tobacco Advance Directives: No Advance Directives Information Provided: Yes service: No Current occupational status: disabled Current occupation: Rt handed Physical Exam ED Vital Signs: Vital Signs - 24 hr 11/16/22 20:08 Temperature 98.4 F Pulse Rate 87 Respiratory Rate 15 Blood Pressure 123/72 Pulse Oximetry 96 Oxygen Delivery Method Nasal Cannula Oxygen Flow Rate 2 BMI result Body Mass Index 74.9 Const Other: Appearance: Alert. Oriented X3 but a bit confused, recovering from seizure-like activity in triage, no incontinence Eyes: Pupils equal, round and reactive to light. ENT: Pharynx normal. No tongue bites Neck: Normal inspection. Neck supple. No lymph nodes noted. No crepitus CVS: Normal heart rate and rhythm. Pulses normal. Normal S1 and S2 Respiratory: No respiratory distress. Breath sounds normal. No Wheezing. No rales Abdomen: Soft and nontender. No rigidity. No distention. Skin: Skin warm and dry. Normal skin color. Normal skin turgor. Extremities: No lower extremity edema. No Lacerations. No Rash Neuro: Oriented X 3. No motor deficit. No sensory deficit. Moving all extremities. No slurred speech. CN 2 through 12 grossly intact Psych: calm, cooperative, a bit confused Course Course Course Narrative: -of patient's labs and imaging pending -patient has gotten in total 4 mg of IM Ativan Medications Administered Discontinued Medications Generic Name Dose Route Start Last Admin Trade Name Freq PRN Reason Stop Dose Admin Levetiracetam 1,500 mg in 100 mls @ 400 mls/hr 11/16/22 19:05 11/16/22 21:14 Keppra IV 11/16/22 19:19 Infused ONCE ONE Infusion Sodium Chloride 1,000 mls @ 999 mls/hr 11/16/22 20:53 11/16/22 21:14 Ns IVCONT 11/16/22 21:53 999 mls/hr .Q1H1M ONE Administration Lorazepam 2 mg 11/16/22 19:03 11/16/22 19:05 Lorazepam 2 Mg/Ml Vial IM 11/16/22 19:04 2 mg STAT STA Administration Lorazepam 2 mg 11/16/22 19:12 11/16/22 19:16 Lorazepam 2 Mg/Ml Vial IM 11/16/22 19:13 2 mg ONCE ONE Administration Medical Decision Making Medical Decision Making [facility] Narrative: My interpretation of x-rays of the hand: No fracture, normal alignment -my interpretation of chest x-ray: No infiltrate -my interpretation of patient's labs: lactic acid is 2.2, no infection, possibly secondary to seizures last seizure like activity, patient receiving fluids -patient received in total 4 mg of IM lorazepam, 1500 mg of Keppra, normal saline. -patient being readmitted for recurrent seizures. -I discussed the patient with Dr. Jackson Differential Diagnosis Differential Diagnoses: The differential diagnosis associated with the presentation includes (seizures, pseudoseizures) Admission/Observation Consideration of admission/observation: Escalation of care including admission/observation considered Consult Healthcare Provider Management of the patient was discussed with: Hospitalist Lab Data [facility] Lab Attestation statement: I reviewed the patient's lab results. 11/16/22 20:07 11/16/22 20:07 Labs: Lab Results 11/16/22 11/16/22 11/16/22 Range/Units 20:07 20:07 20:07 WBC 8.3 (4.8-10.8) X10*3/uL RBC 5.14 (4.60-5.80) X10*6/uL Hgb 15.1 (14.0-18.0) g/dl Hct 45.3 (42.0-52.0) % MCV 88.1 (80.0-98.0) fL MCH 29.4 (27.0-33.0) pg MCHC 33.3 (31.0-36.0) g/dl RDW 13.9 (11.0-16.0) % Plt Count 162 (160-400) X10*3/uL MPV 12.1 (9.4-12.4) fL Immature Gran % (Auto) 0.5 H (0.0-0.4) % Neut % (Auto) 73.1 H (45-73) % Lymph % (Auto) 16.5 L (20-40) % [place] % (Auto) 7.8 (2-11) % Eos % (Auto) 1.7 (0-4) % Baso % (Auto) 0.4 (0-2) % Lymph # (Auto) 1.4 (1.2-4.9) X10*3/uL [place] # (Auto) 0.7 (0.1-1.2) X10*3/uL Eos # (Auto) 0.1 (0.0-0.4) X10*3/uL Baso # (Auto) 0.0 (0.0-0.2) X10*3/uL Abs Immat Gran (auto) 0.04 H (0.00-0.03) X10*3/uL Absolute Neuts (auto) 6.1 (2.0-8.3) x10*3/uL Absolute Nucleated RBC 0.000 (0.0-0.012) X10*3/uL Nucleated RBC % (auto) 0.0 (0.0-0.2) /100WBC PT 13.5 H (11.1-13.3) SEC INR 1.1 (0.9-1.1) APTT 22.3 L (26.0-36.4) SEC Sodium 141 (135-145) mmol/L Potassium 3.9 (3.3-5.1) mmol/L Chloride 107 (96-108) mmol/L Carbon Dioxide 25 (22-29) mmol/L Anion Gap 13 (12-20) BUN 14 (9-16) mg/dL Creatinine 1.16 (0.5-1.4) mg/dL Estim Creat Clear Calc 163.3 Estimated GFR > 60 Random Glucose 179 H (60-115) mg/dL Lactic Acid (0.5-2.0) mmol/L Calcium 9.1 (8.4-10.2) mg/dL Magnesium 2.0 (1.6-2.6) mg/dL Total Bilirubin 0.3 (0.0-1.0) mg/dL AST 20 (5-37) U/L ALT 22 (0-40) U/L Alkaline Phosphatase 183 H (39-117) U/L Total Creatine Kinase 93 (38-174) U/L Troponin I High Sens (<3.5-35.0) ng/L Total Protein 7.4 (6.5-8.0) g/dL Albumin 4.1 (3.5-5.0) g/dL Lipase 17 (8-78) U/L Phenytoin (10.0-20.0) ug/mL Ethyl Alcohol mg/dL 11/16/22 11/16/22 11/16/22 Range/Units 20:07 20:07 20:07 WBC (4.8-10.8) X10*3/uL RBC (4.60-5.80) X10*6/uL Hgb (14.0-18.0) g/dl Hct (42.0-52.0) % MCV (80.0-98.0) fL MCH (27.0-33.0) pg MCHC (31.0-36.0) g/dl RDW (11.0-16.0) % Plt Count (160-400) X10*3/uL MPV (9.4-12.4) fL Immature Gran % (Auto) (0.0-0.4) % Neut % (Auto) (45-73) % Lymph % (Auto) (20-40) % [place] % (Auto) (2-11) % Eos % (Auto) (0-4) % Baso % (Auto) (0-2) % Lymph # (Auto) (1.2-4.9) X10*3/uL [place] # (Auto) (0.1-1.2) X10*3/uL Eos # (Auto) (0.0-0.4) X10*3/uL Baso # (Auto) (0.0-0.2) X10*3/uL Abs Immat Gran (auto) (0.00-0.03) X10*3/uL Absolute Neuts (auto) (2.0-8.3) x10*3/uL Absolute Nucleated RBC (0.0-0.012) X10*3/uL Nucleated RBC % (auto) (0.0-0.2) /100WBC PT (11.1-13.3) SEC INR (0.9-1.1) APTT (26.0-36.4) SEC Sodium (135-145) mmol/L Potassium (3.3-5.1) mmol/L Chloride (96-108) mmol/L Carbon Dioxide (22-29) mmol/L Anion Gap (12-20) BUN (9-16) mg/dL Creatinine (0.5-1.4) mg/dL Estim Creat Clear Calc Estimated GFR Random Glucose (60-115) mg/dL Lactic Acid 2.2 H* (0.5-2.0) mmol/L Calcium (8.4-10.2) mg/dL Magnesium (1.6-2.6) mg/dL Total Bilirubin (0.0-1.0) mg/dL AST (5-37) U/L ALT (0-40) U/L Alkaline Phosphatase (39-117) U/L Total Creatine Kinase (38-174) U/L Troponin I High Sens < 2.7 (<3.5-35.0) ng/L Total Protein (6.5-8.0) g/dL Albumin (3.5-5.0) g/dL Lipase (8-78) U/L Phenytoin 17.2 (10.0-20.0) ug/mL Ethyl Alcohol mg/dL 11/16/ Range/Units 20:07 WBC (4.8-10.8) X10*3/uL RBC (4.60-5.80) X10*6/uL Hgb (14.0-18.0) g/dl Hct (42.0-52.0) % MCV (80.0-98.0) fL MCH (27.0-33.0) pg MCHC (31.0-36.0) g/dl RDW (11.0-16.0) % Plt Count (160-400) X10*3/uL MPV (9.4-12.4) fL Immature Gran % (Auto) (0.0-0.4) % Neut % (Auto) (45-73) % Lymph % (Auto) (20-40) % [place] % (Auto) (2-11) % Eos % (Auto) (0-4) % Baso % (Auto) (0-2) % Lymph # (Auto) (1.2-4.9) X10*3/uL [place] # (Auto) (0.1-1.2) X10*3/uL Eos # (Auto) (0.0-0.4) X10*3/uL Baso # (Auto) (0.0-0.2) X10*3/uL Abs Immat Gran (auto) (0.00-0.03) X10*3/uL Absolute Neuts (auto) (2.0-8.3) x10*3/uL Absolute Nucleated RBC (0.0-0.012) X10*3/uL Nucleated RBC % (auto) (0.0-0.2) /100WBC PT (11.1-13.3) SEC INR (0.9-1.1) APTT (26.0-36.4) SEC Sodium (135-145) mmol/L Potassium (3.3-5.1) mmol/L Chloride (96-108) mmol/L Carbon Dioxide (22-29) mmol/L Anion Gap (12-20) BUN (9-16) mg/dL Creatinine (0.5-1.4) mg/dL Estim Creat Clear Calc Estimated GFR Random Glucose (60-115) mg/dL Lactic Acid (0.5-2.0) mmol/L Calcium (8.4-10.2) mg/dL Magnesium (1.6-2.6) mg/dL Total Bilirubin (0.0-1.0) mg/dL AST (5-37) U/L ALT (0-40) U/L Alkaline Phosphatase (39-117) U/L Total Creatine Kinase (38-174) U/L Troponin I High Sens (<3.5-35.0) ng/L Total Protein (6.5-8.0) g/dL Albumin (3.5-5.0) g/dL Lipase (8-78) U/L Phenytoin (10.0-20.0) ug/mL Ethyl Alcohol < 10 mg/dL Independent Interpretation I performed an independent interpretation of an: Plain X-Ray Radiology Impression Discussion of test interpretation with radiology: I have reviewed the radiologist's reading. Radiologist Impression: FINDINGS: No significant abnormality is noted involving the heart, lungs, mediastinum, bony thorax or soft tissues. Mild biconvex thoracolumbar scoliosis with mild degenerative changes in the spine. XR/XR chest 2V IMPRESSION: No acute intrathoracic disease. FINDINGS: No significant abnormality is noted involving the heart, lungs, mediastinum, bony thorax or soft tissues. Diminished lung volumes. XR/XR chest 1V IMPRESSION: Diminished lung volumes. Independent Historian Clinical information obtained from an independent historian. History obtained from or confirmed by: Other (Sister) External Record Review External record reviewed: Inpatient record Critical Care Time Critical Care Time Critical Care Time: Yes Total Critical Care Time: 60 Attestation: I have personally provided critical care time. Time includes review of lab data, radiology results, discussion with consultants, and monitoring for potential decompensation. Intervention performed as documented. Discharge Plan Discharge Clinical Impression: Breakthrough seizure Patient Disposition: Admitted As Inpatient Prescriptions: No Action Eliquis 5 mg Tablet 5 mg PO BID Qty: 60 0RF carbamazepine 200 mg tablet 400 mg PO BID allopurinol 300 mg tablet 300 mg PO DAILY topiramate 25 mg Tablet 100 mg PO BID Qty: 240 0RF phenytoin sodium extended [Dilantin Extended] 100 mg capsule 700 mg PO BID atorvastatin 20 mg tablet 20 mg PO BEDTIME nystatin 100,000 unit/gram cream 1 appl topical BID PRN (Reason: Rash) oxycodone 10 mg tablet 15 mg PO QID metoprolol succinate 25 mg tablet extended release 24 hr 50 mg PO DAILY Protocol: Hold for SBP/HR < HOLD for SBP < : 90 HOLD for HR < : 60 lorazepam 1 mg tablet 2 mg PO TID
--- NOTE | 2022-11-16 19:34 | PC.NURSE ---
Took Report from EVERTON Fan, pt has had seizure like activity during triage. Pt place on monitor, Iv placed and EKg completed. Provider into assess pt. pt is confused at time but redirectable, pt able to answer location and question appropriately when asked. Seizure pad in place. Will continue to monitor.
[2022-11-16 20:08] VITALS: BP 123/72; PULSE 87; RESP 15; TEMP 36.9; O2SAT 96
[2022-11-16 20:13] LABS: MANUAL DIFF FLAG NO
[2022-11-16 20:17] LABS: Basophils Percent Auto 0.4 % (0-2); Eosinophils Absolute Auto 0.1 X10*3/uL (0.0-0.4); Eosinophils Percent Auto 1.7 % (0-4); Hematocrit 45.3 % (42.0-52.0); Hemoglobin 15.1 g/dl (14.0-18.0); Imm Gran Abs Auto 0.04 X10*3/uL (0.00-0.03); Imm Gran Pct Auto 0.5 % (0.0-0.4); Lymphocytes Absolute Auto 1.4 X10*3/uL (1.2-4.9); Lymphocytes Percent Auto 16.5 % (20-40); Mean Corpuscular HGB Conc 33.3 g/dl (31.0-36.0); Mean Corpuscular Hemoglobin 29.4 pg (27.0-33.0); Mean Corpuscular Volume 88.1 fL (80.0-98.0); Mean Platelet Volume 12.1 fL (9.4-12.4); Monocytes Absolute Auto 0.7 X10*3/uL (0.1-1.2); Monocytes Percent Auto 7.8 % (2-11); Neutrophils Absolute Auto 6.1 x10*3/uL (2.0-8.3); Neutrophils Percent Auto 73.1 % (45-73); Platelet Count 162 X10*3/uL (160-400); Red Blood Count 5.14 X10*6/uL (4.60-5.80); Red Cell Distribution Width 13.9 % (11.0-16.0); White Blood Count 8.3 X10*3/uL (4.8-10.8)
[2022-11-16 20:27] LABS: Phenytoin Dilantin 17.2 ug/mL (10.0-20.0)
[2022-11-16 20:30] LABS: INTERNATIONAL NORM RATIO 1.1 (0.9-1.1); Prothrombin Time 13.5 SEC (11.1-13.3)
[2022-11-16 20:31] LABS: Alanine Aminotransferase 22 U/L (0-40); Albumin Level 4.1 g/dL (3.5-5.0); Alkaline Phosphatase 183 U/L (39-117); Anion Gap 13 (12-20); Aspartate Amino Transferase 20 U/L (5-37); Bilirubin Total 0.3 mg/dL (0.0-1.0); Blood Urea Nitrogen 14 mg/dL (9-16); Calcium 9.1 mg/dL (8.4-10.2); Carbon Dioxide 25 mmol/L (22-29); Chloride 107 mmol/L (96-108); Creatinine Clr Calc Pharmacy 163.3; Estimated Glomerular Filt Rate > 60; Glucose Random 179 mg/dL (60-115); Lipase 17 U/L (8-78); Potassium 3.9 mmol/L (3.3-5.1); Sodium 141 mmol/L (135-145); Total Protein 7.4 g/dL (6.5-8.0)
[2022-11-16 20:36] LABS: Partial Thromboplastin Time 22.3 SEC (26.0-36.4)
[2022-11-16 20:40] LABS: Ethanol < 10 mg/dL
[2022-11-16 20:41] LABS: Troponin-I High Sensitivity < 2.7 ng/L (<3.5-35.0)
[2022-11-16 20:51] LABS: Lactic Acid 2.2 mmol/L (0.5-2.0)
[2022-11-16] MEDS: 0.9 % Sodium Chloride 1,000 ML 999 ML IVCONT (21:14)
[2022-11-16 22:11] LABS: Reflex Lactate? Lactic Acid Added
--- NOTE | 2022-11-16 22:25 | PHA.MEDREC ---
Pharmacy Consult ? Medication Reconciliation Pharmacy has completed the medication reconciliation. Spoke with patient's sister Mavis. She reported that topiramate was discontinued by PCP and they may switch him to Depakote. She was usure of any reasons. Molly Ochoa, PharmD
--- NOTE | 2022-11-16 22:42 | P.HPHOSP_ITS ---
History of Present Illness Date of Service: 11/16/22 Chief Complaint: Seizure 47-year-old male with past medical history of AFib on Eliquis, diabetes, NORIS, seizure disorder, morbid obesity, recently admitted for breakthrough seizure, comes into the hospital with recurrent seizure episodes. Patient was discharged after breakthrough seizure, at that time patient was evaluated by Neurology, patient already on Dilantin as well as Tegretol, on discharge patient was also given topiramate 100 b.i.d., with resolution of his symptoms and patient was discharged home. According to the family patient has been very weak and sleeping the whole time and today had an episode where he possibly had a breakthrough seizure at home, while in triage patient had another witnessed seizure. Patient currently is obtunded, was postictal, unable to get much history from him. On arrival to the ED patient vitals are stable with no significant abnormality Labs are significant for WBC count of 8.3, lactic acid of 2.2, labs otherwise unremarkable Review of Systems Review of Systems: Yes Unobtainable due to mental condition and Unobtainable due to mental status [facility] Medical History A-fib Aftercare following bilateral ankle joint replacement surgery Brain tumor Diabetes Hypoxemia Morbid obesity Morbid obesity with body mass index (BMI) greater than or equal to 70 in adult NORIS (obstructive sleep apnea) NORIS (obstructive sleep apnea) Persistent atrial fibrillation Pulmonary arterial hypertension Right hand dominant Seizure disorder Shortness of breath Sleep apnea, obstructive Family History Paternal Grandmother Myocardial infarction Maternal Grandfather Myocardial infarction Brother No problems noted. Sister No problems noted. Sister No problems noted. Surgical History History of ankle surgery Social History Household Members: Family Housing: House Do you presently have visiting nurse or other home services: No Alcohol intake: never Patient Tobacco Use Status: Never used Tobacco Advance Directives: No Advance Directives Information Provided: Yes service: No Current occupational status: disabled Current occupation: Rt handed Meds Allergies Allergy/AdvReac Type Severity Reaction Status Date / Time codeine [Codeine] Allergy Unknown RASH, hives Verified 11/16/22 18:45 ibuprofen [From Motrin] Allergy Unknown HIVES Verified 11/16/22 18:45 Active Medications: Current Medications Pharmacy Consult (Consult Rx Perform Med Rec) 1 each MISCELLANE ONCE PRN PRN Reason: Consult order Home Medications Medication Instructions Recorded Confirmed Last Taken Type phenytoin sodium extended 100 mg 700 mg PO BID 02/23/21 11/16/22 11/16/22 History capsule (Dilantin Extended) atorvastatin 20 mg tablet 20 mg PO BEDTIME 03/05/21 11/16/22 11/16/22 History nystatin 100,000 unit/gram topical 1 appl topical BID PRN Rash 06/08/21 11/16/22 Unknown History cream metoprolol succinate 25 mg 50 mg PO DAILY 08/26/22 11/16/22 11/16/22 History tablet,extended release 24 hr allopurinol 300 mg tablet 300 mg PO DAILY 11/12/22 11/16/22 11/16/22 History carbamazepine 200 mg tablet 400 mg PO BID 11/12/22 11/16/22 11/16/22 History baclofen 10 mg tablet 10 mg PO TID PRN Muscle Spasm 11/16/22 11/16/22 Unknown History lorazepam 2 mg tablet 2 mg PO TID 11/16/22 11/16/22 11/16/22 History oxycodone 15 mg tablet 15 mg PO QID 11/16/22 11/16/22 11/16/22 History Physical Exam Vital Signs and Narrative: Vital Signs: Last Vital Signs Temp 98.4 F 11/16/22 20:08 Pulse 87 11/16/22 20:08 Resp 15 11/16/22 20:08 BP 123/72 11/16/22 20:08 Pulse Ox 96 11/16/22 20:08 O2 Del Method Nasal Cannula 11/16/22 20:08 O2 Flow Rate 2 11/16/22 20:08 BMI result Body Mass Index 74.9 Const: Other: Significantly obese man, obtunded, responds to painful stimuli General: no acute distress Eyes: General: appearance normal, both eyes and all related structures Resp: Effort & Inspection: normal respiratory effort Auscultation: clear to auscultation bilaterally Cardio: Rate: regular rate Rhythm: regular rhythm GI: Palpation (GI): Soft to palpation Auscultation: normal bowel sounds Skin: General skin exam: no rashes or lesions noted Neuro: Cognition (Neuro): normal cognition Extrem: General: Yes normal to inspection and Yes no pedal edema Results Labs 11/16/22 20:07 11/16/22 20:07 Labs: Laboratory Results - last 24 hr 11/16/22 11/16/22 11/16/22 20:07 20:07 20:07 MCV 88.1 MCH 29.4 MCHC 33.3 RDW 13.9 Plt Count 162 MPV 12.1 Immature Gran % (Auto) 0.5 H Neut % (Auto) 73.1 H Lymph % (Auto) 16.5 L [place] % (Auto) 7.8 Eos % (Auto) 1.7 Baso % (Auto) 0.4 Lymph # (Auto) 1.4 [place] # (Auto) 0.7 Eos # (Auto) 0.1 Baso # (Auto) 0.0 Abs Immat Gran (auto) 0.04 H Absolute Neuts (auto) 6.1 Absolute Nucleated RBC 0.000 Nucleated RBC % (auto) 0.0 PT 13.5 H INR 1.1 APTT 22.3 L Anion Gap 13 Estim Creat Clear Calc 163.3 Estimated GFR > 60 Random Glucose 179 H Lactic Acid Calcium 9.1 Magnesium 2.0 Total Bilirubin 0.3 AST 20 ALT 22 Alkaline Phosphatase 183 H Total Creatine Kinase 93 Total Protein 7.4 Albumin 4.1 Lipase 17 Phenytoin Ethyl Alcohol 11/16/22 11/16/22 11/16/22 20:07 20:07 20:07 MCV MCH MCHC RDW Plt Count MPV Immature Gran % (Auto) Neut % (Auto) Lymph % (Auto) [place] % (Auto) Eos % (Auto) Baso % (Auto) Lymph # (Auto) [place] # (Auto) Eos # (Auto) Baso # (Auto) Abs Immat Gran (auto) Absolute Neuts (auto) Absolute Nucleated RBC Nucleated RBC % (auto) PT INR APTT Anion Gap Estim Creat Clear Calc Estimated GFR Random Glucose Lactic Acid 2.2 H* Calcium Magnesium Total Bilirubin AST ALT Alkaline Phosphatase Total Creatine Kinase Total Protein Albumin Lipase Phenytoin 17.2 Ethyl Alcohol < 10 Imaging Radiologist's Impressions: Impressions Chest X-Ray 11/16/22 19:50 IMPRESSION: Diminished lung volumes. Hand/Wrist X-Ray 11/16/22 19:51 IMPRESSION: Normal left hand and wrist. Assessment and Plan (1) Breakthrough seizure: Status: Acute Plan 47-year-old male with history of seizure disorder, persistent AFib, NORIS, comes into the hospital with breakthrough seizure # breakthrough seizure - witness in triage - patient on Tegretol, Dilantin, as well as recently added topiramate - was evaluated by Neurology on the of this month, was recommended to continue Dilantin, Tegretol, and added topiramate- unclear if he has been taking them since discharge - at this time will continue above medications - neurology consulted - will obtain head CT - monitor # NORIS - CPAP at bedtime - will obtain ABG # persistent AFib - continue Eliquis, and metoprolol # morbid obesity - recommend outpatient follow-up with weight clinic DVT prophylaxis: Eliquis Patient's need for further evaluation of breakthrough seizure patient require minimum 2 nights inpatient hospital stay for further management and monitoring Time Spent With Patient Time: Total time managing care of this patient today ____ minutes. Quality Stroke Does the patient have a stroke diagnosis?: No VTE Prior VTE?: No VTE Risk Level:: Medical - moderate - high VTE Device Contraindication: Treatment Not Indicated VTE Drug Contraindication: N/A - Med Ordered
[2022-11-16] MEDS: Acetaminophen 325 MG TABLET 650 MG PO (23:24)
[2022-11-16] MEDS: Apixaban 5 MG TABLET PO (23:25)
[2022-11-16] MEDS: Phenytoin Sodium Extended 100 MG CAPSULE 700 MG PO (23:25)
[2022-11-16] MEDS: Topiramate 25 MG TABLET 100 MG PO (23:25)
--- NOTE | 2022-11-16 23:58 | PC.NURSE ---
Per CT, unable to scan patient due to weight limit. Hospitalist notified.
[2022-11-17 00:12] LABS: ~Lactic Acid-LAB USE ONLY 1.4 mmol/L (0.5-2.0)
[2022-11-17] MEDS: carBAMazepine 200 MG TABLET 400 MG PO ×2 (00:32→08:55)
[2022-11-17] MEDS: 0.9 % Sodium Chloride Flush 3 ML SYRINGE IVFLUSH ×2 (00:33→08:55)
[2022-11-17 00:36] LABS: ABG Base Excess 1.1 mmol/L; ABG HCO3 26 mmol/L (22-26); ABG pCO2 44 mmHg (32-45); ABG pH 7.38 (7.35-7.45); ABG pO2 68 mmHg (83-108)
[2022-11-17 00:43] VITALS: PULSE 80; RESP 12; O2SAT 95
[2022-11-17 01:00] LABS: Appearance Urine Clear; Color Urine Yellow; Glucose Urine UA Negative (Negative); Leukocyte Esterase Urine Negative (Negative); Nitrite Urine Negative (Negative); PH 6.5 (5.0-9.0); Specific Gravity - Urine >= 1.030 (1.005-1.025); Urine Blood Negative (Negative); Urine Ketones Trace mg/dL (Negative); Urine Protein Trace mg/dL (Neg-Trace)
[2022-11-17 01:05] LABS: Bacteria Urine None Seen (None Seen); RBC Urine 0-2 /HPF (0-2); Squamous Epithelial Cell Urine 0-2 /HPF (0-2); WBC Urine 0-5 /HPF (0-5)
[2022-11-17 01:19] LABS: Amphetamine Screen Urine Not Detected (Not Detect); Barbiturates, Urine POSITIVE (Not Detect); Benzodiazepines Screen Urine Not Detected (Not Detect); Cannabinoid Screen Urine Not Detected (Not Detect); Cocaine Screen Urine Not Detected (Not Detect); Fentanyl, urine Not Detected (Not Detect); Opiate Screen Urine Not Detected (Not Detect); Phencyclidine Screen Urine Not Detected (Not Detect)
[2022-11-17 02:00] VITALS: BP 121/65; PULSE 74; RESP 18; O2SAT 92
--- NOTE | 2022-11-17 03:26 | PC.NURSE ---
patient in bed keep taking off the bipap mask patient stated the mask is to small respiratory was called to come and try to change the mask patient was repositioned patient will continue to be monitored for safety.
[2022-11-17 04:01] VITALS: PULSE 77; RESP 16; O2SAT 95
[2022-11-17 05:21] LABS: Alanine Aminotransferase 19 U/L (0-40); Albumin Level 3.9 g/dL (3.5-5.0); Alkaline Phosphatase 161 U/L (39-117); Anion Gap 12 (12-20); Aspartate Amino Transferase 17 U/L (5-37); Bilirubin Total 0.3 mg/dL (0.0-1.0); Blood Urea Nitrogen 14 mg/dL (9-16); Calcium 8.8 mg/dL (8.4-10.2); Carbon Dioxide 25 mmol/L (22-29); Chloride 108 mmol/L (96-108); Creatinine Clr Calc Pharmacy 225.6; Estimated Glomerular Filt Rate > 60; Glucose Random 146 mg/dL (60-115); Potassium 3.8 mmol/L (3.3-5.1); Sodium 141 mmol/L (135-145); Total Protein 6.8 g/dL (6.5-8.0)
[2022-11-17 06:12] VITALS: BP 127/80; PULSE 67; RESP 16; O2SAT 93
--- NOTE | 2022-11-17 07:47 | PC.NURSE ---
rn to rn report given to reina. pt aware of plan of care for transfer to [facility] via bed.
--- NOTE | 2022-11-17 07:52 | PC.NURSE ---
pt refused to be transported to [facility] on awake overnight monitor. aware.
[2022-11-17 08:00] VITALS: BP 145/84; PULSE 74; RESP 20; TEMP 36; O2SAT 94
--- NOTE | 2022-11-17 08:15 | MHC.CM.PN ---
CM met with Patient at bedside and addressed IMM with him, providing Patient with the original and placing a copy on the chart. 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 Patient hopes to go home today and CM has initiated and will follow for dc planning. Patient is Karen martin and his PCP is Dr. Gt Menendez.
[2022-11-17] MEDS: Phenytoin Sodium Extended 100 MG CAPSULE 700 MG PO (08:52)
[2022-11-17] MEDS: Metoprolol Succinate ER 50 MG TAB.ER.24H PO (08:53)
[2022-11-17] MEDS: oxyCODONE HCl Immed Release 15 MG TABLET PO (08:54)
[2022-11-17] MEDS: Apixaban 5 MG TABLET PO (08:54)
[2022-11-17] MEDS: Topiramate 25 MG TABLET 100 MG PO (08:54)
[2022-11-17] MEDS: allopurinoL 300 MG TABLET PO (08:55)
--- NOTE | 2022-11-17 09:42 | P.DS_ITS ---
DS: Providers Provider Date of Service: 11/17/22 Date of admission: 11/16/22 22:38 Primary care physician: Gt Menendez MD Consults: 11/16/22 22:34 Consult to Neurology Routine Consulting Provider: [facility] Reason for consultation: break through seizure DS: Diagnosis Discharge Diagnosis (1) Breakthrough seizure: Status: Acute DS: Summary Hospital Course Hospital Course: 47-year-old male with past medical history of AFib on Eliquis, diabetes, NORIS, seizure disorder, morbid obesity, recently admitted for breakthrough seizure, comes into the hospital with recurrent seizure episodes.? Patient was discharged after breakthrough seizure, at that time patient was evaluated by Neurology, patient already on Dilantin as well as Tegretol, on discharge patient was also given topiramate 100 b.i.d., with resolution of his symptoms and patient was discharged home.? According to the family patient has been very weak and sleeping the whole time and today had an episode where he possibly had a breakthrough seizure at home, while in triage patient had another witnessed seizure.? Patient currently is obtunded, was postictal, unable to get much history from him.?On arrival to the ED patient vitals are stable with no significant abnormality Labs are significant for WBC count of 8.3, lactic acid of 2.2, labs otherwise unremarkable 47-year-old male brought to the ER for a breakthrough seizure. He has a history of seizures and reports compliance with all medications. He reports increase in seizures of the last several months after he had a fall out with his family. Un fortunately the patient is unable to be accommodated in the CT scan machine or MRI machine at [facility] and patient will need to follow-up with primary care provider for a referral for specialty Neurology Service for accurate diagnosis of seizure disorder versus epilepsy versus pseudo-seizure. He will also need imaging studies at a facility where he can be accommodated. Since admission he has not had any further seizures, he is sitting up on the side of the bed asking to go home. No infectious source causing breakthrough seizure. He should continue using his sleep apnea machine. No issues with his persistent atrial fibrillation, he can not continue Eliquis and metoprolol. Discussed the importance of weight management related to his morbid obesity. Time Spent with Patient Time attestation: Total time managing care of this patient today ____ minutes. Discharge coordination time: Greater than 30 minutes Quality: Safe Use of Opioids Does Pt have an Active Cancer Diagnosis on the Problem List?: No Quality: Stroke Does the patient have a stroke diagnosis?: No Physical Exam Vital Signs: Vital Signs: Last Vital Signs Temp 96.8 F 11/17/22 08:00 Pulse 74 11/17/22 08:00 Resp 20 11/17/22 08:00 BP 145/84 H 11/17/22 08:00 Pulse Ox 94 11/17/22 08:00 O2 Del Method Room Air 11/17/22 08:00 O2 Flow Rate 21 11/17/22 06:12 BMI result Body Mass Index 74.9 Appearing in no acute distress head is normocephalic atraumatic eyes pupils are PERRLA sclera is anicteric mouth throat mucous membranes are intact and moist neck is supple no lymphadenopathy, no JVD noted lung sounds are clear to auscultation heart regular rate rhythm, clear S1, S2 positive bowel sounds, abdomen is soft, nontender, obese neuro patient is alert x3, no focal deficits DS: Data Data Completed and Pending Completed studies during hospitalization [Text1]: Procedures Assistance with Respiratory Ventilation, Less than 24 Consecutive Hours, Continuous Positive Airway Pressure (03/23/21) Excision of Large Intestine, Via Natural or Artificial Opening Endoscopic, Diagnostic (04/23/21) Labs on day of discharge: Laboratory Results - last 24 hr 11/16/22 11/16/22 11/16/22 20:07 20:07 20:07 WBC 8.3 RBC 5.14 Hgb 15.1 Hct 45.3 MCV 88.1 MCH 29.4 MCHC 33.3 RDW 13.9 Plt Count 162 MPV 12.1 Immature Gran % (Auto) 0.5 H Neut % (Auto) 73.1 H Lymph % (Auto) 16.5 L [place] % (Auto) 7.8 Eos % (Auto) 1.7 Baso % (Auto) 0.4 Lymph # (Auto) 1.4 [place] # (Auto) 0.7 Eos # (Auto) 0.1 Baso # (Auto) 0.0 Abs Immat Gran (auto) 0.04 H Absolute Neuts (auto) 6.1 Absolute Nucleated RBC 0.000 Nucleated RBC % (auto) 0.0 PT 13.5 H INR 1.1 APTT 22.3 L O2 Saturation ABG pH at Pt Temp ABG pCO2 at Pt Temp ABG pO2 at Pt Temp ABG HCO3 ABG Base Excess (Actual) Sodium 141 Potassium 3.9 Chloride 107 Carbon Dioxide 25 Anion Gap 13 BUN 14 Creatinine 1.16 Estim Creat Clear Calc 163.3 Estimated GFR > 60 Random Glucose 179 H Lactic Acid Lactic Acid F/U @ 2Hr Calcium 9.1 Magnesium 2.0 Total Bilirubin 0.3 AST 20 ALT 22 Alkaline Phosphatase 183 H Total Creatine Kinase 93 Troponin I High Sens Total Protein 7.4 Albumin 4.1 Lipase 17 Urine Color Urine Appearance Urine pH Ur Specific [place] Urine Protein Urine Glucose (UA) Urine Ketones Urine Blood Urine Nitrite Ur Leukocyte Esterase Urine RBC Urine WBC Ur Squamous Epith Cells Urine Bacteria Hyaline Casts Urine Opiates Screen Urine Fentanyl Screen Ur Barbiturates Screen Phenytoin Ur Phencyclidine Scrn Ur Amphetamines Screen U Benzodiazepines Scrn Urine Cocaine Screen U Marijuana (THC) Screen Ethyl Alcohol 11/16/22 11/16/22 11/16/22 20:07 20:07 20:07 WBC RBC Hgb Hct MCV MCH MCHC RDW Plt Count MPV Immature Gran % (Auto) Neut % (Auto) Lymph % (Auto) [place] % (Auto) Eos % (Auto) Baso % (Auto) Lymph # (Auto) [place] # (Auto) Eos # (Auto) Baso # (Auto) Abs Immat Gran (auto) Absolute Neuts (auto) Absolute Nucleated RBC Nucleated RBC % (auto) PT INR APTT O2 Saturation ABG pH at Pt Temp ABG pCO2 at Pt Temp ABG pO2 at Pt Temp ABG HCO3 ABG Base Excess (Actual) Sodium Potassium Chloride Carbon Dioxide Anion Gap BUN Creatinine Estim Creat Clear Calc Estimated GFR Random Glucose Lactic Acid 2.2 H* Lactic Acid F/U @ 2Hr Calcium Magnesium Total Bilirubin AST ALT Alkaline Phosphatase Total Creatine Kinase Troponin I High Sens < 2.7 Total Protein Albumin Lipase Urine Color Urine Appearance Urine pH Ur Specific [place] Urine Protein Urine Glucose (UA) Urine Ketones Urine Blood Urine Nitrite Ur Leukocyte Esterase Urine RBC Urine WBC Ur Squamous Epith Cells Urine Bacteria Hyaline Casts Urine Opiates Screen Urine Fentanyl Screen Ur Barbiturates Screen Phenytoin 17.2 Ur Phencyclidine Scrn Ur Amphetamines Screen U Benzodiazepines Scrn Urine Cocaine Screen U Marijuana (THC) Screen Ethyl Alcohol 11/16/22 11/16/22 11/17/22 20:07 23:51 00:26 WBC RBC Hgb Hct MCV MCH MCHC RDW Plt Count MPV Immature Gran % (Auto) Neut % (Auto) Lymph % (Auto) [place] % (Auto) Eos % (Auto) Baso % (Auto) Lymph # (Auto) [place] # (Auto) Eos # (Auto) Baso # (Auto) Abs Immat Gran (auto) Absolute Neuts (auto) Absolute Nucleated RBC Nucleated RBC % (auto) PT INR APTT O2 Saturation 93.0 ABG pH at Pt Temp 7.38 ABG pCO2 at Pt Temp 44 ABG pO2 at Pt Temp 68 L ABG HCO3 26 ABG Base Excess (Actual) 1.1 Sodium Potassium Chloride Carbon Dioxide Anion Gap BUN Creatinine Estim Creat Clear Calc Estimated GFR Random Glucose Lactic Acid Lactic Acid F/U @ 2Hr 1.4 Calcium Magnesium Total Bilirubin AST ALT Alkaline Phosphatase Total Creatine Kinase Troponin I High Sens Total Protein Albumin Lipase Urine Color Urine Appearance Urine pH Ur Specific [place] Urine Protein Urine Glucose (UA) Urine Ketones Urine Blood Urine Nitrite Ur Leukocyte Esterase Urine RBC Urine WBC Ur Squamous Epith Cells Urine Bacteria Hyaline Casts Urine Opiates Screen Urine Fentanyl Screen Ur Barbiturates Screen Phenytoin Ur Phencyclidine Scrn Ur Amphetamines Screen U Benzodiazepines Scrn Urine Cocaine Screen U Marijuana (THC) Screen Ethyl Alcohol < 10 11/17/22 11/17/22 11/17/22 00:37 00:37 04:39 WBC RBC Hgb Hct MCV MCH MCHC RDW Plt Count MPV Immature Gran % (Auto) Neut % (Auto) Lymph % (Auto) [place] % (Auto) Eos % (Auto) Baso % (Auto) Lymph # (Auto) [place] # (Auto) Eos # (Auto) Baso # (Auto) Abs Immat Gran (auto) Absolute Neuts (auto) Absolute Nucleated RBC Nucleated RBC % (auto) PT INR APTT O2 Saturation ABG pH at Pt Temp ABG pCO2 at Pt Temp ABG pO2 at Pt Temp ABG HCO3 ABG Base Excess (Actual) Sodium 141 Potassium 3.8 Chloride 108 Carbon Dioxide 25 Anion Gap 12 BUN 14 Creatinine 0.84 Estim Creat Clear Calc 225.6 Estimated GFR > 60 Random Glucose 146 H Lactic Acid Lactic Acid F/U @ 2Hr Calcium 8.8 Magnesium Total Bilirubin 0.3 AST 17 ALT 19 Alkaline Phosphatase 161 H Total Creatine Kinase Troponin I High Sens Total Protein 6.8 Albumin 3.9 Lipase Urine Color Yellow Urine Appearance Clear Urine pH 6.5 Ur Specific [place] >= 1.030 H Urine Protein Trace Urine Glucose (UA) Negative Urine Ketones Trace Urine Blood Negative Urine Nitrite Negative Ur Leukocyte Esterase Negative Urine RBC 0-2 Urine WBC 0-5 Ur Squamous Epith Cells 0-2 Urine Bacteria None Seen Hyaline Casts 3-5 Urine Opiates Screen Not Detected Urine Fentanyl Screen Not Detected Ur Barbiturates Screen POSITIVE H Phenytoin Ur Phencyclidine Scrn Not Detected Ur Amphetamines Screen Not Detected U Benzodiazepines Scrn Not Detected Urine Cocaine Screen Not Detected U Marijuana (THC) Screen Not Detected Ethyl Alcohol Discharge Plan Discharge Anticipated Discharge Date/Time: 11/17/22 09:38 Patient Disposition: Home, Self-Care Discharge Diagnosis: Breakthrough seizures Referrals: Gt Menendez MD [Primary Care Provider] - 1 Week Discharge Medications: New topiramate 25 mg Tablet 100 mg PO BID Qty: 240 0RF Continued Eliquis 5 mg Tablet 5 mg PO BID Qty: 60 0RF carbamazepine 200 mg tablet 400 mg PO BID allopurinol 300 mg tablet 300 mg PO DAILY oxycodone 15 mg tablet 15 mg PO QID lorazepam 2 mg tablet 2 mg PO TID baclofen 10 mg tablet 10 mg PO TID PRN (Reason: Muscle Spasm) phenytoin sodium extended [Dilantin Extended] 100 mg capsule 700 mg PO BID atorvastatin 20 mg tablet 20 mg PO BEDTIME nystatin 100,000 unit/gram cream 1 appl topical BID PRN (Reason: Rash) metoprolol succinate 25 mg tablet extended release 24 hr 50 mg PO DAILY Protocol: Hold for SBP/HR < HOLD for SBP < : 90 HOLD for HR < : 60 Discharge Orders: Discharge Order (Routine); Ordered 11/17/22 Ordered By: Veda Mayberry Diet: Advance to usual diet Activity on Discharge: As tolerated Stand Alone Forms: Patient Portal Discharge page Care Plan Goals: Complete resolution of symptoms, no further episodes of seizures Health Concerns: Breakthrough seizures Plan of Treatment: Follow-up with primary care provider to schedule specialty neurology service to accurately diagnose seizures/epilepsy Will need an MRI/CT scan that will accommodate patient Take all medications as prescribed Assessment: See discharge summary
--- NOTE | 2022-11-17 09:58 | MHC.CM.PN ---
Sue has been medically cleared for dc today, home self care.
[2022-11-17 11:10] LABS: ABG Refer to POC result
[2022-11-17 11:11] VITALS: BP 147/100; PULSE 69; RESP 20; TEMP 36; O2SAT 95
--- NOTE | 2022-11-17 11:48 | P.PNIM_ITS ---
Subjective Subjective Date of Service: 11/17/22 Review of Systems Follow up seizure aggressive behavior towards male staff Physical Exam Vital Signs: Vital Signs: Last Vital Signs Temp 96.8 F 11/17/22 11:11 Pulse 69 11/17/22 11:11 Resp 20 11/17/22 11:11 BP 147/100 H 11/17/22 11:11 Pulse Ox 95 11/17/22 11:11 O2 Del Method Room Air 11/17/22 11:11 O2 Flow Rate 21 11/17/22 06:12 BMI result Body Mass Index 74.9 Appearing in no acute distress lung sounds are clear to auscultation heart regular rate rhythm, clear S1, S2 positive bowel sounds, abdomen is soft, nontender, obese neuro patient is alert x3, no focal deficits Objective Data Active Medications Acetaminophen (Acetaminophen 325 Mg Tablet) 650 mg PO Q6H PRN PRN Reason: Pain, Mild (Pain Scale 1-3) Last Admin: 11/16/22 23:24 Dose: 650 mg Documented By: NEERAJ Allopurinol (Allopurinol 300 Mg Tablet) 300 mg PO DAILY [facility] Last Admin: 11/17/22 08:55 Dose: 300 mg Documented By: ASHER Apixaban (Apixaban 5 Mg Tablet) 5 mg PO BID [facility] Last Admin: 11/17/22 08:54 Dose: 5 mg Documented By: ASHER Atorvastatin Calcium (Atorvastatin Calcium 20 Mg Tablet) 20 mg PO BEDTIME [facility] Baclofen (Baclofen 10 Mg Tablet) 10 mg PO TID PRN PRN Reason: Muscle Spasm Carbamazepine (Carbamazepine 200 Mg Tablet) 400 mg PO BID [facility] Last Admin: 11/17/22 08:55 Dose: 400 mg Documented By: ASHER Docusate Sodium (Docusate Sodium 100 Mg Capsule) 100 mg PO DAILY PRN PRN Reason: Constipation Metoprolol Succinate (Metoprolol Succinate Er 50 Mg Tab.Er.24h) 50 mg PO DAILY [facility]; Protocol Last Admin: 11/17/22 08:53 Dose: 50 mg Documented By: ASHER Ondansetron HCl (Ondansetron Hcl 4 Mg/2 Ml Vial) 4 mg IVPUSH Q8H PRN PRN Reason: Nausea and Vomiting Oxycodone HCl (Oxycodone Hcl Immed Release 15 Mg Tablet) 15 mg PO QID [facility] Last Admin: 11/17/22 08:54 Dose: 15 mg Documented By: ASHER Pharmacy Consult (Consult Rx Perform Med Rec) 1 each MISCELLANE ONCE PRN PRN Reason: Consult order Phenytoin Sodium (Phenytoin Sodium Extended 100 Mg Capsule) 700 mg PO BID [facility] Last Admin: 11/17/22 08:52 Dose: 700 mg Documented By: ASHER Sodium Chloride (0.9 % Sodium Chloride Flush 3 Ml Syringe) 3 ml IVFLUSH QSHIFT [facility] Last Admin: 11/17/22 08:55 Dose: 3 ml Documented By: ASHER Topiramate (Topiramate 25 Mg Tablet) 100 mg PO BID [facility] Last Admin: 11/17/22 08:54 Dose: 100 mg Documented By: ASHER Labs 11/16/22 20:07 11/17/22 04:39 Labs: Laboratory Results - last 24 hr 11/16/22 11/16/22 11/16/22 20:07 20:07 20:07 MCV 88.1 MCH 29.4 MCHC 33.3 RDW 13.9 Plt Count 162 MPV 12.1 Immature Gran % (Auto) 0.5 H Neut % (Auto) 73.1 H Lymph % (Auto) 16.5 L [place] % (Auto) 7.8 Eos % (Auto) 1.7 Baso % (Auto) 0.4 Lymph # (Auto) 1.4 [place] # (Auto) 0.7 Eos # (Auto) 0.1 Baso # (Auto) 0.0 Abs Immat Gran (auto) 0.04 H Absolute Neuts (auto) 6.1 Absolute Nucleated RBC 0.000 Nucleated RBC % (auto) 0.0 PT 13.5 H INR 1.1 APTT 22.3 L O2 Saturation ABG pH at Pt Temp ABG pCO2 at Pt Temp ABG pO2 at Pt Temp ABG HCO3 ABG Base Excess (Actual) Anion Gap 13 Estim Creat Clear Calc 163.3 Estimated GFR > 60 Random Glucose 179 H Lactic Acid Lactic Acid F/U @ 2Hr Calcium 9.1 Magnesium 2.0 Total Bilirubin 0.3 AST 20 ALT 22 Alkaline Phosphatase 183 H Total Creatine Kinase 93 Total Protein 7.4 Albumin 4.1 Lipase 17 Urine Color Urine Appearance Urine pH Ur Specific [place] Urine Protein Urine Glucose (UA) Urine Ketones Urine Blood Urine Nitrite Ur Leukocyte Esterase Urine RBC Urine WBC Ur Squamous Epith Cells Urine Bacteria Hyaline Casts Urine Opiates Screen Urine Fentanyl Screen Ur Barbiturates Screen Phenytoin Ur Phencyclidine Scrn Ur Amphetamines Screen U Benzodiazepines Scrn Urine Cocaine Screen U Marijuana (THC) Screen Ethyl Alcohol 11/16/22 11/16/22 11/16/22 20:07 20:07 20:07 MCV MCH MCHC RDW Plt Count MPV Immature Gran % (Auto) Neut % (Auto) Lymph % (Auto) [place] % (Auto) Eos % (Auto) Baso % (Auto) Lymph # (Auto) [place] # (Auto) Eos # (Auto) Baso # (Auto) Abs Immat Gran (auto) Absolute Neuts (auto) Absolute Nucleated RBC Nucleated RBC % (auto) PT INR APTT O2 Saturation ABG pH at Pt Temp ABG pCO2 at Pt Temp ABG pO2 at Pt Temp ABG HCO3 ABG Base Excess (Actual) Anion Gap Estim Creat Clear Calc Estimated GFR Random Glucose Lactic Acid 2.2 H* Lactic Acid F/U @ 2Hr Calcium Magnesium Total Bilirubin AST ALT Alkaline Phosphatase Total Creatine Kinase Total Protein Albumin Lipase Urine Color Urine Appearance Urine pH Ur Specific [place] Urine Protein Urine Glucose (UA) Urine Ketones Urine Blood Urine Nitrite Ur Leukocyte Esterase Urine RBC Urine WBC Ur Squamous Epith Cells Urine Bacteria Hyaline Casts Urine Opiates Screen Urine Fentanyl Screen Ur Barbiturates Screen Phenytoin 17.2 Ur Phencyclidine Scrn Ur Amphetamines Screen U Benzodiazepines Scrn Urine Cocaine Screen U Marijuana (THC) Screen Ethyl Alcohol < 10 11/16/22 11/17/22 11/17/22 23:51 00:26 00:37 MCV MCH MCHC RDW Plt Count MPV Immature Gran % (Auto) Neut % (Auto) Lymph % (Auto) [place] % (Auto) Eos % (Auto) Baso % (Auto) Lymph # (Auto) [place] # (Auto) Eos # (Auto) Baso # (Auto) Abs Immat Gran (auto) Absolute Neuts (auto) Absolute Nucleated RBC Nucleated RBC % (auto) PT INR APTT O2 Saturation 93.0 ABG pH at Pt Temp 7.38 ABG pCO2 at Pt Temp 44 ABG pO2 at Pt Temp 68 L ABG HCO3 26 ABG Base Excess (Actual) 1.1 Anion Gap Estim Creat Clear Calc Estimated GFR Random Glucose Lactic Acid Lactic Acid F/U @ 2Hr 1.4 Calcium Magnesium Total Bilirubin AST ALT Alkaline Phosphatase Total Creatine Kinase Total Protein Albumin Lipase Urine Color Urine Appearance Urine pH Ur Specific [place] Urine Protein Urine Glucose (UA) Urine Ketones Urine Blood Urine Nitrite Ur Leukocyte Esterase Urine RBC Urine WBC Ur Squamous Epith Cells Urine Bacteria Hyaline Casts Urine Opiates Screen Not Detected Urine Fentanyl Screen Not Detected Ur Barbiturates Screen POSITIVE H Phenytoin Ur Phencyclidine Scrn Not Detected Ur Amphetamines Screen Not Detected U Benzodiazepines Scrn Not Detected Urine Cocaine Screen Not Detected U Marijuana (THC) Screen Not Detected Ethyl Alcohol 11/17/22 11/17/22 00:37 04:39 MCV MCH MCHC RDW Plt Count MPV Immature Gran % (Auto) Neut % (Auto) Lymph % (Auto) [place] % (Auto) Eos % (Auto) Baso % (Auto) Lymph # (Auto) [place] # (Auto) Eos # (Auto) Baso # (Auto) Abs Immat Gran (auto) Absolute Neuts (auto) Absolute Nucleated RBC Nucleated RBC % (auto) PT INR APTT O2 Saturation ABG pH at Pt Temp ABG pCO2 at Pt Temp ABG pO2 at Pt Temp ABG HCO3 ABG Base Excess (Actual) Anion Gap 12 Estim Creat Clear Calc 225.6 Estimated GFR > 60 Random Glucose 146 H Lactic Acid Lactic Acid F/U @ 2Hr Calcium 8.8 Magnesium Total Bilirubin 0.3 AST 17 ALT 19 Alkaline Phosphatase 161 H Total Creatine Kinase Total Protein 6.8 Albumin 3.9 Lipase Urine Color Yellow Urine Appearance Clear Urine pH 6.5 Ur Specific [place] >= 1.030 H Urine Protein Trace Urine Glucose (UA) Negative Urine Ketones Trace Urine Blood Negative Urine Nitrite Negative Ur Leukocyte Esterase Negative Urine RBC 0-2 Urine WBC 0-5 Ur Squamous Epith Cells 0-2 Urine Bacteria None Seen Hyaline Casts 3-5 Urine Opiates Screen Urine Fentanyl Screen Ur Barbiturates Screen Phenytoin Ur Phencyclidine Scrn Ur Amphetamines Screen U Benzodiazepines Scrn Urine Cocaine Screen U Marijuana (THC) Screen Ethyl Alcohol Assessment and Plan (1) Breakthrough seizure: Status: Acute Plan 47-year-old male with history of seizure disorder, persistent AFib, NORIS, comes into the hospital with breakthrough seizure Aggression Patient standing up when ?a man? comes in the room appearing quite agitated Will need sitter and camera to monitor closely psychiatric consultation Breakthrough seizure NO diagnosis of type of seizures patient on Tegretol, Dilantin, as well as recently added topiramate Neurology consult>needs MRI and dx of type of seizures unfortunately our machines are unable to accommodate the patient's weight Elevated blood pressure readings Likely from agitation follow blood pressure closely NORIS CPAP at bedtime persistent AFib continue Eliquis, and metoprolol morbid obesity. BMI 74.9 Discussed importance of weight management as this may be contributing to worsening of other comorbidities DVT prophylaxis: Eliquis Attending Dr. Perez Patient requires continued hospitalization for possible breakthrough seizures and aggressive behavior Time Spent With Patient Time: Total time managing care of this patient today ____ minutes. Quality Stroke Does the patient have a stroke diagnosis?: No VTE Prior VTE?: No VTE Risk Level:: Medical - moderate - high VTE Device Contraindication: Treatment Not Indicated VTE Drug Contraindication: N/A - Med Ordered
[2022-11-17 12:21] LABS: Glucose, Whole Blood 186 mg/dL (60-115)
--- NOTE | 2022-11-17 12:22 | MHC.CM.PN ---
Patient's dc has been canceled. CM will follow.
--- NOTE | 2022-11-17 12:39 | PC.NURSE ---
Addendum entered by Corinne Sewell RN 11/17/22 13:53: Pts family in to visit and pt completely back to baseline. Moving forward with d/c. Original Note: Pt arrived to unit at ~1000. Oriented to room and call brooks system. Admitted for breakthrough sz, sz precautions and camera in place. Pt A/Ox4, very pleasant. Tolerating regular diet and pills whole. Able to JUAREZ and ambulate independently in room. Voiding with no issues. NSR on tele. Reporting Left wrist pain, no obvious swelling or bruising, MD aware. Plan was to d/c pt with instructions to followup with PCP outpatient, all paperwork completed and pt agreeable to plan awaiting ride. At ~1100 pt stated he had [place] and was seeing spots, BP elevated and pts demeanor vastly different. Pt attempting to get OOB repeating let me go home , becomes aggressive with male staff members. [employer]AMINER Veda at bedside to observe. Pt speaking full sentences, no sz activity noted. BP remains slightly elevated all other VSS. Psych consult placed, d/c on hold for now. Will cont to monitor.
--- NOTE | 2022-11-17 13:45 | MHC.CM.PN ---
Patient has been dc'd to home, self care.
== END 2022-11-17 13:40 | disposition home or self-care (01) | DRG 101 ==
LOC: HO.ED 22:13 → HO.EDOVER 22:50 → HO.IMC 11-17 07:14
PROVIDERS: Physician Assistant; Admitting Provider Internal Medicine; Emergency Provider Emergency Medicine; PCP Internal Medicine; Visit Provider Nurse Practitioner Acute Care
DX: G40.909 Epilepsy, unspecified, not intractable, without status epilepticus (principal); Z68.45 Body mass index [BMI] 70 or greater, adult; I48.19 Other persistent atrial fibrillation; Z71.3 Dietary counseling and surveillance; R03.0 Elevated blood-pressure reading, without diagnosis of hypertension; E66.01 Morbid (severe) obesity due to excess calories; G47.33 Obstructive sleep apnea (adult) (pediatric); Z79.01 Long term (current) use of anticoagulants; Z79.899 Other long term (current) drug therapy
CPT/HCPCS: 36415; 71045; 73110; 73130; 80048; 80053; 80185; 80307; 81001; 82550; 82803; 82947; 83605; 83690; 83735; 84146; 84484; 85025; 85610; 85730; 93005; 94660; 96366; 96372; 96375; 99221; 99285; J1953; J2060

== ENCOUNTER → 2022-11-16 18:48 | Outpatient (BNV) | payer MEDICARE, MEDICAID, SELFPAY | PROVIDERS: Admitting Provider Internal Medicine; Emergency Provider Emergency Medicine; PCP Internal Medicine; Visit Provider Internal Medicine Cardiovascular Disease | DX: I48.91 Unspecified atrial fibrillation (principal); R94.31 Abnormal electrocardiogram [ECG] [EKG] | CPT/HCPCS: 93010 ==

== ENCOUNTER → 2022-11-16 22:38 | Outpatient (BNV) | payer MEDICARE, MEDICAID, SELFPAY | PROVIDERS: Admitting Provider Internal Medicine; Emergency Provider Emergency Medicine; PCP Internal Medicine; Visit Provider Internal Medicine | DX: G40.919 Epilepsy, unspecified, intractable, without status epilepticus (principal) | CPT/HCPCS: 99223; 99239 ==

== ENCOUNTER 2022-12-09 13:51 | Emergency (ER) | payer MEDICARE, MEDICAID, SELFPAY ==
--- NOTE | ~2022-12-09 | XR_ITS ---
EXAMINATION: XR FOREARM, RIGHT CLINICAL INFORMATION: Ecchymosis. COMPARISON: None available. TECHNIQUE: AP and lateral views of the right forearm were obtained. FINDINGS: The radius and ulna are intact. The joint spaces are unremarkable. There is no acute fracture or dislocation. Mild soft tissue swelling is seen. XR/XR forearm RT 2V IMPRESSION: Mild soft tissue swelling without acute underlying osseous abnormality.
--- NOTE | ~2022-12-09 | US_ITS ---
EXAMINATION: Ultrasound extremity nonvascular. CLINICAL INDICATIONS: Right forearm/elbow pain. TECHNIQUE: Limited ultrasound imaging to the right elbow was performed. FINDINGS: Limited ultrasound imaging through the right forearm and elbow reveals no focal mass, cyst or free fluid. Visualized right cephalic vein is normal. US/US extremity nonvascular IMPRESSION: Unremarkable limited ultrasound right forearm and elbow.
[2022-12-09 14:14] VITALS: BP 174/106; PULSE 78; RESP 19; TEMP 36.1; O2SAT 94; BMI 79.6
--- NOTE | 2022-12-09 14:14 | ED_ITS ---
HPI - General Adult General Chief complaint: Extremity Problem Stated complaint: pain through arm. discoloration in elbow Time Seen by Provider: 12/09/22 16:51 Source: patient Mode of arrival: ambulatory Limitations: no limitations History of Present Illness HPI narrative: This is a 47-year-old male History of AFib, epileptic seizures, history of right-sided median nerve compression, obesity, NORSI presenting with atraumatic pain to right forearm since Tuesday night, patient reports intermittent numbness and tingling to fingers 2 through 4, he does not experience any numbness and tingling to. He reports this pain is a stabbing pain and is waking him up at night. Patient denies chest pain, shortness of breath, fevers, chills, headache, vision changes, dizziness and weakness. Patient is on blood thinners. Med compliant with medications. Related Data Home Medications Medication Instructions Recorded Confirmed phenytoin sodium extended 100 mg 700 mg PO BID 02/23/21 11/16/22 capsule (Dilantin Extended) atorvastatin 20 mg tablet 20 mg PO BEDTIME 03/05/21 11/16/22 nystatin 100,000 unit/gram topical 1 appl topical BID PRN Rash 06/08/21 11/16/22 cream metoprolol succinate 25 mg 50 mg PO DAILY 08/26/22 11/16/22 tablet,extended release 24 hr allopurinol 300 mg tablet 300 mg PO DAILY 11/12/22 11/16/22 carbamazepine 200 mg tablet 400 mg PO BID 11/12/22 11/16/22 baclofen 10 mg tablet 10 mg PO TID PRN Muscle Spasm 11/16/22 11/16/22 lorazepam 2 mg tablet 2 mg PO TID 11/16/22 11/16/22 oxycodone 15 mg tablet 15 mg PO QID 11/16/22 11/16/22 Previous Rx's Medication Instructions Recorded apixaban 5 mg tablet (Eliquis) 5 mg PO BID #60 tabs 04/29/21 topiramate 25 mg tablet 100 mg PO BID #240 tabs 11/17/22 acetaminophen 325 mg capsule 650 mg PO Q6H PRN fever or pain 12/09/22 (Tylenol) #20 caps prednisone 20 mg tablet 40 mg PO DAILY 5 days #10 tabs 12/09/22 Allergies Allergy/AdvReac Type Severity Reaction Status Date / Time codeine [Codeine] Allergy Unknown RASH, hives Verified 11/16/22 18:45 ibuprofen [From Motrin] Allergy Unknown HIVES Verified 11/16/22 18:45 Review of Systems Review of Systems: Constitutional : No Weight loss, No Fever, No Chills, No Fatigue, No Malaise ENT/Mouth : No sore throat, No Rhinorrhea Eyes: No Eye Pain, No Swelling, No Redness Cardiovascular : No Chest Pain, No SOB, No Dyspnea on Exertion, No Orthopnea, No Edema, No Palpitations Respiratory : No Cough, No Sputum, No Wheezing Gastrointestinal : No Nausea, No Vomiting, No Diarrhea, No Constipation, No abdominal Pain, No Hematochezia, No Melena Genitourinary : No Dysuria, No Urinary Frequency, No Hematuria, Musculoskeletal : + joint pain, No Myalgias, No Joint Swelling Skin : No Skin Lesions, No rash Neuro : No Weakness, No Numbness, No Dizziness, No Headache Psych : No Anxiety/Panic, No Depression All other systems reviewed and are negative Yes all other systems are reviewed and are negative [facility] Past Medical History Attestation statement: The following information was validated with the patient. Source: old records reviewed and nursing notes reviewed Medical History A-fib Aftercare following bilateral ankle joint replacement surgery Brain tumor Diabetes Hypoxemia Morbid obesity Morbid obesity with body mass index (BMI) greater than or equal to 70 in adult NORIS (obstructive sleep apnea) NORIS (obstructive sleep apnea) Persistent atrial fibrillation Pulmonary arterial hypertension Right hand dominant Seizure disorder Shortness of breath Sleep apnea, obstructive Surgical History History of ankle surgery Family History Family History Paternal Grandmother Myocardial infarction Maternal Grandfather Myocardial infarction Brother No problems noted. Sister No problems noted. Sister No problems noted. Social History Social History Household Members: Family Housing: House Do you presently have visiting nurse or other home services: No Alcohol intake: never Patient Tobacco Use Status: Never used Tobacco Advance Directives: No Advance Directives Information Provided: No service: No Current occupational status: disabled Current occupation: [employer] handed Physical Exam ED Vital Signs: Vital Signs - 24 hr 12/09/22 14:14 12/09/22 15:58 Temperature 97.0 F Pulse Rate 78 75 Respiratory Rate 19 20 Blood Pressure 174/106 H 168/112 H Pulse Oximetry 94 94 Oxygen Delivery Method Room Air Room Air BMI result Body Mass Index 79.6 vss Appearance: Alert.? Oriented X3.? No acute distress.? Head: Normocephalic, atraumatic, no step-offs or deformities Eyes: Pupils equal, round and reactive to light.? CVS: Normal heart rate and rhythm.? Pulses normal.? Respiratory: No respiratory distress.? Breath sounds normal.? Abdomen: Soft and nontender.? Skin: Skin warm and dry.? Normal skin color.? Normal skin turgor.? Extremities: No lower extremity edema.? No calf ttp. 5/5 strength to bilateral upper and lower extremities negative Romberg and pronator drift. Normal handgrip b/l. Bilateral UE appear symmetric, 2+ radial pulses equal and b/l. Cap refil < 2 seconds to b/l UE. No wrist drop. Neuro: Oriented X 3.? No motor deficit.? No sensory deficit. CN 2-12 intact Course Course Course Narrative: RME: 47yo M w/PMHx obesity, seizures, A.fib on Eliquis, CHF, PE, NORIS, c/o R forearm pain and feeling like something stretching/pulling with extension & noted ecchymosis. Admits to frequent lifting, denies direct injury/trauma, CP/SOB +R forearm with mild ttp, pain with extension. NV intact. no deformity EKG, x-ray, ultrasound ordered Full HPI, ROS and PE to be performed by primary ED provider. Medical Decision Making Medical Decision Making [facility] Narrative: 1722 47-year-old male presents with right upper extremity pain in the for the past few days, pain awakening him from his sleep physical exam significant for No lower extremity edema.? No calf ttp. 5/5 strength to bilateral upper and lower extremities negative Romberg and pronator drift. Normal handgrip b/l. Bilateral UE appear symmetric, 2+ radial pulses equal and b/l. Cap refil < 2 seconds to b/l UE. No wrist drop. likely median nerve compression. Versus carpal tunnel. Unlikely threat to Pandya, neurovascular compromise. No chest pain or shortness of breath, unlikely ACS, PE. Patient anticoagulated Plan ultrasound, x-ray, EKG Differential Diagnosis Differential Diagnoses: The differential diagnosis associated with the presentation includes likely median nerve compression. Versus carpal tunnel. Unlikely threat to Pandya, neurovascular compromise. No chest pain or shortness of breath, unlikely ACS, PE. Patient anticoagulated Admission/Observation Consideration of admission/observation: Escalation of care including admission/observation considered no indication Independent Interpretation I performed an independent interpretation of an: EKG (Atrial fibrillation Low voltage QRS Possible Inferior infarct (cited on or before 18-JUN-2019) Cannot rule out Anteroseptal infarct (cited on or before 18-JUN-2019) Abnormal ECG When compared with ECG of 16-NOV-2022 19:09, Questionable change in initial forces of Septal leads Nonspecific T wave abno), Plain X-Ray ( XR/XR forearm RT 2V IMPRESSION: Mild soft tissue swelling without acute underlying osseous abnormality.) and Ultrasound ( US/US extremity nonvascular IMPRESSION: Unremarkable limited ultrasound right forearm and elbow. ) Radiology Impression Discussion of test interpretation with radiology: I have reviewed the radiologist's reading. Core Measures AMI core measures followed: Yes Measure exclusions: not indicated Critical Care Time Critical Care Time Critical Care Time: No Discharge Plan Discharge Clinical Impression: Median nerve compression in right forearm Patient Disposition: Home, Self-Care Instructions: Paresthesia (ED) Additional Instructions: Take your medications as prescribed. If you were prescribed antibiotics today, it is important that you take your medication to their entirety, do not skip any doses, do not finish them early. Follow-up with your primary care provider this week. Return to the emergency department with new or worsening symptoms. Such as fevers, chills, chest pain, shortness of breath, nausea, vomiting, dizziness, headache, vision changes, lethargy In case of emergency call 911 XR/XR forearm RT 2V IMPRESSION: Mild soft tissue swelling without acute underlying osseous abnormality. US/US extremity nonvascular IMPRESSION: Unremarkable limited ultrasound right forearm and elbow. Prescriptions: New prednisone 20 mg tablet 40 mg PO DAILY 5 Days Qty: 10 0RF acetaminophen [Tylenol] 325 mg capsule 650 mg PO Q6H PRN (Reason: fever or pain) Qty: 20 0RF No Action Eliquis 5 mg Tablet 5 mg PO BID Qty: 60 0RF carbamazepine 200 mg tablet 400 mg PO BID allopurinol 300 mg tablet 300 mg PO DAILY oxycodone 15 mg tablet 15 mg PO QID lorazepam 2 mg tablet 2 mg PO TID baclofen 10 mg tablet 10 mg PO TID PRN (Reason: Muscle Spasm) topiramate 25 mg Tablet 100 mg PO BID Qty: 240 0RF phenytoin sodium extended [Dilantin Extended] 100 mg capsule 700 mg PO BID atorvastatin 20 mg tablet 20 mg PO BEDTIME nystatin 100,000 unit/gram cream 1 appl topical BID PRN (Reason: Rash) metoprolol succinate 25 mg tablet extended release 24 hr 50 mg PO DAILY Protocol: Hold for SBP/HR < HOLD for SBP < : 90 HOLD for HR < : 60 Referrals: Gt Menendez MD [Primary Care Provider] - 2 days Stand Alone Forms: Work/School Release
--- NOTE | 2022-12-09 14:15 | ECG_ITS ---
Test Reason : RUE pain Blood Pressure : / mmHG Vent. Rate : 086 BPM Atrial Rate : 000 BPM P-R Int : 000 ms QRS Dur : 076 ms QT Int : 368 ms P-R-T Axes : 000 -08 070 degrees QTc Int : 440 ms Atrial fibrillation Low voltage QRS Possible Inferior infarct (cited on or before 18-JUN-2019) Cannot rule out Anteroseptal infarct (cited on or before 18-JUN-2019) Abnormal ECG When compared with ECG of 16-NOV-2022 19:09, Nonspecific T wave abnormality, improved in Anterior leads Referred By: Nenita Russell Electronically Signed By:ANIVAL PEPPER
[2022-12-09 15:58] VITALS: BP 168/112; PULSE 75; RESP 20; O2SAT 94
== END 2022-12-10 01:31 | disposition home or self-care (01) ==
PROVIDERS: Emergency Provider Emergency Medicine; PCP Internal Medicine
DX: G56.01 Carpal tunnel syndrome, right upper limb (principal); M79.631 Pain in right forearm; I48.91 Unspecified atrial fibrillation; I50.33 Acute on chronic diastolic (congestive) heart failure; E66.01 Morbid (severe) obesity due to excess calories; Z68.45 Body mass index [BMI] 70 or greater, adult; Z86.711 Personal history of pulmonary embolism; Z79.01 Long term (current) use of anticoagulants; Z79.899 Other long term (current) drug therapy
CPT/HCPCS: 73090; 76882; 93005; 99284

== ENCOUNTER 2022-12-11 10:16 | Emergency (ER) | payer MEDICARE, MEDICAID, SELFPAY ==
--- NOTE | ~2022-12-11 | US_ITS ---
EXAMINATION: US VENOUS WITH DOPPLER UPPER EXTREMITY, RIGHT CLINICAL INFORMATION: Right upper extremity pain in the antecubital fossa. COMPARISON: None available. TECHNIQUE: Ultrasound of the upper extremity is performed using compression sonography and color and pulse Doppler flow with assessment of augmentation of flow. There is also imaging and Doppler assessment of the jugular and subclavian veins. Spectral analysis with color-flow imaging is performed. FINDINGS: Respiratory variation, normal compression, and augmented flow are noted throughout the upper extremity including the axillary, brachial, cubital, and radial and ulnar veins. There is normal flow in the internal jugular and subclavian veins. There is no visible deep or superficial thrombophlebitis. If the patient's symptoms progress, a followup ultrasound in 5 -7 days might be of value to exclude proximal propagation from a nonvisualized distal arm vein. US/US venous duplex UE RT IMPRESSION: No evidence of deep venous thrombosis in the visualized veins of the right upper extremity.
[2022-12-11 10:32] VITALS: BP 167/104; PULSE 74; RESP 22; TEMP 36.6; O2SAT 96; BMI 78.2
--- NOTE | 2022-12-11 10:42 | ED.EXTPRO ---
HPI - Extremity Problem General Chief complaint: Extremity Injury, Upper Stated complaint: numbness r hand and forearm quest dvt Time Seen by Provider: 12/11/22 10:25 Source: patient, family and old records reviewed Mode of arrival: ambulatory Limitations: no limitations History of Present Illness HPI Narrative: Patient is a 47-year-old male with history of seizure disorder, AFib on Eliquis, PE, NORIS, CHF, and history of right-sided median nerve compression presenting to the emergency department with complaint of right forearm pain as well as numbness to 2nd-4th fingers of right hand and pain to thumb for 6 days. States the pain was so severe he vomited twice this morning due to the pain. He describes the pain as a stretching/tearing sensation to his anterior right forearm, and reports worst areas of pain are to distal wrist and AC area. He does report history of frequent lifting. States pain is also worse with extension of right elbow and abduction of right shoulder. Denies chest pain, dyspnea, calf pain or swelling, fevers. Denies headache, vision changes, or weakness. Reports that he has been taking his Eliquis as prescribed. MD Complaint: extremity pain Onset (ago): day(s) Pain Consistency: intermittent and colicky Location: right and upper extremity Severity scale (1-10): 9 Quality: sharp Relieving factors: rest Exacerbating factors: range of motion and palpation Associated symptoms: other (vomited x 2 related to pain this am) Context: history of DVT (history of PE) Related Data Home Medications Medication Instructions Recorded Confirmed phenytoin sodium extended 100 mg 700 mg PO BID 02/23/21 11/16/22 capsule (Dilantin Extended) atorvastatin 20 mg tablet 20 mg PO BEDTIME 03/05/21 11/16/22 nystatin 100,000 unit/gram topical 1 appl topical BID PRN Rash 06/08/21 11/16/22 cream metoprolol succinate 25 mg 50 mg PO DAILY 08/26/22 11/16/22 tablet,extended release 24 hr allopurinol 300 mg tablet 300 mg PO DAILY 11/12/22 11/16/22 carbamazepine 200 mg tablet 400 mg PO BID 11/12/22 11/16/22 baclofen 10 mg tablet 10 mg PO TID PRN Muscle Spasm 11/16/22 11/16/22 lorazepam 2 mg tablet 2 mg PO TID 11/16/22 11/16/22 oxycodone 15 mg tablet 15 mg PO QID 11/16/22 11/16/22 Previous Rx's Medication Instructions Recorded apixaban 5 mg tablet (Eliquis) 5 mg PO BID #60 tabs 04/29/21 topiramate 25 mg tablet 100 mg PO BID #240 tabs 11/17/22 acetaminophen 325 mg capsule 650 mg PO Q6H PRN fever or pain 12/09/22 (Tylenol) #20 caps prednisone 20 mg tablet 40 mg PO DAILY 5 days #10 tabs 12/09/22 prednisone 20 mg tablet 20 mg PO DAILY #18 tabs 12/11/22 Allergies Allergy/AdvReac Type Severity Reaction Status Date / Time codeine [Codeine] Allergy Unknown RASH, hives Verified 11/16/22 18:45 ibuprofen [From Motrin] Allergy Unknown HIVES Verified 11/16/22 18:45 Review of Systems Review of Systems: As per HPI. Yes all other systems are reviewed and are negative Constitutional: Constitutional: Reports as per HPI Neurologic: Reports Sensory deficit (Neuro) [facility] Past Medical History Medical History A-fib Aftercare following bilateral ankle joint replacement surgery Brain tumor Diabetes Hypoxemia Morbid obesity Morbid obesity with body mass index (BMI) greater than or equal to 70 in adult NORIS (obstructive sleep apnea) NORIS (obstructive sleep apnea) Persistent atrial fibrillation Pulmonary arterial hypertension Right hand dominant Seizure disorder Shortness of breath Sleep apnea, obstructive Surgical History History of ankle surgery Family History Family History Paternal Grandmother Myocardial infarction Maternal Grandfather Myocardial infarction Brother No problems noted. Sister No problems noted. Sister No problems noted. Social History Social History Household Members: Family Housing: House Do you presently have visiting nurse or other home services: No Alcohol intake: never Patient Tobacco Use Status: Never used Tobacco Advance Directives: No Advance Directives Information Provided: No service: No Current occupational status: disabled Current occupation: Rt handed Physical Exam Vital Signs: Vital Signs: Last Vital Signs Temp 97.9 F 12/11/22 10:32 Pulse 71 12/11/22 11:05 Resp 14 12/11/22 11:05 BP 151/93 H 12/11/22 11:05 Pulse Ox 93 12/11/22 11:05 O2 Del Method Room Air 12/11/22 11:05 BMI result Body Mass Index 78.2 Vital signs have been reviewed and appear to be correct. Blood pressure elevated. Heart rate normal. Respiratory rate normal. Temperature normal. Oxygen saturation normal. Const: General: cooperative, healthy appearing and no acute distress Orientation/consciousness: oriented to person, oriented to place, oriented to time and patient oriented x3 Limitations: no limitations HEENT: Head: Yes normocephalic and Yes atraumatic Ears: external ears normal General nose exam: Normal external nose present Face and sinus: Yes face symmetric Mouth: oropharynx normal and moist mucous membranes Throat: Yes uvula midline Eyes: Pupils: Equal, round and reactive pupils present Neck: Neck: Yes normal visual inspection and Yes supple Resp: Effort & Inspection: normal respiratory effort and able to speak in complete sentences Auscultation: clear to auscultation bilaterally Cardio: Rate: regular rate Rhythm: regular rhythm Heart sounds: S1 normal heart sound present and S2 normal heart sound present GI: Palpation (GI): Soft to palpation and nontender Auscultation: normoactive bowel sounds : General: Yes no CVA tenderness Back/Spine/Pelvis: Back: no CVA tenderness Skin: General skin exam: elasticity normal and turgor normal Neuro: General: oriented to person, oriented to place, oriented to time, patient oriented x3, gait normal, tone normal, moves all extremities, no focal motor deficits, CN's II-XI intact bilaterally and deep tendon reflexes 2+ bilaterally Cranial nerves: Yes Equal, round and reactive pupils present Cognition (Neuro): normal cognition Motor exam (neuro): 5/5 motor strength present throughout, Pronator motor function not present, no tremor noted, Normal motor muscle tone present throughout and Motor abnormalities not present Sensory Exam: Sensory deficit (Neuro) and Upper extremity sensory exam abnormal right light-touch abnormal (2nd-4th fingers right hand) Extrem: General: Yes full ROM, Yes normal exam except as noted, Yes no pedal edema and Yes no calf tenderness Right upper extremity: elbow/forearm Details: abnormal to inspection Details: other (mild erythema to AC, otherwise normal to inspection) and tenderness Location: of the antecubital fossa and of the mid-shaft forearm; no swelling and no unusual warmth and Extremity exam: right hand Details: normal to inspection, normal capillary refill, neuromotor exam normal, neurosensory exam abnormal Details: median nerve sensory function normal Details: decreased light touch sensation, vascular exam Details: radial pulse present and normal capillary refill and normal ROM of fingers; no unusual warmth and no swelling Left upper extremity: normal to inspection, full ROM and normal capillary refill Psych: Mental Status: mental status grossly normal Affect: normal affect Thought process: Normal thought process present Medical Decision Making Medical Decision Making MDM Narrative: Patient is a 47-year-old male with history of seizure disorder, AFib on Eliquis, PE, NORIS, CHF, and history of right-sided median nerve compression presenting to the emergency department with complaint of right forearm pain as well as numbness to 2nd-4th fingers of right hand and pain to thumb for 6 days. 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 Given reported symptoms and physical exam findings, initial differential includes carpal tunnel syndrome, median nerve compression, right UE DVT. Feel ACS less likely given length of symptoms, however, given episodes of vomiting this morning will obtain EKG and troponin. Will repeat ultrasound as patient states prior exam on 12/09 did not include the AC fossa and this is his primary area of pain currently. Patient also had recent inpatient admission with multiple IVs. Labs notable for no leukocytosis to indicate infection, negative troponin, labs otherwise consistent with baseline. EKG notable for atrial fibrillation with controlled rate. U/S notable for no DVT. My interpretation is in agreement with the radiologist's interpretation. Feel patient's symptoms are most consistent with median nerve compression and/or carpal tunnel syndrome and discussed with patient that he should have a nerve conduction study moving forward. Patient states he has a scheduled appointment with his PCP on and patient was advised to discuss the possibility of a nerve conduction study with his PCP at that time. Will prescribed a tapered prednisone dose and instructed patient to apply ice to his arm for 10-15 minutes at a time multiple times per day. Matt wrap provided in the ED and patient instructed to use for comfort. Patient instructed to discontinue heavy lifting or other activities which aggravate his symptoms. Return precautions discussed at bedside. Patient verbalized understanding of and agreement with plan. Differential Diagnosis Differential Diagnoses: The differential diagnosis associated with the presentation includes As per MDM. Admission/Observation Consideration of admission/observation: Escalation of care including admission/observation considered Lab Data [facility] Lab Attestation statement: I reviewed the patient's lab results. As per MDM. 12/11/22 10:53 12/11/22 10:53 Labs: Lab Results 12/11/22 12/11/22 12/11/22 Range/Units 10:53 10:53 10:53 WBC 6.7 (4.8-10.8) X10*3/uL RBC 5.28 (4.60-5.80) X10*6/uL Hgb 15.5 (14.0-18.0) g/dl Hct 46.7 (42.0-52.0) % MCV 88.4 (80.0-98.0) fL MCH 29.4 (27.0-33.0) pg MCHC 33.2 (31.0-36.0) g/dl RDW 14.1 (11.0-16.0) % Plt Count 162 (160-400) X10*3/uL MPV 11.8 (9.4-12.4) fL Immature Gran % (Auto) 0.4 (0.0-0.4) % Neut % (Auto) 66.3 (45-73) % Lymph % (Auto) 25.6 (20-40) % Mercer % (Auto) 7.0 (2-11) % Eos % (Auto) 0.4 (0-4) % Baso % (Auto) 0.3 (0-2) % Lymph # (Auto) 1.7 (1.2-4.9) X10*3/uL Mercer # (Auto) 0.5 (0.1-1.2) X10*3/uL Eos # (Auto) 0.0 (0.0-0.4) X10*3/uL Baso # (Auto) 0.0 (0.0-0.2) X10*3/uL Abs Immat Gran (auto) 0.03 (0.00-0.03) X10*3/uL Absolute Neuts (auto) 4.5 (2.0-8.3) x10*3/uL Absolute Nucleated RBC 0.000 (0.0-0.012) X10*3/uL Nucleated RBC % (auto) 0.0 (0.0-0.2) /100WBC PT 12.5 (11.1-13.3) SEC INR 1.0 (0.9-1.1) Sodium 143 (135-145) mmol/L Potassium 4.5 (3.3-5.1) mmol/L Chloride 110 H (96-108) mmol/L Carbon Dioxide 25 (22-29) mmol/L Anion Gap 13 (12-20) BUN 18 H (9-16) mg/dL Creatinine 0.82 (0.5-1.4) mg/dL Estim Creat Clear Calc 224.7 Estimated GFR > 60 Random Glucose 155 H (60-115) mg/dL Calcium 9.5 D (8.4-10.2) mg/dL Total Bilirubin 0.3 (0.0-1.0) mg/dL AST 20 (5-37) U/L ALT 31 (0-40) U/L Alkaline Phosphatase 147 H (39-117) U/L Troponin I High Sens (<3.5-35.0) ng/L Total Protein 7.6 (6.5-8.0) g/dL Albumin 4.2 (3.5-5.0) g/dL 12/11/22 Range/Units 10:53 WBC (4.8-10.8) X10*3/uL RBC (4.60-5.80) X10*6/uL Hgb (14.0-18.0) g/dl Hct (42.0-52.0) % MCV (80.0-98.0) fL MCH (27.0-33.0) pg MCHC (31.0-36.0) g/dl RDW (11.0-16.0) % Plt Count (160-400) X10*3/uL MPV (9.4-12.4) fL Immature Gran % (Auto) (0.0-0.4) % Neut % (Auto) (45-73) % Lymph % (Auto) (20-40) % Mercer % (Auto) (2-11) % Eos % (Auto) (0-4) % Baso % (Auto) (0-2) % Lymph # (Auto) (1.2-4.9) X10*3/uL Mercer # (Auto) (0.1-1.2) X10*3/uL Eos # (Auto) (0.0-0.4) X10*3/uL Baso # (Auto) (0.0-0.2) X10*3/uL Abs Immat Gran (auto) (0.00-0.03) X10*3/uL Absolute Neuts (auto) (2.0-8.3) x10*3/uL Absolute Nucleated RBC (0.0-0.012) X10*3/uL Nucleated RBC % (auto) (0.0-0.2) /100WBC PT (11.1-13.3) SEC INR (0.9-1.1) Sodium (135-145) mmol/L Potassium (3.3-5.1) mmol/L Chloride (96-108) mmol/L Carbon Dioxide (22-29) mmol/L Anion Gap (12-20) BUN (9-16) mg/dL Creatinine (0.5-1.4) mg/dL Estim Creat Clear Calc Estimated GFR Random Glucose (60-115) mg/dL Calcium (8.4-10.2) mg/dL Total Bilirubin (0.0-1.0) mg/dL AST (5-37) U/L ALT (0-40) U/L Alkaline Phosphatase (39-117) U/L Troponin I High Sens < 2.7 (<3.5-35.0) ng/L Total Protein (6.5-8.0) g/dL Albumin (3.5-5.0) g/dL Independent Interpretation I performed an independent interpretation of an: EKG Interpretation: EKG: atrial fibrillation, rate 82 bpm, compared to EKG from 12/09, criteria for anteroseptal infarct no longer present, no evidence of STEMI Radiology Impression Discussion of test interpretation with radiology: I have reviewed the radiologist's reading. Radiologist Impression: US/US venous duplex UE RT IMPRESSION: No evidence of deep venous thrombosis in the visualized veins of the right upper extremity. External Record Review External record reviewed: Inpatient record, Office record and Outpatient record Prescription Management I considered prescription management with: Other Discharge Plan Discharge Clinical Impression: Median nerve compression in right forearm Patient Disposition: Home, Self-Care Additional Instructions: You were evaluated in the emergency department today for right arm pain. Your ultrasound did not show evidence a DVT, also known as a blood clot. Your symptoms are likely related to median nerve compression in your right arm. Please follow-up with your primary care provider to discuss possible nerve conduction studies. You are being prescribed a tapering dose of prednisone, please discontinue your previously prescribed dose of prednisone. Return to the emergency department if you develop worsening pain, new weakness, worsening numbness or tingling to your arm, chest pain, shortness breath, or any other concerning symptoms. Prescriptions: New prednisone 20 mg tablet 20 mg PO DAILY Qty: 18 0RF Rx Instructions: Take 3 tabs for total dose of 60mg daily for three days, then take 2 tabs for total dose of 40mg daily for three days, then take one tab for total dose of 20mg daily for three days No Action Eliquis 5 mg Tablet 5 mg PO BID Qty: 60 0RF carbamazepine 200 mg tablet 400 mg PO BID allopurinol 300 mg tablet 300 mg PO DAILY oxycodone 15 mg tablet 15 mg PO QID lorazepam 2 mg tablet 2 mg PO TID baclofen 10 mg tablet 10 mg PO TID PRN (Reason: Muscle Spasm) topiramate 25 mg Tablet 100 mg PO BID Qty: 240 0RF prednisone 20 mg tablet 40 mg PO DAILY 5 Days Qty: 10 0RF acetaminophen [Tylenol] 325 mg capsule 650 mg PO Q6H PRN (Reason: fever or pain) Qty: 20 0RF phenytoin sodium extended [Dilantin Extended] 100 mg capsule 700 mg PO BID atorvastatin 20 mg tablet 20 mg PO BEDTIME nystatin 100,000 unit/gram cream 1 appl topical BID PRN (Reason: Rash) metoprolol succinate 25 mg tablet extended release 24 hr 50 mg PO DAILY Protocol: Hold for SBP/HR < HOLD for SBP < : 90 HOLD for HR < : 60
--- NOTE | 2022-12-11 10:45 | ECG_ITS ---
Test Reason : chest pressure Blood Pressure : / mmHG Vent. Rate : 082 BPM Atrial Rate : 000 BPM P-R Int : 000 ms QRS Dur : 082 ms QT Int : 400 ms P-R-T Axes : 000 005 066 degrees QTc Int : 467 ms Atrial fibrillation Low voltage QRS Abnormal ECG When compared with ECG of 09-DEC-2022 15:19, Minimal criteria for Anteroseptal infarct are no longer Present Referred By: Magdalene Sloan Electronically Signed By:ANIVAL PEPPER
[2022-12-11 10:58] LABS: MANUAL DIFF FLAG NO
[2022-12-11 11:00] LABS: Basophils Percent Auto 0.3 % (0-2); Eosinophils Percent Auto 0.4 % (0-4); Hematocrit 46.7 % (42.0-52.0); Hemoglobin 15.5 g/dl (14.0-18.0); Imm Gran Abs Auto 0.03 X10*3/uL (0.00-0.03); Imm Gran Pct Auto 0.4 % (0.0-0.4); Lymphocytes Absolute Auto 1.7 X10*3/uL (1.2-4.9); Lymphocytes Percent Auto 25.6 % (20-40); Mean Corpuscular HGB Conc 33.2 g/dl (31.0-36.0); Mean Corpuscular Hemoglobin 29.4 pg (27.0-33.0); Mean Corpuscular Volume 88.4 fL (80.0-98.0); Mean Platelet Volume 11.8 fL (9.4-12.4); Monocytes Absolute Auto 0.5 X10*3/uL (0.1-1.2); Neutrophils Absolute Auto 4.5 x10*3/uL (2.0-8.3); Neutrophils Percent Auto 66.3 % (45-73); Platelet Count 162 X10*3/uL (160-400); Red Blood Count 5.28 X10*6/uL (4.60-5.80); Red Cell Distribution Width 14.1 % (11.0-16.0); White Blood Count 6.7 X10*3/uL (4.8-10.8)
[2022-12-11 11:05] VITALS: BP 151/93; PULSE 71; RESP 14; O2SAT 93
[2022-12-11 11:07] LABS: Prothrombin Time 12.5 SEC (11.1-13.3)
[2022-12-11 11:14] LABS: Alanine Aminotransferase 31 U/L (0-40); Albumin Level 4.2 g/dL (3.5-5.0); Alkaline Phosphatase 147 U/L (39-117); Anion Gap 13 (12-20); Aspartate Amino Transferase 20 U/L (5-37); Bilirubin Total 0.3 mg/dL (0.0-1.0); Blood Urea Nitrogen 18 mg/dL (9-16); Calcium 9.5 mg/dL (8.4-10.2); Carbon Dioxide 25 mmol/L (22-29); Chloride 110 mmol/L (96-108); Creatinine Clr Calc Pharmacy 224.7; Estimated Glomerular Filt Rate > 60; Glucose Random 155 mg/dL (60-115); Potassium 4.5 mmol/L (3.3-5.1); Sodium 143 mmol/L (135-145); Total Protein 7.6 g/dL (6.5-8.0)
[2022-12-11 11:25] LABS: Troponin-I High Sensitivity < 2.7 ng/L (<3.5-35.0)
== END 2022-12-11 13:06 | disposition home or self-care (01) ==
PROVIDERS: Registered Nurse Emergency; Emergency Provider Emergency Medicine; PCP Internal Medicine
DX: G56.01 Carpal tunnel syndrome, right upper limb (principal); E11.9 Type 2 diabetes mellitus without complications; I48.19 Other persistent atrial fibrillation; Z86.711 Personal history of pulmonary embolism; Z79.899 Other long term (current) drug therapy; Z79.02 Long term (current) use of antithrombotics/antiplatelets; Z79.01 Long term (current) use of anticoagulants
CPT/HCPCS: 36415; 80053; 84484; 85025; 85610; 93005; 93971; 99283; 99284

== ENCOUNTER → 2022-12-16 10:25 | Outpatient (BNVA) | payer MEDICARE, MEDICAID, SELFPAY | PROVIDERS: PCP Internal Medicine; Visit Provider Physician Assistant Surgical ==

== ENCOUNTER 2022-12-28 11:21 | Outpatient (AMB) | payer MEDICARE, MEDICAID, SELFPAY ==
--- NOTE | 2022-12-28 11:24 | A.OFFVIS_ITS ---
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: No Allergies codeine [Codeine] Allergy (Unknown, Verified 11/16/22 18:45) RASH, hives ibuprofen [From Motrin] Allergy (Unknown, Verified 11/16/22 18:45) HIVES Medication List - Last Reconciled 12/28/22 by KWESI Negron acetaminophen (Tylenol) 650 mg (2 x 325 mg) PO Q6H PRN allopurinol 300 mg PO DAILY apixaban (Eliquis) 5 mg PO BID atorvastatin 20 mg PO BEDTIME baclofen 10 mg PO TID PRN carbamazepine 400 mg PO BID lorazepam 2 mg PO TID metoprolol succinate ER 50 mg See Protocol PO DAILY nystatin 1 appl topical BID PRN oxycodone 15 mg PO QID phenytoin sodium extended (Dilantin Extended) 600 mg PO BID HPI HPI Comments History of Present Illness Details 47 yo male returns to the clinic for follow up.? He has been in the SW program since March 2020.? Weight at that time was 580.4.? He has had multiple issues including commitment and weight gain and personal problems.? His weight has reached a max of 614.8 pounds in June of 2022, and now he is down to 533.4 pounds with a BMI of 76.5.? Through his new commitment to health and in an attempt to lose weight prior to placement of gastric balloon he has lost 81.4 pounds in the last 6 months. He feels as though he does not need or want the balloon placement at this time. He reports no further seizure activity since being d/c from the hospital. Neuro f/u pending. Meal plan: 3-4 [employer] shakes, changing to [employer] protein shakes (50 gm each) 1 protein cookie/day vp rheumatology salad w protein - ham/cheese/tukey/roast beef. 6 oz salad/veg and 6 oz protein Exercise: walking up down stairs 10 x per day walking outside daily, 300-400 yards without stopping. [facility] Medical History A-fib Aftercare following bilateral ankle joint replacement surgery Brain tumor Diabetes Hypoxemia Morbid obesity Morbid obesity with body mass index (BMI) greater than or equal to 70 in adult NORIS (obstructive sleep apnea) NORIS (obstructive sleep apnea) Persistent atrial fibrillation Pulmonary arterial hypertension Right hand dominant Seizure disorder Shortness of breath Sleep apnea, obstructive Surgical History History of ankle surgery Family History Paternal Grandmother Myocardial infarction Maternal Grandfather Myocardial infarction Brother No problems noted. Sister No problems noted. Sister No problems noted. Social History Household Members: Family Housing: House Do you presently have visiting nurse or other home services: No Alcohol intake: never Patient Tobacco Use Status: Never used Tobacco service: No Current occupational status: disabled Current occupation: Rt handed Review of Systems Const All systems reviewed & are unremarkable except as noted in HPI and below Physical Exam Vital Signs: Last Vital Signs Temp 96.0 F L 12/28/22 11:30 Pulse 80 12/28/22 11:30 BP 171/97 H 12/28/22 11:30 Pulse Ox 93 12/28/22 11:30 Oxygen Delivery Method Room Air 12/28/22 11:30 BMI result Body Mass Index 76.5 Const General: healthy appearing and no acute distress Resp Effort & Inspection: normal respiratory effort Cardio Rate: regular rate Rhythm: regular rhythm GI Inspection: Yes normal to inspection Extrem General: Yes normal to inspection Assessment & Plan Assessment & Plan (1) Morbid obesity: Code(s): E66.01 - Morbid (severe) obesity due to excess calories Plan: 81 pound loss in the last 6 months after re-committing to his health. He will continue meal plan but suggested 12 forks protein and 12 forks veg in addition to his 2 50 gm shamrock protein drinks. Given discount paper for [employer] to swim and/or walk in the pool Will arrange for appt with Dr Vann so he can discuss pathway as pt feels he may no longer need balloon. ' rtc [address] Vann, 6 weeks Shahla Coding Level of Care Code Est Pt Level 3 (70002) Diagnoses Morbid obesity E66.01
[2022-12-28 11:30] VITALS: BP 171/97; PULSE 80; TEMP 35.6; O2SAT 93; BMI 76.5
== END 2022-12-28 12:57 | disposition home or self-care (01) ==
PROVIDERS: PCP Internal Medicine; Visit Provider Physician Assistant Surgical
DX: E66.01 Morbid (severe) obesity due to excess calories (principal); Z68.45 Body mass index [BMI] 70 or greater, adult
CPT/HCPCS: 99213

== ENCOUNTER → 2022-12-28 11:21 | Outpatient (BNVA) | payer MEDICARE, MEDICAID, SELFPAY | PROVIDERS: PCP Internal Medicine; Visit Provider Physician Assistant Surgical | DX: E66.01 Morbid (severe) obesity due to excess calories (principal); Z68.45 Body mass index [BMI] 70 or greater, adult | CPT/HCPCS: 99212 ==

== ENCOUNTER → 2023-01-07 09:13 | Outpatient (BNVA) | payer MEDICARE, MEDICAID, SELFPAY | PROVIDERS: PCP Internal Medicine; Visit Provider Physician Assistant Surgical ==

== ENCOUNTER → 2023-01-14 09:34 | Outpatient (BNVA) | payer MEDICARE, MEDICAID, SELFPAY | PROVIDERS: PCP Internal Medicine; Visit Provider Physician Assistant ==

== ENCOUNTER 2023-01-23 23:05 | Emergency (ER) | payer MEDICARE, MEDICAID, SELFPAY ==
--- NOTE | ~2023-01-23 | XR_ITS ---
EXAMINATION: XR CHEST CLINICAL INFORMATION: COVID positive. Cough. Altered mental status. COMPARISON: 11/16/2022 TECHNIQUE: Frontal apical lordotic view of the chest was obtained. FINDINGS: Cardiac silhouette is borderline enlarged, unchanged. Lungs are clear. No consolidation, pneumothorax, or pleural effusion. Pulmonary vasculature is unremarkable. No acute osseous findings XR/XR chest 1V IMPRESSION: No acute pulmonary findings.
[2023-01-23 23:16] VITALS: BP 105/52; BP 161/97; PULSE 86; PULSE 94; RESP 15; TEMP 37.1; O2SAT 93; O2SAT 96; BMI 71.5
[2023-01-23 23:22] VITALS: PULSE 91; O2SAT 96
--- NOTE | 2023-01-23 23:24 | PC.NURSE ---
Addendum entered by Kathy Adames 01/23/23 23:28: iv established. Original Note: vss; seizure precautions and droplet precautions in place. afib on montior 80-90 bpm.
--- NOTE | 2023-01-23 23:55 | ED.GENADULT ---
HPI - General Adult General Chief complaint: Altered Mental Status Stated complaint: ams x20 mins,hx sz Time Seen by Provider: 01/23/23 23:51 Source: patient, EMS and RN notes reviewed Mode of arrival: EMS Limitations: no limitations History of Present Illness HPI narrative: Patient is a 47-year-old male with history of AFib on Eliquis, DM, seizure disorder, NORIS, brain tumor, morbid obesity, pulmonary artery hypertension presenting to the emergency department after episode of confusion at home prior to arrival. Patient states that he told his family he was going outside to shovel snow and his family told them there was no snow outside currently. Family reported to EMS that they felt patient was having a seizure. EMS denies any seizure-like activity. Patient reports he has had nasal congestion, sore throat, nonproductive cough for the past 3-4 days and today tested positive for COVID. Denies fevers. Reports chest pain with episodes of coughing. Denies abdominal pain, nausea, vomiting, diarrhea, constipation. Reports left sided headache. Denies any vision changes. Denies headache worst at onset, denies worst headache of life. Denies any new medications or recent medication changes. MD complaint: altered mental status Onset (ago): hour(s) Location: head Radiation: non-radiation Severity: moderate Quality: aching Pain Consistency: constant Relieving factors: none Exacerbating factors: none Associated symptoms: cough Treatments prior to arrival: none Related Data Home Medications Medication Instructions Recorded Confirmed atorvastatin 20 mg tablet 20 mg PO BEDTIME 03/05/21 12/28/22 nystatin 100,000 unit/gram topical 1 appl topical BID PRN Rash 06/08/21 12/28/22 cream metoprolol succinate 25 mg 50 mg PO DAILY 08/26/22 12/28/22 tablet,extended release 24 hr allopurinol 300 mg tablet 300 mg PO DAILY 11/12/22 12/28/22 carbamazepine 200 mg tablet 400 mg PO BID 11/12/22 12/28/22 baclofen 10 mg tablet 10 mg PO TID PRN Muscle Spasm 11/16/22 12/28/22 lorazepam 2 mg tablet 2 mg PO TID 11/16/22 12/28/22 oxycodone 15 mg tablet 15 mg PO QID 11/16/22 12/28/22 phenytoin sodium extended 100 mg 600 mg PO BID 12/28/22 12/28/22 capsule (Dilantin Extended) Previous Rx's Medication Instructions Recorded apixaban 5 mg tablet (Eliquis) 5 mg PO BID #60 tabs 04/29/21 acetaminophen 325 mg capsule 650 mg (2 x 325 mg) PO Q6H PRN 12/09/22 (Tylenol) fever or pain #20 caps Allergies Allergy/AdvReac Type Severity Reaction Status Date / Time codeine [Codeine] Allergy Unknown RASH, hives Verified 11/16/22 18:45 ibuprofen [From Motrin] Allergy Unknown HIVES Verified 11/16/22 18:45 Review of Systems Review of Systems: As per HPI. Yes all other systems are reviewed and are negative Constitutional: Constitutional: Reports as per HPI [facility] Past Medical History Medical History A-fib Aftercare following bilateral ankle joint replacement surgery Brain tumor Diabetes Hypoxemia Morbid obesity Morbid obesity with body mass index (BMI) greater than or equal to 70 in adult NORIS (obstructive sleep apnea) NORIS (obstructive sleep apnea) Persistent atrial fibrillation Pulmonary arterial hypertension Right hand dominant Seizure disorder Shortness of breath Sleep apnea, obstructive Surgical History History of ankle surgery Family History Family History Paternal Grandmother Myocardial infarction Maternal Grandfather Myocardial infarction Brother No problems noted. Sister No problems noted. Sister No problems noted. Social History Social History Household Members: Family Housing: House Do you presently have visiting nurse or other home services: No Alcohol intake: never Patient Tobacco Use Status: Never used Tobacco Smoked in Last 30 Days: No Use of substances other than those prescribed or required for medical reasons: No Advance Directives: No Advance Directives Information Provided: No service: No Current occupational status: disabled Current occupation: Rt handed Physical Exam ED Vital Signs: Vital Signs - 24 hr 01/23/23 23:16 01/23/23 23:22 01/23/23 23:22 Temperature 98.7 F Pulse Rate 86 Pulse Rate [Monitor] 91 Respiratory Rate 15 Blood Pressure 161/97 H Pulse Oximetry 93 96 Oxygen Delivery Method Room Air Room Air BMI result Body Mass Index 71.5 Vital signs have been reviewed and appear to be correct. Blood pressure elevated. Heart rate normal. Respiratory rate normal. Temperature normal. Oxygen saturation 93-96% on room air. Const General: cooperative and no acute distress Orientation/consciousness: oriented to person, oriented to place, oriented to time and patient oriented x3 Limitations: no limitations HENMT Head: Yes normocephalic and Yes atraumatic Ears: external ears normal General nose exam: Normal external nose present Face and sinus: Yes face symmetric Mouth: oropharynx normal and moist mucous membranes Throat: Yes uvula midline Eyes Pupils: Equal, round and reactive pupils present Neck Neck: Yes normal visual inspection and Yes supple Resp Effort & Inspection: normal respiratory effort and able to speak in complete sentences Auscultation: wheezes expiratory wheezes (mild throughout, otherwise clear to auscultation) Cardio Rate: regular rate Rhythm: regular rhythm Heart sounds: S1 normal heart sound present and S2 normal heart sound present GI Palpation (GI): Soft to palpation and nontender Auscultation: normoactive bowel sounds General: Yes no CVA tenderness Back/Spine/Pelvis Back: no CVA tenderness Skin General skin exam: elasticity normal and turgor normal Neuro General: oriented to person, oriented to place, oriented to time, patient oriented x3, moves all extremities, no focal motor deficits and CN's II-XI intact bilaterally Cranial nerves: Yes Equal, round and reactive pupils present Cognition (Neuro): normal cognition Extrem General: Yes full ROM, Yes no pedal edema and Yes no calf tenderness Psych Mental Status: mental status grossly normal Affect: normal affect Thought process: Normal thought process present Medications Administered Discontinued Medications Generic Name Dose Route Start Last Admin Trade Name Freq PRN Reason Stop Dose Admin Albuterol/Ipratropium 3 ml 01/24/23 00:15 01/24/23 01:40 Albuterol/Iprat 2.5/0.5mg 3 Ml Ampul.Neb INHALE 01/24/23 00:16 3 ml ONCE ONE Administration Medical Decision Making Medical Decision Making [facility] Narrative: Patient is a 47-year-old male with history of AFib, DM, seizure disorder, NORIS, brain tumor, morbid obesity, pulmonary artery hypertension presenting to the emergency department after episode of confusion at home prior to arrival. On exam patient is awake, A+Ox3, BP elevated, O2 saturation dropping to 93-94% on room air at times, VS otherwise WNL, afebrile, normal neurological exam without focal deficits, physical exam findings as above. Given reported symptoms and physical exam findings, initial differential includes ICH, seizure, electrolyte abnormality, drug or alcohol intoxication, COVID pneumonia, hypoxia. Notified by [facility] that patient's weight exceeds weight limits for CT tables here. Phone call placed to [facility] for possible transfer for CT head. Spoke to Dr. Mchugh at [facility] ED who accepts ED to ED transfer for CT head. Differential Diagnosis Differential Diagnoses: The differential diagnosis associated with the presentation includes As per [facility] Admission/Observation Consideration of admission/observation: Escalation of care including admission/observation considered Lab Data [facility] Lab Attestation statement: I reviewed the patient's lab results. No leukocytosis, alk phos elevated consistent with baseline, no other electrolyte abnormalities, troponin 4.4, Covid positive 01/24/23 00:19 01/24/23 00:19 Labs: Lab Results 01/24/23 01/24/23 Range/Units 00:19 00:22 WBC 4.8 (4.8-10.8) X10*3/uL RBC 4.72 (4.60-5.80) X10*6/uL Hgb 13.8 L (14.0-18.0) g/dl Hct 42.4 (42.0-52.0) % MCV 89.8 (80.0-98.0) fL MCH 29.2 (27.0-33.0) pg MCHC 32.5 (31.0-36.0) g/dl RDW 14.3 (11.0-16.0) % Plt Count 121 L D (160-400) X10*3/uL MPV 11.5 (9.4-12.4) fL Immature Gran % (Auto) 0.8 H (0.0-0.4) % Neut % (Auto) 48.2 (45-73) % Lymph % (Auto) 31.5 (20-40) % [place] % (Auto) 16.4 H (2-11) % Eos % (Auto) 2.7 (0-4) % Baso % (Auto) 0.4 (0-2) % Lymph # (Auto) 1.5 (1.2-4.9) X10*3/uL [place] # (Auto) 0.8 (0.1-1.2) X10*3/uL Eos # (Auto) 0.1 (0.0-0.4) X10*3/uL Baso # (Auto) 0.0 (0.0-0.2) X10*3/uL Abs Immat Gran (auto) 0.04 H (0.00-0.03) X10*3/uL Absolute Neuts (auto) 2.3 (2.0-8.3) x10*3/uL Absolute Nucleated RBC 0.000 (0.0-0.012) X10*3/uL Nucleated RBC % (auto) 0.0 (0.0-0.2) /100WBC Sodium 143 (135-145) mmol/L Potassium 4.0 (3.3-5.1) mmol/L Chloride 107 (96-108) mmol/L Carbon Dioxide 25 (22-29) mmol/L Anion Gap 15 (12-20) BUN 14 (9-16) mg/dL Creatinine 0.85 (0.5-1.4) mg/dL Estim Creat Clear Calc 216.0 Estimated GFR > 60 Random Glucose 152 H (60-115) mg/dL Calcium 8.9 D (8.4-10.2) mg/dL Total Bilirubin 0.2 (0.0-1.0) mg/dL AST 25 (5-37) U/L ALT 27 (0-40) U/L Alkaline Phosphatase 182 H (39-117) U/L Troponin I High Sens 4.4 D (<3.5-35.0) ng/L Total Protein 6.7 (6.5-8.0) g/dL Albumin 3.9 (3.5-5.0) g/dL Ethyl Alcohol < 10 mg/dL COVID-19 (KIKA) Positive A (Negative) COVID-19 Clin Com See Note Independent Interpretation I performed an independent interpretation of an: EKG Interpretation: Atrial fibrillation, rate 89 beats per minute, normal QT interval, no evidence of STEMI No acute pulmonary findings on x-ray Radiology Impression Discussion of test interpretation with radiology: I have reviewed the radiologist's reading. Radiologist Impression: XR/XR chest 1V IMPRESSION: No acute pulmonary findings. External Record Review External record reviewed: Inpatient record, Office record and Outpatient record Discharge Plan Discharge Clinical Impression: Acute alteration in mental status Patient Disposition: [facility] Transfer Details: Transfer to [facility] ED via ambulance Prescriptions: No Action Eliquis 5 mg Tablet 5 mg PO BID Qty: 60 0RF carbamazepine 200 mg tablet 400 mg PO BID allopurinol 300 mg tablet 300 mg PO DAILY oxycodone 15 mg tablet 15 mg PO QID lorazepam 2 mg tablet 2 mg PO TID baclofen 10 mg tablet 10 mg PO TID PRN (Reason: Muscle Spasm) acetaminophen [Tylenol] 325 mg capsule 650 mg PO Q6H PRN (Reason: fever or pain) Qty: 20 0RF phenytoin sodium extended [Dilantin Extended] 100 mg capsule 600 mg PO BID atorvastatin 20 mg tablet 20 mg PO BEDTIME nystatin 100,000 unit/gram cream 1 appl topical BID PRN (Reason: Rash) metoprolol succinate 25 mg tablet extended release 24 hr 50 mg PO DAILY Protocol: Hold for SBP/HR < HOLD for SBP < : 90 HOLD for HR < : 60
--- NOTE | 2023-01-23 23:57 | ECG_ITS ---
Test Reason : AMS Blood Pressure : / mmHG Vent. Rate : 089 BPM Atrial Rate : 000 BPM P-R Int : 000 ms QRS Dur : 068 ms QT Int : 376 ms P-R-T Axes : 000 -02 063 degrees QTc Int : 457 ms Atrial fibrillation Low voltage QRS Nonspecific T wave abnormality Septal infarct , age undetermined Abnormal ECG When compared with ECG of 11-DEC-2022 10:59, Septal infarct is now Present Referred By: Magdalene Sloan Electronically Signed By:ANIVAL PEPPER
--- NOTE | 2023-01-24 00:10 | PC.NURSE ---
xray obtained. family at bedside.
--- NOTE | 2023-01-24 00:30 | PC.NURSE ---
respiratory at bedside for breathing tx. labs drawn. ekg obtained.
[2023-01-24 00:36] LABS: Hematocrit 42.4 % (42.0-52.0); PLT CLUMP 1; SCAN SMEAR FLAG 1
[2023-01-24 00:38] LABS: Basophils Percent Auto 0.4 % (0-2); Eosinophils Absolute Auto 0.1 X10*3/uL (0.0-0.4); Eosinophils Percent Auto 2.7 % (0-4); Hemoglobin 13.8 g/dl (14.0-18.0); Imm Gran Abs Auto 0.04 X10*3/uL (0.00-0.03); Imm Gran Pct Auto 0.8 % (0.0-0.4); Lymphocytes Absolute Auto 1.5 X10*3/uL (1.2-4.9); Lymphocytes Percent Auto 31.5 % (20-40); Mean Corpuscular HGB Conc 32.5 g/dl (31.0-36.0); Mean Corpuscular Hemoglobin 29.2 pg (27.0-33.0); Mean Corpuscular Volume 89.8 fL (80.0-98.0); Mean Platelet Volume 11.5 fL (9.4-12.4); Monocytes Absolute Auto 0.8 X10*3/uL (0.1-1.2); Monocytes Percent Auto 16.4 % (2-11); Neutrophils Absolute Auto 2.3 x10*3/uL (2.0-8.3); Neutrophils Percent Auto 48.2 % (45-73); Red Blood Count 4.72 X10*6/uL (4.60-5.80); Red Cell Distribution Width 14.3 % (11.0-16.0)
[2023-01-24 00:39] LABS: MANUAL DIFF FLAG NO; Platelet Count 121 X10*3/uL (160-400); White Blood Count 4.8 X10*3/uL (4.8-10.8)
[2023-01-24 00:45] LABS: COVID-19 Test Positive (Negative); IDNOW Serial# BCCEAD1C
[2023-01-24 00:47] LABS: Ethanol < 10 mg/dL
[2023-01-24 00:49] LABS: Alanine Aminotransferase 27 U/L (0-40); Albumin Level 3.9 g/dL (3.5-5.0); Alkaline Phosphatase 182 U/L (39-117); Anion Gap 15 (12-20); Aspartate Amino Transferase 25 U/L (5-37); Bilirubin Total 0.2 mg/dL (0.0-1.0); Blood Urea Nitrogen 14 mg/dL (9-16); Calcium 8.9 mg/dL (8.4-10.2); Carbon Dioxide 25 mmol/L (22-29); Chloride 107 mmol/L (96-108); Estimated Glomerular Filt Rate > 60; Glucose Random 152 mg/dL (60-115); Sodium 143 mmol/L (135-145); Total Protein 6.7 g/dL (6.5-8.0)
[2023-01-24 00:57] LABS: Troponin-I High Sensitivity 4.4 ng/L (<3.5-35.0)
[2023-01-24] MEDS: Albuterol/Iprat 2.5/0.5MG 3 ML AMPUL.NEB INHALE (01:40)
[2023-01-24 01:45] VITALS: BP 131/80; PULSE 89; RESP 17; TEMP 36.9; O2SAT 97
--- NOTE | 2023-01-24 02:31 | PC.NURSE ---
report given to [facility] ed rn.
== END 2023-01-24 02:32 | disposition short-term general hospital (02) ==
PROVIDERS: Registered Nurse Emergency; Emergency Provider Emergency Medicine; PCP Internal Medicine
DX: R41.82 Altered mental status, unspecified (principal); R05.9 Cough, unspecified; I48.91 Unspecified atrial fibrillation; Z20.822 Contact with and (suspected) exposure to COVID-19; Z20.828 Contact with and (suspected) exposure to other viral communicable diseases; Z79.01 Long term (current) use of anticoagulants; Z79.899 Other long term (current) drug therapy
CPT/HCPCS: 36415; 71045; 80053; 80307; 84484; 85025; 87635; 93005; 99285

== ENCOUNTER → 2023-02-18 09:43 | Outpatient (BNVA) | payer MEDICARE, MEDICAID, SELFPAY | PROVIDERS: PCP Internal Medicine; Visit Provider Physician Assistant Surgical ==

== ENCOUNTER 2023-03-16 10:17 | Outpatient (REF) | payer MEDICARE, MEDICAID, SELFPAY ==
--- NOTE | ~2023-03-16 | XR_ITS ---
EXAMINATION: XR KNEE, RIGHT CLINICAL INFORMATION: Fall. Grade range of motion COMPARISON: None available. TECHNIQUE: 2 views of the right knee. FINDINGS: There is mild loss of medial compartment joint space. The lateral and the patellofemoral compartment joint space is normal. No visible acute fracture, dislocation or subluxation seen.. No bony erosive changes. There are small enthesophytes along the patellofemoral compartment.. The soft tissues are normal. XR/XR knee RT 2V IMPRESSION: Mild degenerative changes patellofemoral compartment. No visible acute fracture or dislocation seen.
== END 2023-03-16 10:18 | disposition home or self-care (01) ==
LOC: HO.HMGCX 10:17
PROVIDERS: PCP Internal Medicine; Visit Provider Internal Medicine
DX: M17.11 Unilateral primary osteoarthritis, right knee (principal)
CPT/HCPCS: 73560

== ENCOUNTER 2023-03-23 14:18 | Outpatient (AMB) | payer MEDICARE, MEDICAID, SELFPAY ==
--- NOTE | 2023-03-23 14:29 | A.OFFVIS_ITS ---
Intake VS Expanded 03/23/23 14:41 BP 179/116 H Blood Pressure Location Rt brachial Blood Pressure Position Sitting Pulse 77 Pulse Source Pulse Oximeter Temp 98.1 F Temperature Source Temporal Artery Scan Pulse Oximetry 95 Oxygen Delivery Method Room Air Height 5 ft 10 in Weight 545 lb BMI 78.2 Body Fat % 55.6 Body Fat Mass 303.0 Fat Free Mass 242.0 Visceral Fat Rating 173.0 Body Water % 230.0 Body Water Mass 3,799 Intake Visit Reasons: (OV) F/U SWL Allergies codeine [Codeine] Allergy (Unknown, Verified 03/23/23 14:31) RASH, hives ibuprofen [From Motrin] Allergy (Unknown, Verified 03/23/23 14:31) HIVES HPI HPI Comments History of Present Illness Details 47-year-old male returns the clinic for follow-up. He has been in surgical weight loss program since March 2020. Weight at that time was 580.4 lb. He did have multiple issues with commitment, weight gain, personal problems as well as seizure activity. His weight reached a max of 614.8 lb in June of 2022. Since then he has committed to his health. Weight today is 545 lb with a BMI of 78.2. Delta from initial presentation is 35.4 lb or 6.09% total body weight loss. 69.8 lb down since June 2022. He states that over the last 3 weeks, his son had been visiting from [place]. He states that his estranged took his son to [place] without permission and over the last 3 weeks he had been visiting. They had been eating all sorts of home cooked meals and does result the patient did not lose as much weight as he had intended. He states that his son now wishes to stay in [place] with his dad and now the patient is going to get back on track. He intends to go back to what he was doing previously which was 4 fair life shakes and meal. Meal plan: nothing formal over the last 3 weeks Exercise: Walking daily. [facility] Medical History A-fib Aftercare following bilateral ankle joint replacement surgery Brain tumor Diabetes Hypoxemia Morbid obesity Morbid obesity with body mass index (BMI) greater than or equal to 70 in adult NORIS (obstructive sleep apnea) NORIS (obstructive sleep apnea) Persistent atrial fibrillation Pulmonary arterial hypertension Right hand dominant Seizure disorder Shortness of breath Sleep apnea, obstructive Surgical History History of ankle surgery Family History Paternal Grandmother Myocardial infarction Maternal Grandfather Myocardial infarction Brother No problems noted. Sister No problems noted. Sister No problems noted. Social History Household Members: Family Housing: House Do you presently have visiting nurse or other home services: No Alcohol intake: never Comment: changed to low risk Patient Tobacco Use Status: Never used Tobacco service: No Current occupational status: disabled Current occupation: Rt handed Physical Exam Const General: healthy appearing and no acute distress Resp Effort & Inspection: normal respiratory effort Auscultation: clear to auscultation bilaterally Cardio Rate: regular rate Rhythm: regular rhythm GI Auscultation: normal bowel sounds Extrem General: Yes normal to inspection Assessment & Plan Assessment & Plan (1) Morbid obesity: Code(s): E66.01 - Morbid (severe) obesity due to excess calories Plan: He will return to the meal plan of for fair life shakes (26 g each) and a meal with 12 forks of protein and 12 forks of vegetables. Encouraged to increase walking daily. Continue to text weekly with weight and if any questions. Return to clinic 3 weeks. Coding Level of Care Code Est Pt Level 3 (23432) Diagnoses Morbid obesity E66.01
[2023-03-23 14:41] VITALS: BP 179/116; PULSE 77; TEMP 36.7; O2SAT 95; BMI 78.2
== END 2023-03-23 14:56 | disposition home or self-care (01) ==
PROVIDERS: PCP Internal Medicine; Visit Provider Physician Assistant Surgical
DX: E66.01 Morbid (severe) obesity due to excess calories (principal); Z68.45 Body mass index [BMI] 70 or greater, adult
CPT/HCPCS: 99213

== ENCOUNTER → 2023-03-23 14:18 | Outpatient (BNVA) | payer MEDICARE, MEDICAID, SELFPAY | PROVIDERS: PCP Internal Medicine; Visit Provider Physician Assistant Surgical | DX: E66.01 Morbid (severe) obesity due to excess calories (principal); Z68.45 Body mass index [BMI] 70 or greater, adult | CPT/HCPCS: 99212 ==

== ENCOUNTER 2023-04-26 10:24 | Outpatient (REF) | payer MEDICARE, MEDICAID, SELFPAY ==
--- NOTE | ~2023-04-26 | XR_ITS ---
EXAMINATION: XR KNEE, LEFT CLINICAL INFORMATION: Left knee pain COMPARISON: Radiographs of the knee from 04/27/2021 TECHNIQUE: Four views of the left knee. FINDINGS: Bones have normal alignment at the left knee. No fracture or subluxation. There is moderate loss of medial tibiofemoral joint space with subarticular sclerosis and osteophytosis. The osteoarthritis has worsened compared to 04/27/2021. Also, osteophytes are present at the degenerated patellofemoral and lateral tibiofemoral compartments. There appears to be trace amount of fluid within the suprapatellar compartment of the knee joint. XR/XR knee LT 4V IMPRESSION: Tricompartmental osteoarthritis of the left knee. The joint degeneration of the medial tibiofemoral compartment is moderate in degree and has worsened compared to 04/27/2021.
== END 2023-04-26 10:25 | disposition home or self-care (01) ==
LOC: HO.HMGCX 10:24
PROVIDERS: PCP Internal Medicine; Visit Provider Internal Medicine
DX: M25.562 Pain in left knee (principal)
CPT/HCPCS: 73564

== ENCOUNTER 2023-05-25 09:55 | Outpatient (AMB) | payer MEDICARE, MEDICAID, SELFPAY ==
[2023-05-25 09:56] VITALS: BMI 77.3
--- NOTE | 2023-05-25 09:56 | A.OFFVIS_ITS ---
Intake Vital Signs 05/25/23 09:56 Height 5 ft 10 in Weight 539 lb BMI 77.3 Intake Visit Reasons: Obstructive sleep apnea Intake Note: pt is on the phone for follow up of NORIS, and he is positive covid, will use home remedies and call if needed. Working fine with cpap. General Activities Therapist Required: No Allergies codeine [Codeine] Allergy (Unknown, Verified 05/25/23 10:03) RASH, hives ibuprofen [From Motrin] Allergy (Unknown, Verified 05/25/23 10:03) HIVES Medication List - Last Reconciled 05/25/23 by Alejandro Rodriguez MD acetaminophen (Tylenol) 650 mg (2 x 325 mg) PO Q6H PRN allopurinol 300 mg PO DAILY apixaban (Eliquis) 5 mg PO BID atorvastatin 20 mg PO BEDTIME baclofen 10 mg PO TID PRN carbamazepine 400 mg PO BID lorazepam 2 mg PO TID metoprolol succinate ER 50 mg See Protocol PO DAILY nystatin 1 appl topical BID PRN oxycodone 15 mg PO QID phenytoin sodium extended (Dilantin Extended) 600 mg PO BID Do you need a note to return to daycare/school/sports/work: No HPI Obstructive sleep apnea HPI Details THIS 48 YEARS OLD GENTLEMAN WITH SUPER MORBID OBESITY AND OBSTRUCTIVE SLEEP APNEA, WAS SUPPOSED TO COME TO THE OFFICE TODAY FOR HIS REGULAR FOLLOW-UP. HE REPORTS THAT HE HAS CONTRACTED COVID INFECTION, AND COULD NOT COME TO THE OFFICE. SO A TELE VISIT WAS CONDUCTED. HE STATES THAT HE IS USING CPAP VERY REGULARLY EVERY NIGHT AND IS SLEEPING WELL. HE HAS NO ISSUES WITH THE USE OF CPAP. IN FACT HE WOULD NOT BE ABLE TO SLEEP WITHOUT PUTTING ON THE MASK. HE WAKES UP REFRESHED AND DOES NOT HAVE DAYTIME SLEEPINESS. HE IS STILL IN WEIGHT MANAGEMENT PROGRAM, LOSING WEIGHT VERY VERY SLOWLY. HE IS NOT CANDIDATE FOR BARIATRIC SURGERY BECAUSE HE HAS TO LOSE SIGNIFICANT WEIGHT BEFORE THAT. [facility] Medical History Pulmonary arterial hypertension NORIS (obstructive sleep apnea) Morbid obesity Hypoxemia Sleep apnea, obstructive Shortness of breath Morbid obesity with body mass index (BMI) greater than or equal to 70 in adult Brain tumor Persistent atrial fibrillation Aftercare following bilateral ankle joint replacement surgery Right hand dominant Seizure disorder Diabetes NORIS (obstructive sleep apnea) A-fib Surgical History History of ankle surgery Family History Paternal Grandmother Myocardial infarction Maternal Grandfather Myocardial infarction Brother No problems noted. Sister No problems noted. Sister No problems noted. Social History Household Members: Family Housing: House Do you presently have visiting nurse or other home services: No Alcohol intake: never Comment: changed to low risk Patient Tobacco Use Status: Never used Tobacco service: No Current occupational status: disabled Current occupation: Rt handed Review of Systems Const All systems reviewed & are unremarkable except as noted in HPI and below Physical Exam Vital Signs: BMI result Body Mass Index 77.3 TELE VISIT. SO NO PHYSICAL EXAMINATION. PATIENT HAS A REPORTED WEIGHT IS 539 WHICH IS ABOUT 6 LB LESS THAN LAST VISIT. Results Reviewed Results Reviewed: COMPLIANCE REPORT FOR THE LAST 30 NIGHTS IS REVIEWED. HE HAS USED 30/30 NIGHTS WITH AVERAGE USE IT PER NIGHT 6 HOURS 48 MINUTES. HE IS ON A BILEVEL PRESSURE OF 22/14 CM. THERE IS A MODERATE AMOUNT OF AIR LEAK. RESIDUAL AHI 3.9 WHICH IS EXCELLENT Assessment & Plan Assessment & Plan (1) Morbid obesity: Comment: CURRENT TO WAIT 539 BMI 77.3 HE IS TRYING TO LOSE WEIGHT, PRE GASTRIC SURGERY. Code(s): E66.01 - Morbid (severe) obesity due to excess calories Plan: ENCOURAGED TO CONTINUE LOSING THE WEIGHT (2) NORIS (obstructive sleep apnea): Comment: PER HIS HOME-BASED SLEEP STUDY HE HAD EVIDENCE OF VERY SEVERE OBSTRUCTIVE SLEEP APNEA ALONG WITH NOCTURNAL HYPOXEMIA. PATIENT HAD CPAP TITRATION IN THE SLEEP LAB, AND SUCCESSFULLY TITRATED WITH A BILEVEL PRESSURE OF 22/14 CM HE HAD SOME DIFFICULTY IN USING THE CPAP IN THE BEGINNING, CURRENTLY HE IS USING MUCH BETTER, AT LEAST 6 HOURS OR MORE PER NIGHT, AND HE IS BENEFITING. Code(s): G47.33 - Obstructive sleep apnea (adult) (pediatric) Plan: PATIENT IS WELL MOTIVATED AND HE IS ENCOURAGED TO CONTINUE USING THE CPAP EVERY NIGHT. Telehealth Telehealth Location of provider rendering services: practice address Location of patient: address on file Patient Identification confirmed using: Name, : Yes Telehealth method: voice only Patient verbally consented to treatment: Yes Patient verbally consented to billing insurance company: Yes Patient informed of any privacy concerns related to visit: Yes Minutes spent on Phone/Video with Pt.: 20 Coding Level of Care Code Tele Est Pt Level 3 (44224) Diagnoses Morbid obesity E66.01 NORIS (obstructive sleep apnea) G47.33
== END 2023-05-25 10:25 | disposition home or self-care (01) ==
PROVIDERS: PCP Internal Medicine; Visit Provider Internal Medicine
DX: G47.33 Obstructive sleep apnea (adult) (pediatric) (principal); E66.01 Morbid (severe) obesity due to excess calories; Z99.89 Dependence on other enabling machines and devices
CPT/HCPCS: 99442

== ENCOUNTER → 2023-05-25 09:55 | Outpatient (BNVA) | payer MEDICARE, MEDICAID, SELFPAY | PROVIDERS: PCP Internal Medicine; Visit Provider Internal Medicine ==

== ENCOUNTER 2023-10-06 08:27 | Emergency (ER) | payer MEDICARE, MEDICAID, SELFPAY ==
[2023-10-06 08:34] VITALS: BP 174/103; PULSE 84; RESP 18; TEMP 36.2; O2SAT 92; BMI 81.8
--- NOTE | 2023-10-06 09:02 | ED_ITS ---
HPI - General Adult General Chief complaint: Ear Problems Stated complaint: r ear pain Time Seen by Provider: 10/06/23 08:55 Source: patient Mode of arrival: ambulatory Limitations: no limitations History of Present Illness ED Provider: Milo Sloan NP HPI narrative: Patient is a 48-year-old male with history of DM, epileptic seizure disorder, AFib, pulmonary arterial hypertension, CHF presenting to the emergency department with complaint of right ear pain for the last 4 days. States around 3:00 a.m. today noted yellow drainage from his ear. Denies fevers. Denies recent nasal congestion or cough. Also complaining of a small abscess to his right cheek for several days. States he attempted to pop the area himself but it increased in size. Denies any discharge or drainage from the abscess. BP noted to be elevated, patient states his blood pressure typically runs low. He denies any chest pain, palpitations, dyspnea, headache, or vision changes. MD complaint: ear pain, abscess Onset (ago): day(s) Location: face Severity: moderate Quality: aching Associated symptoms: denies other symptoms Treatments prior to arrival: none Related Data Home Medications ?Medication ?Instructions ?Recorded ?Confirmed atorvastatin 20 mg tablet 20 mg PO BEDTIME 03/05/21 12/28/22 nystatin 100,000 unit/gram topical 1 appl topical BID PRN Rash 06/08/21 12/28/22 cream metoprolol succinate 25 mg 50 mg PO DAILY 08/26/22 12/28/22 tablet,extended release 24 hr allopurinol 300 mg tablet 300 mg PO DAILY 11/12/22 12/28/22 carbamazepine 200 mg tablet 400 mg PO BID 11/12/22 12/28/22 baclofen 10 mg tablet 10 mg PO TID PRN Muscle Spasm 11/16/22 12/28/22 lorazepam 2 mg tablet 2 mg PO TID 11/16/22 12/28/22 oxycodone 15 mg tablet 15 mg PO QID 11/16/22 12/28/22 phenytoin sodium extended 100 mg 600 mg PO BID 12/28/22 12/28/22 capsule (Dilantin Extended) Previous Rx's ?Medication ?Instructions ?Recorded apixaban 5 mg tablet (Eliquis) 5 mg PO BID #60 tabs 04/29/21 acetaminophen 325 mg capsule 650 mg (2 x 325 mg) PO Q6H PRN 12/09/22 (Tylenol) fever or pain #20 caps cephalexin 500 mg capsule 500 mg PO QID 7 days #28 caps 10/06/23 ofloxacin 0.3 % ear drops 10 drp otic (ears) DAILY 7 days #5 10/06/23 mL Allergies Allergy/AdvReac Type Severity Reaction Status Date / Time codeine [Codeine] Allergy Unknown RASH, hives Verified 10/06/23 08:36 ibuprofen [From Motrin] Allergy Unknown HIVES Verified 10/06/23 08:36 Review of Systems 2 Review of Systems: As per HPI. Yes all other systems are reviewed and are negative Constitutional: Constitutional: Reports as per HPI [facility] Past Medical History Medical History Pulmonary arterial hypertension NORIS (obstructive sleep apnea) Morbid obesity Hypoxemia Sleep apnea, obstructive Shortness of breath Morbid obesity with body mass index (BMI) greater than or equal to 70 in adult Brain tumor Persistent atrial fibrillation Aftercare following bilateral ankle joint replacement surgery Right hand dominant Seizure disorder Diabetes NORIS (obstructive sleep apnea) A-fib Surgical History History of ankle surgery Family History Family History Paternal Grandmother Myocardial infarction Maternal Grandfather Myocardial infarction Brother No problems noted. Sister No problems noted. Sister No problems noted. Social History Social History Household Members: Family Housing: House Do you presently have visiting nurse or other home services: No Alcohol intake: never Comment: changed to low risk Patient Tobacco Use Status: Never used Tobacco Advance Directives: No service: No Current occupational status: disabled Current occupation: Rt handed Physical Exam ED Vital Signs: Vital Signs - 24 hr 10/06/23 08:34 Temperature 97.1 F Pulse Rate 84 Respiratory Rate 18 Blood Pressure 174/103 H Pulse Oximetry 92 Oxygen Delivery Method Room Air BMI result Body Mass Index 81.8 Vital signs have been reviewed and appear to be correct. Blood pressure elevated. Heart rate normal. Respiratory rate normal. Temperature normal. Oxygen saturation normal. Const General: cooperative and no acute distress Nutritional Appearance: obese morbidly obese Orientation/consciousness: oriented to person, oriented to place, oriented to time and patient oriented x3 Limitations: no limitations HENMT Head: Yes normocephalic and Yes atraumatic Ears: hearing grossly normal bilaterally, external ears normal, TM normal on the right, TM normal on the left, mastoids normal bilaterally, no periauricular adenopathy and Abnormal EAC present erythema on the right, edema on the right (mild), EAC tenderness on the right and otic discharge purulent on the right General nose exam: Normal external nose present Face and sinus: Yes face symmetric Face images: 2 1. 1cm diameter abscess without surrounding erythema, warmth, no fluctuance Mouth: oropharynx normal and moist mucous membranes Throat: Yes uvula midline Eyes Pupils: Equal, round and reactive pupils present Neck Neck: Yes normal visual inspection, Yes no lymphadenopathy and Yes supple Resp Effort & Inspection: normal respiratory effort and able to speak in complete sentences Auscultation: clear to auscultation bilaterally Cardio Rate: regular rate Rhythm: regular rhythm Heart sounds: S1 normal heart sound present and S2 normal heart sound present GI Palpation (GI): Soft to palpation and nontender Auscultation: normoactive bowel sounds General: Yes no CVA tenderness Back/Spine/Pelvis Back: no CVA tenderness Skin General skin exam: elasticity normal and turgor normal Neuro General: oriented to person, oriented to place, oriented to time, patient oriented x3, moves all extremities, no focal motor deficits and CN's II-XI intact bilaterally Cranial nerves: Yes Equal, round and reactive pupils present Cognition (Neuro): normal cognition Extrem General: Yes full ROM, Yes no pedal edema and Yes no calf tenderness Psych Mental Status: mental status grossly normal Affect: normal affect Thought process: Normal thought process present Medical Decision Making Medical Decision Making MDM Narrative: Patient is a 48-year-old male with history of DM, epileptic seizure disorder, AFib, pulmonary arterial hypertension, CHF presenting to the emergency department with complaint of right ear pain for the last 4 days. On exam patient is awake, A+Ox3, BP elevated, VS otherwise WNL, afebrile, normal neurological exam without focal deficits, physical exam findings as above. Given reported symptoms and physical exam findings, initial differential includes otitis externa, facial abscess, otitis media, cellulitis of face. Physical exam findings consistent with otitis externa of right ear, abscess of right cheek without surrounding cellulitis. Will treat patient with ofloxacin drops for otitis externa. Given history of diabetes, will treat abscess with cephalexin. Advised patient to apply warm compresses but not to attempt to express the abscess. Instructed patient to follow-up with PCP. BP was elevated in the emergency department. Patient states his blood pressure is typically low and that he is usually instructed to add more salt to his diet increase his blood pressure. He is otherwise asymptomatic. Advised him to follow-up with PCP this week for recheck. Return precautions discussed at bedside. Patient verbalized understanding of and agreement plan. Differential Diagnosis Differential Diagnoses: The differential diagnosis associated with the presentation includes As per MDM. External Record Review External record reviewed: Inpatient record, Office record and Outpatient record Prescription Management I considered prescription management with: Antibiotic Chronic Conditions Patient?s care impacted by: Diabetes Discharge Plan Discharge Clinical Impression: Acute abscess of face Otitis externa Qualifiers: Chronicity: acute Laterality: right Patient Disposition: Home, Self-Care Instructions: Otitis Externa (DC), Abscess (ED), Abscess Follow-up (ED) Additional Instructions: You were evaluated in the emergency department today for ear pain and a facial abscess. Your exam showed evidence of an external ear infection of your right ear and you are being prescribed antibiotic drops, please complete the full course as prescribed. You are being treated with oral antibiotics for an abscess on your face. Please complete the full course as prescribed. We recommend that you apply warm compresses to the area for 10-15 minutes at a time several times daily. Do not attempt to squeeze or pop the area as this can worsen the infection. Your blood pressure was very elevated in the emergency department today, please follow up with your primary care provider about this. Please follow-up with your primary care provider this week. Return to the emergency department if you develop increasing pain, if the abscess increases in size, redness, you develop fever, or any other concerning symptoms. Prescriptions: New ofloxacin 0.3 % drops 10 drp otic (ears) DAILY 7 Days Qty: 5 0RF cephalexin 500 mg capsule 500 mg PO QID 7 Days Qty: 28 0RF No Action Eliquis 5 mg Tablet 5 mg PO BID Qty: 60 0RF carbamazepine 200 mg tablet 400 mg PO BID allopurinol 300 mg tablet 300 mg PO DAILY oxycodone 15 mg tablet 15 mg PO QID lorazepam 2 mg tablet 2 mg PO TID baclofen 10 mg tablet 10 mg PO TID PRN (Reason: Muscle Spasm) acetaminophen [Tylenol] 325 mg capsule 650 mg PO Q6H PRN (Reason: fever or pain) Qty: 20 0RF phenytoin sodium extended [Dilantin Extended] 100 mg capsule 600 mg PO BID atorvastatin 20 mg tablet 20 mg PO BEDTIME nystatin 100,000 unit/gram cream 1 appl topical BID PRN (Reason: Rash) metoprolol succinate 25 mg tablet extended release 24 hr 50 mg PO DAILY Protocol: Hold for SBP/HR < HOLD for SBP < : 90 HOLD for HR < : 60 Print Language: Icelandic
[2023-10-06 09:20] VITALS: BP 139/103; PULSE 81; RESP 20; TEMP 36.6; O2SAT 91
--- NOTE | 2023-10-06 09:34 | PC.NURSE ---
PT WAS SEEN AND DISCHARGED BY PROVIDER
== END 2023-10-06 09:34 | disposition home or self-care (01) ==
PROVIDERS: Emergency Provider Emergency Medicine; PCP Internal Medicine
DX: H60.501 Unspecified acute noninfective otitis externa, right ear (principal); L02.01 Cutaneous abscess of face; E11.9 Type 2 diabetes mellitus without complications; G40.909 Epilepsy, unspecified, not intractable, without status epilepticus; I48.19 Other persistent atrial fibrillation
CPT/HCPCS: 99282; 99283

== ENCOUNTER → 2024-02-17 09:24 | Outpatient (BNVA) | payer MEDICARE, MEDICAID, SELFPAY | PROVIDERS: PCP Internal Medicine; Visit Provider Physician Assistant Surgical ==

== ENCOUNTER → 2024-02-24 09:21 | Outpatient (BNVA) | payer MEDICARE, MEDICAID, SELFPAY | PROVIDERS: PCP Internal Medicine; Visit Provider Physician Assistant Surgical ==

== ENCOUNTER → 2024-03-09 09:10 | Outpatient (BNVA) | payer MEDICARE, MEDICAID, SELFPAY | PROVIDERS: PCP Internal Medicine; Visit Provider Physician Assistant Surgical ==

== ENCOUNTER 2024-03-26 08:01 | Outpatient (AMB) | payer MEDICARE, MEDICAID, SELFPAY ==
--- NOTE | 2024-03-26 08:03 | MHC.OFFVISWM ---
VS Expanded 03/26/24 08:11 BP 204/109 H Blood Pressure Location Rt radial Blood Pressure Position Sitting Pulse 88 Pulse Source Pulse Oximeter Temp 97.0 F Temperature Source Temporal Artery Scan Pulse Oximetry 96 Oxygen Delivery Method Room Air Height 6 ft Weight 640 lb BMI 86.8 Intake Visit Reasons: OV Re-Est SWL BMI 84.1 Intake Note: pt stated he is not feeling well but has not taken meds because he takes them at 10am Allergies codeine [Codeine] Allergy (Unknown, Verified 03/26/24 08:12) RASH, hives ibuprofen [From Motrin] Allergy (Unknown, Verified 03/26/24 08:12) HIVES HPI Comments Details: The patient is in the program in and out since 2018. Due to his very high weight and various medical conditions has not been able to work with us consistently to lose enough weight preoperatively so we can do the bariatric surgery. Wakes up: 7am, Sleeps: 11pm Likes the [employer] premade 26gr protein shakes Does not like protein bars [facility] Medical History (Updated 03/26/24 @ 08:56 by Aurelio Martino MD) Pulmonary arterial hypertension NORIS (obstructive sleep apnea) Morbid obesity Hypoxemia Sleep apnea, obstructive Shortness of breath Morbid obesity with body mass index (BMI) greater than or equal to 70 in adult Brain tumor Persistent atrial fibrillation Aftercare following bilateral ankle joint replacement surgery Right hand dominant Seizure disorder Diabetes NORIS (obstructive sleep apnea) A-fib Surgical History History of ankle surgery Family History Paternal Grandmother Myocardial infarction Maternal Grandfather Myocardial infarction Brother No problems noted. Sister No problems noted. Sister No problems noted. Social History Household Members: Family Housing: House Do you presently have visiting nurse or other home services: No Alcohol intake: never Comment: changed to low risk Patient Tobacco Use Status: Never used Tobacco service: No Current occupational status: disabled Current occupation: Rt handed Physical Exam Vital Signs: Last Vital Signs Temp 97.0 F 03/26/24 08:11 Pulse 88 03/26/24 08:11 BP 204/109 H 03/26/24 08:11 Pulse Ox 96 03/26/24 08:11 Oxygen Delivery Method Room Air 03/26/24 08:11 BMI result Body Mass Index 86.8 Assessment & Plan Assessment & Plan (1) Morbid obesity: Code(s): E66.01 - Morbid (severe) obesity due to excess calories Category: Surgical Plan: 1. We had an extensive discussion with him and his family. It is imperative to get to 400 lbs or lower so can do the sleeve gastrectomy safely. I explained to him the technical difficulties that will prevent me do the procedure properly in a higher weight (hepatomegaly and instrument limitations). 2. I asked him to weigh at home today and send me his weight to see hoe this correlates with the one from our scale today. If they correlate, he won't need to come at the office weekly for weight checks 3. Asked him to try the Fit Crunch, Atkins and Build protein bars and let me know if he could use them 4. I will prescribe the Zepbound injectable medication to facilitate weight loss. Once this is approved and we know which bars we can use, I will prescribe a meal plan for him. 5. We discussed also the need to check his blood sugars daily once he begins the meal plan and let me know if his blood sugar drops below 100. Medications: New tirzepatide (weight loss) (Zepbound) for 4 weeks 2.5 mg (0.5 mL) subcut QWEEK 2 mL 0RF E11.9 - Type 2 diabetes mellitus without complications, E66.01 - Morbid (severe) obesity due to excess calories
[2024-03-26 08:11] VITALS: BP 204/109; PULSE 88; TEMP 36.1; O2SAT 96; BMI 86.8
== END 2024-03-26 09:03 | disposition home or self-care (01) ==
PROVIDERS: PCP Internal Medicine; Visit Provider Surgery
DX: E66.01 Morbid (severe) obesity due to excess calories (principal); E66.813 Obesity, class 3; Z68.45 Body mass index [BMI] 70 or greater, adult
CPT/HCPCS: 99214

== ENCOUNTER → 2024-03-26 08:01 | Outpatient (BNVA) | payer MEDICARE, MEDICAID, SELFPAY | PROVIDERS: PCP Internal Medicine; Visit Provider Surgery | DX: E66.01 Morbid (severe) obesity due to excess calories (principal); E11.9 Type 2 diabetes mellitus without complications; Z71.3 Dietary counseling and surveillance; Z68.45 Body mass index [BMI] 70 or greater, adult | CPT/HCPCS: 99212 ==

== ENCOUNTER → 2024-05-04 11:38 | Outpatient (BNVA) | payer MEDICARE, MEDICAID, SELFPAY | PROVIDERS: PCP Internal Medicine; Visit Provider Physician Assistant Surgical ==

== ENCOUNTER → 2024-06-22 08:52 | Outpatient (BNVA) | payer MEDICARE, MEDICAID, SELFPAY | PROVIDERS: PCP Internal Medicine; Visit Provider Physician Assistant Surgical ==

== ENCOUNTER → 2024-07-27 08:54 | Outpatient (BNVA) | payer MEDICARE, MEDICAID, SELFPAY | PROVIDERS: PCP Internal Medicine; Visit Provider Physician Assistant Surgical ==

== ENCOUNTER → 2024-08-10 09:06 | Outpatient (BNVA) | payer MEDICARE, MEDICAID, SELFPAY | PROVIDERS: PCP Internal Medicine; Visit Provider Physician Assistant Surgical ==

== ENCOUNTER → 2024-08-24 08:57 | Outpatient (BNVA) | payer MEDICARE, MEDICAID, SELFPAY | PROVIDERS: PCP Internal Medicine; Visit Provider Physician Assistant Surgical ==

== ENCOUNTER → 2024-09-07 09:02 | Outpatient (BNVA) | payer MEDICARE, MEDICAID, SELFPAY | PROVIDERS: PCP Internal Medicine; Visit Provider Physician Assistant Surgical | DX: Z13.89 Encounter for screening for other disorder (principal) ==

== ENCOUNTER 2024-09-10 14:41 | Outpatient (REF) | payer MEDICARE, MEDICAID, SELFPAY ==
--- NOTE | ~2024-09-10 | XR_ITS ---
EXAMINATION: XR KNEE, LEFT CLINICAL INFORMATION: LEFT KNEE PAIN. COMPARISON: April 26, 2023. TECHNIQUE: AP and lateral views of the left knee. FINDINGS: Joint space narrowing involving mostly the medial compartment and to a lesser extent the patellofemoral and lateral compartment. Sclerosis along the articular surface of the medial tibial plateau and medial femoral condyle. Small marginal osteophyte formation and medial tibial plateau and posterior superior and posterior inferior patella. No gross joint effusion. No acute cortical disruption or malalignment. No lytic or blastic lesions. Well-corticated calcification in the popliteal region. 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 Similar since prior exam. Electronically signed by: Delgado Jones MD 09/10/2024 03:15 PM EDT
--- OUTSIDE RECORDS SUMMARY | 2024-09-10 14:45 | XMS_ITS | Clinical Summary ---
Author Organization [facility] Address [address] [facility] [address] [place] [address] Care Team Providers Care Gravel Roofer Name Role Phone Unavailable Primary Care Provider Unavailabl e Encounters Date Type Department Care Team Description 09/06/2024 Telephone [facility] [address] [place], [place] [phone] Juanpablo Lomas MD from Last 3 Months Social History Tobacco Use Types Packs/Day Years Used Date Smoking Tobacco: Never Assessed Sex and Gender Information Value Date Recorded Sex Assigned at Not on file Legal Sex Male 4:23 PM EDT Gender Identity Not on file Sexual Orientation Not on file Plan of Treatment Health Maintenance Due Date Last Done Comments CT Colonography 1975 Colonoscopy 1975 Colorectal Cancer Screening 1975 Depression Screening 1975 FIT DNA/Cologuard 1975 FIT 1975 FOBT 1975 HIV Screening 1975 Lipid Panel 1975 SDOH Screening 1975 Sigmoidoscopy 1975 Alcohol/Substance Use Screening 1987 Tobacco Screening 1987 Family Planning (PISQ) 1990 Hepatitis C Screening 1993 DTaP/Tdap/Td Vaccines (1 - Tdap) 1994 Hepatitis B Vaccines (1 of 3 - 19+ 3-dose series) 1994 COVID-19 Vaccine ( - 2023-2 5 season) 2023 Influenza Vaccine (#1) 2023 Zoster Vaccines (1 of 2) 2025 RSV Patients and Pa tients Aged 60 years or older (1 - 1-dose 75+ series) 2050 HIB Vaccines Aged Out No longer eligi ble based on patient's age to complete this topic HPV Vaccines Aged Out No longer eligi ble based on patient's age to complete this topic Hepatitis A Vaccines Aged Out No long er eligible based on patient's age to complete this topic IPV Vaccines Aged Out No longer eligi ble based on patient's age to complete this topic Meningococcal B Vaccine Aged Out No l onger eligible based on patient's age to complete this topic Meningococcal Vaccine Aged Out No keerthi akua eligible based on patient's age to complete this topic Pneumococcal Vaccine: Pediat rics (0 to 5 Years) and At-Risk Patients (6 to 49) Years) Aged Out No longer eligible b ased on patient's age to complete this topic RSV under 20 months Aged Out No longe r eligible based on patient's age to complete this topic Rotavirus Vaccines Aged Out No longer eligible based on patient's age to complete this topic Insurance #[address] [place] [address] [facility]
--- OUTSIDE RECORDS SUMMARY | 2024-09-10 14:45 | XMS_ITS | Encounter Summary ---
Author Organization [facility] Address [address] [facility] [address] [place] [address] Care Team Providers Care Superintendent Plant Protection Name Role Phone Unavailable Primary Care Provider Unavailabl e Encounter Details Date Type Department Care Team (Late st Contact Info) Description 09/06/2024 Telephone [facility] [address] [place] [address] Juanpablo Lomas MD [address] [place] [address] Social History Tobacco Use Types Packs/Day Years Used Date Smoking Tobacco: Never Assessed Sex and Gender Information Value Date Recorded Sex Assigned at Not on file Legal Sex Male 4:23 PM EDT Gender Identity Not on file Sexual Orientation Not on file documented as of this encounter Miscellaneous Notes * Telephone Encounter - Brenda Mccann - 09/06/2024 8:55 AM EDT TC from caller requesting NEW PATIENT visit . DX : Medical Concern: Insurance name : [employer] Location : [facility] Demographic information updated documented in this encounter Plan of Treatment Not on file documented as of this encounter Visit Diagnoses Not on filedocumented in this encounter
[2024-09-10 16:38] LABS: Phenytoin Dilantin 18.3 ug/mL (10.0-20.0)
== END 2024-09-10 14:42 | disposition home or self-care (01) ==
LOC: HO.HMGCX 14:41
PROVIDERS: PCP Internal Medicine; Visit Provider Internal Medicine
DX: M25.562 Pain in left knee (principal); M17.12 Unilateral primary osteoarthritis, left knee; Z79.899 Other long term (current) drug therapy
CPT/HCPCS: 36415; 73560; 80185

== ENCOUNTER → 2024-09-10 14:50 | Outpatient (BNV) | payer MEDICARE, MEDICAID, SELFPAY | PROVIDERS: PCP Internal Medicine; Visit Provider Radiology Diagnostic Radiology | DX: M17.12 Unilateral primary osteoarthritis, left knee (principal) | CPT/HCPCS: 73560 ==

== ENCOUNTER → 2024-09-21 09:10 | Outpatient (BNVA) | payer MEDICARE, MEDICAID, SELFPAY | PROVIDERS: PCP Internal Medicine; Visit Provider Physician Assistant Surgical ==

== ENCOUNTER 2024-10-03 08:51 | Emergency (ER) | payer MEDICARE, MEDICAID, SELFPAY ==
--- NOTE | ~2024-10-03 | XR_ITS ---
EXAMINATION: XR ANKLE 3 OR MORE VIEWS RIGHT HISTORY: pain COMPARISON: Comparison is made with the prior examination dated 03/23/2013. FINDINGS: Three views of the right ankle are submitted. Osseous mineralization is normal. Again seen a well-corticated osseous densities adjacent to the tips of the needle and lateral malleoli compatible with old trauma. No acute fracture or dislocation is seen. There is slight widening of the medial aspect of the ankle mortise without change. There is diffuse soft tissue swelling. XR/XR ankle RT min 3V IMPRESSION: Diffuse soft tissue swelling. Chronic changes as described. No evidence of acute fracture. Electronically signed by: Theodore Orourke MD 10/03/2024 10:41 AM EDT
[2024-10-03 09:31] VITALS: BP 146/98; PULSE 60; O2SAT 96
[2024-10-03 09:46] VITALS: BP 135/73; PULSE 69; RESP 20; TEMP 36.4; O2SAT 93; BMI 75.1
--- NOTE | 2024-10-03 10:14 | ECG_ITS ---
Test Reason : fall Blood Pressure : */* mmHG Vent. Rate : 78 BPM Atrial Rate : * BPM P-R Int : * ms QRS Dur : 80 ms QT Int : 404 ms P-R-T Axes : * 3 60 degrees QTcB Int : 460 ms Atrial fibrillation Low voltage QRS Septal infarct (cited on or before 24-Jan-2023) Abnormal ECG When compared with ECG of 24-Jan-2023 00:27, No significant change was found Referred By: Melissa Duque Electronically Signed By: ISRA PINON MD
--- NOTE | 2024-10-03 10:21 | ED_ITS ---
HPI - Fall General Chief Complaint: Fall Stated Complaint: SYNCOPE W/FALL, HEAD/R WRIST,R ANKLE PAIN,+LOC,COL Time Seen by Provider: 10/03/24 09:32 History of Present Illness HPI Narrative: Patient is a 49-year-old male with a history of diabetes, seizure, atrial fibrillation morbidly obese. Patient weighs approximately 550 lb. Presented today after standing up patient felt lightheaded then had a syncopal episode. Hitting the back of his head. Patient positive loss of consciousness for brief second. Positive pain to the right ankle. There is no loss of consciousness.. Related Data Home Medications ?Medication ?Instructions ?Recorded ?Confirmed atorvastatin 20 mg tablet 20 mg PO BEDTIME 03/05/21 12/28/22 nystatin 100,000 unit/gram topical 1 appl topical BID PRN Rash 06/08/21 12/28/22 cream metoprolol succinate 25 mg 50 mg PO DAILY 08/26/22 12/28/22 tablet,extended release 24 hr allopurinol 300 mg tablet 300 mg PO DAILY 11/12/22 12/28/22 carbamazepine 200 mg tablet 400 mg PO BID 11/12/22 12/28/22 baclofen 10 mg tablet 10 mg PO TID PRN Muscle Spasm 11/16/22 12/28/22 lorazepam 2 mg tablet 2 mg PO TID 11/16/22 12/28/22 oxycodone 15 mg tablet 15 mg PO QID 11/16/22 12/28/22 phenytoin sodium extended 100 mg 600 mg PO BID 12/28/22 12/28/22 capsule (Dilantin Extended) Previous Rx's ?Medication ?Instructions ?Recorded apixaban 5 mg tablet (Eliquis) 5 mg PO BID #60 tabs 04/29/21 acetaminophen 325 mg capsule 650 mg (2 x 325 mg) PO Q6H PRN 12/09/22 (Tylenol) fever or pain #20 caps cephalexin 500 mg capsule 500 mg PO QID 7 days #28 caps 10/06/23 ofloxacin 0.3 % ear drops 10 drp otic (ears) DAILY 7 days #5 10/06/23 mL tirzepatide (weight loss) 2.5 2.5 mg (0.5 mL) subcut QWEEK #2 mL 03/26/24 mg/0.5 mL subcutaneous pen injector (Zepbound) tirzepatide (weight loss) 5 mg/0.5 5 mg (0.5 mL) subcut QWEEK #2 mL 04/23/24 mL subcutaneous pen injector (Zepbound) sennosides 8.6 mg tablet (senna) 17.2 mg (2 x 8.6 mg) PO BEDTIME 04/26/24 constipation 90 days #180 tabs bisacodyl 10 mg rectal suppository 10 mg KS DAILY PRN constipation 04/27/24 (Dulcolax (bisacodyl)) #12 ea tirzepatide (weight loss) 7.5 7.5 mg (0.5 mL) subcut QWEEK #2 mL //25 mg/0.5 mL subcutaneous pen injector (Zepbound) tirzepatide (weight loss) 10 10 mg (0.5 mL) subcut QWEEK #2 mL //25 mg/0.5 mL subcutaneous pen injector (Zepbound) tirzepatide (weight loss) 15 15 mg (0.5 mL) subcut QWEEK #2 mL 09/21/25 mg/0.5 mL subcutaneous pen injector (Zepbound) Allergies Allergy/AdvReac Type Severity Reaction Status Date / Time codeine [Codeine] Allergy Unknown RASH, hives Verified 10/03/24 09:49 ibuprofen [From Motrin] Allergy Unknown HIVES Verified 10/03/24 09:49 Review of Systems 2 Review of Systems: Positive pain to the right ankle Yes all other systems are reviewed and are negative PMFSH Past Medical History Attestation statement: The following information was validated with the patient. Medical History Pulmonary arterial hypertension NORIS (obstructive sleep apnea) Morbid obesity Hypoxemia Sleep apnea, obstructive Shortness of breath Morbid obesity with body mass index (BMI) greater than or equal to 70 in adult Brain tumor Persistent atrial fibrillation Aftercare following bilateral ankle joint replacement surgery Right hand dominant Seizure disorder Diabetes NORIS (obstructive sleep apnea) A-fib Surgical History History of ankle surgery Family History Family History Paternal Grandmother Myocardial infarction Maternal Grandfather Myocardial infarction Brother No problems noted. Sister No problems noted. Sister No problems noted. Social History Social History Household Members: Family Housing: House Do you presently have visiting nurse or other home services: No Alcohol intake: never Comment: changed to low risk Patient Tobacco Use Status: Never used Tobacco Advance Directives: No Advance Directives Information Provided: Yes Do you have a plan to hurt others: No Plan service: No Current occupational status: disabled Current occupation: Rt handed Physical Exam 2 Vital Signs: Vital Signs: Last Vital Signs Temp 97.6 F 10/03/24 09:46 Pulse 69 10/03/24 09:46 Resp 20 10/03/24 09:46 BP 135/73 10/03/24 09:46 Pulse Ox 93 10/03/24 09:46 O2 Del Method Room Air 10/03/24 09:46 BMI result Body Mass Index 77.2 Appearance: Alert. Oriented X3. No acute distress. Eyes: Pupils equal, round and reactive to light. ENT: Pharynx normal. Neck: Normal inspection. No lymph nodes noted. No crepitus. C-spine was immobilized secondary to patient's head injury CVS: Normal heart rate and rhythm. Pulses normal. Normal S1 and S2 Respiratory: No respiratory distress. Breath sounds normal. No Wheezing. No rales Abdomen: Soft and nontender. No rigidity. No distention. good BS x4 Skin: Skin warm and dry. Normal skin color. Normal skin turgor. Extremities: No lower extremity edema. Neurovascular intact to all extremities. No Lacerations. No Rash. Pain on movement of the right ankle Neuro: Oriented X 3. No motor deficit. No sensory deficit. Moving all extermities. No slurred speech Medications Administered Discontinued Medications Generic Name Dose Route Start Last Admin Trade Name Freq PRN Reason Stop Dose Admin Sodium Chloride 1,000 mls @ 999 mls/hr 10/03/24 10:15 10/03/24 10:35 Ns IV 10/03/24 11:15 999 mls/hr .Q1H1M DANDY Administration Medical Decision Making Medical Decision Making MDM Narrative: Patient is stood up felt lightheaded then fell hitting his head. Has a history of atrial fibrillation currently is on Eliquis. Last dose of Eliquis was this morning. Patient stated he might have lost consciousness for a 2nd. Complaining of pain also to the ankle. No chest pain or diaphoresis felt lightheaded prior. No diaphoresis. History of similar episodes in the past. Patient is weighs 568 lb when measured. Finding was discussed with [facility]. Patient is approximately 77 cm wide. Patient to be transferred to [facility] as we do not have the capability to scan him as the CT limits at [facility] was 400 lb. Family made aware. My interpretation patient's EKG was normal. Patient's cardiac enzyme was negative. Patient's fall sounds consistent with having vasovagal syncope. My interpretation patient's ankle x-ray was also negative. His chest exam was benign. His abdomen exam is benign. I doubt there is any abdominal traumatic pathology. Patient to be transferred to [facility]. Discussed with [facility] transfer center. Accepted patient. Differential Diagnosis Differential Diagnoses: The differential diagnosis associated with the presentation includes Syncope, vasovagal, electrolyte disturbance, irregular heartbeat Admission/Observation Consideration of admission/observation: Escalation of care including admission/observation considered Consult Healthcare Provider Management of the patient was discussed with: Resident Inspector ([facility] transfer line) Lab Data MDM Lab Attestation statement: I reviewed the patient's lab results. 10/03/24 12:08 10/03/24 12:08 Labs: Lab Results 10/03/24 Range/Units 12:08 WBC 5.4 (4.8-10.8) X10*3/uL RBC 4.49 L (4.60-5.80) X10*6/uL Hgb 13.5 L (14.0-18.0) g/dl Hct 41.5 L (42.0-52.0) % MCV 92.4 (80.0-98.0) fL MCH 30.1 (27.0-33.0) pg MCHC 32.5 (31.0-36.0) g/dl RDW 14.4 (11.0-16.0) % Plt Count 150 L (160-400) X10*3/uL MPV 10.5 (9.4-12.4) fL Immature Gran % (Auto) 0.7 H (0.0-0.4) % Neut % (Auto) 58.3 (45-73) % Lymph % (Auto) 21.4 (20-40) % [place] % (Auto) 15.3 H (2-11) % Eos % (Auto) 3.9 (0-4) % Baso % (Auto) 0.4 (0-2) % Lymph # (Auto) 1.2 (1.2-4.9) X10*3/uL [place] # (Auto) 0.8 (0.1-1.2) X10*3/uL Eos # (Auto) 0.2 (0.0-0.4) X10*3/uL Baso # (Auto) 0.0 (0.0-0.2) X10*3/uL Abs Immat Gran (auto) 0.04 H (0.00-0.03) X10*3/uL Absolute Neuts (auto) 3.2 (2.0-8.3) x10*3/uL Absolute Nucleated RBC 0.000 (0.0-0.012) X10*3/uL Nucleated RBC % (auto) 0.0 (0.0-0.2) /100WBC Sodium 139 (135-145) mmol/L Potassium 4.6 (3.3-5.1) mmol/L Chloride 107 (96-108) mmol/L Carbon Dioxide 29 (22-29) mmol/L Anion Gap 8 L (12-20) BUN 12 (9-16) mg/dL Creatinine 0.85 (0.5-1.4) mg/dL Estim Creat Clear Calc 222.8 Estimated GFR > 60 Random Glucose 103 (60-115) mg/dL Calcium 8.6 (8.4-10.2) mg/dL Total Bilirubin 0.3 (0.0-1.0) mg/dL Direct Bilirubin 0.1 (0.0-0.5) mg/dL AST 35 (5-37) U/L ALT 63 H (0-40) U/L Alkaline Phosphatase 244 H (39-117) U/L Troponin I High Sens < 2.7 (<3.5-35.0) ng/L Total Protein 7.1 (6.5-8.0) g/dL Albumin 4.0 (3.5-5.0) g/dL Lipase 13 (8-78) U/L Independent Interpretation I performed an independent interpretation of an: EKG (My interpretation of patient's EKG shows a atrial fibrillation pattern heart rate is approximately 80 QRS is normal QTC is normal there is no changes when compared to a previous EKG) and Plain X-Ray (My interpretation of patient's ankle x-ray was grossly negative no acute fracture) Radiology Impression Discussion of test interpretation with radiology: I have reviewed the radiologist's reading. Independent Historian Clinical information obtained from an independent historian. History obtained from or confirmed by: Spouse External Record Review External record reviewed: Inpatient record Chronic Conditions Patient?s care impacted by: Hypertension a fib sleep apnea, brain tumor, diabetes Social Determinants Patient?s care significantly limited by Social Determinants of Health including: Problems related to primary support group Critical Care Time Critical Care Time Critical Care Time: Yes Total Critical Care Time: 40 Attestation: I have personally provided 40 minutes of critical care time exclusive of time spent on separately billable procedures. ?Time includes review of lab data, radiology results, discussion with consultants, and monitoring for potential decompensation. ?Interventions were performed as documented above Discharge Plan Discharge Clinical Impression: A-fib, Head injury Patient Disposition: [facility] Prescriptions: No Action Zepbound 5 mg/0.5 mL pen injector 5 mg subcut QWEEK Qty: 2 0RF sennosides [senna] 8.6 mg tablet 17.2 mg PO BEDTIME 90 Days Qty: 180 0RF bisacodyl [Dulcolax (bisacodyl)] 10 mg suppository 10 mg KS DAILY PRN (Reason: constipation) Qty: 12 0RF Zepbound 7.5 mg/0.5 mL pen injector 7.5 mg subcut QWEEK Qty: 2 0RF Zepbound 10 mg/0.5 mL pen injector 10 mg subcut QWEEK Qty: 2 0RF Zepbound 15 mg/0.5 mL pen injector 15 mg subcut QWEEK Qty: 2 0RF Eliquis 5 mg Tablet 5 mg PO BID Qty: 60 0RF ofloxacin 0.3 % drops 10 drp otic (ears) DAILY 7 Days Qty: 5 0RF cephalexin 500 mg capsule 500 mg PO QID 7 Days Qty: 28 0RF carbamazepine 200 mg tablet 400 mg PO BID allopurinol 300 mg tablet 300 mg PO DAILY oxycodone 15 mg tablet 15 mg PO QID lorazepam 2 mg tablet 2 mg PO TID baclofen 10 mg tablet 10 mg PO TID PRN (Reason: Muscle Spasm) acetaminophen [Tylenol] 325 mg capsule 650 mg PO Q6H PRN (Reason: fever or pain) Qty: 20 0RF phenytoin sodium extended [Dilantin Extended] 100 mg capsule 600 mg PO BID atorvastatin 20 mg tablet 20 mg PO BEDTIME nystatin 100,000 unit/gram cream 1 appl topical BID PRN (Reason: Rash) metoprolol succinate 25 mg tablet extended release 24 hr 50 mg PO DAILY Protocol: Hold for SBP/HR < HOLD for SBP < : 90 HOLD for HR < : 60 Zepbound 2.5 mg/0.5 mL pen injector 2.5 mg subcut QWEEK Qty: 2 0RF Rx Instructions: for 4 weeks Print Language: Zambian
[2024-10-03] MEDS: 0.9 % Sodium Chloride 1,000 ML 999 ML IV (10:35)
[2024-10-03 10:36] VITALS: BMI 78.3
--- OUTSIDE RECORDS SUMMARY | 2024-10-03 11:07 | XMS_ITS | Clinical Summary ---
Author Organization [employer] Address [address] [place] [address] Care Team Providers Care Account Administrator Name Role Phone Unavailable Primary Care Provider Unavailabl e Encounters Date Type Department Care Team Description 09/06/2024 Telephone [facility] [address] [place], [place] [phone] Juanpablo Lomas MD from Last 3 Months [...] Panel 1975 SDOH Screening 1975 Sigmoidoscopy 1975 Disability Screening 1975 Alcohol/Substance Use Screening 1987 Tobacco Screening 1987 Family Planning (PISQ) 1990 Hepatitis C Screening 1993 DTaP/Tdap/Td Vaccines (1 - Tdap) 1994 Hepatitis B Vaccines (1 of 3 - 19+ 3-dose series) 1994 COVID-19 Vaccine ( - 2023-2 5 season) 2023 Influenza Vaccine (Season Ended) 2024 Zoster Vaccines (1 of 2) 2025 RSV [...] patient's age to complete [place] [address] [facility]
[2024-10-03 11:31] VITALS: BMI 77.2
[2024-10-03 12:14] LABS: MANUAL DIFF FLAG NO
[2024-10-03 12:16] LABS: Basophils Percent Auto 0.4 % (0-2); Eosinophils Absolute Auto 0.2 X10*3/uL (0.0-0.4); Eosinophils Percent Auto 3.9 % (0-4); Hematocrit 41.5 % (42.0-52.0); Hemoglobin 13.5 g/dl (14.0-18.0); Imm Gran Abs Auto 0.04 X10*3/uL (0.00-0.03); Imm Gran Pct Auto 0.7 % (0.0-0.4); Lymphocytes Absolute Auto 1.2 X10*3/uL (1.2-4.9); Lymphocytes Percent Auto 21.4 % (20-40); Mean Corpuscular HGB Conc 32.5 g/dl (31.0-36.0); Mean Corpuscular Hemoglobin 30.1 pg (27.0-33.0); Mean Corpuscular Volume 92.4 fL (80.0-98.0); Mean Platelet Volume 10.5 fL (9.4-12.4); Monocytes Absolute Auto 0.8 X10*3/uL (0.1-1.2); Monocytes Percent Auto 15.3 % (2-11); Neutrophils Absolute Auto 3.2 x10*3/uL (2.0-8.3); Neutrophils Percent Auto 58.3 % (45-73); Platelet Count 150 X10*3/uL (160-400); Red Blood Count 4.49 X10*6/uL (4.60-5.80); Red Cell Distribution Width 14.4 % (11.0-16.0); White Blood Count 5.4 X10*3/uL (4.8-10.8)
[2024-10-03 12:32] LABS: Alanine Aminotransferase 63 U/L (0-40); Alkaline Phosphatase 244 U/L (39-117); Anion Gap 8 (12-20); Aspartate Amino Transferase 35 U/L (5-37); Bilirubin Direct 0.1 mg/dL (0.0-0.5); Bilirubin Total 0.3 mg/dL (0.0-1.0); Blood Urea Nitrogen 12 mg/dL (9-16); Calcium 8.6 mg/dL (8.4-10.2); Carbon Dioxide 29 mmol/L (22-29); Chloride 107 mmol/L (96-108); Creatinine Clr Calc Pharmacy 222.8; Estimated Glomerular Filt Rate > 60; Glucose Random 103 mg/dL (60-115); Lipase 13 U/L (8-78); Potassium 4.6 mmol/L (3.3-5.1); Sodium 139 mmol/L (135-145); Total Protein 7.1 g/dL (6.5-8.0)
[2024-10-03 12:43] LABS: Troponin-I High Sensitivity < 2.7 ng/L (<3.5-35.0)
[2024-10-03 13:45] VITALS: BP 135/73; PULSE 69; RESP 20; TEMP 36.4; O2SAT 93
== END 2024-10-03 13:46 | disposition short-term general hospital (02) ==
PROVIDERS: Emergency Provider Emergency Medicine Emergency Medical Services; PCP Internal Medicine
DX: I48.91 Unspecified atrial fibrillation (principal); S09.90XA Unspecified injury of head, initial encounter; W18.39XA Other fall on same level, initial encounter; R42 Dizziness and giddiness; M25.571 Pain in right ankle and joints of right foot; E11.9 Type 2 diabetes mellitus without complications; E78.5 Hyperlipidemia, unspecified; E66.01 Morbid (severe) obesity due to excess calories; Z68.45 Body mass index [BMI] 70 or greater, adult; G47.33 Obstructive sleep apnea (adult) (pediatric); Y93.89 Activity, other specified; Y92.9 Unspecified place or not applicable; Y99.9 Unspecified external cause status; Z79.02 Long term (current) use of antithrombotics/antiplatelets; Z79.899 Other long term (current) drug therapy; Z79.01 Long term (current) use of anticoagulants
CPT/HCPCS: 36415; 73610; 80048; 80076; 83690; 84484; 85025; 93005; 96360; 99285

== ENCOUNTER → 2024-10-03 10:14 | Outpatient (BNV) | payer MEDICARE, MEDICAID, SELFPAY | PROVIDERS: Emergency Provider Emergency Medicine Emergency Medical Services; PCP Internal Medicine; Visit Provider Internal Medicine Cardiovascular Disease | DX: I48.91 Unspecified atrial fibrillation (principal); I25.2 Old myocardial infarction | CPT/HCPCS: 93010 ==

== ENCOUNTER → 2024-10-03 10:14 | Outpatient (BNV) | payer MEDICARE, MEDICAID, SELFPAY | PROVIDERS: Emergency Provider Emergency Medicine Emergency Medical Services; PCP Internal Medicine; Visit Provider Radiology Diagnostic Radiology | DX: R22.41 Localized swelling, mass and lump, right lower limb (principal) | CPT/HCPCS: 73610 ==

== ENCOUNTER → 2024-10-12 09:08 | Outpatient (BNVA) | payer MEDICARE, MEDICAID, SELFPAY | PROVIDERS: PCP Internal Medicine; Visit Provider Physician Assistant Surgical ==

== ENCOUNTER 2024-11-01 15:23 | Outpatient (AMB) | payer MEDICARE, MEDICAID, SELFPAY ==
--- NOTE | 2024-11-01 15:24 | MHC.PC.OV ---
Vital Signs 11/01/24 15:29 Height 5 ft 10.31 in Weight 543 lb BMI 77.2 BP 113/57 L Blood Pressure Location Rt brachial Position Sitting Respiration 20 Pulse 65 Pulse Source Pulse Oximeter Temp 97.1 F Temp Source Temporal Artery Scan Pulse Oximetry (%) 96 Oxygen Delivery Method Room Air Intake Visit Reasons: establish care; seizure disorder; atrial fib [employer] Representative Required: No Accompanied by: girlfriend Allergies codeine (Codeine) Allergy (Unknown, Verified 11/01/24 16:18) RASH, hives ibuprofen (From Motrin) Allergy (Unknown, Verified 11/01/24 16:18) HIVES Medication List - Last Reconciled 11/01/24 by Celine Cohen PA-C allopurinol 300 mg PO DAILY apixaban (Eliquis) 5 mg PO BID atorvastatin 20 mg PO BEDTIME baclofen 10 mg PO TID PRN baclofen 5 mg PO TID blood sugar diagnostic (FreeStyle Lite Strips) As directed carbamazepine 400 mg PO BID insulin lispro (Humalog KwikPen (U-100) Insulin) subcut DIRECTED lancets (FreeStyle Lancets) As directed nystatin 1 appl topical BID PRN oxybutynin chloride ER 10 mg PO DAILY oxycodone 15 mg PO QID pen needle, diabetic As directed phenytoin sodium extended (Phenytek) 400 mg PO BID sildenafil 100 mg PO tirzepatide (weight loss) (Zepbound) 15 mg (0.5 mL) subcut QWEEK torsemide 20 mg PO DAILY Tobacco use date assessed: 11/01/24 Dental Screening Dental Screen Date: 11/01/24 Did you have a dental visit in the last 12 months?: No Did you have a dental problem in the last 6 months where you did not have access to dental care?: No Was dental information given to patient?: Patient has dentist HPI establish care; seizure disorder; atrial fib HPI Details The patient is a 49-year-old male presenting with a new patient appointment and management of multiple chronic conditions. He has a history of diabetes mellitus, currently managed with Zepbound 15 mg weekly and insulin Lispro on a sliding scale. His A1c was previously almost 17, with blood sugars reaching 850 mg/dL, but has improved to 6.0 recently. The patient has a history of gout, for which he is taking allopurinol. He also has a history of concussions and blood clots, requiring the use of Eliquis as a blood thinner. He was hospitalized previously due to a pulmonary embolism. The patient has atrial fibrillation, which may have contributed to his history of blood clots. He is also on atorvastatin for hyperlipidemia and baclofen for muscle spasms. The patient has a significant history of obesity, having lost 121 pounds since last January. He is working on further weight loss as it is a prerequisite for certain surgeries. He reports constipation, managed with hequ-xdi-qsfxxyr stool softeners and laxatives. The patient was noted to be anemic with a hemoglobin of 13.5 and a low platelet count during a physical in September 2024. His liver enzymes were elevated, with ALT at 63 and alkaline phosphatase at 244. He has a history of polyps found during a colonoscopy, but they were small and not concerning. He is scheduled for an MRI of the eye due to visual impairment. Patient has multiple joint pains in bilateral knees, bilateral ankles, bilateral hands and wrists and finger joints. He was recommended surgery in the past although due to his weight they deferred him to lose weight before any surgical procedures. Due to his chronic pain he is currently on oxycodone 15 mg tablet [address] Menendez last prescribed this on 10/08/2024 for a 30 day supply and he received 120 tablets. He reported that he will need this to continue with his chronic pain in multiple joints. Social History - Weight management: The patient has lost 121 pounds since last January and is working on further weight loss. - Nutritional intake: Consumes shakes and protein chips, advised to eat 12 bites of meat and 12 bites of fruits and vegetables daily. [facility] Medical History (Updated 11/01/24 @ 16:36 by Celine Cohen PA-C) History of colon polyps Visual impairment Elevated liver enzymes Low platelet count Anemia Constipation Body mass index [BMI] 70 or greater, adult Muscle spasm Hyperlipidemia History of concussion Gout Establishing care with new doctor, encounter for Pulmonary arterial hypertension NORIS (obstructive sleep apnea) Morbid obesity Hypoxemia Sleep apnea, obstructive Shortness of breath Morbid obesity with body mass index (BMI) greater than or equal to 70 in adult Brain tumor Persistent atrial fibrillation Aftercare following bilateral ankle joint replacement surgery Right hand dominant Seizure disorder Diabetes NORIS (obstructive sleep apnea) A-fib Surgical History History of colonoscopy (~10/08/24) History of ankle surgery Family History Paternal Grandmother Heart attack Maternal Grandfather Heart attack Brother No problems noted. Sister No problems noted. Sister No problems noted. Father Heart attack Hemoglobin A1C between 7% and 9% indicating borderline diabetic control Mother High blood pressure Social History Household Members: Family Housing: Apartment Do you presently have visiting nurse or other home services: No Alcohol intake: current Alcohol intake frequency: does not drink Patient Tobacco Use Status: Never used Tobacco service: No Current occupational status: disabled Cognitive needs: Yes (cane) Hearing needs: No Vision needs: Yes (rx glasses) Questionnaire PHQ-9 Over the last 2 weeks, how often have you been bothered by any of the following problems? 1. Little interest or pleasure in doing things: not at all 2. Feeling down, depressed, or hopeless: not at all 3. Trouble falling or staying asleep, or sleeping too much: not at all 4. Feeling tired or having little energy: not at all 5. Poor appetite or overeating: not at all 6. Feeling bad about yourself - or that you are a failure or have let yourself or your family down: not at all 7. Trouble concentrating on things, such as reading the newspaper or watching television: not at all 8. Moving or speaking so slowly that other people could have noticed. Or the opposite - being so fidgety or restless that you have been moving around a lot more than usual: not at all 9. Thoughts that you would be better off or of hurting yourself in some way: not at all Total score: 0 Depression Screening Interpretation: Negative Depression Screening Done: Yes 64346 - PHQ-9 Billing: Yes Source: Developed by Drs. Theodore Dodd, Renuka Urena, Ino Abraham and colleagues, with an educational elizabeth from [employer]. Thrive Questionnaire Date Thrive assessed: 11/01/24 I am a: Patient What is your living situation today?: I have a steady place to live Within the past 12 months, did the food you bought not last and you didn't have the money to get more?: Never true Within the past 12 months, did you worry whether your food would run out before you got money to buy more?: Never true Do you have trouble paying for medicines?: No Do you have trouble getting transportation to medical appointments?: No Do you have trouble paying your heating and electricity bill?: No Do you have trouble taking care of your child, family member or friend?: No Do you have trouble with day-to-day activities such as bathing, preparing meals, shopping, managing finances, etc.?: No Are you currently unemployed and looking for a job?: No Are you interested in more education?: No Please select the resources that you would like help with: None Currently or been in a relationship where the following occur: No concerns reported THRIVE Score: 0 AUDIT C Alcohol Use Questionnaire (AUDIT-C) 1. How often do you have a drink containing alcohol?: Never 3. How often do you have six or more drinks on one occasion?: Never Total Score: 0 Score Reviewed/Action Taken: No ANURADHA-7 AMB Questionnaire ANURADHA-7 Date ANURADHA - 7 assessed: 11/01/24 Feeling nervous, anxious, or on edge: 0 = Not at all Not being able to stop or control worryin = Not at all Worrying too much about different things: 0 = Not at all Trouble relaxin = Not at all Being so restless that it is hard to sit still: 0 = Not at all Becoming easily annoyed or irritable: 0 = Not at all Feeling afraid as if something awful might happen: 0 = Not at all Total ANURADHA-7 score (0-4 normal; 5-9 mild; 10-14 moderate; 15-21 severe): 0 Source: Developed by Drs. Theodore Dodd, Renuka Urena, Ino Abraham and colleagues, with an educational elizabeth from [employer]. ANURADHA-7 Assessment Billing ANURADHA-7 Assessment Tool: ANURADHA-7 Assessment 63306 Review of Systems Const Details: - Cardiovascular: Denies chest pain, reports elevated pulse rate due to anxiety. - Gastrointestinal: Reports constipation, denies abdominal pain or bloody stool. - Respiratory: Denies shortness of breath. - Neurological: Denies headaches, reports visual impairment. Physical exam (Primary Care) Vital Signs: Last Vital Signs Temp 97.1 F 11/01/24 15:29 Pulse 65 11/01/24 15:29 Resp 20 11/01/24 15:29 BP 113/57 L 11/01/24 15:29 Pulse Ox 96 11/01/24 15:29 Oxygen Delivery Method Room Air 11/01/24 15:29 Care Plan Goal for BP management: <140/90 at Goal BMI result Body Mass Index 77.2 BMI Assessment/Plan discussion: High BMI High, discussed plan: lifestyle, weight reduction, dietary, physical activity and alcohol moderation Tobacco/Smoking Status: Tobacco use Status Tobacco use date assessed 11/01/24 11/01/24 15:50 Patient Tobacco Use Status Never used Tobacco 11/01/24 15:50 PHQ-9: PHQ-9 Score PHQ-9: Total score 0 11/01/24 15:50 Depression Screening Interpretation: Negative Thrive Assessment: Date of Thrive Assessment Date Thrive assessed 11/01/24 11/01/24 15:50 Currently or been in a relationship where the following occur: No concerns reported Const Other: Appearance: Alert. Oriented X3. No acute distress. Head: Normal external exam. Normocephalic. Atraumatic. Eyes: Pupils are equal, round, and reactive to light. Extraocular movements intact. Conjunctiva and sclera normal. Eyelids normal. Throat: Pharynx normal. Uvula midline. Moist mucous membranes. Neck: Normal inspection. Neck supple. Full range of motion. Cardiovascular: Normal heart rate and rhythm. Heart sound normal. No murmurs noted. Pulses normal throughout. Respiratory: No respiratory distress. Painless inspiration. Breath sounds normal. No wheezes/rales/rhonchi noted. Chest nontender. No accessory muscle usage noted or decreased air movement noted. Abdomen: Soft and nontender. No distention noted. No organomegaly noted. Back: Full range of motion noted. Skin: Skin warm and dry. Normal skin color. Normal skin turgor. No rashes/lesions/lacerations noted. Extremities: Chronic joint pain moving all extremities. Neuro: Oriented X 3. No motor deficit. No sensory deficit. Reflexes normal. Results Reviewed Results Reviewed: - Labs: Hemoglobin 13.5, Platelet count low, ALT 63, Alkaline phosphatase 244. - Imaging: Scheduled MRI for visual impairment. Coding Level of Care Code New Pt Level 5 (59748) Complex EM visit Add On G2211 Diagnoses Establishing care with new doctor, encounter for Z76.89 Gout M10.9 History of concussion Z87.820 Pulmonary embolism I26.99 A-fib I48.91 Hyperlipidemia E78.5 Muscle spasm M62.838 Body mass index [BMI] 70 or greater, adult Z68.45 Constipation K59.00 Anemia D64.9 Low platelet count D69.6 Elevated liver enzymes R74.8 Visual impairment H54.7 History of colon polyps Z86.0100 Additional Codes PHQ-9 - 39322 - PHQ-9 Billing: Yes ([id number]) ANURADHA-7 Assessment Billing - ANURADHA-7 Assessment Tool: ANURADHA-7 Assessment 42272 ([id number]) Time Spent (min) 45 Assessment & Plan Assessment & Plan (1) Establishing care with new doctor, encounter for: Code(s): Z76.89 - Persons encountering health services in other specified circumstances Category: Medical (2) Gout: Code(s): M10.9 - Gout, unspecified Category: Medical Plan: The patient is currently taking allopurinol for gout management. (3) History of concussion: Code(s): Z87.820 - Personal history of traumatic brain injury Category: Medical Plan: The patient is on Eliquis to prevent further thromboembolic events due to his history of concussions and blood clots. (4) Pulmonary embolism: Comment: Has had history of pulmonary embolism which is definitely due to his morbid obesity. He is on anticoagulation Code(s): I26.99 - Other pulmonary embolism without acute cor pulmonale Category: Medical Plan: The patient is on Eliquis to prevent further thromboembolic events due to his history of concussions and blood clots. (5) A-fib: Code(s): I48.91 - Unspecified atrial fibrillation Category: Medical Plan: The patient is on anticoagulation therapy with Eliquis due to atrial fibrillation. (6) Hyperlipidemia: Code(s): E78.5 - Hyperlipidemia, unspecified Category: Medical Plan: The patient is on atorvastatin for hyperlipidemia management. (7) Muscle spasm: Code(s): M62.838 - Other muscle spasm Category: Medical Plan: The patient is taking baclofen for muscle spasms. (8) Body mass index [BMI] 70 or greater, adult: Code(s): Z68.45 - Body mass index [BMI] 70 or greater, adult Category: Medical Plan: The patient has lost 121 pounds and is advised to continue weight loss efforts as it is a prerequisite for certain surgeries. (9) Constipation: Code(s): K59.00 - Constipation, unspecified Category: Medical Plan: The patient is managing constipation with kmbt-ibv-kmmwydq stool softeners and laxatives. (10) Anemia: Code(s): D64.9 - Anemia, unspecified Category: Medical Plan: The patient was noted to be anemic with a hemoglobin of 13.5 during a recent physical. (11) Low platelet count: Code(s): D69.6 - Thrombocytopenia, unspecified Category: Medical Plan: The patient has a low platelet count, which is being monitored. (12) Elevated liver enzymes: Code(s): R74.8 - Abnormal levels of other serum enzymes Category: Medical Plan: The patient has elevated liver enzymes, ALT 63 and alkaline phosphatase 244, which require monitoring. (13) Visual impairment: Code(s): H54.7 - Unspecified visual loss Category: Medical Plan: The patient is scheduled for an MRI to assess visual impairment. (14) History of colon polyps: Code(s): Z86.0100 - Personal history of colon polyps, unspecified Category: Medical Plan: The patient has a history of polyps, which were small and not concerning. Plan Plan Patient was informed and verbally consented to the use of an ambient scribe for clinic note documentation during this visit. 1. Diabetes Mellitus The patient's diabetes is managed with Zepbound 15 mg weekly and insulin Lispro on a sliding scale. His A1c has improved to 6.0, indicating good control. He is advised to continue monitoring blood glucose levels daily and adjust insulin as needed. 2. Gout The patient is currently taking allopurinol for gout management. 3. History Of Concussions And Blood Clots The patient is on Eliquis to prevent further thromboembolic events due to his history of concussions and blood clots. 4. Atrial Fibrillation The patient is on anticoagulation therapy with Eliquis due to atrial fibrillation. 5. Hyperlipidemia The patient is on atorvastatin for hyperlipidemia management. 6. Muscle Spasms The patient is taking baclofen for muscle spasms. 7. Obesity The patient has lost 121 pounds and is advised to continue weight loss efforts as it is a prerequisite for certain surgeries. 8. Constipation The patient is managing constipation with qxyk-yyi-purhzvf stool softeners and laxatives. 9. Anemia The patient was noted to be anemic with a hemoglobin of 13.5 during a recent physical. 10. Low Platelet Count The patient has a low platelet count, which is being monitored. 11. Elevated Liver Enzymes The patient has elevated liver enzymes, ALT 63 and alkaline phosphatase 244, which require monitoring. 12. Visual Impairment The patient is scheduled for an MRI to assess visual impairment. 13. History Of Polyps The patient has a history of polyps, which were small and not concerning. 14. Patient is on chronic pain medications. Patient is currently on oxycodone 15 mg [address] Menendez was prescribing him 120 tablets for 30 day period. I explained to him that I would discuss this with Dr. Lopez about proper treatment for his chronic pain. During the visit, we discussed the management of the patient's diabetes, including the use of Zepbound and insulin Lispro, and the importance of monitoring blood glucose levels daily. We also reviewed the patient's use of allopurinol for gout and Eliquis for his history of concussions and blood clots. The need for continued weight loss was emphasized as it is necessary for future surgeries. We discussed the elevated liver enzymes and the need for monitoring, as well as the scheduled MRI for visual impairment. Orders: Orders PSA,Total (Free>4and<10) Today Z00.00 - Encounter for general adult medical examination without abnormal findings TSH reflex Free T4 Today Z00.00 - Encounter for general adult medical examination without abnormal findings Vitamin B12 and Folate Today Z00.00 - Encounter for general adult medical examination without abnormal findings Vitamin D 25-OH Total Today Z00.00 - Encounter for general adult medical examination without abnormal findings Medications: Discontinued tirzepatide (weight loss) (Zepbound) Discontinued Reason: None 5 mg (0.5 mL) subcut QWEEK 2 mL 0RF E66.01 - Morbid (severe) obesity due to excess calories tirzepatide (weight loss) (Zepbound) for 4 weeks Discontinued Reason: Doctor's Order 2.5 mg (0.5 mL) subcut QWEEK 2 mL 0RF E11.9 - Type 2 diabetes mellitus without complications, E66.01 - Morbid (severe) obesity due to excess calories tirzepatide (weight loss) (Zepbound) Discontinued Reason: Doctor's Order 7.5 mg (0.5 mL) subcut QWEEK 2 mL 0RF E66.01 - Morbid (severe) obesity due to excess calories tirzepatide (weight loss) (Zepbound) Discontinued Reason: Doctor's Order 10 mg (0.5 mL) subcut QWEEK 2 mL 0RF E66.01 - Morbid (severe) obesity due to excess calories Patient Instructions: - Continue taking Zepbound and insulin Lispro as prescribed. - Monitor blood glucose levels daily and adjust insulin as needed. - Take allopurinol for gout as prescribed. - Continue Eliquis for blood clot prevention. - Maintain weight loss efforts and follow dietary recommendations. - Monitor for any signs of liver issues and report any right upper quadrant pain immediately. - Attend scheduled MRI for visual impairment assessment.
--- OUTSIDE RECORDS SUMMARY | 2024-11-01 15:26 | XMS_ITS | Clinical Summary ---
Author Organization [employer] Address [address] [place] [address] Care Team Providers Care Chief Maintenance Supervisor Name Role Phone Unavailable Primary Care Provider Unavailabl e Encounters Date Type Department Care Team Description 09/06/[address] [facility] MED[facility] [address] [place], [place] [phone] Juanpablo Lomas MD from Last 3 Months [...] - 19+ 3-dose series) 1994 COVID-19 Vaccine (1 - 2023-2 5 season) 2023 Influenza Vaccine (#1) 2024 Zoster Vaccines (1 of 2) 2025 [...] Years) and At-Risk Patients (6 to 49) Years Aged Out No longer eligible b ased on patient's age to complete this topic RSV under 20 months Aged Out No longe r eligible based on patient's age to complete this topic Rotavirus Vaccines Aged Out No longer eligible based on patient's age [place] [address] [facility]
[2024-11-01 15:29] VITALS: BP 113/57; PULSE 65; RESP 20; TEMP 36.2; O2SAT 96; BMI 77.2
== END 2024-11-01 16:17 | disposition home or self-care (01) ==
LOC: HO.HMCSH 15:24
PROVIDERS: PCP Internal Medicine; Visit Provider Physician Assistant Medical
DX: I48.91 Unspecified atrial fibrillation (principal); I26.99 Other pulmonary embolism without acute cor pulmonale; Z68.45 Body mass index [BMI] 70 or greater, adult; Z76.89 Persons encountering health services in other specified circumstances; M10.9 Gout, unspecified; Z87.820 Personal history of traumatic brain injury; E78.5 Hyperlipidemia, unspecified; M62.838 Other muscle spasm; K59.00 Constipation, unspecified; D64.9 Anemia, unspecified; D69.6 Thrombocytopenia, unspecified; R74.8 Abnormal levels of other serum enzymes

== ENCOUNTER → 2024-11-01 15:23 | Outpatient (BNVA) | payer MEDICARE, MEDICAID, SELFPAY | PROVIDERS: PCP Internal Medicine; Visit Provider Physician Assistant Medical | DX: Z76.89 Persons encountering health services in other specified circumstances (principal); M10.9 Gout, unspecified; I26.99 Other pulmonary embolism without acute cor pulmonale; I48.91 Unspecified atrial fibrillation; E78.5 Hyperlipidemia, unspecified; M62.838 Other muscle spasm; K59.00 Constipation, unspecified; D64.9 Anemia, unspecified; D69.6 Thrombocytopenia, unspecified; R74.8 Abnormal levels of other serum enzymes; H54.7 Unspecified visual loss; Z86.0100 Personal history of colon polyps, unspecified; Z87.820 Personal history of traumatic brain injury | CPT/HCPCS: 96127; 99202 ==

== ENCOUNTER 2024-11-05 12:10 | Outpatient (REF) | payer MEDICARE, MEDICAID, SELFPAY ==
--- OUTSIDE RECORDS SUMMARY | 2024-11-05 13:11 | XMS_ITS | Clinical Summary ---
Author Organization [facility] Address [address] [place] [address] Care Team Providers Care Recycling Operations Manager Name Role Phone Unavailable Primary Care Provider Unavailabl e Encounters Date Type Department Care Team Description 09/06/2024 Telephone [facility] MED[facility]INE [address] [place], [place] [phone] Juanpablo Lomas MD from Last 3 Months [...] patient's age to [place] [address] [facility]
[2024-11-05 14:55] LABS: PSA,Total (Free>4and<10) 0.60 ng/mL (0.00-4.00)
[2024-11-05 15:08] LABS: Folate 3.1 ng/mL (> or = 4.0); Vitamin B12 368 pg/mL (200-900)
== END 2024-11-05 12:11 | disposition home or self-care (01) ==
LOC: HO.HMGCLDS 12:10
PROVIDERS: PCP Internal Medicine; Visit Provider Physician Assistant Medical
DX: Z00.00 Encounter for general adult medical examination without abnormal findings (principal)
CPT/HCPCS: 36415; 82306; 82607; 82746; 84153; 84443

== ENCOUNTER → 2024-11-15 10:37 | Outpatient (BNVA) | payer MEDICARE, MEDICAID, SELFPAY | PROVIDERS: PCP Internal Medicine | DX: Z01.89 Encounter for other specified special examinations (principal) | CPT/HCPCS: 99211 ==

== ENCOUNTER 2024-11-20 15:12 | Outpatient (AMB) | payer MEDICARE, MEDICAID, SELFPAY ==
--- NOTE | 2024-11-20 15:15 | MHC.OFFVIS ---
Vital Signs 11/20/24 15:19 Height 6 ft Weight 537 lb BMI 72.8 BP 148/95 H Blood Pressure Location Lt radial Position Sitting Pulse 89 Pulse Source Pulse Oximeter Intake Visit Reasons: Other chronic pain Rag Sorter And Cutter Required: No Allergies codeine (Codeine) Allergy (Unknown, Verified 11/20/24 15:27) RASH, hives ibuprofen (From Motrin) Allergy (Unknown, Verified 11/20/24 15:27) HIVES HPI Comments Details: The patient is a 49-year-old male presenting with chronic pain syndrome with complex medical history and significant morbid obesity. His diabetes mellitus currently managed with Zepbound 15 mg weekly injection and insulin Lispro on a sliding scale. A1c has improved from nearly 17 to 6.0, with previous blood glucose levels reaching 850 mg/dL. Patient has a history of blood clots and Afib requiring Eliquis and was previously hospitalized for a pulmonary embolism. The patient has significant obesity with a current BMI of 72.8 and a weight of 537 pounds. He has been experiencing chronic multiple joint pain, gout, including bilateral knee, ankle, hand, wrist, finger, and back pain. He has been managing his pain with oxycodone 15 mg four times a day, but his previous provider has retired, leading to challenges in continuing his prescription through his current PCP. Patient reports on good days he only takes 3 pills. 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 He also has sleep apnea and uses a CPAP machine. The patient has been active in weight loss management, having lost 130 pounds in the last seven months under the guidance of [facility]. He engages in physical activity, including using a bicycle for his legs and hands and walking as much as possible. He uses cane for stability and guidance due to vision loss on the left. Reports history of falls, worsening his joint pain, especially left knee. He underwent left knee MRI at [facility], was told partial meniscus tear. Patient continues to loose weight as prerequisite for his surgical procedures. - Onset: Chronic pain present for 15-20 years - Quality: Sharp, burning, constant, aching, shooting, throbbing, heavy, tightness, tiring - Location: Bilateral knees, ankles, hands, wrists, fingers, back; worse left knee in medial aspect - Exacerbating Factors: Physical activity, rainy days, weight bearing - Relieving Factors: Oxycodone provides partial relief - Interference: Affects daily activities and functioning, sleep - Affect: Pain impacts daily activities and functioning, sleep - Analgesia: Oxycodone 15 mg four times a day, reduces pain from 10/10 to 4-5/10 - Adverse Effects: None reported - Activities of Daily Living: Pain affects daily activities, patient remains active with exercise - Aberrant Drug Related Behaviors: None reported [facility] Medical History Low folate Vitamin D deficiency Chronic pain History of colon polyps Visual impairment Elevated liver enzymes Low platelet count Anemia Constipation Body mass index [BMI] 70 or greater, adult Muscle spasm Hyperlipidemia History of concussion Gout Establishing care with new doctor, encounter for Pulmonary arterial hypertension NORIS (obstructive sleep apnea) Morbid obesity Hypoxemia Sleep apnea, obstructive Shortness of breath Morbid obesity with body mass index (BMI) greater than or equal to 70 in adult Brain tumor Persistent atrial fibrillation Aftercare following bilateral ankle joint replacement surgery Right hand dominant Seizure disorder Diabetes NORIS (obstructive sleep apnea) A-fib Surgical History History of colonoscopy (~10/08/24) History of ankle surgery Family History Paternal Grandmother Heart attack Maternal Grandfather Heart attack Brother No problems noted. Sister No problems noted. Sister No problems noted. Father Heart attack Hemoglobin A1C between 7% and 9% indicating borderline diabetic control Mother High blood pressure Social History Household Members: Family Housing: Apartment Do you presently have visiting nurse or other home services: No Alcohol intake: current Alcohol intake frequency: does not drink Patient Tobacco Use Status: Never used Tobacco service: No Current occupational status: disabled Cognitive needs: Yes (cane) Hearing needs: No Vision needs: Yes (rx glasses) Review of Systems Const Details: - Cardiovascular: Reports atrial fibrillation, denies chest pain - Respiratory: Reports sleep apnea, uses CPAP machine - Musculoskeletal: Reports chronic joint pain in knees, ankles, hands, wrists, fingers, back - Neurological: Reports visual impairment due to optic nerve tumor - Endocrine: Reports diabetes mellitus, improved glycemic control All systems reviewed & are unremarkable except as noted in HPI and below Physical Exam Vital Signs: Last Vital Signs Pulse 89 11/20/24 15:19 BP 148/95 H 11/20/24 15:19 BMI result Body Mass Index 72.8 General: Appears afebrile. Severe morbid obesity. Alert and oriented. Mood and affect appropriate. Pleasant. Follows and participates in conversation appropriately. Respiratory effort is unlabored. No cough. Able to transition from sit to stand unassisted. Uses cane with ambulation. Ambulates with bilaterally normal heel strike and toe off. Back/Spine/Pelvis Cervical Spine: cervical ROM normal, cervical muscular tenderness and No Cervical spine tenderness Thoracic/Lumbar Spine: pain with thoraco-lumbar ROM, thoraco-lumbar ROM limited, No thoracic spinal tenderness and No lumbar spinal tenderness Extrem General: Yes capillary refill normal, Yes no clubbing, cyanosis or edema and Yes no calf tenderness Left lower extremity: knee Details: normal to inspection, tenderness Location: of the medial joint line and crepitus; no swelling, no ecchymosis, no deformity and no unusual warmth Results Reviewed Results Reviewed: XR KNEE, LEFT 09/10/24 CLINICAL INFORMATION: LEFT KNEE PAIN. COMPARISON: April 26, 2023. TECHNIQUE: AP and lateral views of the left knee. FINDINGS: Joint space narrowing involving mostly the medial compartment and to a lesser extent the patellofemoral and lateral compartment. Sclerosis along the articular surface of the medial tibial plateau and medial femoral condyle. Small marginal osteophyte formation and medial tibial plateau and posterior superior and posterior inferior patella. No gross joint effusion. No acute cortical disruption or malalignment. No lytic or blastic lesions. Well-corticated calcification in the popliteal region. IMPRESSION: Tricompartmental osteoarthrosis involving mostly the medial compartment. Similar since prior exam. XR KNEE, RIGHT 03/16/23 CLINICAL INFORMATION: Fall. Grade range of motion COMPARISON: None available. TECHNIQUE: 2 views of the right knee. FINDINGS: There is mild loss of medial compartment joint space. The lateral and the patellofemoral compartment joint space is normal. No visible acute fracture, dislocation or subluxation seen.. No bony erosive changes. There are small enthesophytes along the patellofemoral compartment.. The soft tissues are normal. IMPRESSION: Mild degenerative changes patellofemoral compartment. No visible acute fracture or dislocation seen. Assessment & Plan Assessment & Plan (1) Morbid obesity: Comment: CURRENT TO WAIT 539 BMI 77.3 HE IS TRYING TO LOSE WEIGHT, PRE GASTRIC SURGERY. Code(s): E66.01 - Morbid (severe) obesity due to excess calories Category: Medical (2) Osteoarthritis of left knee: Code(s): M17.12 - Unilateral primary osteoarthritis, left knee Category: Medical (3) Chronic pain: Comment: On chronic pain medications Code(s): G89.29 - Other chronic pain Category: Medical (4) Body mass index [BMI] 70 or greater, adult: Code(s): Z68.45 - Body mass index [BMI] 70 or greater, adult Category: Medical (5) Polyarthralgia: Code(s): M25.50 - Pain in unspecified joint Category: Medical Plan The patient will continue his current opioid regimen through his primary care provider while exploring alternative interventional pain management options through our office. SynviscOne gel injection for the left knee is considered, pending insurance approval, to provide symptomatic pain relief and improve mobility tolerance. Expectations, risks and benefits were reviewed. Patient is aware he will be contacted to schedule this procedure. The patient is advised to continue his weight loss efforts, as a lower BMI may enable more procedural options in the future. The patient is encouraged to maintain his current exercise regimen, which includes using a bicycle and walking, to support his weight loss and overall health. Follow-up is planned one month after the gel injection to assess its effectiveness and determine the need for further interventions. Patient was informed and verbally consented to the use of an ambient scribe for clinic note documentation during this visit. Patient Instructions: I discussed with the patient the limitations of our opioid program and the potential for hospital account manager procedures such as injections, radiofrequency ablation, and peripheral nerve stimulation. Given the patient's BMI, certain procedures may not be feasible, but a gel injection for the left knee is a possibility, pending insurance approval. We reviewed the risks and benefits of gel versus cortisone injections, emphasizing that gel injections provide lubrication without the joint deterioration risk associated with steroids. The patient was advised to continue his weight loss efforts and exercise regimen, and a follow-up was scheduled to evaluate the effectiveness of the gel injection. - Continue current opioid regimen through PCP. - Await insurance approval for left knee gel injection. - Maintain weight loss efforts and exercise regimen. - Follow up one month after gel injection to assess effectiveness. Coding Level of Care Code New Pt Level 4 (23495) Diagnoses Morbid obesity E66.01 Osteoarthritis of left knee M17.12 Chronic pain G89.29 Body mass index [BMI] 70 or greater, adult Z68.45 Polyarthralgia M25.50
[2024-11-20 15:19] VITALS: BP 148/95; PULSE 89; BMI 72.8
--- OUTSIDE RECORDS SUMMARY | 2024-11-20 16:04 | XMS_ITS | Encounter Summary ---
Author Organization [facility] Address [address] [place] [phone] Phone Care Team Providers Care Scrap Wheeler Name Role Phone Gt Menendez MD Primary Care Provider [phone] Encounter Details Date Type Department Care Team (Late st Contact Info) Description 11/19/2024 Telephone [facility] [address], [place] [address] Order Mode, Wire Brush Operator [address] [place] [address] Social History Tobacco Use Types Packs/Day Years [...] on file documented as of this encounter Progress Notes * Joseph Kelly - 11/19/2024 3:20 PM EDT Pt will be getting MRI tonight (11/19/24) and will be mailing disc to us. Requested to schedule apptw/ Dr. Kevin after review of images. documented in this encounter Plan of Treatment Not on file documented as of this encounter Visit Diagnoses Not on filedocumented in this encounter Care Teams Scrap Wheeler Relationship Specialty Start Date End Date Gt Menendez MD [address] [place] [address] PCP - General Internal Medicine 08/19/23 documented as of this encounter Additional Source Comments The information contained in this document represents components of the legal health record. It is not the complete legal health record.[facility]
--- OUTSIDE RECORDS SUMMARY | 2024-11-20 16:04 | XMS_ITS | Clinical Summary ---
Author Organization [facility] Address [address] [place] [address] Care Team Providers Care Watch Hairspring Assembler Name Role Phone Unavailable Primary Care Provider Unavailabl e Encounters Date Type Department Care Team Description 09/06/2024 Telephone [facility] [address] [place], [place] [phone] Juanpablo Lomas MD from Last 3 Months [...] patient's age to [place] [address] [facility]
== END 2024-11-20 15:56 | disposition home or self-care (01) ==
LOC: HO.PMC 15:12
PROVIDERS: PCP Internal Medicine; Visit Provider Nurse Practitioner Family
DX: E66.01 Morbid (severe) obesity due to excess calories (principal); M17.12 Unilateral primary osteoarthritis, left knee; G89.29 Other chronic pain; Z68.45 Body mass index [BMI] 70 or greater, adult; M25.50 Pain in unspecified joint
CPT/HCPCS: 99204

== ENCOUNTER → 2024-11-20 15:12 | Outpatient (BNVA) | payer MEDICARE, MEDICAID, SELFPAY | PROVIDERS: PCP Internal Medicine; Visit Provider Nurse Practitioner Family | DX: G89.29 Other chronic pain (principal); M25.50 Pain in unspecified joint; E66.01 Morbid (severe) obesity due to excess calories; Z68.45 Body mass index [BMI] 70 or greater, adult; M17.12 Unilateral primary osteoarthritis, left knee; E11.9 Type 2 diabetes mellitus without complications; M10.9 Gout, unspecified; Z79.891 Long term (current) use of opiate analgesic | CPT/HCPCS: 99202 ==

== ENCOUNTER → 2024-11-21 12:18 | Outpatient (BNVA) | payer MEDICARE, MEDICAID, SELFPAY | PROVIDERS: PCP Internal Medicine | DX: Z76.89 Persons encountering health services in other specified circumstances (principal) | CPT/HCPCS: 99211 ==

== ENCOUNTER 2024-11-29 15:16 | Outpatient (AMB) | payer MEDICARE, MEDICAID, SELFPAY ==
--- NOTE | 2024-11-29 15:13 | A.OFFPC_ITS ---
Vital Signs 11/29/24 15:14 Height 5 ft 10.31 in Weight 525 lb BMI 74.7 BP 120/64 Respiration 16 Pulse 92 Pulse Source Pulse Oximeter Temp 98.2 F Temp Source Temporal Artery Scan Pulse Oximetry (%) 96 Oxygen Delivery Method Room Air Intake Visit Reasons: 1 month f/u Reed Worker Required: No Accompanied by: Spouse Allergies codeine (Codeine) Allergy (Unknown, Verified 11/29/24 16:30) RASH, hives ibuprofen (From Motrin) Allergy (Unknown, Verified 11/29/24 16:30) HIVES Medication List - Last Reconciled 11/29/24 by Celine Cohen PA-C allopurinol 300 mg PO DAILY apixaban (Eliquis) 5 mg PO BID 90 days atorvastatin 20 mg PO BEDTIME baclofen 5 mg PO TID baclofen 10 mg PO TID PRN blood sugar diagnostic (FreeStyle Lite Strips) TID with meals carbamazepine 400 mg (2 x 200 mg) PO BID 90 days epinephrine (Auvi-Q) 0.3 mg (0.3 mL) IM Q10M PRN insulin lispro (Humalog KwikPen (U-100) Insulin) 1 sliding scale dose subcut DIRECTED lancets (FreeStyle Lancets) check glucose TID with meals naloxone 4 mg/actuation (Narcan) 1 spray intranasal Q2M nystatin 1 appl topical BID PRN oxybutynin chloride ER 10 mg PO DAILY oxycodone 15 mg PO QID pen needle, diabetic As directed phenytoin sodium extended (Phenytek) 200 mg PO BID 90 days phenytoin sodium extended (Phenytek) 300 mg PO Q12H 90 days sildenafil 100 mg PO DAILY tirzepatide (weight loss) (Zepbound) 15 mg (0.5 mL) subcut QWEEK torsemide 20 mg PO DAILY Tobacco use date assessed: 11/29/24 Dental Screening Dental Screen Date: 11/01/24 HPI 1 month f/u HPI Details The patient is a 49-year-old male presenting with a tumor in the left eye. The tumor is rare, with only about 1700 cases worldwide, and has been monitored annually due to the lack of available treatment options in the region. The patient has consulted multiple ophthalmologists and is currently under the care of Dr. Brown in [place], who is considering radiation treatment to shrink the tumor. The patient also presents with a torn meniscus in the left knee, which is the more severely affected of the two knees. The patient has undergone previous surgeries on both ankles and requires further surgical intervention for both knees and ankles. A gel injection is planned for the left knee to alleviate pain, although the patient is concerned about its efficacy given the torn meniscus. The patient is managing obesity, having lost 142 pounds over the past 10 months, currently weighing 525 pounds down from 667 pounds. The weight loss regimen includes the use of Zepbound, protein chips, and a controlled diet, with a target weight of 400 pounds to qualify for a sleeve gastrectomy. The patient has a history of chronic pain in the knees, ankles, and hands, managed with a pain regimen that includes 15 mg of oxycodone four times a day. The patient is under pain management care, with plans to maintain the current dosage for 28 days, subject to compliance with a pain contract including random drug screenings and pill counts. Patient also to fill Narcan with prescriptions. The patient also has a seizure disorder, controlled with phenytoin at a dosage of 500 mg twice a day. Social History - Weight management: Patient is on a con trolled diet with Zepbound and protein chips, aiming for a target weight of 400 pounds. [facility] Medical History (Updated 11/29/24 @ 16:49 by Celine Cohen PA-C) Chronic pain of multiple joints Morbid obesity with BMI of 70 and over, adult History of torn meniscus of left knee Retinal tumor of left eye Left knee pain Chronic narcotic use Low folate Vitamin D deficiency Chronic pain History of colon polyps Visual impairment Elevated liver enzymes Low platelet count Anemia Constipation Body mass index [BMI] 70 or greater, adult Muscle spasm Hyperlipidemia History of concussion Gout Establishing care with new doctor, encounter for Pulmonary arterial hypertension NORIS (obstructive sleep apnea) Morbid obesity Hypoxemia Sleep apnea, obstructive Shortness of breath Morbid obesity with body mass index (BMI) greater than or equal to 70 in adult Brain tumor Persistent atrial fibrillation Aftercare following bilateral ankle joint replacement surgery Right hand dominant Seizure disorder Diabetes NORIS (obstructive sleep apnea) A-fib Surgical History History of colonoscopy (~10/08/24) History of ankle surgery Family History Paternal Grandmother Heart attack Maternal Grandfather Heart attack Brother No problems noted. Sister No problems noted. Sister No problems noted. Father Heart attack Hemoglobin A1C between 7% and 9% indicating borderline diabetic control Mother High blood pressure Social History Household Members: Family Housing: Apartment Do you presently have visiting nurse or other home services: No Alcohol intake: current Alcohol intake frequency: does not drink Patient Tobacco Use Status: Never used Tobacco service: No Current occupational status: disabled Cognitive needs: Yes (cane) Hearing needs: No Vision needs: Yes (rx glasses) Questionnaire PHQ-9 Over the last 2 weeks, how often have you been bothered by any of the following problems? 1. Little interest or pleasure in doing things: not at all 2. Feeling down, depressed, or hopeless: not at all 3. Trouble falling or staying asleep, or sleeping too much: not at all 4. Feeling tired or having little energy: not at all 5. Poor appetite or overeating: not at all 6. Feeling bad about yourself - or that you are a failure or have let yourself or your family down: not at all 7. Trouble concentrating on things, such as reading the newspaper or watching television: not at all 8. Moving or speaking so slowly that other people could have noticed. Or the opposite - being so fidgety or restless that you have been moving around a lot more than usual: not at all 9. Thoughts that you would be better off or of hurting yourself in some way: not at all Total score: 0 Depression Screening Interpretation: Negative Depression Screening Done: Yes 96296 - PHQ-9 Billing: Yes Source: Developed by Drs. Theodore Dodd, Renuka Urena, Ino Abraham and colleagues, with an educational elizabeth from [employer]. Thrive Questionnaire Date Thrive assessed: 11/01/24 I am a: Patient What is your living situation today?: I have a steady place to live Within the past 12 months, did the food you bought not last and you didn't have the money to get more?: Never true Within the past 12 months, did you worry whether your food would run out before you got money to buy more?: Never true Do you have trouble paying for medicines?: No Do you have trouble getting transportation to medical appointments?: No Do you have trouble paying your heating and electricity bill?: No Do you have trouble taking care of your child, family member or friend?: No Do you have trouble with day-to-day activities such as bathing, preparing meals, shopping, managing finances, etc.?: No Are you currently unemployed and looking for a job?: No Are you interested in more education?: No Please select the resources that you would like help with: None Currently or been in a relationship where the following occur: No concerns reported THRIVE Score: 0 AUDIT C Alcohol Use Questionnaire (AUDIT-C) 1. How often do you have a drink containing alcohol?: Never 3. How often do you have six or more drinks on one occasion?: Never Total Score: 0 Score Reviewed/Action Taken: No ANURADHA-7 AMB Questionnaire ANURADHA-7 Date ANURADHA - 7 assessed: 11/01/24 Feeling nervous, anxious, or on edge: 0 = Not at all Not being able to stop or control worryin = Not at all Worrying too much about different things: 0 = Not at all Trouble relaxin = Not at all Being so restless that it is hard to sit still: 0 = Not at all Becoming easily annoyed or irritable: 0 = Not at all Feeling afraid as if something awful might happen: 0 = Not at all Total ANURADHA-7 score (0-4 normal; 5-9 mild; 10-14 moderate; 15-21 severe): 0 Source: Developed by Drs. Theodore Dodd, Renuka Urena, Ino Abraham and colleagues, with an educational elizabeth from [employer]. ANURADHA-7 Assessment Billing ANURADHA-7 Assessment Tool: ANURADHA-7 Assessment 62689 Review of Systems Const Details: - Musculoskeletal: Reports chronic pain in knees, ankles, and hands. - Neurological: Reports seizure disorder controlled with medication. All systems reviewed & are unremarkable except as noted in HPI and below Physical exam (Primary Care) Vital Signs: Last Vital Signs Temp 98.2 F 11/29/24 15:14 Pulse 92 11/29/24 15:14 Resp 16 11/29/24 15:14 BP 120/64 11/29/24 15:14 Pulse Ox 96 11/29/24 15:14 Oxygen Delivery Method Room Air 11/29/24 15:14 Care Plan Goal for BP management: <140/90 BMI result Body Mass Index 74.7 BMI Assessment/Plan discussion: High BMI High, discussed plan: lifestyle, weight reduction, dietary, physical activity, alcohol moderation and other Tobacco/Smoking Status: Tobacco use Status Tobacco use date assessed 11/29/24 11/29/24 15:17 Patient Tobacco Use Status Never used Tobacco 11/29/24 15:17 PHQ-9: PHQ-9 Score PHQ-9: Total score 0 11/29/24 15:34 Depression Screening Interpretation: Negative Thrive Assessment: Date of Thrive Assessment Date Thrive assessed 11/01/24 11/29/24 15:17 Currently or been in a relationship where the following occur: No concerns reported Const Other: Appearance: Alert. Oriented X3. No acute distress. Head: Normal external exam. Normocephalic. Atraumatic. Eyes: Pupils are equal, round, and reactive to light. Extraocular movements intact. Conjunctiva and sclera normal. Eyelids normal. Tumor present in the left eye. Throat: Pharynx normal. Uvula midline. Moist mucous membranes. Neck: Normal inspection. Neck supple. Full range of motion. Cardiovascular: Normal heart rate and rhythm. Respiratory: No respiratory distress. Painless inspiration. Back: Full range of motion noted. Skin: Skin warm and dry. Normal skin color. Normal skin turgor. No rashes/lesions/lacerations noted. Extremities: Extremities exhibit normal range of motion. Neuro: Oriented X 3. No motor deficit. No sensory deficit. Reflexes normal. Coding Level of Care Code Est Pt Level 4 (52829) Complex EM visit Add On G2211 Diagnoses Retinal tumor of left eye D49.81 History of torn meniscus of left knee Z87.828 Morbid obesity with BMI of 70 and over, adult E66.01; Z68.45 Chronic pain of multiple joints M25.50; G89.29 Seizure disorder G40.909 Additional Codes ANURADHA-7 Assessment Billing - ANURADHA-7 Assessment Tool: ANURADHA-7 Assessment 84629 ([id number]) PHQ-9 - 66389 - PHQ-9 Billing: Yes ([id number]) Assessment & Plan Assessment & Plan (1) Retinal tumor of left eye: Code(s): D49.81 - Neoplasm of unspecified behavior of retina and choroid Category: Medical Plan: The patient is under the care of Dr. Brown in [place], who is considering radiation treatment to shrink the tumor. The plan includes monitoring the tumor annually and considering radiation treatment if deemed safe. (2) History of torn meniscus of left knee: Code(s): Z87.828 - Personal history of other (healed) physical injury and trauma Category: Medical Plan: A gel injection is planned for the left knee to alleviate pain, although the patient is concerned about its efficacy given the torn meniscus. Further surgical intervention may be required for both knees and ankles. (3) Morbid obesity with BMI of 70 and over, adult: Code(s): E66.01 - Morbid (severe) obesity due to excess calories; Z68.45 - Body mass index [BMI] 70 or greater, adult Category: Medical Plan: The patient is on a weight loss regimen including Zepbound, protein chips, and a controlled diet, with a target weight of 400 pounds to qualify for a sleeve gastrectomy. The patient has lost 142 pounds over the past 10 months, currently weighing 525 pounds. (4) Chronic pain of multiple joints: Code(s): M25.50 - Pain in unspecified joint; G89.29 - Other chronic pain Category: Medical Plan: The patient is managed with a pain regimen that includes 15 mg of oxycodone four times a day. The patient is under pain management care, with plans to maintain the current dosage for 28 days, subject to compliance with a pain contract including random drug screenings. (5) Seizure disorder: Code(s): G40.909 - Epilepsy, unspecified, not intractable, without status epilepticus Category: Medical Plan: The seizure disorder is controlled with phenytoin at a dosage of 500 mg twice a day. Plan Plan Patient was informed and verbally consented to the use of an ambient scribe for clinic note documentation during this visit. 1. Tumor In The Left Eye The patient is under the care of Dr. Brown in [place], who is considering radiation treatment to shrink the tumor. The plan includes monitoring the tumor annually and considering radiation treatment if deemed safe. 2. Torn Meniscus In The Left Knee A gel injection is planned for the left knee to alleviate pain, although the patient is concerned about its efficacy given the torn meniscus. Further surgical intervention may be required for both knees and ankles. 3. Obesity The patient is on a weight loss regimen including Zepbound, protein chips, and a controlled diet, with a target weight of 400 pounds to qualify for a sleeve gastrectomy. The patient has lost 142 pounds over the past 10 months, currently weighing 525 pounds. 4. Chronic Pain In Knees, Ankles, And Hands The patient is managed with a pain regimen that includes 15 mg of oxycodone four times a day. The patient is under pain management care, with plans to maintain the current dosage for 28 days, subject to compliance with a pain contract including random drug screenings. He was offered calm care. He will also fill a prescription for Narcan. His family is educated on Narcan usage. Patient understands agrees with this plan. 5. Seizure Disorder The seizure disorder is controlled with phenytoin at a dosage of 500 mg twice a day. I discussed with the patient the management of the tumor in the left eye, including the possibility of radiation treatment to shrink the tumor, and the need for annual monitoring. We also reviewed the plan for a gel injection in the left knee to manage pain, acknowledging the patient's concerns about its effectiveness given the torn meniscus. The patient's weight loss progress and the goal of reaching 400 pounds for potential sleeve gastrectomy were discussed, along with the current pain management strategy and compliance requirements. Orders: Orders Drug Screen Urine Today F11.90 - Opioid use, unspecified, uncomplicated MR knee LT wo con Today M25.562 - Pain in left knee Medications: New phenytoin sodium extended (Phenytek) 300 mg PO DAILY 90 caps 3RF naloxone 4 mg/actuation (Narcan) spray 1 dose into ONE nostril; alternate nostrils w each dose until help arrives 1 spray intranasal Q2M 2 ea 1RF Sedation/overdose phenytoin sodium extended (Phenytek) 300 mg PO Q12H 180 caps 3RF 90 days epinephrine (Auvi-Q) for 2 doses 0.3 mg (0.3 mL) IM Q10M PRN 2 ea 3RF anaphylaxis Changed From phenytoin sodium extended (Phenytek) 400 mg (2 x 200 mg) PO BID 360 caps 3RF 90 days To phenytoin sodium extended (Phenytek) 200 mg PO BID 180 caps 3RF 90 days From lancets (FreeStyle Lancets) As directed To lancets (FreeStyle Lancets) check glucose TID with meals 100 ea 3RF diabetes mellitus From blood sugar diagnostic (FreeStyle Lite Strips) As directed To blood sugar diagnostic (FreeStyle Lite Strips) TID with meals 100 ea 3RF Refilled oxycodone 15 mg PO QID 120 tabs 0RF Patient Instructions: - Continue with the current weight loss regimen, including Zepbound and dietary modifications. - Follow the pain management plan, including attending scheduled appointments and complying with random drug screenings. - Monitor for any changes in symptoms related to the eye tumor and report any new symptoms to Dr. Brown. - Attend the scheduled MRI and follow up with Dr. Brown for further evaluation of the eye tumor.
[2024-11-29 15:14] VITALS: BP 120/64; PULSE 92; RESP 16; TEMP 36.8; O2SAT 96; BMI 74.7
--- OUTSIDE RECORDS SUMMARY | 2024-11-29 15:19 | XMS_ITS | Clinical Summary ---
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
== END 2024-11-29 16:18 | disposition home or self-care (01) ==
LOC: HO.HMCSH 15:17
PROVIDERS: PCP Internal Medicine; Visit Provider Physician Assistant Medical
DX: D49.81 Neoplasm of unspecified behavior of retina and choroid (principal); Z87.828 Personal history of other (healed) physical injury and trauma; E66.01 Morbid (severe) obesity due to excess calories; Z68.45 Body mass index [BMI] 70 or greater, adult; M25.50 Pain in unspecified joint; G89.29 Other chronic pain; G40.909 Epilepsy, unspecified, not intractable, without status epilepticus

== ENCOUNTER → 2024-11-29 15:16 | Outpatient (BNVA) | payer MEDICARE, MEDICAID, SELFPAY | PROVIDERS: PCP Internal Medicine; Visit Provider Physician Assistant Medical | DX: D49.81 Neoplasm of unspecified behavior of retina and choroid (principal); E66.01 Morbid (severe) obesity due to excess calories; Z68.45 Body mass index [BMI] 70 or greater, adult; M25.50 Pain in unspecified joint; G89.29 Other chronic pain; G40.909 Epilepsy, unspecified, not intractable, without status epilepticus; Z87.828 Personal history of other (healed) physical injury and trauma | CPT/HCPCS: 96127; 99212 ==

== ENCOUNTER 2024-11-30 15:22 | Outpatient (REF) | payer MEDICARE, MEDICAID, SELFPAY ==
--- OUTSIDE RECORDS SUMMARY | 2024-11-30 15:25 | XMS_ITS | Clinical Summary ---
Author Organization [facility] Address [address] [place] [address] Care Team Providers Care Rn Clinical Trials Name Role Phone Unavailable Primary Care Provider Unavailabl e Encounters Date Type Department Care Team Description 09/06/2024 Telephone [facility] [address] [place], [place] [phone] Juanpablo Lomas MD from Last 3 Months [...] patient's age to complete this [place] [address] [facility]
[2024-11-30 16:31] LABS: Cannabinoid Screen Urine Not Detected (Not Detect)
== END 2024-11-30 15:23 | disposition home or self-care (01) ==
LOC: HO.LAB 15:22
PROVIDERS: PCP Internal Medicine; Visit Provider Physician Assistant Medical
DX: Z51.81 Encounter for therapeutic drug level monitoring (principal); F11.90 Opioid use, unspecified, uncomplicated
CPT/HCPCS: 80307

== ENCOUNTER 2024-12-07 09:43 | Emergency (ER) | payer MEDICARE, MEDICAID, SELFPAY ==
--- NOTE | ~2024-12-07 | XR_ITS ---
EXAMINATION: XR ANKLE 3 OR MORE VIEWS RIGHT HISTORY: right ankle injury COMPARISON: Comparison is made with the prior examination dated 11/02/2024. FINDINGS: Three views of the right ankle are submitted. Osseous mineralization is normal. Again seen are corticated densities adjacent to the tips of the medial and lateral malleoli, which are likely related to trauma. No acute fracture or dislocation is seen. Again seen is mild degenerative change of the tibiotalar joint. There is diffuse soft tissue swelling. XR/XR ankle RT min 3V IMPRESSION: Diffuse soft tissue swelling. No acute fracture is seen. Electronically signed by: Theodore Orourke MD 12/07/2024 11:58 AM EDT
--- NOTE | 2024-12-07 09:48 | ED.GENADULT ---
HPI - General Adult General Chief complaint: Seizure Stated complaint: Dizziness, seizure Time Seen by Provider: 12/07/24 09:47 Source: patient and family Mode of arrival: wheelchair Limitations: altered mental status History of Present Illness ED Provider: KWESI Bowers HPI narrative: 49-year-old male history of obesity, atrial fibrillation, CHF, obstructive sleep apnea, epileptic seizures on Dilantin presents from [facility] management status post chicken, according to weight management provider they were wearing patient, he was in a seated position and started having a seizure. There was no fall, no head strike. Patient arrives in a postictal state. He is slightly confused however answering questions adequately after they have been asked multiple times. Denies vision changes, weakness, nausea, vomiting, chest pain, shortness of breath. Related Data Home Medications ?Medication ?Instructions ?Recorded ?Confirmed pen needle, diabetic 29 gauge x #100 ea 11/01/24 11/29/24 1/2 insulin lispro 100 unit/mL 1 sliding scale dose subcut 11/05/24 11/29/24 subcutaneous pen (Humalog KwikPen DIRECTED (U-100) Insulin) Previous Rx's ?Medication ?Instructions ?Recorded allopurinol 300 mg tablet 300 mg PO DAILY #90 tabs 11/05/24 apixaban 5 mg tablet (Eliquis) 5 mg PO BID 90 days #180 tabs 11/05/24 atorvastatin 20 mg tablet 20 mg PO BEDTIME #90 tabs 11/05/24 baclofen 10 mg tablet 10 mg PO TID PRN Muscle Spasm #90 11/05/24 tabs baclofen 5 mg tablet 5 mg PO TID #90 tabs 11/05/24 carbamazepine 200 mg tablet 400 mg (2 x 200 mg) PO BID 90 days 11/05/24 #360 tabs nystatin 100,000 unit/gram topical 1 appl topical BID PRN Rash #30 11/05/24 cream grams oxybutynin chloride 10 mg 10 mg PO DAILY #90 tabs 11/05/24 tablet,extended release 24 hr sildenafil 100 mg tablet 100 mg PO DAILY #20 tabs 11/05/24 torsemide 20 mg tablet 20 mg PO DAILY #90 tabs 11/05/24 tirzepatide (weight loss) 15 15 mg (0.5 mL) subcut QWEEK #2 mL 11/18/24 mg/0.5 mL subcutaneous pen injector (Zepbound) blood sugar diagnostic (FreeStyle #100 ea 11/29/24 Lite Strips) epinephrine 0.3 mg/0.3 mL 0.3 mg (0.3 mL) IM Q10M PRN 11/29/24 injection, auto-injector (Auvi-Q) anaphylaxis #2 ea lancets 28 gauge (FreeStyle #100 ea 11/29/24 Lancets) naloxone 4 mg/actuation nasal 1 spray intranasal Q2M 11/29/24 spray (Narcan) Sedation/overdose #2 ea oxycodone 15 mg tablet 15 mg PO QID #120 tabs 11/29/24 phenytoin sodium extended 200 mg 200 mg PO BID 90 days #180 caps 11/29/24 capsule (Phenytek) phenytoin sodium extended 300 mg 300 mg PO Q12H 90 days #180 caps 11/29/24 capsule (Phenytek) Allergies Allergy/AdvReac Type Severity Reaction Status Date / Time codeine (Codeine) Allergy Unknown RASH, hives Verified 12/07/24 09:59 ibuprofen (From Motrin) Allergy Unknown HIVES Verified 12/07/24 09:59 Review of Systems Review of Systems: Yes all other systems are reviewed and are negative [facility] Past Medical History Attestation statement: The following information was validated with the patient. Source: old records reviewed and nursing notes reviewed Medical History (Updated 12/07/24 @ 11:57 by KWESI Norwood) Chronic pain of multiple joints Morbid obesity with BMI of 70 and over, adult History of torn meniscus of left knee Retinal tumor of left eye Left knee pain Chronic narcotic use Low folate Vitamin D deficiency Chronic pain History of colon polyps Visual impairment Elevated liver enzymes Low platelet count Anemia Constipation Body mass index [BMI] 70 or greater, adult Muscle spasm Hyperlipidemia History of concussion Gout Establishing care with new doctor, encounter for Pulmonary arterial hypertension NORIS (obstructive sleep apnea) Morbid obesity Hypoxemia Sleep apnea, obstructive Shortness of breath Morbid obesity with body mass index (BMI) greater than or equal to 70 in adult Brain tumor Persistent atrial fibrillation Aftercare following bilateral ankle joint replacement surgery Right hand dominant Seizure disorder Diabetes NORIS (obstructive sleep apnea) A-fib Surgical History History of colonoscopy (~10/08/24) History of ankle surgery Family History Family History Paternal Grandmother Heart attack Maternal Grandfather Heart attack Brother No problems noted. Sister No problems noted. Sister No problems noted. Father Heart attack Hemoglobin A1C between 7% and 9% indicating borderline diabetic control Mother High blood pressure Social History Social History Household Members: Family Housing: Apartment Do you presently have visiting nurse or other home services: No Alcohol intake: current Alcohol intake frequency: does not drink Patient Tobacco Use Status: Never used Tobacco service: No Current occupational status: disabled Cognitive needs: Yes (cane) Hearing needs: No Vision needs: Yes (rx glasses) Physical Exam ED Exam Exam: Appearance: Alert.? Oriented X3.? No acute distress.? Head: Normocephalic, atraumatic, no step-offs or deformities Eyes: Pupils equal, round and reactive to light.? ENT: Pharynx normal.? Neck: Normal inspection.? Neck supple.? CVS: Normal heart rate and rhythm.? Pulses normal.? Respiratory: No respiratory distress.? Breath sounds normal.? Abdomen: Soft and nontender.? Skin: Skin warm and dry.? Normal skin color.? Normal skin turgor.? Extremities: No lower extremity edema.? No calf ttp. 5/5 strength to bilateral upper and lower extremities Back: No midline tenderness, no C-spine tenderness, full range of motion, no CVA tenderness bilaterally Neuro: Oriented X 3.? No motor deficit.? No sensory deficit. CN 2-12 intact Vital Signs: Vital Signs - 24 hr 12/07/24 09:51 12/07/24 10:40 12/07/24 12:00 Temperature 98.5 F 98.4 F 98.4 F Pulse Rate 76 77 77 Respiratory Rate 16 13 13 Blood Pressure 138/88 160/70 H 119/88 Pulse Oximetry 100 95 95 Oxygen Delivery Method Room Air Room Air Room Air BMI result Body Mass Index 95.0 vss Course Reevaluation(s) Reevaluation #1: CBC unremarkable. Chemistry with no acute findings eating intervention. Initially, head CT was ordered however patient's weight exceeds the limit of the CT table. His neurological assessment is now nonfocal cerebellar is intact. I do not suspect this imaging modality is needed at this time. Patient is refusing transfer for head imaging. Time: 11:54 Reevaluation #2: Patient also did report complaints of right ankle pain he thinks he twisted his ankle when he was convulsing. X-ray was obtained and is currently pending. Patient is requesting to leave does not want to be here any longer. He has a primary care provider and is seen by Neurology. I explained to him it would be best if he stayed and was admitted however he is adamantly refusing and would like to go home. Patient will be leaving against medical advice. Advised to return with new or worsening symptoms. Time: 11:55 Reevaluation #3: I did have a long conversation patient considered staying however ultimately stated he wanted to go home. Medications Administered Discontinued Medications Generic Name Dose Route Start Last Admin Trade Name Freq PRN Reason Stop Dose Admin Diazepam 5 mg 12/07/24 09:47 12/07/24 10:17 Diazepam 10 Mg/2 Ml Cartridge IVPUSH 12/07/24 09:48 5 mg STAT STA Administration Medical Decision Making Medical Decision Making [facility] Narrative: 0950 49-year-old male presents with seizure coming from weight management. History of seizures. No head strike or fall. Seizure was witnessed. Physical exam patient is postictal, however after asking him questions multiple times he is able to answer my questions. No focal neuro deficits on exam. History and physical exam concerning for epileptic seizure. Unlikely intracranial hemorrhage, stroke, posterior stroke. Will rule out metabolic derangements. Plan labs, imaging Differential Diagnosis Differential Diagnoses: The differential diagnosis associated with the presentation includes (History and physical exam concerning for epileptic seizure. Unlikely intracranial hemorrhage, stroke, posterior stroke. Will rule out metabolic derangements.) Admission/Observation Consideration of admission/observation: Escalation of care including admission/observation considered (possible ) Lab Data 12/07/24 10:20 12/07/24 10:20 Labs: Lab Results 12/07/24 12/07/24 Range/Units 09:50 10:20 WBC 5.5 (4.8-10.8) X10*3/uL RBC 4.66 (4.60-5.80) X10*6/uL Hgb 14.1 (14.0-18.0) g/dl Hct 42.6 (42.0-52.0) % MCV 91.4 (80.0-98.0) fL MCH 30.3 (27.0-33.0) pg MCHC 33.1 (31.0-36.0) g/dl RDW 14.3 (11.0-16.0) % Plt Count 164 (160-400) X10*3/uL MPV 10.9 (9.4-12.4) fL Immature Gran % (Auto) 0.5 H (0.0-0.4) % Neut % (Auto) 61.3 (45-73) % Lymph % (Auto) 24.5 (20-40) % [place] % (Auto) 10.0 (2-11) % Eos % (Auto) 3.3 (0-4) % Baso % (Auto) 0.4 (0-2) % Lymph # (Auto) 1.4 (1.2-4.9) X10*3/uL [place] # (Auto) 0.6 (0.1-1.2) X10*3/uL Eos # (Auto) 0.2 (0.0-0.4) X10*3/uL Baso # (Auto) 0.0 (0.0-0.2) X10*3/uL Abs Immat Gran (auto) 0.03 (0.00-0.03) X10*3/uL Absolute Neuts (auto) 3.4 (2.0-8.3) x10*3/uL Absolute Nucleated RBC 0.000 (0.0-0.012) X10*3/uL Nucleated RBC % (auto) 0.0 (0.0-0.2) /100WBC Sodium 141 (135-145) mmol/L Potassium 4.5 (3.3-5.1) mmol/L Chloride 104 (96-108) mmol/L Carbon Dioxide 28 (22-29) mmol/L Anion Gap 14 (12-20) BUN 18 H (9-16) mg/dL Creatinine 0.98 (0.5-1.4) mg/dL Estim Creat Clear Calc 181.2 Estimated GFR > 60 POC Glucose 107 (60-115) mg/dL Random Glucose 113 (60-115) mg/dL Calcium 9.0 (8.4-10.2) mg/dL Magnesium 2.2 (1.6-2.6) mg/dL Total Bilirubin 0.4 (0.0-1.0) mg/dL AST 28 (5-37) U/L ALT 27 (0-40) U/L Alkaline Phosphatase 133 H (39-117) U/L Total Creatine Kinase 62 (38-174) U/L Total Protein 7.2 (6.5-8.0) g/dL Albumin 4.3 (3.5-5.0) g/dL Phenytoin 30.4 H* (10.0-20.0) ug/mL Critical Care Time Critical Care Time Critical Care Time: Yes Total Critical Care Time: 35 Attestation: I attest to this time spent taking care of the patient, obtaining history, physical, reviewing labs, imaging, treatment of patients condition +/- specialist/hospitalist consult +/- procedure Discharge Plan Discharge Clinical Impression: Seizure, Acute right ankle pain, Left against medical advice Patient Disposition: Left Against Medical Advice Instructions: Against Medical Advice (ED) Additional Instructions: Take your medications as prescribed. If you were prescribed antibiotics today, it is important that you take your medication to their entirety, do not skip any doses, do not finish them early. Follow-up with your primary care provider this week. Return to the emergency department with new or worsening symptoms. Such as fevers, chills, chest pain, shortness of breath, nausea, vomiting, dizziness, headache, vision changes, lethargy In case of emergency call 911 Patient decided to leave against medical advice. I took the time to go over risks of leaving against medical advice including . Patient verbalizes understanding of this. Advised them to come back if they change their mind. Prescriptions: No Action allopurinol 300 mg tablet 300 mg PO DAILY Qty: 90 3RF Eliquis 5 mg tablet 5 mg PO BID 90 Days Qty: 180 3RF atorvastatin 20 mg tablet 20 mg PO BEDTIME Qty: 90 3RF baclofen 10 mg tablet 10 mg PO TID PRN (Reason: Muscle Spasm) Qty: 90 3RF baclofen 5 mg tablet 5 mg PO TID Qty: 90 3RF carbamazepine 200 mg tablet 400 mg PO BID 90 Days Qty: 360 3RF insulin lispro [Humalog KwikPen Insulin] 100 unit/mL insulin pen 1 sliding scale dose subcut DIRECTED nystatin 100,000 unit/gram cream 1 appl topical BID PRN (Reason: Rash) Qty: 30 3RF oxybutynin chloride 10 mg tablet extended release 24hr 10 mg PO DAILY Qty: 90 3RF sildenafil 100 mg tablet 100 mg PO DAILY Qty: 20 3RF torsemide 20 mg tablet 20 mg PO DAILY Qty: 90 3RF Zepbound 15 mg/0.5 mL pen injector 15 mg subcut QWEEK Qty: 2 3RF (DME) pen needle, diabetic 29 gauge x 1/2 needle See Rx Instructions .ROUTE QID Qty: 100 Rx Instructions: As directed oxycodone 15 mg tablet 15 mg PO QID Qty: 120 0RF phenytoin sodium extended [Phenytek] 300 mg capsule 300 mg PO Q12H 90 Days Qty: 180 3RF phenytoin sodium extended [Phenytek] 200 mg capsule 200 mg PO BID 90 Days Qty: 180 3RF (DME) lancets [FreeStyle Lancets] 28 gauge misc See Rx Instructions .ROUTE QID Qty: 100 3RF Rx Instructions: check glucose TID with meals (DME) FreeStyle Lite Strips Strip See Rx Instructions .ROUTE QID Qty: 100 3RF Rx Instructions: TID with meals epinephrine [Auvi-Q] 0.3 mg/0.3 mL auto-injector 0.3 mg IM Q10M PRN (Reason: anaphylaxis) Qty: 2 3RF Rx Instructions: for 2 doses naloxone [Narcan] 4 mg/actuation spray,non-aerosol 1 spray intranasal Q2M Qty: 2 1RF Rx Instructions: spray 1 dose into ONE nostril; alternate nostrils w each dose until help arrives Referrals: Alejandro Dixon MD [Physician, Neurology] - 2 days Vern Lopez MD [Primary Care Provider, Internal Medicine] Stand Alone Forms: Against Medical Advice Print Language: Dutch
[2024-12-07 09:51] VITALS: BP 138/88; PULSE 76; RESP 16; TEMP 36.9; O2SAT 100; BMI 86.5
[2024-12-07 09:53] LABS: Glucose, Whole Blood 107 mg/dL (60-115)
[2024-12-07 10:16] VITALS: BMI 95.0
[2024-12-07] MEDS: diazePAM 10 MG/2 ML CARTRIDGE 5 MG IVPUSH (10:17)
[2024-12-07 10:25] LABS: MANUAL DIFF FLAG NO
[2024-12-07 10:31] LABS: Hematocrit 42.6 % (42.0-52.0); Hemoglobin 14.1 g/dl (14.0-18.0); Imm Gran Abs Auto 0.03 X10*3/uL (0.00-0.03); Imm Gran Pct Auto 0.5 % (0.0-0.4); Lymphocytes Absolute Auto 1.4 X10*3/uL (1.2-4.9); Mean Corpuscular HGB Conc 33.1 g/dl (31.0-36.0); Mean Corpuscular Hemoglobin 30.3 pg (27.0-33.0); Mean Corpuscular Volume 91.4 fL (80.0-98.0); NRBC Abs Auto 0.000 X10*3/uL (0.0-0.012); NRBC Pct Auto 0.0 /100WBC (0.0-0.2); Platelet Count 164 X10*3/uL (160-400); Red Blood Count 4.66 X10*6/uL (4.60-5.80); White Blood Count 5.5 X10*3/uL (4.8-10.8)
[2024-12-07 10:40] VITALS: BP 160/70; PULSE 77; RESP 13; TEMP 36.9; O2SAT 95
[2024-12-07 10:42] LABS: Alanine Aminotransferase 27 U/L (0-40); Albumin Level 4.3 g/dL (3.5-5.0); Alkaline Phosphatase 133 U/L (39-117); Anion Gap 14 (12-20); Aspartate Amino Transferase 28 U/L (5-37); Blood Urea Nitrogen 18 mg/dL (9-16); Calcium 9.0 mg/dL (8.4-10.2); Carbon Dioxide 28 mmol/L (22-29); Chloride 104 mmol/L (96-108); Creatinine Clr Calc Pharmacy 181.2; Estimated Glomerular Filt Rate > 60; Magnesium 2.2 mg/dL (1.6-2.6); Potassium 4.5 mmol/L (3.3-5.1); Sodium 141 mmol/L (135-145); Total Protein 7.2 g/dL (6.5-8.0)
--- NOTE | 2024-12-07 11:28 | ECG_ITS ---
Test Reason : chest pain, Blood Pressure : */* mmHG Vent. Rate : 81 BPM Atrial Rate : * BPM P-R Int : * ms QRS Dur : 78 ms QT Int : 400 ms P-R-T Axes : * -5 59 degrees QTcB Int : 464 ms Atrial fibrillation with a competing junctional pacemaker Low voltage QRS Septal infarct (cited on or before 24-Jan-2023) Cannot rule out Inferior infarct , age undetermined Abnormal ECG When compared with ECG of 03-Oct-2024 10:22, No significant change was found Referred By: Myah Bowers Electronically Signed By: Pako Pleitez
[2024-12-07 12:00] VITALS: BP 119/88; PULSE 77; RESP 13; TEMP 36.9; O2SAT 95
--- NOTE | 2024-12-07 14:36 | PC.NURSE ---
patient requested to leave ama, ama forms signed. ambulated off of unit with steady gait and cane.
== END 2024-12-07 14:36 | disposition left against medical advice (07) ==
PROVIDERS: Physician Assistant; Emergency Provider Emergency Medicine; PCP Internal Medicine
DX: R56.9 Unspecified convulsions (principal); R42 Dizziness and giddiness; M25.571 Pain in right ankle and joints of right foot; R07.89 Other chest pain; I48.91 Unspecified atrial fibrillation; Z79.899 Other long term (current) drug therapy
CPT/HCPCS: 36415; 73610; 80053; 80185; 82550; 82947; 83735; 85025; 93005; 96374; 99284; J3360

== ENCOUNTER → 2024-12-07 10:42 | Outpatient (BNV) | payer MEDICARE, MEDICAID, SELFPAY | PROVIDERS: Emergency Provider Emergency Medicine; PCP Internal Medicine; Visit Provider Radiology Diagnostic Radiology | DX: R22.41 Localized swelling, mass and lump, right lower limb (principal) | CPT/HCPCS: 73610 ==

== ENCOUNTER → 2024-12-07 11:28 | Outpatient (BNV) | payer MEDICARE, MEDICAID, SELFPAY | PROVIDERS: Emergency Provider Emergency Medicine; PCP Internal Medicine; Visit Provider Internal Medicine Cardiovascular Disease | DX: I48.91 Unspecified atrial fibrillation (principal); I25.2 Old myocardial infarction; Z95.0 Presence of cardiac pacemaker | CPT/HCPCS: 93010 ==

== ENCOUNTER 2024-12-09 08:24 | Emergency (ER) | payer MEDICARE, MEDICAID, SELFPAY ==
--- NOTE | ~2024-12-09 | XR_ITS ---
CLINICAL HISTORY: pain, injury 3 view right elbow Comparison: None provided Findings: Bones intact. No dislocations. No significant arthritic change or erosions. No joint effusion. No radiopaque foreign body. IMPRESSION: 1. No acute findings. This document has been electronically signed by: Myke Delacruz MD on 12/09/2024 10:58:43
--- NOTE | ~2024-12-09 | XR_ITS ---
CLINICAL HISTORY: pain, injury 3 view right wrist Comparison: None provided Findings: No fractures or dislocations. No significant arthritic change or erosions. No radiopaque foreign body. IMPRESSION: 1. No acute findings This document has been electronically signed by: Myke Delacruz MD on 12/09/2024 10:59:28
--- NOTE | ~2024-12-09 | XR_ITS ---
CLINICAL HISTORY: pain, injury 4 view right shoulder Comparison: None provided Findings: There is questionable deformity of the humeral head and its orientation with the glenoid on appears to be an axillary view or a poor Y-view No significant arthritic change. No erosions. No radiopaque foreign body. IMPRESSION: 1. No definitive fracture or dislocation however the humeral head and its orientation to the glenoid is in question on what appears to be an axillary or Y-view. Please repeat and provide an adequate y-view. This document has been electronically signed by: Myke Delacruz MD on 12/09/2024 11:02:57
--- NOTE | 2024-12-09 08:37 | ED_ITS ---
HPI - General Adult General Chief complaint: Seizure Stated complaint: SEIZURE ACTIVITY Time Seen by Provider: 12/09/24 08:37 Source: patient and EMS Mode of arrival: EMS Limitations: no limitations History of Present Illness ED Provider: Annmarie Chaudhary PA-C HPI narrative: Patient is a 49 year old assigned male at with a history of atrial fib, CHF, NORIS, and epileptic seizures on dilantin presenting to the emergency department today with right wrist, elbow, and shoulder pain after a seizure. Patient states that he had a seizure event this morning and landed over on his right side. Patient states that he has been having an increase in seizures lately and he has been trying to manage his dilantin level which has been high by decreasing his medication while also losing a significant amount of weight. Patient states the has also been under a significant amount of stress with multiple familial health issues and deaths. Patient denies any head strike with the incident. Patient denies any other complaints at this time. Related Data Home Medications ?Medication ?Instructions ?Recorded ?Confirmed pen needle, diabetic 29 gauge x #100 ea 11/01/2411/29 insulin lispro 100 unit/mL 1 sliding scale dose subcut 11/05/24 11/29/24 subcutaneous pen (Humalog KwikPen DIRECTED (U-100) Insulin) Previous Rx's ?Medication ?Instructions ?Recorded allopurinol 300 mg tablet 300 mg PO DAILY #90 tabs apixaban 5 mg tablet (Eliquis) 5 mg PO BID 90 days #18 0 tabs 11/05/24 atorvastatin 20 mg tablet 20 mg PO BEDTIME #90 tabs baclofen 10 mg tablet 10 mg PO TID PRN Muscle Spas m #90 11/05/24 tabs baclofen 5 mg tablet 5 mg PO TID #90 tabs 5 carbamazepine 200 mg tablet 400 mg (2 x 200 mg) PO BID 90 days 11/05/24 #360 tabs nystatin 100,000 unit/gram topical 1 appl topical BID PRN Rash #30 11/05/24 cream grams oxybutynin chloride 10 mg 10 mg PO DAILY #90 tabs 10/23 08/17 tablet,extended release 24 hr sildenafil 100 mg tablet 100 mg PO DAILY #20 tabs torsemide 20 mg tablet 20 mg PO DAILY #90 tabs 10/23 08/17 tirzepatide (weight loss) 15 15 mg (0.5 mL) subcut QWE EK #2 mL 11/18/24 mg/0.5 mL subcutaneous pen injector (Zepbound) blood sugar diagnostic (FreeStyle #100 ea 11/29/24 Lite Strips) epinephrine 0.3 mg/0.3 mL 0.3 mg (0.3 mL) IM Q10M PRN 11/29/24 injection, auto-injector (Auvi-Q) anaphylaxis #2 ea lancets 28 gauge (FreeStyle #100 ea 11/29/24 Lancets) naloxone 4 mg/actuation nasal 1 spray intranasal Q2M 0 11/29/24 spray (Narcan) Sedation/overdose #2 ea oxycodone 15 mg tablet 15 mg PO QID #120 tabs 11/29 phenytoin sodium extended 200 mg 200 mg PO BID 90 days #180 caps 11/29/24 capsule (Phenytek) phenytoin sodium extended 300 mg 300 mg PO Q12H 90 day s #180 caps 11/29/24 capsule (Phenytek) Allergies Allergy/AdvReac Type Severity Reaction Status Date / Time codeine (Codeine) Allergy Unknown RASH, hives Verified 12/09/24 08:53 ibuprofen (From Motrin) Allergy Unknown HIVES Verified 12/09/24 08:53 Review of Systems 2 Constitutional: Constitutional: Reports as per HPI Eyes: Eyes: Reports as per HPI ENT: Reports as per HPI Cardiovascular: Cardiovascular: Reports as per HPI Respiratory: Respiratory: Reports as per HPI Gastrointestinal: Gastrointestinal: Reports as per HPI Genitourinary: Genitourinary: Reports as per HPI Musculoskeletal: Comments: right wrist, shoulder, and elbow pain Integumentary/Breasts: Skin/Breast: Reports as per HPI Neurologic: Reports seizure-like activity (resolved prior to arrival) Psychiatric: Psychiatric: Reports as per HPI Endocrine: Endocrine: Reports as per HPI Hematologic/Lymphatic: Hematologic/Lymphatic: Reports as per HPI Allergic/Immunologic: Allergic/Immunologic: Reports as per HPI [facility] Past Medical History Attestation statement: The following information was validated with the patient. Source: old records reviewed and nursing notes reviewed Medical History Chronic pain of multiple joints Morbid obesity with BMI of 70 and over, adult History of torn meniscus of left knee Retinal tumor of left eye Left knee pain Chronic narcotic use Low folate Vitamin D deficiency Chronic pain History of colon polyps Visual impairment Elevated liver enzymes Low platelet count Anemia Constipation Body mass index [BMI] 70 or greater, adult Muscle spasm Hyperlipidemia History of concussion Gout Establishing care with new doctor, encounter for Pulmonary arterial hypertension NORIS (obstructive sleep apnea) Morbid obesity Hypoxemia Sleep apnea, obstructive Shortness of breath Morbid obesity with body mass index (BMI) greater than or equal to 70 in adult Brain tumor Persistent atrial fibrillation Aftercare following bilateral ankle joint replacement surgery Right hand dominant Seizure disorder Diabetes NORIS (obstructive sleep apnea) A-fib Surgical History History of colonoscopy (~10/08/24) History of ankle surgery Family History Family History Paternal Grandmother Heart attack Maternal Grandfather Heart attack Brother No problems noted. Sister No problems noted. Sister No problems noted. Father Heart attack Hemoglobin A1C between 7% and 9% indicating borderline diabetic control Mother High blood pressure Social History Social History Household Members: Family Housing: Apartment Do you presently have visiting nurse or other home services: No Unable to assess alcohol history related to: Unknown Alcohol intake: current Alcohol intake frequency: does not drink Patient Tobacco Use Status: Never used Tobacco Advance Directives: No Advance Directives Information Provided: Yes service: No Current occupational status: disabled Cognitive needs: Yes (cane) Hearing needs: No Vision needs: Yes (rx glasses) Physical Exam ED Vital Signs: Vital Signs - 24 hr 12/09/24 08:41 12/09/24 12:58 Temperature 98.2 F 98.2 F Pulse Rate 78 78 Respiratory Rate 18 18 Blood Pressure 139/63 139/63 Pulse Oximetry 94 94 Oxygen Delivery Method Room Air Room Air BMI result Body Mass Index 84.5 Const General: cooperative, no acute distress, alert and awake Nutritional Appearance: obese morbidly obese Orientation/consciousness: patient oriented x3 HENMT Head: Yes normal to inspection and Yes atraumatic Ears: hearing grossly normal bilaterally and external ears normal General nose exam: Normal external nose present, no nasal discharge noted and no epistaxis Face and sinus: Yes normal facial exam, No abrasion and No laceration Mouth: Normal oral and palatal mucosa present, no drooling and no muffled voice Eyes General: appearance normal, both eyes and all related structures Periorbital: periorbital findings normal Eyelids: Yes eyelids normal Conjunctivae: conjunctivae normal Pupils: Equal, round and reactive pupils present EOM: EOMs intact bilaterally Neck Neck: Yes normal visual inspection and Yes full ROM Resp Effort & Inspection: normal respiratory effort and able to speak in complete sentences Neuro General: patient oriented x3, moves all extremities and CN's II-XI intact bilaterally Cranial nerves: Yes Equal, round and reactive pupils present Cognition (Neuro): normal cognition Extrem General: Yes normal to inspection, Yes full ROM and Yes capillary refill normal Psych Appearance: grossly normal Mental Status: mental status grossly normal Affect: normal affect Attitude: cooperative Thought process: Normal thought process present Thought content: Normal thought content present Insight: Good insight present (Psych) Medications Administered Discontinued Medications Generic Name Dose Route Start Last Admin Trade Name Kareemq PRN Reason Stop Dose Admin Levetiracetam 1,000 mg in 100 mls @ 400 mls/hr 12/09/24 11:28 12/09/24 12:22 Keppra IV 12/09/24 11:42 Infused ONCE ONE Infusion Morphine Sulfate 4 mg 12/09/24 09:54 12/09/24 10:02 Morphine Sulfate 4 Mg/Ml Cartridge IVPUSH 12/09/24 09:55 4 mg ONCE ONE Administration Protocol Medical Decision Making Medical Decision Making [facility] Narrative: Patient is a 49 year old assigned male at with a history of atrial fib, CHF, NORIS, and epileptic seizures on dilantin presenting to the emergency department today with right wrist, elbow, and shoulder pain after a seizure. Patient's physical exam was as noted in the physical exam portion of this note. Patient's blood work showed an elevated phenytoin level of 24.9 but otherwise unremarkable. Patient's right shoulder, wrist, and elbow x-rays showed no acute process. Upon re-evaluation, the patient's pain is primarily in his right shoulder with ROM with no right elbow or wrist pain. Patient's clinical presentation is most consistent with a right rotator cuff strain. Additionally, patient's breakthrough seizures are likely secondary to medication adjustment, life stressors, and weight loss. Patient received IV fentanyl by EMS prior to arrival, IV Morphine and IV Keppra while in the department. I explained my physical exam findings as well as all test results to the patient. I answered all questions asked by the patient. I had an extensive conversation with the patient about my concerns of his more frequent break through seizures and his need for hospital admission to have his seizure medication regimen adjusted to get better seizure control. Patient declined admission at this time. He states he has an appointment with his PCP next week and he has a strong familial support group at home so he feels comfortable going home. I explained to the patient his risk of , disability, decreased quality of life, etc. if he signs out against medical advice. Patient verbalized understanding of these risks and requested to sign out against medical advice. I stressed the importance of the patient taking his medication as directed (either prescribed or as the over the counter packaging recommends). I stressed the importance of the patient following up with his primary care provider, the orthopedic team for his right shoulder strain / sprain, and with a neurologist for seizure medication management. I explained to the patient that if he were to change his mind to be admitted to the hospital - he should call 911 or present to your nearest emergency department. Differential Diagnosis Differential Diagnoses: The differential diagnosis associated with the presentation includes Right shoulder sprain Right shoulder strain Seizure Admission/Observation Consideration of admission/observation: Escalation of care including admission/observation considered Patient would have been admitted if he had not signed out against medical advice. Lab Data [facility] Lab Attestation statement: I reviewed the patient's lab results. My interpretation of these results are in the [facility] Rationale portion of this note. 12/09/24 10:03 12/09/24 10:03 Labs: Lab Results 12/09/24 Range/Units 10:03 WBC 5.6 (4.8-10.8) X10*3/uL RBC 4.49 L (4.60-5.80) X10*6/uL Hgb 13.5 L (14.0-18.0) g/dl Hct 40.9 L (42.0-52.0) % MCV 91.1 (80.0-98.0) fL MCH 30.1 (27.0-33.0) pg MCHC 33.0 (31.0-36.0) g/dl RDW 14.3 (11.0-16.0) % Plt Count 154 L (160-400) X10*3/uL MPV 10.9 (9.4-12.4) fL Immature Gran % (Auto) 0.4 (0.0-0.4) % Neut % (Auto) 58.9 (45-73) % Lymph % (Auto) 26.0 (20-40) % Converse % (Auto) 10.9 (2-11) % Eos % (Auto) 3.4 (0-4) % Baso % (Auto) 0.4 (0-2) % Lymph # (Auto) 1.5 (1.2-4.9) X10*3/uL Converse # (Auto) 0.6 (0.1-1.2) X10*3/uL Eos # (Auto) 0.2 (0.0-0.4) X10*3/uL Baso # (Auto) 0.0 (0.0-0.2) X10*3/uL Abs Immat Gran (auto) 0.02 (0.00-0.03) X10*3/uL Absolute Neuts (auto) 3.3 (2.0-8.3) x10*3/uL Absolute Nucleated RBC 0.000 (0.0-0.012) X10*3/uL Nucleated RBC % (auto) 0.0 (0.0-0.2) /100WBC Sodium 142 (135-145) mmol/L Potassium 4.7 (3.3-5.1) mmol/L Chloride 108 (96-108) mmol/L Carbon Dioxide 27 (22-29) mmol/L Anion Gap 12 (12-20) BUN 20 H (9-16) mg/dL Creatinine 0.89 (0.5-1.4) mg/dL Estim Creat Clear Calc 207.7 Estimated GFR > 60 Random Glucose 120 H (60-115) mg/dL Calcium 8.7 (8.4-10.2) mg/dL Magnesium 2.1 (1.6-2.6) mg/dL Total Bilirubin 0.2 (0.0-1.0) mg/dL AST 37 (5-37) U/L ALT 36 (0-40) U/L Alkaline Phosphatase 144 H (39-117) U/L Total Protein 7.1 (6.5-8.0) g/dL Albumin 4.2 (3.5-5.0) g/dL Phenytoin 24.9 H* (10.0-20.0) ug/mL Independent Interpretation I performed an independent interpretation of an: Plain X-Ray Interpretation: My interpretation is in agreement with the radiologist's impression of these imaging studies. L CLINICAL HISTORY: pain, injury 4 view right shoulder Comparison: None provided Findings: There is questionable deformity of the humeral head and its orientation with the glenoid on appears to be an axillary view or a poor Y-view No significant arthritic change. No erosions. No radiopaque foreign body. IMPRESSION: 1. No definitive fracture or dislocation however the humeral head and its orientation to the glenoid is in question on what appears to be an axillary or Y-view. Please repeat and provide an adequate y-view. This document has been electronically signed by: Myke Delacruz MD on 12/09/2024 11:02:57 Dictated By: Myke Delacruz MD Signed By: Electronically signed by Myke Delacruz MD 12/09/24 1104 CLINICAL HISTORY: pain, injury 3 view right wrist Comparison: None provided Findings: No fractures or dislocations. No significant arthritic change or erosions. No radiopaque foreign body. IMPRESSION: 1. No acute findings This document has been electronically signed by: Myke Delacruz MD on 12/09/2024 10:59:28 Dictated By: Myke Delacruz MD Signed By: Electronically signed by Myke Delacruz MD 12/09/24 1100 CLINICAL HISTORY: pain, injury 3 view right elbow Comparison: None provided Findings: Bones intact. No dislocations. No significant arthritic change or erosions. No joint effusion. No radiopaque foreign body. IMPRESSION: 1. No acute findings. This document has been electronically signed by: Myke Delacruz MD on 12/09/2024 10:58:43 Dictated By: Myke Delacruz MD Signed By: Electronically signed by Myke Delacruz MD 12/09/24 1059 Radiology Impression Discussion of test interpretation with radiology: I have reviewed the radiologist's reading. Independent Historian Clinical information obtained from an independent historian. History obtained from or confirmed by: EMS (EMS provided additional history and confirmed the history provided by the patient. ) Critical Care Time Critical Care Time Critical Care Time: Yes Total Critical Care Time: 36 Attestation: I spent 36 minutes of Critical Care Time with this patient. This does not include time spent on separately reported billable procedures. Discharge Plan Discharge Clinical Impression: Shoulder sprain, Breakthrough seizure Patient Disposition: Left Against Medical Advice Instructions: Epilepsy (DC), Shoulder Sprain (ED) Additional Instructions: I recommended that you be admitted to the hospital - however, you have declined that at this time. If you change your mind, call 911 or return to the emergency department NELL. Call to establish and follow up with the orthopedic team for your right shoulder sprain / strain. Call to establish and follow up with the neurology team for your break through seizures. IF you are prescribed home medications and/or you are taking over the counter medications at home - it is very important you continue to do so as prescribed / directed unless told otherwise. Follow up with your primary care provider. Return to the emergency department immediately if your symptoms worsen or if you develop any numbness, tingling, dizziness, shortness of breath, difficulty breathing, chest pain, blurry vision, loss of vision, nausea, vomiting, abdominal pain, fever, chills, back pain, or any other complaints. Please see the information below about our Patient Portal. If you are not yet enrolled in the [facility] Patient Portal, you will receive an enrollment email invitation following your visit to any [facility] care setting. You may also self-enroll in the Patient Portal by visiting our website: [email or web address] The following information is required to access the Patient Portal: - Your [facility] Medical Record Number - Your personal home email address (must match what is in your electronic medical record, Registration staff can assist with this) - Name - Date of Capabilities of the Patient Portal: - Message some providers - View upcoming appointments - Access your health summary, medical history, and visit history - View current conditions and allergies - View procedure and lab results - View your medications, including guidelines, side effects, and precautions - Complete pre-appointment questionnaires requested by your provider - Ready summary reports of your office visits and procedures To access the Patient Portal Mobile [employer], follow these directions: - Search [employer] in the [employer] Store or [employer] Store - Download the [employer] - Search for [facility] - Enter your login/password Prescriptions: No Action allopurinol 300 mg tablet 300 mg PO DAILY Qty: 90 3RF Eliquis 5 mg tablet 5 mg PO BID 90 Days Qty: 180 3RF atorvastatin 20 mg tablet 20 mg PO BEDTIME Qty: 90 3RF baclofen 10 mg tablet 10 mg PO TID PRN (Reason: Muscle Spasm) Qty: 90 3RF baclofen 5 mg tablet 5 mg PO TID Qty: 90 3RF carbamazepine 200 mg tablet 400 mg PO BID 90 Days Qty: 360 3RF insulin lispro [Humalog KwikPen Insulin] 100 unit/mL insulin pen 1 sliding scale dose subcut DIRECTED nystatin 100,000 unit/gram cream 1 appl topical BID PRN (Reason: Rash) Qty: 30 3RF oxybutynin chloride 10 mg tablet extended release 24hr 10 mg PO DAILY Qty: 90 3RF sildenafil 100 mg tablet 100 mg PO DAILY Qty: 20 3RF torsemide 20 mg tablet 20 mg PO DAILY Qty: 90 3RF Zepbound 15 mg/0.5 mL pen injector 15 mg subcut QWEEK Qty: 2 3RF (DME) pen needle, diabetic 29 gauge x 1/2 needle See Rx Instructions .ROUTE QID Qty: 100 Rx Instructions: As directed oxycodone 15 mg tablet 15 mg PO QID Qty: 120 0RF phenytoin sodium extended [Phenytek] 300 mg capsule 300 mg PO Q12H 90 Days Qty: 180 3RF phenytoin sodium extended [Phenytek] 200 mg capsule 200 mg PO BID 90 Days Qty: 180 3RF (DME) lancets [FreeStyle Lancets] 28 gauge misc See Rx Instructions .ROUTE QID Qty: 100 3RF Rx Instructions: check glucose TID with meals (DME) FreeStyle Lite Strips Strip See Rx Instructions .ROUTE QID Qty: 100 3RF Rx Instructions: TID with meals epinephrine [Auvi-Q] 0.3 mg/0.3 mL auto-injector 0.3 mg IM Q10M PRN (Reason: anaphylaxis) Qty: 2 3RF Rx Instructions: for 2 doses naloxone [Narcan] 4 mg/actuation spray,non-aerosol 1 spray intranasal Q2M Qty: 2 1RF Rx Instructions: spray 1 dose into ONE nostril; alternate nostrils w each dose until help arrives Referrals: [facility] Orthopedic Surgeons [Provider Group] Referral Note: Call to establish and follow up with the orthopedic team. [facility] Neuro/Sleep [Provider Group] Referral Note: Call to establish and follow up with the neurology team. Vern Lopez MD [Primary Care Provider, Internal Medicine] Stand Alone Forms: Against Medical Advice Interventions: ED Discharge Assessment Last Done: 12/09/24 12:58 Discharge Date/Time: 12/09/24 12:58 Print Language: Mohawk
[2024-12-09 08:41] VITALS: BP 135/67; BP 139/63; PULSE 78; PULSE 80; RESP 18; TEMP 36.8; O2SAT 94; O2SAT 98; BMI 84.5
--- NOTE | 2024-12-09 09:31 | PC.NURSE ---
Pt to ED 14 via EMS for seizure this AM, pt fell and reports injuring right collarbone/upper arm. Reports pain 10/10, given fentanyl by EMS and states pain now 4/10. Seizure pads in place, pt a/o x 3 and answering questions approprialtey. Pt reports having seizure couple days ago and having fluctuations to Dilantin levels. #[address] to LFA. Pending x-ray and labs
[2024-12-09 10:07] LABS: MANUAL DIFF FLAG NO
[2024-12-09 10:11] LABS: Hematocrit 40.9 % (42.0-52.0); Hemoglobin 13.5 g/dl (14.0-18.0); Imm Gran Abs Auto 0.02 X10*3/uL (0.00-0.03); Imm Gran Pct Auto 0.4 % (0.0-0.4); Lymphocytes Absolute Auto 1.5 X10*3/uL (1.2-4.9); Mean Corpuscular HGB Conc 33.0 g/dl (31.0-36.0); Mean Corpuscular Hemoglobin 30.1 pg (27.0-33.0); Mean Corpuscular Volume 91.1 fL (80.0-98.0); NRBC Abs Auto 0.000 X10*3/uL (0.0-0.012); NRBC Pct Auto 0.0 /100WBC (0.0-0.2); Platelet Count 154 X10*3/uL (160-400); Red Blood Count 4.49 X10*6/uL (4.60-5.80); White Blood Count 5.6 X10*3/uL (4.8-10.8)
[2024-12-09 10:30] LABS: Alanine Aminotransferase 36 U/L (0-40); Albumin Level 4.2 g/dL (3.5-5.0); Alkaline Phosphatase 144 U/L (39-117); Anion Gap 12 (12-20); Aspartate Amino Transferase 37 U/L (5-37); Blood Urea Nitrogen 20 mg/dL (9-16); Calcium 8.7 mg/dL (8.4-10.2); Carbon Dioxide 27 mmol/L (22-29); Chloride 108 mmol/L (96-108); Creatinine Clr Calc Pharmacy 207.7; Estimated Glomerular Filt Rate > 60; Magnesium 2.1 mg/dL (1.6-2.6); Potassium 4.7 mmol/L (3.3-5.1); Sodium 142 mmol/L (135-145); Total Protein 7.1 g/dL (6.5-8.0)
[2024-12-09] MEDS: levETIRAcetam in NaCl (iso-os) 1,000 MG/100 ML PIGGYBACK 400 MG IV (11:52)
[2024-12-09 12:58] VITALS: BP 139/63; PULSE 78; RESP 18; TEMP 36.8; O2SAT 94
== END 2024-12-09 12:58 | disposition left against medical advice (07) ==
PROVIDERS: Physician Assistant Medical; Emergency Provider Emergency Medicine; PCP Internal Medicine
DX: S43.401A Unspecified sprain of right shoulder joint, initial encounter (principal); W19.XXXA Unspecified fall, initial encounter; Y93.9 Activity, unspecified; Y92.9 Unspecified place or not applicable; Y99.9 Unspecified external cause status; G40.909 Epilepsy, unspecified, not intractable, without status epilepticus; M25.511 Pain in right shoulder; M25.531 Pain in right wrist; M25.521 Pain in right elbow
CPT/HCPCS: 36415; 73030; 73080; 73110; 80053; 80185; 83735; 85025; 96365; 96375; 99284; J1953; J2270

== ENCOUNTER 2024-12-17 15:22 | Outpatient (AMB) | payer MEDICARE, MEDICAID, SELFPAY ==
--- OUTSIDE RECORDS SUMMARY | 2023-07-04 | XMS_ITS | Encounter Summary ---
Author Organization [facility] Address [address] [place] [phone] Phone Care Team Providers Care Blue Line Hanger Name Role Phone Unavailable Primary Care Provider Unavailabl e Encounter Details Date Type Department Care Team (Late st Contact Info) Description 07/04/2023 Hospital Encounter [facility] [address] [place] [phone] Neon Brown MD [address] [place] [phone] [email or web address] Social History Tobacco Use Types Packs/Day Years [...] It is not the complete legal health record.[facility]
[2024-12-17 15:18] VITALS: BP 114/60; PULSE 84; RESP 16; TEMP 37; O2SAT 92; BMI 74.7
--- NOTE | 2024-12-17 15:18 | MHC.PC.OV ---
Vital Signs 12/17/24 15:18 Height 5 ft 10.31 in Weight 525 lb BMI 74.7 BP 114/60 Respiration 16 Pulse 84 Pulse Source Pulse Oximeter Temp 98.6 F Temp Source Temporal Artery Scan Pulse Oximetry (%) 92 Oxygen Delivery Method Room Air Intake Visit Reasons: 1 month Finishing Wire Sawyer Required: No Accompanied by: Spouse Allergies codeine (Codeine) Allergy (Unknown, Verified 12/18/24 09:06) RASH, hives ibuprofen (From Motrin) Allergy (Unknown, Verified 12/18/24 09:06) HIVES Medication List - Last Reconciled 12/18/24 by Vern Lopez MD allopurinol 300 mg PO DAILY apixaban (Eliquis) 5 mg PO BID 90 days atorvastatin 20 mg PO BEDTIME baclofen 5 mg PO TID baclofen 10 mg PO TID PRN blood sugar diagnostic (FreeStyle Lite Strips) TID with meals carbamazepine 400 mg (2 x 200 mg) PO BID 90 days epinephrine (EpiPen) 0.3 mg (0.3 mL) IM Q10M PRN insulin lispro (Humalog KwikPen (U-100) Insulin) 1 sliding scale dose subcut DIRECTED lancets (FreeStyle Lancets) check glucose TID with meals naloxone 4 mg/actuation (Narcan) 1 spray intranasal Q2M nystatin 1 appl topical BID PRN oxybutynin chloride ER 10 mg PO DAILY oxycodone 15 mg PO QID pen needle, diabetic As directed phenytoin sodium extended (Phenytek) 200 mg PO BID 90 days phenytoin sodium extended (Phenytek) 300 mg PO Q12H 90 days sildenafil 100 mg PO DAILY tirzepatide (weight loss) (Zepbound) 15 mg (0.5 mL) subcut QWEEK torsemide 20 mg PO DAILY Tobacco use date assessed: 12/17/24 Dental Screening Dental Screen Date: 11/01/24 HPI 1 month HPI Details 49-year-old male presents to the office to discuss his chronic medical conditions. Patient was seeing Dr. Menendez for many years and has transferred to our practice recently. [facility] Medical History Chronic pain of multiple joints Morbid obesity with BMI of 70 and over, adult History of torn meniscus of left knee Retinal tumor of left eye Left knee pain Chronic narcotic use Low folate Vitamin D deficiency Chronic pain History of colon polyps Visual impairment Elevated liver enzymes Low platelet count Anemia Constipation Body mass index [BMI] 70 or greater, adult Muscle spasm Hyperlipidemia History of concussion Gout Establishing care with new doctor, encounter for Pulmonary arterial hypertension NORIS (obstructive sleep apnea) Morbid obesity Hypoxemia Sleep apnea, obstructive Shortness of breath Morbid obesity with body mass index (BMI) greater than or equal to 70 in adult Brain tumor Persistent atrial fibrillation Aftercare following bilateral ankle joint replacement surgery Right hand dominant Seizure disorder Diabetes NORIS (obstructive sleep apnea) A-fib Surgical History History of colonoscopy (~04/28/21) History of ankle surgery Family History Paternal Grandmother Heart attack Maternal Grandfather Heart attack Brother No problems noted. Sister No problems noted. Sister No problems noted. Father Heart attack Hemoglobin A1C between 7% and 9% indicating borderline diabetic control Mother High blood pressure Social History Household Members: Family Housing: Apartment Do you presently have visiting nurse or other home services: No Unable to assess alcohol history related to: Unknown Alcohol intake: current Alcohol intake frequency: does not drink Patient Tobacco Use Status: Never used Tobacco service: No Current occupational status: disabled Cognitive needs: Yes (cane) Hearing needs: No Vision needs: Yes (rx glasses) Questionnaire PHQ-9 Over the last 2 weeks, how often have you been bothered by any of the following problems? 1. Little interest or pleasure in doing things: not at all 2. Feeling down, depressed, or hopeless: not at all 3. Trouble falling or staying asleep, or sleeping too much: not at all 4. Feeling tired or having little energy: not at all 5. Poor appetite or overeating: not at all 6. Feeling bad about yourself - or that you are a failure or have let yourself or your family down: not at all 7. Trouble concentrating on things, such as reading the newspaper or watching television: not at all 8. Moving or speaking so slowly that other people could have noticed. Or the opposite - being so fidgety or restless that you have been moving around a lot more than usual: not at all 9. Thoughts that you would be better off or of hurting yourself in some way: not at all Total score: 0 Depression Screening Interpretation: Negative Depression Screening Done: Yes 78056 - PHQ-9 Billing: Yes Source: Developed by Drs. Theodore Dodd, Renuka Urena, Ino Abraham and colleagues, with an educational elizabeth from [employer] Thrive Questionnaire Date Thrive assessed: 11/29/24 I am a: Patient What is your living situation today?: I have a steady place to live Within the past 12 months, did the food you bought not last and you didn't have the money to get more?: Never true Within the past 12 months, did you worry whether your food would run out before you got money to buy more?: Never true Do you have trouble paying for medicines?: No Do you have trouble getting transportation to medical appointments?: No Do you have trouble paying your heating and electricity bill?: No Do you have trouble taking care of your child, family member or friend?: No Do you have trouble with day-to-day activities such as bathing, preparing meals, shopping, managing finances, etc.?: No Are you currently unemployed and looking for a job?: No Are you interested in more education?: No Please select the resources that you would like help with: None Currently or been in a relationship where the following occur: No concerns reported THRIVE Score: 0 AUDIT C Alcohol Use Questionnaire (AUDIT-C) 1. How often do you have a drink containing alcohol?: Never 3. How often do you have six or more drinks on one occasion?: Never Total Score: 0 Score Reviewed/Action Taken: No ANURADHA-7 AMB Questionnaire ANURADHA-7 Date ANURADHA - 7 assessed: 11/29/24 Feeling nervous, anxious, or on edge: 0 = Not at all Not being able to stop or control worryin = Not at all Worrying too much about different things: 0 = Not at all Trouble relaxin = Not at all Being so restless that it is hard to sit still: 0 = Not at all Becoming easily annoyed or irritable: 0 = Not at all Feeling afraid as if something awful might happen: 0 = Not at all Total ANURADHA-7 score (0-4 normal; 5-9 mild; 10-14 moderate; 15-21 severe): 0 Source: Developed by Drs. Theodore Dodd, Renuka Urena, Ino Abraham and colleagues, with an educational elizabeth from [employer] ANURADHA-7 Assessment Billing ANURADHA-7 Assessment Tool: ANURADHA-7 Assessment 30460 Physical exam (Primary Care) Vital Signs: Last Vital Signs Temp 98.6 F 12/17/24 15:18 Pulse 84 12/17/24 15:18 Resp 16 12/17/24 15:18 BP 114/60 12/17/24 15:18 Pulse Ox 92 12/17/24 15:18 Oxygen Delivery Method Room Air 12/17/24 15:18 BMI result Body Mass Index 74.7 Tobacco/Smoking Status: Tobacco use Status Tobacco use date assessed 12/17/24 12/17/24 15:21 Patient Tobacco Use Status Never used Tobacco 12/17/24 15:21 PHQ-9: PHQ-9 Score PHQ-9: Total score 0 12/18/24 09:08 Depression Screening Interpretation: Negative Thrive Assessment: Date of Thrive Assessment Date Thrive assessed 11/29/24 12/17/24 15:21 Currently or been in a relationship where the following occur: No concerns reported Coding Level of Care Code Est Pt Level 4 (85540) Complex EM visit Add On G2211 Diagnoses Morbid obesity E66.01 Additional Codes ANURADHA-7 Assessment Billing - ANURADHA-7 Assessment Tool: ANURADHA-7 Assessment 45355 ([id number]) PHQ-9 - 55659 - PHQ-9 Billing: Yes ([id number]) Assessment & Plan Assessment & Plan (1) Morbid obesity: Comment: CURRENT TO WAIT 539 BMI 77.3 HE IS TRYING TO LOSE WEIGHT, PRE GASTRIC SURGERY. Code(s): E66.01 - Morbid (severe) obesity due to excess calories Category: Medical Plan: History of Present Illness - The patient is a 49-year-old male presenting with management of seizure disorder, knee osteoarthritis, and chronic pain. - Seizure disorder: The patient has a history of seizures, with recent episodes attributed to high medication levels. The patient was on a high dose of phenytoin, which was reduced due to weight loss and subsequent high serum levels. - The patient experienced seizures after medication adjustments, with levels recorded at 30 and 24, indicating a need for further dose adjustment. - Knee osteoarthritis: The patient requires knee surgery but is currently undergoing gel injections as a temporary measure due to his weight. He has lost 147 pounds but remains at 525 pounds, which complicates surgical options. - The patient is apprehensive about the procedure due to the low success rates provided by his healthcare provider. - Obesity: The patient has a history of significant weight loss, reducing from 670 pounds to 525 pounds over the past year. This weight loss was necessary for potential surgical interventions and diagnostic imaging. 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 He is scheduled for radiation therapy in [place] to manage the tumor. - The tumor is rare, with only 1700 cases worldwide, complicating treatment options. - Chronic pain: The patient experiences chronic pain managed with oxycodone, currently at 60 mg daily. There is a plan to reduce this dosage gradually due to concerns about long-term opioid use. Social History - Weight management: The patient has lost 147 pounds over the past 10 months, reducing from 670 pounds to 525 pounds, as part of a weight management program. - Exercise: The patient engages in physical activity facilitated by pain management, although limited by chronic pain and knee issues. Review of Systems - Neurological: Reports seizures attributed to high medication levels. Denies headaches or dizziness. - Musculoskeletal: Reports chronic knee pain and history of ankle surgeries. Denies recent back pain unless associated with seizures. - Ophthalmological: Reports significant vision impairment in the left eye due to a tumor. Physical Exam General: Cooperative and healthy appearing Nutritional Appearance: Well nourished Orientation/consciousness: Patient oriented x3 Limitations: No limitations Head: Normal to inspection General: Appearance normal, both eyes and all related structures Neck: Normal visual inspection Chest: Normal palpation of entire chest wall Respiratory: N ormal respiratory effort Neurology: Patient oriented x3, but experiencing seizures. The seizure medication dosage is too high, with a phenotone level of 30, which is above the recommended range of 10 to 20. The patient has experienced multiple seizures recently, possibly due to the high dosage. The current dosage is 500 mg in the morning and 500 mg at night, which needs to be lowered. The plan is to reduce the dosage to 400 mg in the morning and 500 mg at night, with blood work to be done a week after the change. The patient has a history of epilepsy since the fourth grade and has experienced seizures triggered by strobe lights. The patient is also concerned about the potential for seizures during medical tests and procedures. Results Plan 1. Seizure Disorder - Plan to adjust phenytoin dosage due to high serum levels and recent seizures. Current dosage is 500 mg BID, with a recommendation to reduce to 400 mg in the morning and 500 mg at night. - Follow-up blood work to be conducted one week after dosage adjustment to monitor phenytoin levels. 2. Knee Osteoarthritis - Scheduled for a gel injection on December 27 as a temporary measure to alleviate knee pain. - Patient advised to monitor for any adverse reactions post-injection and report back if symptoms worsen. 3. Obesity - Continued weight management program with a focus on further weight reduction to facilitate surgical options. 4. Ocular Tumor - Scheduled for radiation therapy in [place] to manage the ocular tumor. - Patient informed about the rarity of the tumor and the complexity of treatment options. 5. Chronic Pain - Current oxycodone dosage is 60 mg daily, with a plan to gradually reduce the dosage to mitigate long-term opioid use risks. - Consideration of transitioning to Suboxone for pain management discussed as a future option. Discussion Notes During the visit, we discussed the management of the patient's seizure disorder, including adjusting the phenytoin dosage due to high serum levels. We also reviewed the plan for knee osteoarthritis, with a scheduled gel injection as a temporary measure. The patient was informed about the rarity and complexity of treating the ocular tumor, with radiation therapy planned in [place]. We addressed concerns about chronic pain management, emphasizing the need to reduce oxycodone dosage and consider transitioning to Suboxone. The patient was advised to monitor for any adverse reactions post-procedure and to follow up with blood work to assess phenytoin levels. Patient Instructions - Continue current phenytoin dosage adjustment and schedule follow-up blood work in one week. - Attend scheduled gel injection appointment on December 27 and monitor for any adverse reactions. - Maintain weight management efforts and continue physical activity as tolerated. - Prepare for upcoming radiation therapy in [place] for ocular tumor management. - Gradually reduce oxycodone dosage as discussed and consider future transition to Suboxone. Medications: Refilled epinephrine (EpiPen) for 2 doses 0.3 mg (0.3 mL) IM Q10M PRN 1 ea 3RF anaphylaxis Discontinued epinephrine (Auvi-Q) for 2 doses Discontinued Reason: Doctor's Order 0.3 mg (0.3 mL) IM Q10M PRN 2 ea 3RF anaphylaxis
--- OUTSIDE RECORDS SUMMARY | 2024-12-17 16:57 | XMS_ITS | Clinical Summary ---
Author Organization [facility] Address [address] [facility] [address] [place] [address] Care Team Providers Care Package Dyer Name Role Phone Unavailable Primary Care Provider Unavailabl e Social History Tobacco Use Types Packs/Day Years [...] patient's age to complete this topic Insurance [facility]
--- OUTSIDE RECORDS SUMMARY | 2024-12-17 16:57 | XMS_ITS | Clinical Summary ---
Author Organization [facility] Address [address] [place] [id number] Phone Care Team Providers Care Flask Fitter Name Role Phone Gt Menendez MD Primary Care Provider [phone] Encounters Date Type Department Care Team Description 11/22/2024 Orders Only [facility] Neuro [address] [address] Bre Martin MD Optic neuropathy (Primary Dx); Meningioma 11/19/2024 Telephone [facility] Neuro [address] [address] Order Mode, Board Mixer Tender from Last 3 Months Social History Tobacco [...] Health Maintenance Due Date Last Done Comments Adult Td,Tdap Booster 1975 LIPID PANEL 1975 DEPRESSION SCREENING 1987 SMOKING Hx and SMOKELESS TOB ACCO SCREENING 1988 HEPATITIS C SCREENING 1993 HIV ONE-TIME SCREENING (18-6 5 YEARS) 1993 COLOGUARD 2020 COLONOSCOPY 2020 COLORECTAL CANCER SCREENING 2020 FIT TEST 2020 FOBT 2020 SIGMOIDOSCOPY 2020 VIRTUAL COLONOSCOPY 2020 COVID-19 VACCINE (2023-2 5 season) 2023 HEPATITIS A VACCINES Aged Out No long er eligible based on patient's age to complete this topic HIB VACCINES Aged Out No longer eligi ble based on patient's age to complete this topic MENINGOCOCCAL VACCINES (ACWY) Aged Out No longer eligible based on patient's age to complete this topic MENINGOCOCCAL VACCINES (B) Aged Out N o longer eligible based on patient's age to complete this topic PNEUMOCOCCAL VACCINES (0-49 years) Aged Out No longer eligible based on patient's age to complete this topic Medical Devices Not on file Insurance [facility] MEDICARE PART A & [place] [facility] [place] MEDICARE PART A & [address] [place] [address]HEALTH MEDICARE PART A & [place] MEDICARE PART A & B [facility] MED[facility] PART A & B Care Teams Flask Fitter Relationship Specialty Start Date End Date Gt Menendez MD [address] [place] [phone] PCP - General Internal Medicine 08/19/23 Additional Source Comments The information contained in this document represents components of the legal health record. It is not the complete legal health record.[facility]
--- OUTSIDE RECORDS SUMMARY | 2024-12-17 16:57 | XMS_ITS | Encounter Summary ---
Author Organization [facility] Address [address] [facility] 7 [place] [address] Care Team Providers Care Manager Information Name Role Phone Unavailable Primary Care Provider Unavailabl e Encounter Details Date Type Department Care Team (Late st Contact Info) Description 09/06/2024 Telephone [facility] [address] [place] [address] Juanpablo Lomas MD [address] [place] [address] Social History Tobacco Use Types Packs/Day Years [...] DX : Medical Concern: Insurance name : [employer] Location : [facility] Demographic information updated documented in this encounter Plan of Treatment Not on file documented as of this encounter Visit Diagnoses Not on filedocumented in this encounter
== END 2024-12-17 16:27 | disposition home or self-care (01) ==
LOC: HO.HMCSH 15:22
PROVIDERS: PCP Internal Medicine; Visit Provider Internal Medicine
DX: E66.01 Morbid (severe) obesity due to excess calories (principal)

== ENCOUNTER → 2024-12-17 15:22 | Outpatient (BNVA) | payer MEDICARE, MEDICAID, SELFPAY | PROVIDERS: PCP Internal Medicine; Visit Provider Internal Medicine | DX: E66.01 Morbid (severe) obesity due to excess calories (principal); Z68.45 Body mass index [BMI] 70 or greater, adult; Z71.3 Dietary counseling and surveillance; M17.0 Bilateral primary osteoarthritis of knee; G89.29 Other chronic pain; G40.909 Epilepsy, unspecified, not intractable, without status epilepticus | CPT/HCPCS: 96127; 99212 ==

== ENCOUNTER 2024-12-27 06:42 | Outpatient (REF) | payer MEDICARE, MEDICAID, SELFPAY | END 2024-12-27 06:43 | disposition home or self-care (01) | LOC: CF 06:42 | PROVIDERS: Visit Provider Internal Medicine | DX: M17.12 Unilateral primary osteoarthritis, left knee (principal) | CPT/HCPCS: 20611; J7325 ==

== ENCOUNTER 2024-12-27 13:23 | Outpatient (AMB) | payer MEDICARE, MEDICAID, SELFPAY ==
--- OUTSIDE RECORDS SUMMARY | 2023-07-04 | XMS_ITS | Encounter Summary ---
Author Organization [facility] Address [address] [place] [phone] Phone Care Team Providers Care Restaurant Kitchen Manager Name Role Phone Unavailable Primary Care Provider Unavailabl e Encounter Details Date Type Department Care Team (Late st Contact Info) Description 07/04/2023 Hospital Encounter [facility] [address] [place] [phone] Neno Brown MD [address] [place] [phone] [email or web address] Social History Tobacco Use Types Packs/Day Years [...] It is not the complete legal health record.[facility]
[2024-12-27 13:33] VITALS: BP 122/72; PULSE 82; RESP 16; O2SAT 96
--- NOTE | 2024-12-27 13:33 | MHC.OFFVIS ---
Vital Signs 12/27/24 13:33 12/27/24 13:40 BP 122/72 126/76 Blood Pressure Location Lt radial Rt radial Position Sitting Sitting Respiration 16 16 Pulse 82 78 Pulse Source Pulse Oximeter Pulse Oximeter Pulse Oximetry (%) 96 16 L Oxygen Delivery Method Room Air Room Air Intake Visit Reasons: Left Knee Synvisc One Injection Allergies codeine (Codeine) Allergy (Unknown, Verified 12/27/24 13:34) RASH, hives ibuprofen (From Motrin) Allergy (Unknown, Verified 12/27/24 13:34) HIVES Medication List - Last Reconciled 12/27/24 by Annmarie Orellana LPN allopurinol 300 mg PO DAILY apixaban (Eliquis) 5 mg PO BID 90 days atorvastatin 20 mg PO BEDTIME baclofen 5 mg PO TID baclofen 10 mg PO TID PRN blood sugar diagnostic (FreeStyle Lite Strips) TID with meals carbamazepine 400 mg (2 x 200 mg) PO BID 90 days epinephrine (EpiPen) 0.3 mg (0.3 mL) IM Q10M PRN insulin lispro (Humalog KwikPen (U-100) Insulin) 1 sliding scale dose subcut DIRECTED lancets (FreeStyle Lancets) check glucose TID with meals naloxone 4 mg/actuation (Narcan) 1 spray intranasal Q2M nystatin 1 appl topical BID PRN oxybutynin chloride ER 10 mg PO DAILY oxycodone 15 mg PO QID pen needle, diabetic As directed phenytoin sodium extended (Phenytek) 200 mg PO BID 90 days phenytoin sodium extended (Phenytek) 300 mg PO Q12H 90 days sildenafil 100 mg PO DAILY tirzepatide (weight loss) (Zepbound) 15 mg (0.5 mL) subcut QWEEK torsemide 20 mg PO DAILY HPI HPI Left Knee Synvisc One Injection: Details: Patient presents for scheduled procedure. Denies any recent cough, cold, infection, fever or other significant changes in medical history since last office visit. [facility] Medical History Chronic pain of multiple joints Morbid obesity with BMI of 70 and over, adult History of torn meniscus of left knee Retinal tumor of left eye Left knee pain Chronic narcotic use Low folate Vitamin D deficiency Chronic pain History of colon polyps Visual impairment Elevated liver enzymes Low platelet count Anemia Constipation Body mass index [BMI] 70 or greater, adult Muscle spasm Hyperlipidemia History of concussion Gout Establishing care with new doctor, encounter for Pulmonary arterial hypertension NORIS (obstructive sleep apnea) Morbid obesity Hypoxemia Sleep apnea, obstructive Shortness of breath Morbid obesity with body mass index (BMI) greater than or equal to 70 in adult Brain tumor Persistent atrial fibrillation Aftercare following bilateral ankle joint replacement surgery Right hand dominant Seizure disorder Diabetes NORIS (obstructive sleep apnea) A-fib Surgical History History of colonoscopy (~04/28/21) History of ankle surgery Family History Paternal Grandmother Heart attack Maternal Grandfather Heart attack Brother No problems noted. Sister No problems noted. Sister No problems noted. Father Heart attack Hemoglobin A1C between 7% and 9% indicating borderline diabetic control Mother High blood pressure Social History Household Members: Family Housing: Apartment Do you presently have visiting nurse or other home services: No Unable to assess alcohol history related to: Unknown Alcohol intake: current Alcohol intake frequency: does not drink Patient Tobacco Use Status: Never used Tobacco service: No Current occupational status: disabled Cognitive needs: Yes (cane) Hearing needs: No Vision needs: Yes (rx glasses) Physical Exam Vital Signs: Last Vital Signs Pulse 78 12/27/24 13:40 Resp 16 12/27/24 13:40 BP 126/76 12/27/24 13:40 Pulse Ox 16 L 12/27/24 13:40 Oxygen Delivery Method Room Air 12/27/24 13:40 Office Procedures AMB Joint Injection/Aspiration Joint Injection/Aspiration Primary Site: left knee Prep: site was prepped using sterile technique Approach Used: medial parapatellar (US used to razia landmark, procedure done without direct visualization) Procedure: The patient tolerated the procedure well Coding 25255 - Large joint Procedure code (CPT) selection complete Office Meds Synvisc-One 48 mg/6 mL intra-articular syringe Performing Provider: Antonio Gibson MD [place] [facility] Administered by: Antonio Gibson MD on 12/27/24 13:33 Dose Route Admin Location Dispensed Lot Number Expiration Date NDC Account Classification Clerk 48 mg intra-articular 6 mL [id number] 06/23/27 [address]-5 [employer] TIAN - Total Dispensed Waste 6 mL 0 % Assessment & Plan Assessment & Plan (1) Osteoarthritis of left knee: Code(s): M17.12 - Unilateral primary osteoarthritis, left knee Category: Medical Plan Patient is status post left knee intra-articular Synvisc-One injection. Patient tolerated procedure well and was discharged home in stable condition with discharge instructions. All questions were answered. We will follow-up via telephone or in clinic to assess response to therapy. A follow-up appointment was made during today's visit. Orders: Orders FL guidance in treatment room 12/27/24 M17.12 - Unilateral primary osteoarthritis, left knee AMB Hyaluronic Injection 12/27/24 M17.12 - Unilateral primary osteoarthritis, left knee Coding Level of Care Code Procedure Only Diagnoses Osteoarthritis of left knee M17.12 CPT Codes Coding - 41070 Large joint: 33856 - Large joint ([id number])
[2024-12-27 13:40] VITALS: BP 126/76; PULSE 78; RESP 16; O2SAT 16
--- OUTSIDE RECORDS SUMMARY | 2024-12-27 14:39 | XMS_ITS | Clinical Summary ---
Author Organization [facility] Address [address] [place] [address] Phone Care Team Providers Care Airline Mechanic Name Role Phone Gt Menendez MD Primary Care Provider +1- [phone] Encounters Date Type Department Care Team Description 11/22/2024 Orders Only [facility] Neuro [address] [address] Bre Martin MD Optic neuropathy (Primary Dx); Meningioma 11/19/2024 Telephone [facility] Neuro [address] [address] Order Mode, Convenience Store Clerk from Last 3 Months Social History Tobacco [...] FOBT 2020 SIGMOIDOSCOPY 2020 VIRTUAL COLONOSCOPY 2020 INFLUENZA VACCINE (#1) 2024 COVID-19 VACCINE ( - 2023-2 5 season) 2024 HEPATITIS A VACCINES Aged Out No long [...] topic Medical Devices Not on file [facility] B Member Subscriber Plan / Payer (Ef fective 2013-Present) Name:Zachary Conn Member ID:[id number] Relation to Subscriber:Self Name:Zachary Conn Subscriber ID:[id number] Payer ID:[id number] Group ID:Not on file Type:Medicare Address: [facility] [employer] [facility] [address] [place] [address] [place] PART A & [place] [facility] & [place] MEDICARE PART A & B HEALTH MEDICARE PART A & B [facility] A & B Care Teams Airline Mechanic Relationship Specialty Start Date End Date Gt Menendez MD [address] [place] [id number] PCP - General Internal Medicine 08/19/23 Additional Source Comments The information contained in this document represents components of the legal health record. It is not the complete legal health record.[facility]
--- OUTSIDE RECORDS SUMMARY | 2024-12-27 14:39 | XMS_ITS | Encounter Summary ---
Author Organization [employer] Address 75 [facility] 7 [place] [address] Care Team Providers Care Senior Portfolio Manager Name Role Phone Unavailable Primary Care Provider Unavailabl e Encounter Details Date Type Department Care Team (Late st Contact Info) Description 09/06/2024 Telephone [facility] MEDICINE [address] [place] [address] Juanpablo Lomas MD [address] [place] [address] Social History Tobacco Use Types Packs/Day Years [...] DX : Medical Concern: Insurance name : [employer] Location : [facility] Demographic information updated documented in this encounter Plan of Treatment Not on file documented as of this encounter Visit Diagnoses Not on filedocumented in this encounter
--- OUTSIDE RECORDS SUMMARY | 2024-12-27 14:39 | XMS_ITS | Clinical Summary ---
Author Organization [employer] Address 75 [facility] 7t [place] [address] Care Team Providers Care Manager Disaster Recovery Name Role Phone Unavailable Primary Care Provider [...] COVID-19 Vaccine (1 - 2023-2 5 season) 2024 Influenza Vaccine (#1) 2024 Zoster Vaccines (1 [...]
== END 2024-12-27 13:43 | disposition home or self-care (01) ==
LOC: HO.PMCPRC 13:23
PROVIDERS: PCP Internal Medicine; Visit Provider Internal Medicine
DX: M17.12 Unilateral primary osteoarthritis, left knee (principal)
CPT/HCPCS: 20611

== ENCOUNTER 2024-12-31 10:31 | Outpatient (REF) | payer MEDICARE, MEDICAID, SELFPAY ==
--- OUTSIDE RECORDS SUMMARY | 2023-07-04 | XMS_ITS | Encounter Summary ---
Author Organization [facility] Address [address] [place] [phone] Phone Care Team Providers Care Beef Splitter Name Role Phone Unavailable Primary Care Provider Unavailabl e Encounter Details Date Type Department Care Team (Late st Contact Info) Description 07/04/2023 Hospital Encounter [facility] [address] [place] [phone] Neno Brown MD [address] [place] [phone] [email or web address] Social History Tobacco Use Types Packs/Day Years [...] It is not the complete legal health record.[facility]
--- OUTSIDE RECORDS SUMMARY | 2024-12-31 12:41 | XMS_ITS | Clinical Summary ---
Author Organization [facility] Address [address] [place] [address] Phone Care Team Providers Care Vp Security Name Role Phone Gt Menendez MD Primary Care Provider +1- [phone] Encounters Date Type Department Care Team Description 11/22/[address] Orders [address] [facility] Neuro [address] [address] Bre Martin MD Optic neuropathy (Primary Dx); Meningioma 11/19/[address] [facility] Neuro [address] [address] Order Mode, Track Hoe Operator from Last 3 Months Social History Tobacco [...] topic Medical Devices Not on file [facility] & B [place] & [place] [facility] PART A & [place] MED[place]ARE PART A & B HEALTH MEDICARE PART A & B [facility] A & B [facility] MED[facility] PART A & B Care Teams Vp Security Relationship Specialty Start Date End Date Gt Menendez MD [address] [place] [id number] PCP - General Internal Medicine 08/19/23 Additional Source Comments The information contained in this document represents components of the legal health record. It is not the complete legal health record.[facility]
--- OUTSIDE RECORDS SUMMARY | 2024-12-31 12:41 | XMS_ITS | Encounter Summary ---
Author Organization [employer] Address 75 [facility] 7 [place] [address] Care Team Providers Care Riprap Worker Name Role Phone Unavailable Primary Care Provider Unavailabl e Encounter Details Date Type Department Care Team (Late st Contact Info) Description 09/06/2024 Telephone [facility] MEDICINE [address] [place] [address] Juanpablo Lomas MD [address] [place] [address] Social History Tobacco Use Types Packs/Day Years [...] DX : Medical Concern: Insurance name : [employer] Location : [facility] Demographic information updated documented in this encounter Plan of Treatment Not on file documented as of this encounter Visit Diagnoses Not on filedocumented in this encounter
--- OUTSIDE RECORDS SUMMARY | 2024-12-31 12:41 | XMS_ITS | Clinical Summary ---
Author Organization [employer] Address 75 [facility] 7t [place] [address] Care Team Providers Care Child Protection Specialist Name Role Phone Unavailable Primary Care Provider [...] patient's age to complete this topic Insurance [facility]
== END 2024-12-31 10:32 | disposition home or self-care (01) ==
LOC: HO.HMGCLDS 10:31
PROVIDERS: PCP Internal Medicine; Visit Provider Internal Medicine
DX: G40.909 Epilepsy, unspecified, not intractable, without status epilepticus (principal)
CPT/HCPCS: 36415; 80185

== ENCOUNTER 2025-01-28 10:59 | Outpatient (AMB) | payer MEDICARE, MEDICAID, SELFPAY ==
--- OUTSIDE RECORDS SUMMARY | 2023-07-04 | XMS_ITS | Encounter Summary ---
Author Organization [facility] Address [address] [place] [address] Phone Care Team Providers Care High Worker Name Role Phone Unavailable Primary Care Provider Unavailabl e Encounter Details Date Type Department Care Team (Late st Contact Info) Description 07/04/2023 Hospital Encounter [facility] [address] [place] [phone] Neno Brown MD [address] [place] [phone] [email or web address] Social History Tobacco Use Types Packs/Day Years [...] It is not the complete legal health record.[facility]
--- NOTE | 2025-01-28 11:16 | MHC.PC.OV ---
Vital Signs 01/28/25 11:17 Height 5 ft 10.31 in Weight 518 lb BMI 73.7 BP 174/93 H Blood Pressure Location Rt radial Position Sitting Respiration 16 Pulse 79 Pulse Source Pulse Oximeter Temp 97.3 F Temp Source Temporal Artery Scan Pulse Oximetry (%) 97 Oxygen Delivery Method Room Air Intake Visit Reasons: 1 month f/u Recording Studio Set Up Worker Required: No Accompanied by: Child Allergies codeine (Codeine) Allergy (Unknown, Verified 01/28/25 13:49) RASH, hives ibuprofen (From Motrin) Allergy (Unknown, Verified 01/28/25 13:49) HIVES Medication List - Last Reconciled 01/28/25 by Celine Cohen PA-C allopurinol 300 mg PO DAILY apixaban (Eliquis) 5 mg PO BID 90 days atorvastatin 20 mg PO BEDTIME baclofen 5 mg PO TID baclofen 10 mg PO TID PRN blood sugar diagnostic (FreeStyle Lite Strips) TID with meals carbamazepine 400 mg (2 x 200 mg) PO BID 90 days epinephrine (EpiPen) 0.3 mg (0.3 mL) IM Q10M PRN insulin lispro (Humalog KwikPen (U-100) Insulin) 1 sliding scale dose subcut DIRECTED lancets (FreeStyle Lancets) check glucose TID with meals naloxone 4 mg/actuation (Narcan) 1 spray intranasal Q2M nystatin 1 appl topical BID PRN oxybutynin chloride ER 10 mg PO DAILY oxycodone 15 mg PO BID pen needle, diabetic As directed penicillin V potassium 500 mg PO QID 7 days phenytoin sodium extended (Phenytek) 200 mg PO BID 90 days phenytoin sodium extended (Phenytek) 300 mg PO Q12H 90 days sildenafil 100 mg PO DAILY tirzepatide (weight loss) (Zepbound) 15 mg (0.5 mL) subcut QWEEK torsemide 20 mg PO DAILY Tobacco use date assessed: 01/28/25 Dental Screening Dental Screen Date: 01/28/25 Did you have a dental visit in the last 12 months?: No Did you have a dental problem in the last 6 months where you did not have access to dental care?: No Was dental information given to patient?: Patient has dentist HPI 1 month f/u HPI Details The patient is a 49-year-old male presenting with a dental infection and for a medication refill. The dental infection involves the mouth, with no abscess currently present as the patient has already drained it. The patient typically uses penicillin for such infections, which has been effective in the past. Regarding medication management, the patient is in the process of tapering oxycodone, as previously discussed with Dr. Juares. The current plan involves reducing the dosage to 15 mg twice a day or using 10 mg tablets as an alternative. Patient is also involved in the care of his father who is currently on hospice. He is dealing with increased anxiety and depression. He denies any SI or HI or any auditory or visual hallucinations or thoughts of self-injury. antisqueak worker here ROMMEL Bowman will be going into the room to speak with the patient. Social History - Family status: Patient is involved in the care of his father, who is experiencing significant health issues. [facility] Medical History (Updated 01/28/25 @ 14:23 by Celine Cohen PA-C) Depression Dental infection Chronic pain of multiple joints Morbid obesity with BMI of 70 and over, adult History of torn meniscus of left knee Retinal tumor of left eye Left knee pain Chronic narcotic use Low folate Vitamin D deficiency Chronic pain History of colon polyps Visual impairment Elevated liver enzymes Low platelet count Anemia Constipation Body mass index [BMI] 70 or greater, adult Muscle spasm Hyperlipidemia History of concussion Gout Establishing care with new doctor, encounter for Pulmonary arterial hypertension NORIS (obstructive sleep apnea) Morbid obesity Hypoxemia Sleep apnea, obstructive Shortness of breath Morbid obesity with body mass index (BMI) greater than or equal to 70 in adult Brain tumor Persistent atrial fibrillation Aftercare following bilateral ankle joint replacement surgery Right hand dominant Seizure disorder Diabetes NORIS (obstructive sleep apnea) A-fib Surgical History History of colonoscopy (~04/28/21) History of ankle surgery Family History Paternal Grandmother Heart attack Maternal Grandfather Heart attack Brother No problems noted. Sister No problems noted. Sister No problems noted. Father Heart attack Hemoglobin A1C between 7% and 9% indicating borderline diabetic control Mother High blood pressure Social History Household Members: Family Housing: Apartment Do you presently have visiting nurse or other home services: No Alcohol intake: current Alcohol intake frequency: does not drink Patient Tobacco Use Status: Never used Tobacco service: No Current occupational status: disabled Cognitive needs: Yes (cane) Hearing needs: No Vision needs: Yes (rx glasses) Questionnaire PHQ-9 Over the last 2 weeks, how often have you been bothered by any of the following problems? 1. Little interest or pleasure in doing things: nearly every day 2. Feeling down, depressed, or hopeless: nearly every day 3. Trouble falling or staying asleep, or sleeping too much: nearly every day 4. Feeling tired or having little energy: nearly every day 5. Poor appetite or overeating: more than half the days 6. Feeling bad about yourself - or that you are a failure or have let yourself or your family down: more than half the days 7. Trouble concentrating on things, such as reading the newspaper or watching television: nearly every day 8. Moving or speaking so slowly that other people could have noticed. Or the opposite - being so fidgety or restless that you have been moving around a lot more than usual: more than half the days 9. Thoughts that you would be better off or of hurting yourself in some way: not at all Total score: 21 Depression Screening Interpretation: Positive Depression Screening Follow-up: Existing condition and Community Mental Health Worker F/U Depression Screening Done: Yes [address]185 - PHQ-9 Billing: Yes Source: Developed by Drs. Theodore Dodd, Renuka Urena, Ino Abraham and colleagues, with an educational elizabeth from [employer]. Thrive Questionnaire Date Thrive assessed: 01/28/25 I am a: Patient What is your living situation today?: I have a steady place to live Within the past 12 months, did the food you bought not last and you didn't have the money to get more?: Never true Within the past 12 months, did you worry whether your food would run out before you got money to buy more?: Never true Do you have trouble paying for medicines?: No Do you have trouble getting transportation to medical appointments?: No Do you have trouble paying your heating and electricity bill?: No Do you have trouble taking care of your child, family member or friend?: No Do you have trouble with day-to-day activities such as bathing, preparing meals, shopping, managing finances, etc.?: Yes Are you currently unemployed and looking for a job?: No Are you interested in more education?: No Please select the resources that you would like help with: None Currently or been in a relationship where the following occur: No concerns reported THRIVE Score: 0 AUDIT C Alcohol Use Questionnaire (AUDIT-C) 1. How often do you have a drink containing alcohol?: Never 3. How often do you have six or more drinks on one occasion?: Never Total Score: 0 Score Reviewed/Action Taken: No ANURADHA-7 AMB Questionnaire ANURADHA-7 Date ANURADHA - 7 assessed: 01/28/25 Feeling nervous, anxious, or on edge: 3 = Nearly every day Not being able to stop or control worryin = Nearly every day Worrying too much about different things: 3 = Nearly every day Trouble relaxin = Nearly every day Being so restless that it is hard to sit still: 3 = Nearly every day Becoming easily annoyed or irritable: 3 = Nearly every day Feeling afraid as if something awful might happen: 3 = Nearly every day Total ANURADHA-7 score (0-4 normal; 5-9 mild; 10-14 moderate; 15-21 severe): 21 Source: Developed by Drs. Theodore Dodd, Renuka Urena, Ino Abraham and colleagues, with an educational elizabeth from [employer]. ANURADHA-7 Assessment Billing ANURADHA-7 Assessment Tool: ANURADHA-7 Assessment 58097 Review of Systems Const Details: - Oral: Reports dental infection, denies abscess formation. All systems reviewed & are unremarkable except as noted in HPI and below Physical exam (Primary Care) Vital Signs: Last Vital Signs Temp 97.3 F 01/28/25 11:17 Pulse 79 01/28/25 11:17 Resp 16 01/28/25 11:17 BP 174/93 H 01/28/25 11:17 Pulse Ox 97 01/28/25 11:17 Oxygen Delivery Method Room Air 01/28/25 11:17 Care Plan Goal for BP management: <140/90 at Goal patient under a lot of stress due to father on hospice he will continue to monitor his blood pressure BMI result Body Mass Index 73.7 Tobacco/Smoking Status: Tobacco use Status Tobacco use date assessed 01/28/25 01/28/25 11:22 Patient Tobacco Use Status Never used Tobacco 01/28/25 11:22 PHQ-9: PHQ-9 Score PHQ-9: Total score 21 01/28/25 11:48 Depression Screening Interpretation: Positive Depression Screening Follow-up: Existing condition and Community Mental Health Worker F/U Thrive Assessment: Date of Thrive Assessment Date Thrive assessed 01/28/25 01/28/25 11:22 Currently or been in a relationship where the following occur: No concerns reported Const Other: Appearance: Alert. Oriented X3. No acute distress. Head: Normal external exam. Normocephalic. Atraumatic. Eyes: Pupils are equal, round, and reactive to light. Extraocular movements intact. Conjunctiva and sclera normal. Eyelids normal. Throat: Pharynx normal. Uvula midline. Moist mucous membranes. Neck: Normal inspection. Neck supple. Full range of motion. Cardiovascular: Normal heart rate and rhythm. Respiratory: No respiratory distress. Painless inspiration. Back: Full range of motion noted. Skin: Skin warm and dry. Normal skin color. Extremities: Extremities exhibit normal range of motion. Coding Level of Care Code Est Pt Level 4 (38366) Complex EM visit Add On G2211 Diagnoses Dental infection K04.7 Chronic pain G89.29 Depression F32.A Additional Codes ANURADHA-7 Assessment Billing - ANURADHA-7 Assessment Tool: ANURADHA-7 Assessment 34868 ([id number]) PHQ-9 - 16826 - PHQ-9 Billing: Yes ([id number]) Time Spent (min) 60 Assessment & Plan Assessment & Plan (1) Dental infection: Code(s): K04.7 - Periapical abscess without sinus Category: Medical Plan: The patient will be prescribed penicillin VK for the dental infection, as it has been effective in the past. The patient should monitor for any signs of abscess formation or worsening symptoms and follow up if necessary. (2) Chronic pain: Comment: On chronic pain medications Code(s): G89.29 - Other chronic pain Category: Medical Plan: The patient is to continue tapering oxycodone as per the previous plan discussed with Dr. Juares, reducing to 15 mg twice a day. Follow-up with Dr. Juares is recommended upon his return to discuss further tapering strategies. (3) Depression: Code(s): F32.A - Depression, unspecified Category: Medical Plan: Patient has scored high and his anxiety and depression. He deny any acute SI or HI or any auditory or visual hallucinations or thoughts of self-injury at this time. Kierra Santos, W community health worker went in to speak to the patient will be working with the patient to find him out was patient resources Plan Plan Patient was informed and verbally consented to the use of an ambient scribe for clinic note documentation during this visit. 1. Dental Infection The patient will be prescribed penicillin VK for the dental infection, as it has been effective in the past. The patient should monitor for any signs of abscess formation or worsening symptoms and follow up if necessary. 2. Medication Refill: Oxycodone Tapering The patient is to continue tapering oxycodone as per the previous plan discussed with Dr. Juares, reducing to 15 mg twice a day. Follow-up with Dr. Juares is recommended upon his return to discuss further tapering strategies. During the visit, we discussed the management of the dental infection with penicillin VK, which the patient has used effectively in the past. We also reviewed the oxycodone tapering plan, emphasizing the importance of following the dosage reduction to 15 mg twice a day. I advised the patient to follow up with Dr. Juares upon his return to discuss further tapering strategies. Medications: New penicillin V potassium 500 mg PO QID 28 tabs 0RF 7 days Changed From oxycodone 15 mg PO QID 120 tabs 0RF To oxycodone 15 mg PO BID 60 tabs 0RF Patient Instructions: - Take penicillin VK as prescribed for the dental infection. - Monitor for any signs of abscess or worsening symptoms and seek medical attention if necessary. - Continue oxycodone tapering as discussed, and follow up with Dr. Juares for further guidance.
[2025-01-28 11:17] VITALS: BP 174/93; PULSE 79; RESP 16; TEMP 36.3; O2SAT 97; BMI 73.7
--- OUTSIDE RECORDS SUMMARY | 2025-01-28 13:22 | XMS_ITS | Clinical Summary ---
Author Organization [facility] Address [address] [place] [address] Phone Care Team Providers Care Hackler Doll Wigs Name Role Phone Gt Menendez MD Primary Care Provider +1- [phone] Encounters Date Type Department Care Team Description 11/22/2024 Orders Only [facility] Neuro [address] [address] Bre Martin MD Optic neuropathy (Primary Dx); Meningioma 11/19/2024 Telephone [facility] Neuro [address] [address] Order Mode, Operations Support Professionals from Last 3 Months Social History Tobacco [...] topic Medical Devices Not on file [email or web address] [place] B [place] [facility] A & [place] PART A & B HEALTH MEDICARE PART A & B [facility] & B [email or web address] MED[facility] PART A & B Care Teams Hackler Doll Wigs Relationship Specialty Start Date End Date Gt Menendez MD [address] [place] [id number] PCP - General Internal Medicine 08/19/23 Additional Source Comments The information contained in this document represents components of the legal health record. It is not the complete legal health record.[facility]
--- OUTSIDE RECORDS SUMMARY | 2025-01-28 13:22 | XMS_ITS | Encounter Summary ---
Author Organization [employer] Address 75 [facility] 7 [place] [address] Care Team Providers Care Cloth Coverer Name Role Phone Unavailable Primary Care Provider Unavailabl e Encounter Details Date Type Department Care Team (Late st Contact Info) Description 09/06/2024 Telephone [facility] MEDICINE [address] [place] [address] Juanpablo Lomas MD [address] [place] [address] Social History Tobacco Use Types Packs/Day Years [...] DX : Medical Concern: Insurance name : [employer] Location : [facility] Demographic information updated documented in this encounter Plan of Treatment Not on file documented as of this encounter Visit Diagnoses Not on filedocumented in this encounter
--- OUTSIDE RECORDS SUMMARY | 2025-01-28 13:22 | XMS_ITS | Clinical Summary ---
Author Organization [employer] Address 75 [facility] 7t [place] [address] Care Team Providers Care Level Vial Grinder Name Role Phone Unavailable Primary Care Provider [...] patient's age to complete this topic Insurance [facility]
== END 2025-01-28 12:27 | disposition home or self-care (01) ==
LOC: HO.HMCSH 10:59
PROVIDERS: PCP Internal Medicine; Visit Provider Physician Assistant Medical
DX: K04.7 Periapical abscess without sinus (principal); G89.29 Other chronic pain; F32.A Depression, unspecified

== ENCOUNTER → 2025-01-28 10:59 | Outpatient (BNVA) | payer MEDICARE, MEDICAID, SELFPAY | PROVIDERS: PCP Internal Medicine; Visit Provider Physician Assistant Medical | DX: K04.7 Periapical abscess without sinus (principal); F41.9 Anxiety disorder, unspecified; F32.A Depression, unspecified; G89.29 Other chronic pain; Z79.891 Long term (current) use of opiate analgesic | CPT/HCPCS: 96127; 99212 ==

== ENCOUNTER 2025-02-01 14:50 | Outpatient (AMB) | payer MEDICARE, MEDICAID, SELFPAY ==
--- NOTE | 2025-02-01 14:53 | A.OFFVIS_ITS ---
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 The injection was administered on December 27, and the patient reports that it did not alleviate his pain, which remains at a level of 6 out of 10. He experienced increased pain following the injection, patient was made aware that full benefit may take 4-6 weeks. The patient has a history of obesity, with a current BMI of 76.8, which significantly impacts his knee joint health and limits interventional treatment and Orthopedic options. He has been on a weight loss regimen, losing 167 pounds since last January, but still faces challenges due to his high BMI. Patient's 2 lbs weight loss noted since initial visit in October. Patient reports he strictly follows [facility] Weight management protocol, mostly shakes and snack bars but recently had illness and was eating ramen noodles mostly for broth, but cannot tolerate broth without noodles. Patient reports upcoming follow up with weight management team and is encouraged to keep food diary for 2 weeks. Chronic pain management has been complicated by the reduction of his oxycodone prescription from four to two tablets per day, which has caused frustration. The patient reports that the reduction was not in line with previous discussions with his healthcare provider. Past Procedures: 12/27/24: Left knee intra-articular Synvisc One injection-0% pain relief PRIOR: The patient is a 49-year-old male presenting with chronic pain syndrome with complex medical history and significant morbid obesity. His diabetes mellitus currently managed with Zepbound 15 mg weekly injection and insulin Lispro on a sliding scale. A1c has improved from nearly 17 to 6.0, with previous blood glucose levels reaching 850 mg/dL. Patient has a history of blood clots and Afib requiring Eliquis and was previously hospitalized for a pulmonary embolism. The patient has significant obesity with a current BMI of 72.8 and a weight of 537 pounds. He has been experiencing chronic multiple joint pain, gout, including bilateral knee, ankle, hand, wrist, finger, and back pain. He has been managing his pain with oxycodone 15 mg four times a day, but his previous provider has retired, leading to challenges in continuing his prescription through his current PCP. Patient reports on good days he only takes 3 pills. 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 He also has sleep apnea and uses a CPAP machine. The patient has been active in weight loss management, having lost 130 pounds in the last seven months under the guidance of [facility] Weight Management. He engages in physical activity, including using a bicycle for his legs and hands and walking as much as possible. He uses cane for stability and guidance due to vision loss on the left. Reports history of falls, worsening his joint pain, especially left knee. He underwent left knee MRI at [facility], was told partial meniscus tear. Patient continues to loose weight as prerequisite for his surgical procedures. - Onset: Chronic pain present for 15-20 years - Quality: Sharp, burning, constant, aching, shooting, throbbing, heavy, tigh tness, tiring - Location: Bilateral knees, ankles, hands, wrists, fingers, back; worse left knee in medial aspect - Exacerbating Factors: Physical activity, rainy days, weight bearing - Relieving Factors: Oxycodone provides partial relief - Interference: Affects daily activities and functioning, sleep - Affect: Pain impacts daily activities and functioning, sleep - Analgesia: Oxycodone 15 mg four times a day, reduces pain from 10/10 to 4-5/10 - Adverse Effects: None reported - Activities of Daily Living: Pain affects daily activities, patient remains active with exercise - Aberrant Drug Related Behaviors: None reported [facility] Medical History Depression Dental infection Chronic pain of multiple joints Morbid obesity with BMI of 70 and over, adult History of torn meniscus of left knee Retinal tumor of left eye Left knee pain Chronic narcotic use Low folate Vitamin D deficiency Chronic pain History of colon polyps Visual impairment Elevated liver enzymes Low platelet count Anemia Constipation Body mass index [BMI] 70 or greater, adult Muscle spasm Hyperlipidemia History of concussion Gout Establishing care with new doctor, encounter for Pulmonary arterial hypertension NORIS (obstructive sleep apnea) Morbid obesity Hypoxemia Sleep apnea, obstructive Shortness of breath Morbid obesity with body mass index (BMI) greater than or equal to 70 in adult Brain tumor Persistent atrial fibrillation Aftercare following bilateral ankle joint replacement surgery Right hand dominant Seizure disorder Diabetes NORIS (obstructive sleep apnea) A-fib Surgical History History of colonoscopy (~04/28/21) History of ankle surgery Family History Paternal Grandmother Heart attack Maternal Grandfather Heart attack Brother No problems noted. Sister No problems noted. Sister No problems noted. Father Heart attack Hemoglobin A1C between 7% and 9% indicating borderline diabetic control Mother High blood pressure Social History Household Members: Family Housing: Apartment Do you presently have visiting nurse or other home services: No Alcohol intake: current Alcohol intake frequency: does not drink Patient Tobacco Use Status: Never used Tobacco service: No Current occupational status: disabled Cognitive needs: Yes (cane) Hearing needs: No Vision needs: Yes (rx glasses) Review of Systems Const All systems reviewed & are unremarkable except as noted in HPI and below Physical Exam Vital Signs: BMI result Body Mass Index 76.8 General: Appears afebrile. Severe morbid obesity. Alert and oriented. Mood and affect appropriate. Pleasant. Follows and participates in conversation appropriately. Respiratory effort is unlabored. No cough. Able to transition from sit to stand unassisted. Uses cane with ambulation. Ambulates with bilaterally normal heel strike and toe off. Extrem General: Yes capillary refill normal, Yes no clubbing, cyanosis or edema and Yes no calf tenderness Left lower extremity: knee Details: normal to inspection, tenderness Location: of the medial joint line and crepitus; no swelling, no ecchymosis, no deformity and no unusual warmth Results Reviewed Results Reviewed: XR KNEE, LEFT 09/10/24 CLINICAL INFORMATION: LEFT KNEE PAIN. COMPARISON: April 26, 2023. TECHNIQUE: AP and lateral views of the left knee. FINDINGS: Joint space narrowing involving mostly the medial compartment and to a lesser extent the patellofemoral and lateral compartment. Sclerosis along the articular surface of the medial tibial plateau and medial femoral condyle. Small marginal osteophyte formation and medial tibial plateau and posterior superior and posterior inferior patella. No gross joint effusion. No acute cortical disruption or malalignment. No lytic or blastic lesions. Well-corticated calcification in the popliteal region. IMPRESSION: Tricompartmental osteoarthrosis involving mostly the medial compartment. Similar since prior exam. XR KNEE, RIGHT 03/16/23 CLINICAL INFORMATION: Fall. Grade range of motion COMPARISON: None available. TECHNIQUE: 2 views of the right knee. FINDINGS: There is mild loss of medial compartment joint space. The lateral and the patellofemoral compartment joint space is normal. No visible acute fracture, dislocation or subluxation seen.. No bony erosive changes. There are small enthesophytes along the patellofemoral compartment.. The soft tissues are normal. IMPRESSION: Mild degenerative changes patellofemoral compartment. No visible acute fracture or dislocation seen. Assessment & Plan Assessment & Plan (1) Osteoarthritis of left knee: Code(s): M17.12 - Unilateral primary osteoarthritis, left knee Category: Medical (2) Chronic narcotic use: Code(s): F11.90 - Opioid use, unspecified, uncomplicated Category: Social Hx (3) Left knee pain: Code(s): M25.562 - Pain in left knee Category: Medical (4) Morbid obesity with BMI of 70 and over, adult: Code(s): E66.01 - Morbid (severe) obesity due to excess calories; Z68.45 - Body mass index [BMI] 70 or greater, adult Category: Medical (5) Polyarthralgia: Code(s): M25.50 - Pain in unspecified joint Category: Medical Plan Patient is status 4 weeks status post left knee intra-articular Synvisc-One injection with no pain relief. The plan includes discontinuing Synvisc injections due to lack of efficacy and considering alternative pain management strategies. However, patient is aware gel injections may take up to 4-6 weeks to show full benefit. Cortisone injections are not recommended due lack of efficacy in the past. The possibility of genicular radiofrequency ablation was mentioned. Weight management remains a critical component of the patient's care, with emphasis on continuing the current regimen and incorporating upper body exercises to aid weight loss. The patient is advised to maintain a food diary and follow up with Dr. Martino in two weeks. All questions and concerns have been answered and patient agreed with the treatment plan. Follow up as needed. Patient was informed and verbally consented to the use of an ambient scribe for clinic note documentation during this visit. Coding Level of Care Code Est Pt Level 3 (83367) Complex EM visit Add On G2211 Diagnoses Osteoarthritis of left knee M17.12 Chronic narcotic use F11.90 Left knee pain M25.562 Morbid obesity with BMI of 70 and over, adult E66.01; Z68.45 Polyarthralgia M25.50
[2025-02-01 14:59] VITALS: BMI 76.8
== END 2025-02-01 15:19 | disposition home or self-care (01) ==
LOC: HO.PMC 14:51
PROVIDERS: PCP Internal Medicine; Visit Provider Nurse Practitioner Family
DX: M17.12 Unilateral primary osteoarthritis, left knee (principal); Z79.891 Long term (current) use of opiate analgesic; M25.562 Pain in left knee; E66.01 Morbid (severe) obesity due to excess calories; Z68.45 Body mass index [BMI] 70 or greater, adult; M25.50 Pain in unspecified joint
CPT/HCPCS: 99213; G2211

== ENCOUNTER → 2025-02-01 14:50 | Outpatient (BNVA) | payer MEDICARE, MEDICAID, SELFPAY | PROVIDERS: PCP Internal Medicine; Visit Provider Nurse Practitioner Family | DX: M17.12 Unilateral primary osteoarthritis, left knee (principal); M25.50 Pain in unspecified joint; E66.01 Morbid (severe) obesity due to excess calories; Z68.45 Body mass index [BMI] 70 or greater, adult; M25.562 Pain in left knee; F11.90 Opioid use, unspecified, uncomplicated | CPT/HCPCS: 99212 ==

== ENCOUNTER 2025-03-07 11:27 | Outpatient (AMB) | payer MEDICARE, MEDICAID, SELFPAY ==
--- OUTSIDE RECORDS SUMMARY | 2023-07-03 23:00 | XMS_ITS | Encounter Summary ---
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 Not on kiara e 07/15/2023 Are you concerned about learning? Not on file 07/15/2023 No 07/15/2023 No 07/15/2023 Digital Access Answer Date Recorded No 07/15/2023 No 07/15/2023 Reliable internet access at home? Not on file 07/15/2023 Device with a working camera? Not on file Sex and Gender Information Value Date Recorded Sex Assigned at Not on file Legal Sex Male 9:28 PM EDT Gender Identity Not on file Sexual Orientation Not on file documented as of this encounter Plan of Treatment Pending Results Name Type Priority Associated Diagnoses Date /Time CT Face Outside With Interpretation Or Consult Imaging Routine 2023 12:00 AM EDT Scheduled Orders Name Type Priority Associated Diagnoses Orde r Schedule CT Face Outside With Interpretation Or Consult Imaging Routine As Nee ded for 1 Occurrences starting 10/07/2023 until 10/07/2023 documented as of this encounter Visit Diagnoses Not on filedocumented in this encounter Additional Source Comments The information contained in this document represents components of the legal health record. It is not the complete legal health record.[facility]
--- NOTE | 2025-03-07 11:34 | A.OFFVIS_ITS ---
VS Expanded 03/07/25 11:47 BP 189/91 H Blood Pressure Location Rt brachial Blood Pressure Position Sitting Pulse 88 Pulse Source Pulse Oximeter Temp 96.2 F L Temperature Source Temporal Artery Scan Pulse Oximetry 96 Oxygen Delivery Method Room Air Height 6 ft Weight 554 lb 3.2 oz BMI 75.2 Body Fat % 58.9 Body Fat Mass 326.6 Fat Free Mass 227.6 Visceral Fat Rating 59.0 Body Water % 32.9 Body Water Mass 182.2 Muscle Mass/Score 216.4 Basal Metabolic Rate/Score 3,600 Intake Visit Reasons: OV F/U SWL Allergies codeine (Codeine) Allergy (Unknown, Verified 03/07/25 11:40) RASH, hives ibuprofen (From Motrin) Allergy (Unknown, Verified 03/07/25 11:40) HIVES Medication List - Last Reconciled 03/07/25 by KWESI Cuevas allopurinol 300 mg PO DAILY apixaban (Eliquis) 5 mg PO BID 90 days atorvastatin 20 mg PO BEDTIME azithromycin take 500 mg today (day 1), then 250 mg for 4 days (days 2-5) PO baclofen 5 mg PO TID baclofen 10 mg PO TID PRN blood sugar diagnostic (FreeStyle Lite Strips) TID with meals carbamazepine 400 mg (2 x 200 mg) PO BID 90 days epinephrine (EpiPen) 0.3 mg (0.3 mL) IM Q10M PRN insulin lispro (Humalog KwikPen (U-100) Insulin) 1 sliding scale dose subcut DIRECTED lancets (FreeStyle Lancets) check glucose TID with meals naloxone 4 mg/actuation (Narcan) 1 spray intranasal Q2M nystatin 1 appl topical BID PRN oxybutynin chloride ER 10 mg PO DAILY oxycodone 15 mg PO BID pen needle, diabetic as directed penicillin V potassium 500 mg PO QID 7 days phenytoin sodium extended (Phenytek) 300 mg PO DAILY 90 days phenytoin sodium extended (Phenytek) 200 mg PO DIRECTED 90 days sildenafil 100 mg PO DAILY tirzepatide (weight loss) (Zepbound) 15 mg (0.5 mL) subcut QWEEK torsemide 20 mg PO DAILY HPI Comments Details: The patient is in the program in and out since 2018. Due to his very high weight and various medical conditions has not been able to work with us consistently to lose enough weight preoperatively so we can do the bariatric surgery. His dad got sick and recently. He has struggled the last 6 weeks due to this, regained some weight. Wakes up: 7am, Sleeps: 11pm 3 [employer]Power protein shakes per day, pt takes 2-3 per day 12 forks protein, 12 forks veg he cannot tolerate protein bars- taking Quest protein chips, usually 2 bags a day, sometimes 3 He continues on Zepbound, 15mg prescribed by Dr Neely Reports constipation. [facility] Medical History Depression Dental infection Chronic pain of multiple joints Morbid obesity with BMI of 70 and over, adult History of torn meniscus of left knee Retinal tumor of left eye Left knee pain Chronic narcotic use Low folate Vitamin D deficiency Chronic pain History of colon polyps Visual impairment Elevated liver enzymes Low platelet count Anemia Constipation Body mass index [BMI] 70 or greater, adult Muscle spasm Hyperlipidemia History of concussion Gout Establishing care with new doctor, encounter for Pulmonary arterial hypertension NORIS (obstructive sleep apnea) Morbid obesity Hypoxemia Sleep apnea, obstructive Shortness of breath Morbid obesity with body mass index (BMI) greater than or equal to 70 in adult Brain tumor Persistent atrial fibrillation Aftercare following bilateral ankle joint replacement surgery Right hand dominant Seizure disorder Diabetes NORIS (obstructive sleep apnea) A-fib Surgical History History of colonoscopy (~04/28/21) History of ankle surgery Family History Paternal Grandmother Heart attack Maternal Grandfather Heart attack Brother No problems noted. Sister No problems noted. Sister No problems noted. Father Heart attack Hemoglobin A1C between 7% and 9% indicating borderline diabetic control Mother High blood pressure Social History Household Members: Family Housing: Apartment Do you presently have visiting nurse or other home services: No Alcohol intake: current Alcohol intake frequency: does not drink Patient Tobacco Use Status: Never used Tobacco service: No Current occupational status: disabled Cognitive needs: Yes (cane) Hearing needs: No Vision needs: Yes (rx glasses) Physical Exam Vital Signs: Last Vital Signs Temp 96.2 F L 03/07/25 11:47 Pulse 88 03/07/25 11:47 BP 189/91 H 03/07/25 11:47 Pulse Ox 96 03/07/25 11:47 Oxygen Delivery Method Room Air 03/07/25 11:47 BMI result Body Mass Index 75.2 Assessment & Plan Assessment & Plan (1) Morbid obesity: Code(s): E66.01 - Morbid (severe) obesity due to excess calories Category: Surgical Plan Pt will continue above meal plan. I gave additional options for protein bar br ands, but pt and report that none that pt has ever tried has been well tolerated. He has one additional month of zepbound left, then he can text me when he needs additional refills. He will communicate with me for weight checks and I contacted his via text as well. RTC 4 mo. Medications: New inulin 2 grams PO DAILY 90 tabs 3RF inulin 2 grams PO DAILY 90 tabs 3RF
[2025-03-07 11:47] VITALS: BP 189/91; PULSE 88; TEMP 35.7; O2SAT 96; BMI 75.2
--- OUTSIDE RECORDS SUMMARY | 2025-03-07 14:42 | XMS_ITS | Clinical Summary ---
Author Organization [employer] Address [address] [place] [address] Care Team Providers Care Mumps Developer Name Role Phone Unavailable Primary Care Provider [...] 3-dose series) 1994 COVID-19 Vaccine (1 - 2024-2 6 season) 2024 Influenza Vaccine (#1) 2024 Zoster [...] patient's age to complete this topic Insurance [facility]
--- OUTSIDE RECORDS SUMMARY | 2025-03-07 14:42 | XMS_ITS | Clinical Summary ---
Author Organization [facility] Address [address] [place] [id number] Phone Care Team Providers Care Manager Grocery Name Role Phone Gt Menendez MD Primary Care Provider [phone]- [phone] Social History Tobacco Use Types Packs/Day Years [...] 2020 INFLUENZA VACCINE (#1) 2024 COVID-19 VACCINE (2024-2 6 season) 2024 HEPATITIS A VACCINES Aged Out No long er eligible based on patient's age to complete this topic HIB VACCINES Aged Out No longer eligi ble based on patient's age to complete this topic IPV VACCINES Aged Out No longer eligi ble [...] topic Medical Devices Not on file [facility] Member Subscriber Plan / Payer (Ef fective 2013-Present) Name:Zachary Conn Member ID:[id number] Relation to Subscriber:Self Name:Zachary Conn Subscriber ID:[id number] Payer ID:[id number] Group ID:Not on file Type:Medicare Address: [employer] [facility] [address] [facility] [place] [address] [place] [facility] [place] Member Subscriber Plan / Payer (Ef fective 2013-Present) Name:Zachary Conn Member ID:[id number] Relation to Subscriber:Self Name:Zachary Conn Subscriber ID:[id number] Payer ID:[id number] Group ID:Not on file Type:Medicare Address: [place] [facility] [address] [address] [place] B [facility] MEDICARE PART A & B Care Teams Manager Grocery Relationship Specialty Start Date End Date Gt Menendez MD [address] [place] [id number] PCP - General Internal Medicine 08/19/23 Additional Source Comments The information contained in this document represents components of the legal health record. It is not the complete legal health record.[facility]
--- OUTSIDE RECORDS SUMMARY | 2025-03-07 14:42 | XMS_ITS | Encounter Summary ---
Author Organization [employer] Address [address] [facility] [address] [place] [address] Care Team Providers Care Zinc Miner Blasting Name Role Phone Unavailable Primary Care Provider Unavailabl e Encounter Details Date Type Department Care Team (Late st Contact Info) Description 09/06/2024 Telephone [facility] [address] [place] [address] Juanpablo Lomas MD [address] [place] [address] Social History Tobacco Use Types Packs/Day Years [...] DX : Medical Concern: Insurance name : [employer] Location : [facility] Demographic information updated documented in this encounter Plan of Treatment Not on file documented as of this encounter Visit Diagnoses Not on filedocumented in this encounter
== END 2025-03-07 12:42 | disposition home or self-care (01) ==
LOC: HO.HBS 11:28
PROVIDERS: PCP Internal Medicine; Visit Provider Physician Assistant Surgical
DX: E66.01 Morbid (severe) obesity due to excess calories (principal); Z68.45 Body mass index [BMI] 70 or greater, adult
CPT/HCPCS: 99214; G2211

== ENCOUNTER → 2025-03-07 11:27 | Outpatient (BNVA) | payer MEDICARE, MEDICAID, SELFPAY | PROVIDERS: PCP Internal Medicine; Visit Provider Physician Assistant Surgical | DX: E66.01 Morbid (severe) obesity due to excess calories (principal); Z68.45 Body mass index [BMI] 70 or greater, adult; I10 Essential (primary) hypertension; Z79.85 Long-term (current) use of injectable non-insulin antidiabetic drugs; Z79.01 Long term (current) use of anticoagulants; E11.65 Type 2 diabetes mellitus with hyperglycemia; Z79.4 Long term (current) use of insulin | CPT/HCPCS: 99212 ==

== ENCOUNTER 2025-04-02 10:24 | Outpatient (AMB) | payer MEDICARE, MEDICAID, SELFPAY ==
[2025-04-02 10:38] VITALS: BP 121/56; PULSE 74; RESP 16; TEMP 36.3; O2SAT 96
--- NOTE | 2025-04-02 10:38 | A.OFFPC_ITS ---
Vital Signs 04/02/25 10:38 Height 5 ft 10.31 in BP 121/56 L Blood Pressure Location Lt brachial Position Sitting Respiration 16 Pulse 74 Pulse Source Pulse Oximeter Temp 97.4 F Temp Source Temporal Artery Scan Pulse Oximetry (%) 96 Oxygen Delivery Method Room Air Intake Visit Reasons: 1 month follow up Continuity Person Required: No Accompanied by: Self / Same As Patient Allergies codeine (Codeine) Allergy (Unknown, Verified 04/02/25 10:39) RASH, hives ibuprofen (From Motrin) Allergy (Unknown, Verified 04/02/25 10:39) HIVES Tobacco use date assessed: 01/28/25 Dental Screening Dental Screen Date: 01/28/25 HPI HPI Comments History of Present Illness Details History of Present Illness - The patient is a 49-year-old male pres enting for management of multiple chronic conditions, including pain, seizure disorder, and diabetes. - For his eye tumor, an MRI of the eye w as needed. - He was initially unable to undergo the MRI because his weight was 575 pounds, exceeding the 550-pound limit, and his shoulders were too broad for the machine. - He subsequently lost weight but has si nce regained it due to increased pain and immobility, preventing him from getting the MRI in [place]. - Regarding his seizure disorder, he can celed a recent neurology appointment and has not yet rescheduled. - He takes phenytoin (Dilantin) 400 mg i n the morning (two 200 mg doses) and 500 mg at night (one 200 mg and one 300 mg dose). - This dosage was adjusted from 500 mg t wice daily due to high levels, and recent lab work showed his levels are now therapeutic, with no seizures reported since the adjustment. - His diabetes is managed with insulin, and he reports his blood sugars are well-controlled. - He uses long-acting insulin every nigh t and short-acting insulin less frequently, only as needed. - He is running low on insulin pen needl e tips and has been unable to get a refill for several months because the pharmacy states a preauthorization is required after his previous prescription . - He reports significant chronic pain, w hich limits his mobility. - His oxycodone prescription was recentl y reduced to 15 mg twice a day, which he states is inadequate, leaving him unable to move for half the day after his morning dose. - He is unable to lose weight because th e pain prevents him from moving, uses one or two walking sticks, and sometimes requires assistance at home. - He has been told he needs reconstructi ve surgery on both ankles, surgery on one knee for a shredded meniscus, and has trigger thumbs, but no one will perform surgery until he loses a significant amount of weight. - He has received his flu shot. Social History - Functional Status: The patient reports severe chronic pain significantly limits his mobility. - He uses one or two walking sticks and sometimes requires assistance from his son or daughter to move around the house, including to the bathroom. - Mobility is further impaired after his morning pain medication wears off, at which point he is confined to his couch or bed. - Stressors: The patient has experienced six deaths in the last three months, including his father and cousin, and is grieving. - He has spoken with a psychiatrist but feels he needs time to grieve, not psychiatric intervention. - Weight Management: The patient needs t o lose weight to be eligible for gastric bypass surgery, joint surgeries, and to fit into an MRI machine for his eye tumor. - He reports that his inability to move due to pain is a barrier to weight loss, creating a catch-22 situation. - He had previously lost weight but rega ined it after his pain medication was reduced. - Equipment: The patient uses a CPAP mac lissette. Results - Labs: Recent labs for phenytoin (Elia tin) level were within the therapeutic range. [facility] Medical History Depression Dental infection Chronic pain of multiple joints Morbid obesity with BMI of 70 and over, adult History of torn meniscus of left knee Retinal tumor of left eye Left knee pain Chronic narcotic use Low folate Vitamin D deficiency Chronic pain History of colon polyps Visual impairment Elevated liver enzymes Low platelet count Anemia Constipation Body mass index [BMI] 70 or greater, adult Muscle spasm Hyperlipidemia History of concussion Gout Establishing care with new doctor, encounter for Pulmonary arterial hypertension NORIS (obstructive sleep apnea) Morbid obesity Hypoxemia Sleep apnea, obstructive Shortness of breath Morbid obesity with body mass index (BMI) greater than or equal to 70 in adult Brain tumor Persistent atrial fibrillation Aftercare following bilateral ankle joint replacement surgery Right hand dominant Seizure disorder Diabetes NORIS (obstructive sleep apnea) A-fib Surgical History History of colonoscopy (~04/28/21) History of ankle surgery Family History Paternal Grandmother Heart attack Maternal Grandfather Heart attack Brother No problems noted. Sister No problems noted. Sister No problems noted. Father Heart attack Hemoglobin A1C between 7% and 9% indicating borderline diabetic control Mother High blood pressure Social History Household Members: Family Housing: Apartment Do you presently have visiting nurse or other home services: No Alcohol intake: current Alcohol intake frequency: does not drink Patient Tobacco Use Status: Never used Tobacco service: No Current occupational status: disabled Cognitive needs: Yes (cane) Hearing needs: No Vision needs: Yes (rx glasses) Questionnaire PHQ-9 Over the last 2 weeks, how often have you been bothered by any of the following problems? 1. Little interest or pleasure in doing things: nearly every day 2. Feeling down, depressed, or hopeless: nearly every day 3. Trouble falling or staying asleep, or sleeping too much: nearly every day 4. Feeling tired or having little energy: nearly every day 5. Poor appetite or overeating: more than half the days 6. Feeling bad about yourself - or that you are a failure or have let yourself or your family down: more than half the days 7. Trouble concentrating on things, such as reading the newspaper or watching television: nearly every day 8. Moving or speaking so slowly that other people could have noticed. Or the opposite - being so fidgety or restless that you have been moving around a lot more than usual: more than half the days 9. Thoughts that you would be better off or of hurting yourself in some way: not at all Total score: 21 Depression Screening Interpretation: Positive Depression Screening Follow-up: Existing condition and Community Mental Health Worker F/U Depression Screening Done: Yes 11985 - PHQ-9 Billing: Yes Source: Developed by Drs. Theodore Dodd, Renuka Urena, Ino Abraham and colleagues, with an educational elizabeth from [employer]. Thrive Questionnaire Date Thrive assessed: 10/06/25 I am a: Patient What is your living situation today?: I have a steady place to live Within the past 12 months, did the food you bought not last and you didn't have the money to get more?: Never true Within the past 12 months, did you worry whether your food would run out before you got money to buy more?: Never true Do you have trouble paying for medicines?: No Do you have trouble getting transportation to medical appointments?: No Do you have trouble paying your heating and electricity bill?: No Do you have trouble taking care of your child, family member or friend?: No Do you have trouble with day-to-day activities such as bathing, preparing meals, shopping, managing finances, etc.?: Yes Are you currently unemployed and looking for a job?: No Are you interested in more education?: No Please select the resources that you would like help with: None Currently or been in a relationship where the following occur: No concerns reported THRIVE Score: 0 AUDIT C Alcohol Use Questionnaire (AUDIT-C) 1. How often do you have a drink containing alcohol?: Never 3. How often do you have six or more drinks on one occasion?: Never Total Score: 0 Score Reviewed/Action Taken: No ANURADHA-7 AMB Questionnaire ANURADHA-7 Date ANURADHA - 7 assessed: 01/28/25 Feeling nervous, anxious, or on edge: 3 = Nearly every day Not being able to stop or control worryin = Nearly every day Worrying too much about different things: 3 = Nearly every day Trouble relaxin = Nearly every day Being so restless that it is hard to sit still: 3 = Nearly every day Becoming easily annoyed or irritable: 3 = Nearly every day Feeling afraid as if something awful might happen: 3 = Nearly every day Total ANURADHA-7 score (0-4 normal; 5-9 mild; 10-14 moderate; 15-21 severe): 21 Source: Developed by Drs. Theodore Dodd, Renuka Urena, Ino Abraham and colleagues, with an educational elizabeth from [employer] ANURADHA-7 Assessment Billing ANURADHA-7 Assessment Tool: ANURADHA-7 Assessment 13410 Review of Systems Narrative Review of Systems - General: Reports significant pain. - Neurological: Reports a history of seizure disorder, which is currently controlled with no recent seizures. - Psychological: Reports feeling depressed following the recent of his father and other family members. - Denies suicidal ideation. - Musculoskeletal: Reports severe pain that limits mobility. - Reports needing surgeries on both ankles, a knee, and has trigger thumbs. Physical exam (Primary Care) Vital Signs: Last Vital Signs Temp 97.4 F 04/02/25 10:38 Pulse 74 04/02/25 10:38 Resp 16 04/02/25 10:38 BP 121/56 L 04/02/25 10:38 Pulse Ox 96 04/02/25 10:38 Oxygen Delivery Method Room Air 04/02/25 10:38 Tobacco/Smoking Status: Tobacco use Status Tobacco use date assessed 01/28/25 04/02/25 10:40 Patient Tobacco Use Status Never used Tobacco 04/02/25 10:40 PHQ-9: PHQ-9 Score PHQ-9: Total score 21 04/02/25 11:08 Depression Screening Interpretation: Positive Depression Screening Follow-up: Existing condition and Community Mental Health Worker F/U Thrive Assessment: Date of Thrive Assessment Date Thrive assessed 01/28/25 04/02/25 10:40 Currently or been in a relationship where the following occur: No concerns reported Narrative Physical Exam General: Appearance normal, both eyes and all related structures Nutritional Appearance: Patient has lost weight but gained it back due to medication changes Orientation/consciousness: Patient oriented x3 Limitations: Patient reports significant limitations due to pain and mobility issues, uses walking sticks and requires assistance Head: Normal to inspection Neck: Normal visual inspection Chest: Normal palpation of entire chest wall Respiratory: Normal respiratory effort Neurology: Patient oriented x3, reports seizure disorder managed with Dilantin (200 mg and 300 mg at night, 200 mg and 200 mg in the morning), no recent seizures reported Coding Level of Care Code Est Pt Level 4 (94425) Complex visit Add On G2211 Diagnoses Morbid obesity E66.01 Additional Codes ANURADHA-7 Assessment Billing - ANURADHA-7 Assessment Tool: ANURADHA-7 Assessment 96283 ([id number]) PHQ-9 - 45586 - PHQ-9 Billing: Yes ([id number]) Assessment & Plan Assessment & Plan (1) Morbid obesity: Code(s): E66.01 - Morbid (severe) obesity due to excess calories Category: Surgical Plan Plan - The prescription for oxycodone 15 mg will be discontinued. - The oxycodone 10 mg will be increased to four times a day to manage his chronic pain and improve mobility. - The patient is instructed to lose weight. - A prior authorization request for insulin pen needles will be addressed. - The patient must reschedule and attend his neurology appointment. - An inquiry will be made to ensure a bariatric wheelchair is available at his neurologist's office to facilitate his visit. - The patient will call on Tuesday to schedule the new neurology appointment and will inform this office of the date. Discussion Notes I have discussed the patient's pain management and acknowledged that the previous reduction in his oxycodone was insufficient. We will return to oxycodone 10 mg four times a day. I emphasized the importance of weight loss to enable necessary procedures like his MRI and surgeries. I also stressed that he must see the neurologist for his seizure disorder and that inability to walk is not an acceptable reason to miss the appointment; we will ensure transportation, such as a bariatric wheelchair, is available. I have addressed the issue with the insulin needle prescription and will work to resolve the pre-authorization issue with the pharmacy. Patient Instructions - Your pain medication, oxycodone 10 mg, has been increased to four times a day. - You need to focus on losing weight. - You must see the neurologist. - Please call your neurologist's office this Tuesday to make a new appointment. - When you make the appointment, make sure to ask them for a bariatric wheelchair to help you get from the car to the office, as you should not miss the appointment due to difficulty walking. - Let our office know the date of your neurology appointment once it is scheduled. - We are working on getting the insurance approval needed for your insulin pen needles. Medications: Refilled pen needle, diabetic Check glucose 3 times a day before meals and before bedt zabrina. At least 4 times a day 100 ea 6RF E11.9 - Type 2 diabetes mellitus without complications
== END 2025-04-02 11:21 | disposition home or self-care (01) ==
LOC: HO.HMCSH 10:24
PROVIDERS: PCP Internal Medicine; Visit Provider Internal Medicine
DX: E66.01 Morbid (severe) obesity due to excess calories (principal)

== ENCOUNTER → 2025-04-02 10:24 | Outpatient (BNVA) | payer MEDICARE, MEDICAID, SELFPAY | PROVIDERS: PCP Internal Medicine; Visit Provider Internal Medicine | DX: E11.9 Type 2 diabetes mellitus without complications (principal); E66.01 Morbid (severe) obesity due to excess calories; Z13.31 Encounter for screening for depression; G89.29 Other chronic pain; G40.909 Epilepsy, unspecified, not intractable, without status epilepticus | CPT/HCPCS: 96127; 99212 ==